=== PATIENT | female | born 1980 | race Caucasian/White ===

== ENCOUNTER 2016-01-12 09:41 | Outpatient (RCR) | payer OTHER ==
--- NOTE | 2016-01-05 14:19 | Diagnostic Imaging Report ---
INDICATION: Chronic hypertension with . COMPARISON: None. DISCUSSION: Transabdominal sonographic evaluation of the gravid uterus was performed. Single live intrauterine at 40 weeks 0 days by today's sonographic measurements. EDC by today's ultrasound is 01/05/2016. Reportedly, expected gestational age is 36 weeks 4 days by an outside ultrasound; however, those images are not available for review. EDC by this reported ultrasound was 01/29/2016. This would account for a 4-week date discrepancy. Recommend clinical correlation. presentation is cephalic. Normal amniotic fluid index. Grade 2 placenta is located within the right aspect of the uterus with no placenta previa. heart rate measures 136 beats per minute. Biparietal diameter measures 10.1 cm. Head circumference measures 37.0 cm. Abdominal circumference measures 35.9 cm. Femur length measures 7.5 cm. No breathing was identified during this exam. Normal movement and posture and tone along with a normal amniotic fluid index of 7.7 cm was present for a biophysical profile score of 6/8. IMPRESSION: 1. Single live intrauterine at 40 weeks 0 days by today's sonographic measurements. The technologist did report that an outside ultrasound report stated the expected gestational age was 36 weeks 4 days. Recommend clinical correlation for this date discrepancy. 2. Abnormal biophysical profile score of 6/8 due to a lack of breathing movement. Dictated by: Dictated on workstation # [id number]
[~2016-01-12 09:41] MED LIST: CLIN150C17; HYDR-3812 PO; PREN-115 PO; TRAM50TA2
--- NOTE | 2016-01-12 14:47 | Diagnostic Imaging Report ---
EXAMINATION: OB ultrasound/biophysical profile. INDICATION: Hypertension. FINDINGS: position is cephalic. The placenta is at the right with no placenta previa. Amniotic fluid index is near the lower limits of normal at 7.6 cm. heart rate is 140 bpm. Biophysical profile parameters meet criteria and is normal at total score of 8 out of 8. The growth parameters are: biparietal diameter measuring 10.3 cm, at 3.9 standard deviations above the mean for the patient's gestational age of 37 weeks and 4 days, head circumference is at 36 cm at 2.2 standard deviations above gestational age. The abdominal circumference is at 40 weeks and femur length is at 41 weeks and 2 days. Estimated weight is 4.2 kg. IMPRESSION: The amniotic fluid index is at the lower limits of normal. The fetus is large for gestational age with estimated current weight around 4.2 kg. The findings on this exam were called by the mechatronics technologist to Dr. Lenz at 11:00 AM on the day of the scan. Dictated by: Dictated on workstation # [id number]
[2016-01-17] MEDS ORDERED: FAMO-119 PO (21:37)
[2016-01-20] MEDS ORDERED: FERR-74 PO (08:13)
[2016-01-20] MEDS ORDERED: HYDR-3812 PO (08:13)
[2016-01-20] MEDS ORDERED: IBUP-1773 PO (08:13)
[2016-01-20] MEDS ORDERED: DOCU100C37 PO (08:13)
[2016-02-13] MEDS ORDERED: HYDR-3812 PO (17:32)
[2016-02-13] MEDS ORDERED: CLIN300C11 PO (17:32)
[2016-02-13] MEDS ORDERED: NITR-65 PO (17:38)
== END 2016-04-04 | disposition home or self-care (01) ==
LOC: RAD 09:41
PROVIDERS: ATTEND Obstetrics & Gynecology
DX: O10.013 Pre-existing essential hypertension complicating pregnancy, third trimester (principal); Z3A.40 40 weeks gestation of pregnancy
CPT/HCPCS: 76805; 76819

== ENCOUNTER 2016-06-01 05:40 | Outpatient (CLI) | payer OTHER ==
[~2016-06-01] VITALS: Ht 167.6 cm; Wt 88.9 kg
[~2016-06-01 05:40] MED LIST changes: +CLIN300C11 PO; +DOCU100C37 PO; +FAMO-119 PO; +FERR-74 PO; +IBUP-1773 PO; +NITR-65 PO
[2016-06-01] MEDS ORDERED: METO-270 PO (13:41)
== END 2016-06-01 13:44 ==
LOC: PREOP 05:40
PROVIDERS: ATTEND Surgery
DX: Z01.818 Encounter for other preprocedural examination (principal); K62.5 Hemorrhage of anus and rectum

== ENCOUNTER → 2016-06-06 | Day surgery (SDC) | payer OTHER ==
[~2016-06-06] VITALS: Ht 167.6 cm; Wt 88.9 kg
[~2016-06-06] MED LIST changes: +METO-270 PO; +MIDAZOLAM 2 MG/2 ML (VERSED) VIAL ONE; +NS IV 1000 ML 1,000 ML IV STA; +PROPOFOL INJECTION 50 ML IV ONE
[2016-06-06 11:50] VITALS: BP 120/81
--- NOTE | 2016-06-06 13:36 | Progress Note-Pre Operative ---
Pre-Operative Progress Note H&P Reviewed The H&P was reviewed, patient examined and no changes noted. Date H&P Reviewed: Jun 06, 2016 Time H&P Reviewed: 13:33 Pre-Operative Diagnosis: rectal bleed TATIANA VELÁSQUEZ DO Jun 06, 2016 13:36
--- NOTE | 2016-06-06 14:06 | Progress Note-Post Operative ---
Post-Operative Progess Note Surgeon (s)/Brass Molder Helper (s) Surgeon TATIANA VELÁSQUEZ DO Brass Molder Helper: none Pre-Operative Diagnosis rectal bleed Post-Operative Diagnosis same + internal hemorrhoids Post-Op Procedure Note Date of Procedure: Jun 06, 2016 Name of Procedure Performed: colonoscopy Description of the Procedure: colonoscopy Findings of the Procedure internal hemorrhoids Anesthesia Type IV by LOCK FITTER Estimated blood loss (mL): none Specimen(s) collected/removed none TATIANA VELÁSQUEZ DO Jun 06, 2016 14:06
--- NOTE | 2016-06-06 14:09 | Endoscopy Discharge Instruct ---
Endo Procedure/Findings Findings 1.: Internal Hemorrhoids Discharge Instructions - Activity: You might feel a little sleepy until tomorrow. This is due to the medicine you received to relax you. Make appointment for one week. Until tomorrow, you should: NOT drive a car, operate machinery or power tools. NOT drink any alcoholic beverages. NOT make any important decisions or sign importortant papers. Do not return to work until tomorrow, unless otherwise instructed. Resume previous activities tomorrow. Diet: Start by taking liquids. If you tolerate liquids, advance to solid food. Instructions: 1.: Colonscopy in 10 years Notify Physician - If you experience excessive bleeding, unusual abdominal pain, fever, or chest pain, contact your doctor immediately. Phone number [phone] Follow-Up: - I have received and understand the above instructions and will call my doctor if I have any further questions. Patient Signature Date Nurse Signature Other (Relationship) TATIANA VELÁSQUEZ DO Jun 06, 2016 14:09
[2016-06-06 14:25] VITALS: BP 111/62
[2016-06-06 14:55] VITALS: BP 95/68
[2016-06-06 15:00] VITALS: BP 95/68
--- NOTE | 2016-06-15 12:11 | OPERATIVE REPORT ---
DATE OF SERVICE: 06/06/2016 PREOPERATIVE DIAGNOSIS: Rectal bleeding, abdominal pain. POSTOPERATIVE DIAGNOSIS: Rectal bleeding, abdominal pain and internal hemorrhoids. PROCEDURE: Colonoscopy. SURGEON: Bryce Krause DO BODY SERVICE TEAM MEMBER: None. ANESTHESIA: IV sedation by TRIMMER OPERATOR. BLOOD LOSS: None. FLUIDS: Per Anesthesia. POSTOPERATIVE CONDITION: Stable. SPECIMENS: None. INDICATION FOR PROCEDURE: The patient is a 35-year-old who has been having some rectal bleeding and some abdominal pain, and she needs a workup. FINDINGS: The patient had some internal hemorrhoids, but otherwise normal colonoscopy. PROCEDURE NOTE: After informed consent was obtained, the patient was brought to the endoscopy suite and placed on the bed in the left lateral decubitus position. She was administered IV sedation. During the case, the TRIMMER OPERATOR monitored her vitals. The scope was inserted and pushed all the way in to about 140 cm; it went all the way to the cecum. I took a picture of the appendiceal orifice, then able to get into the terminal ileum. Took a picture, and then slowly withdrew the scope, insufflating to look circumferentially at the whitlock, looking at the cecum, up the ascending colon to the hepatic flexure, then down the transverse colon to the splenic flexure, then into the descending colon and down into the sigmoid and then rectum. Retroflexed in the rectal vault, saw some internal hemorrhoids, took a picture of this and then removed the scope. The patient tolerated the procedure and transferred to the recovery room in stable condition. Job ID: [id number] DocumentID: [id number] Dictated Date: 06/06/2016 14:10:05 Senior Design Engineer Date: 06/06/2016 15:45:00 Dictated By: BRYCE KRAUSE DO [facility]
== END | disposition home or self-care (01) ==
LOC: ENDO 10:55
PROVIDERS: ATTEND Surgery
DX: K64.8 Other hemorrhoids (principal); K62.5 Hemorrhage of anus and rectum
CPT/HCPCS: 84703

== ENCOUNTER → 2018-07-23 | Outpatient (CLI) | payer BC, OTHER ==
[~2018-07-23] MED LIST changes: +ACHD5005 PO; -FERR-74 PO; +FERR325T18 PO; -HYDR-3812 PO; -METO-270 PO; +METO-387 PO; -MIDAZOLAM 2 MG/2 ML (VERSED) VIAL ONE; -NS IV 1000 ML 1,000 ML IV STA; -PROPOFOL INJECTION 50 ML IV ONE
--- NOTE | 2018-07-23 13:09 | Diagnostic Imaging Report ---
INDICATION: Routine screening. COMPARISON: No prior mammograms are available for comparison. TECHNIQUE: 2D and 3D bilateral screening mammography was performed with CAD. FINDINGS: Scattered fibroglandular densities are identified bilaterally. No mass or malignant appearing microcalcifications are seen. The axillae are unremarkable. IMPRESSION: No mammographic features suspicious for malignancy are identified. ACR BI-RADS Category 1: Negative. Result letter will be mailed to the patient. Note: At least 10% of breast cancer is not imaged by mammography. Dictated by: Dictated on workstation # [id number]
== END ==
LOC: RAD 09:42
PROVIDERS: ATTEND Family Medicine
DX: Z12.31 Encounter for screening mammogram for malignant neoplasm of breast (principal)
CPT/HCPCS: 77067

== ENCOUNTER 2018-11-13 09:23 | Emergency (ER) | payer BC ==
[~2018-11-13] VITALS: Ht 165 cm; Wt 90.0 kg
[2018-11-13] MEDS ORDERED: FAMOTIDINE 20MG/2ML IV (PEPCID) IV STA (09:40)
[2018-11-13] MEDS ORDERED: LIDOCAINE 2% VISCOUS 15 ML UDC PO ONE (09:45)
[2018-11-13] MEDS ORDERED: ANTACID SUSP 30 ML UDC (MYLANTA) PO ONE (09:45)
[2018-11-13 09:54] LABS: BASOPHILS # (AUTO) 0.1 10^3/uL (0.0-0.1); BASOPHILS % (AUTO) 1 % (0-10); EOSINOPHILS # (AUTO) 0.3 10^3/uL (0.0-0.3); EOSINOPHILS % (AUTO) 4 % (0-10); HEMATOCRIT 41 % (35-52); HEMOGLOBIN 13.7 G/DL (11.5-16.0); LYMPHOCYTES % (AUTO) 26 % (12-44); MEAN CORPUSCULAR HEMOGLOBIN 30 PG (25-34); MEAN CORPUSCULAR HGB CONC 33 G/DL (32-36); MEAN CORPUSCULAR VOLUME 89 FL (80-99); MEAN PLATELET VOLUME 9.8 FL (7.4-10.4); MONOCYTES # (AUTO) 0.6 X 10^3 (0.0-1.0); MONOCYTES % (AUTO) 8 % (0-12); NEUTROPHILS # (AUTO) 4.8 X 10^3 (1.8-7.8); NEUTROPHILS % (AUTO) 62 % (42-75); PLATELET COUNT 341 10^3/uL (130-400); RED CELL DISTRIBUTION WIDTH 13.1 % (10.0-14.5); WHITE BLOOD COUNT 7.7 10^3/uL (4.3-11.0)
[2018-11-13 10:05] LABS: INR 0.8 (0.8-1.4); PROTHROMBIN TIME PATIENT 11.8 SEC (12.2-14.7)
[2018-11-13 10:10] LABS: ALANINE AMINOTRANSFERASE 29 U/L (0-55); ALBUMIN 4.3 GM/DL (3.2-4.5); ALKALINE PHOSPHATASE 104 U/L (40-136); BILIRUBIN,TOTAL 0.2 MG/DL (0.1-1.0); BUN/CREATININE RATIO 14; CALCIUM 9.3 MG/DL (8.5-10.1); CARBON DIOXIDE 24 MMOL/L (21-32); CHLORIDE 108 MMOL/L (98-107); CREATININE SERUM 0.76 MG/DL (0.60-1.30); GFR ESTIMATED > 60; GLUCOSE 94 MG/DL (70-105); MAGNESIUM 2.1 MG/DL (1.6-2.4); POTASSIUM 3.7 MMOL/L (3.6-5.0); SODIUM 140 MMOL/L (135-145); TOTAL PROTEIN 7.5 GM/DL (6.4-8.2)
--- NOTE | 2018-11-13 10:18 | Diagnostic Imaging Report ---
INDICATION: Chest discomfort for 2 weeks. Time of exam: 10:11 AM Correlation is made with prior chest from 02/13/2016. The heart size is normal. The pulmonary vascularity is unremarkable. The lungs are clear. No infiltrate, effusion or pneumothorax is detected. Impression: No acute cardiopulmonary process is detected. Dictated by: Dictated on workstation # [id number]
[2018-11-13] MEDS ORDERED: SUCR1TAB36 PO (12:05)
--- NOTE | 2018-11-13 12:05 | ED Chest Pain ---
General Chief Complaint: Chest Pain Stated Complaint: CHEST DISCOMFORT Nursing Triage Note: AMBULATED TO ROOM 05 WITH COMPLAINTS OF CHEST DISCOMFORT ON AND OFF FOR TWO WEEKS. CALLED HER DR'S OFFICE WHO TOLD HER TO COME TO THE ER. Nursing Sepsis Screen: No Definite Risk Source: patient Exam Limitations: no limitations History of Present Illness Date Seen by Provider: Nov 13, 2018 Time Seen by Provider: 09:28 Initial Comments This 38-year-old woman presents to the emergency room with complaints of intermittent chest pain for the past couple of weeks. Pain this morning started at about 07:30. She states pain is now rated as 3/10. She does have a history of epigastric and chest discomfort related to acid reflux. Sometimes this reflux well even cause discomfort in her throat. Protonix usually helps this discomfort but has not in recent days. She denies any changes in her pain with activity, rest, and deep breathing, etc. Pain is sometimes better with activity. She does not smoke tobacco. She does have a family history of heart disease. Dr. Cintron is her primary care provider. Allergies and Home Medications Allergies Coded Allergies: cephalexin (Verified Allergy, Intermediate, RASH/THROAT CLOSED, 06/01/16) Penicillins (Verified Allergy, Unknown, 06/01/16) Sulfa (Sulfonamide Antibiotics) (Verified Allergy, Unknown, 06/01/16) ciprofloxacin (Verified Allergy, Unknown, 06/01/16) Home Medications Metoprolol Succinate 25 Mg Tab.er.24h, 25 MG PO DAILY, (Reported) Sucralfate 1 Gm Tablet, 1 GM PO QID Dissolve in about 10 ML of water to slurry. Take 30 minutes before meals and bedtime. Prescribed by: LANDRY LANZA on 11/13/18 1205 Patient Home Medication List Home Medication List Reviewed: Yes Review of Systems Review of Systems Constitutional: no symptoms reported EENTM: No Symptoms Reported Respiratory: No Symptoms Reported Cardiovascular: See HPI Gastrointestinal: See HPI Genitourinary: No Symptoms Reported Musculoskeletal: no symptoms reported Skin: no symptoms reported Psychiatric/Neurological: No Symptoms Reported Endocrine: No Symptoms Reported Hematologic/Lymphatic: No Symptoms Reported Past [id number]-Alxjli-Vtkbmo Hx Past Med/Social Hx: Reviewed and Corrections made Patient Social History Alcohol Use: Occasionally Uses Recreational Drug Use: No Smoking Status: Never a Smoker Recent Foreign Travel: No Contact w/Someone Who Travel: No Recent Infectious Disease Expo: No Recent Hopitalizations: No Immunizations Up To Date Tetanus Booster (TDap): Less than 5yrs Date of Influenza Vaccine: Dec 22, 2015 Seasonal Allergies Seasonal Allergies: Yes Past Medical History Surgeries: Yes ([place]eth, BIOPSY OF BREAST) Abdominal (colonoscopy), Breast (lumpectomy) Respiratory: No Cardiac: Yes High Cholesterol, Hypertension Neurological: No Reproductive Disorders: No Female Reproductive Disorders: Denies Sexually Transmitted Disease: No HIV/AIDS: No Gastrointestinal: Yes (RECTAL BLEEDING/ABDOMINAL PAIN) Chronic Constipation, Chronic Diarrhea Musculoskeletal: No Endocrine: No Loss of Vision: Denies Hearing Impairment: Denies Cancer: No Psychosocial: Yes Anxiety Integumentary: No Blood Disorders: No Adverse Reaction/Blood Tranf: No (N/A) Family Medical History Reviewed and Corrections made Abdominal aortic aneurysm Grandparents (Maternal Grandmother ?) Alzheimer's disease Grandparents (Paternal Grandmother) Arthritis Grandparents (Paternal Grandmother Maternal Grandfather) Asthma 19 MOTHER Cardiovascular disease Grandparents (Paternal Grandfather-Heart Cancer) Completed stroke Grandparents (Paternal Grandfather) Coronary thrombosis Grandparents (Paternal Grandfather) Deafness or hearing loss Grandparents (Paternal Grandmother) Diabetes mellitus 19 FATHER FH: asthma Headache disorder 19 MOTHER (Migraines) Hypercholesterolemia 19 FATHER 19 MOTHER Grandparents (Paternal Grandparents Maternal Grandparents) Hypertension 19 FATHER Grandparents (Paternal Grandfather Maternal Grandparents) Myocardial infarction Grandparents (Paternal Grandfather Maternal Grandmother) Neoplasm Grandparents (Paternal Grandfather) Heart Disease, CAD Under 55 Years Old (mother), Hypertension Physical Exam Vital Signs Vital Signs - First Documented 11/13/18 09:30 Temp 37.1 Pulse 103 Resp 16 B/P (MAP) 144/102 (116) Pulse Ox 100 O2 Delivery Room Air Capillary Refill : Less Than 3 Seconds Height, Weight, BMI Height: 5'6.00" Weight: 196lbs. 0.0oz. 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, 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 Norm as Tested Skin: Normal Color, Warm/Dry Progress/Results/Core Measures Results/Orders Lab Results Laboratory Tests Test 11/13/18 09:43 11/13/18 11:55 Range/Units White Blood Count 7.7 4.3-11.0 10^3/uL Red Blood Count 4.62 4.35-5.85 10^6/uL Hemoglobin 13.7 11.5-16.0 G/DL Hematocrit 41 35-52 % Mean Corpuscular Volume 89 80-99 FL Mean Corpuscular Hemoglobin 30 25-34 PG Mean Corpuscular Hemoglobin Concent 33 32-36 G/DL Red Cell Distribution Width 13.1 10.0-14.5 % Platelet Count 341 130-400 10^3/uL Mean Platelet Volume 9.8 7.4-10.4 FL Neutrophils (%) (Auto) 62 42-75 % Lymphocytes (%) (Auto) 26 12-44 % Monocytes (%) (Auto) 8 0-12 % Eosinophils (%) (Auto) 4 0-10 % Basophils (%) (Auto) 1 0-10 % Neutrophils # (Auto) 4.8 1.8-7.8 X 10^3 Lymphocytes # (Auto) 2.0 1.0-4.0 X 10^3 Monocytes # (Auto) 0.6 0.0-1.0 X 10^3 Eosinophils # (Auto) 0.3 0.0-0.3 10^3/uL Basophils # (Auto) 0.1 0.0-0.1 10^3/uL Prothrombin Time 11.8 L 12.2-14.7 SEC INR Comment 0.8 0.8-1.4 Activated Partial Thromboplast Time 32 24-35 SEC Sodium Level 140 135-145 MMOL/L Potassium Level 3.7 3.6-5.0 MMOL/L Chloride Level 108 H 98-107 MMOL/L Carbon Dioxide Level 24 21-32 MMOL/L Anion Gap 8 5-14 MMOL/L Blood Urea Nitrogen 11 7-18 MG/DL Creatinine 0.76 0.60-1.30 MG/DL Estimat Glomerular Filtration Rate > 60 BUN/Creatinine Ratio 14 Glucose Level 94 70-105 MG/DL Calcium Level 9.3 8.5-10.1 MG/DL Corrected Calcium 9.1 8.5-10.1 MG/DL Magnesium Level 2.1 1.6-2.4 MG/DL Total Bilirubin 0.2 0.1-1.0 MG/DL Aspartate Amino Transf (AST/SGOT) 40 H 5-34 U/L Alanine Aminotransferase (ALT/SGPT) 29 0-55 U/L Alkaline Phosphatase 104 40-136 U/L Myoglobin 24.5 10.0-92.0 NG/ML Troponin I < 0.028 < 0.028 <0.028 NG/ML Total Protein 7.5 6.4-8.2 GM/DL Albumin 4.3 3.2-4.5 GM/DL My Orders Orders - LANDRY ROMERO MD Ekg Tracing (11/13/18 09:27) Cbc With Automated Diff (11/13/18 09:40) Magnesium (11/13/18 09:40) Chest 1 View, Ap/Pa Only (11/13/18 09:40) Cardiac Profile 1 (11/13/18 09:40) Comprehensive Metabolic Panel (11/13/18 09:40) Myoglobin Serum (11/13/18 09:40) Protime With Inr (11/13/18 09:40) Partial Thromboplastin Time (11/13/18 09:40) O2 (11/13/18 09:40) Monitor-Rhythm Ecg Trace Only (11/13/18 09:40) Ed Iv/Invasive Line Start (11/13/18 09:40) Lidocaine 2% Viscous 15 Ml (Xylocaine Vi (11/13/18 09:45) Antacid Suspension (Mylanta Suspension (11/13/18 09:45) Famotidine Injection (Pepcid Injection) (11/13/18 09:40) Troponin I (11/13/18 11:45) Iv Push Escalator Service Mechanic Ed (11/13/18 ) Medications Given in ED Vital Signs/I&O 11/13/18 11/13/18 09:30 12:49 Temp 37.1 Pulse 103 89 Resp 16 16 B/P (MAP) 144/102 (116) 147/107 Pulse Ox 100 98 O2 Delivery Room Air Room Air Blood Pressure Mean: 116 Progress Progress Note #1: Time: 12:00 Progress Note Patient does state a significant improvement in her chest discomfort after taking the GI cocktail and Pepcid. Initial workup was unremarkable. A 2 hour troponin is now pending. Progress Note #2: Progress Note 2 hour troponin was negative. Patient was feeling improved. Pain from a life- threatening etiology is unlikely. Patient was discharged home with return and follow-up instructions. Initial ECG Impression Date: Nov 13, 2018 Initial ECG Impression Time: 09:30 Initial ECG Rate: 101 Initial ECG Rhythm: S.Tach Initial ECG Intervals: Normal Comment Mild sinus tachycardia. No ST elevation or depression. No abnormal intervals or axis deviation. Diagnostic Imaging Diagonstic Imaging: Xray Plain Films/CT/US/NM/MRI: chest Comments Chest x-ray viewed by me and report reviewed. See report below: NAME: [facility] REC#: [id number] PT STATUS: REG ER : 1980 PHYSICIAN: LANDRY ROMERO MD ADMIT DATE: 11/13/18/ER Draft Date of Exam:11/13/18 CHEST 1 VIEW, AP/PA ONLY INDICATION: Chest discomfort for 2 weeks. Time of exam: 10:11 AM Correlation is made with prior chest from 02/13/2016. The heart size is normal. The pulmonary vascularity is unremarkable. The lungs are clear. No infiltrate, effusion or pneumothorax is detected. Impression: No acute cardiopulmonary process is detected. Dictated on workstation # [id number] Dict: 11/13/18 1016 Trans: 11/13/18 1017 ALIS [id number] Interpreted by: JAMAAL HESTER MD Departure Impression Primary Impression: Atypical chest pain Disposition: 01 HOME, SELF-CARE Condition: Improved Departure-Patient Inst. Referrals: ANTHONY CINTRON DO (PCP/Family) Primary Care Physician Patient Instructions: Chest Pain (DC) Add. Discharge Instructions: Continue taking your pantoprazole daily. Add Carafate as prescribed. Follow-up with your primary care provider as soon as possible. If you have p ersistent pain related to acid reflux, consider seeking referral to a surgeon or package crimper for endoscopy. Avoid the following: Eating large meals, eating close to bedtime, caffeine, carbonation, chocolate, alcohol, citrus fruits or juices, mints, tomato products, tobacco, spicy foods, fatty or greasy foods, NSAID medications such as ibuprofen or naproxen, or anything else you know irritate your stomach. Elevating your head when you sleep sometimes helps as well as this enables gravity to work against acid reflux. Weight loss to reduce pressure on your stomach can also be helpful. Return to care if you have worsening symptoms despite these measures. All discharge instructions reviewed with patient and/or family. Voiced understanding. Scripts Sucralfate (Carafate) 1 Gm Tablet 1 GM PO QID, #120 TAB Dissolve in about 10 ML of water to slurry. Take 30 minutes before meals and bedtime. Prov: LANDRY ROMERO MD 11/13/18 Copy Copies To 1: ANTHONY CINTRON JOSHUA T MD Nov 13, 2018 12:05
[2018-11-13 12:49] VITALS: BP 147/107
== END 2018-11-13 12:49 | disposition home or self-care (01) ==
LOC: EDUNIT# 09:23 → ER 09:23
DX: R07.89 Other chest pain (principal); Z88.0 Allergy status to penicillin; Z88.1 Allergy status to other antibiotic agents; Z88.2 Allergy status to sulfonamides; Z82.49 Family history of ischemic heart disease and other diseases of the circulatory system
CPT/HCPCS: 36415; 71045; 80053; 83735; 83874; 84484; 85025; 85610; 85730; 93005; 93041; 96374

== ENCOUNTER → 2018-12-10 | Outpatient (CLI) | payer BC ==
[~2018-12-10] MED LIST changes: -METO-387 PO; +MTP25TSR PO; +SUCR1TAB36 PO; -TRAM50TA2; +TRM50T
== END | disposition home or self-care (01) ==
LOC: PREOP 06:31
PROVIDERS: ATTEND Surgery
DX: Z01.818 Encounter for other preprocedural examination (principal)

== ENCOUNTER 2019-10-02 17:06 | Emergency (ER) | payer BC ==
[~2019-10-02] VITALS: Ht 167 cm; Wt 93.0 kg
--- OUTSIDE RECORDS SUMMARY | 2019-10-02 17:20 | XMS REPORT | CCD ---
Author Author Catherine Cintron D.O. Organization [facility] Address [address] [place] [address] Phone Care Team Providers Care Undercoat Sprayer Name Role Phone Ritika Cintron D.O., PP Unavailable CCM Unavailable Summary Purpose Interface Exchange Insurance Providers Payer name Policy type / Coverage type Covered democrat ID Effective Begin Date Effective End Date Blue Cross Blue Shield Blue Cross/Blue Shield [id number] Unknown Family history Mother Diagnosis Age At Onset No Family Disease Entered N/A Father Diagnosis Age At Onset Diabetes mellitus Type 1 Unknown Social History Social History Element Codes Description Effective Dates Tobacco history SNOMED CT: 485469521 Has never smoked or chewed tobacco 09/01/2010 Marital status Unknown 08/18/2010 Number of children Unknown 1 08/18/2010 Employment Unknown Currently employed Names and Numbers 08/18/2010 Allergies, Adverse Reactions, Alerts Substance Reaction Codes Entered Date Inactivated Date Status * NO KNOWN FOOD ALLERGIES Unknown 08/18/2010 No Inactiv e Date Active CIPRO Unknown 08/18/2010 No Inactive Date Active PENICILLINS Unknown 08/18/2010 No Inactive Date Active SULFA (SULFONAMIDES) Unknown 08/18/2010 No Inactive Shamar e Active * NO KNOWN ENVIRONMENTAL ALLERGIES Unknown 08/18/2010 N o Inactive Date Active CEPHALOSPORINS Unknown 08/18/2010 No Inactive Date Acti ve Problems Condition Codes Effective Dates Condition Status Encounter for general adult medical examination withou t abnormal findings ICD-9: V70.9 ICD-10: Z00.00 09/06/2016 Active Essential (primary) hypertension ICD-9: 401.9 ICD-10: I10 04/28/2016 Active Major depressive disorder, single episode, unspecified ICD-9: 311 ICD-10: F32.9 04/28/2016 Active Gastro-esophageal reflux disease without esophagitis I CD-9: 530.81 ICD-10: K21.9 01/03/2017 Active Generalized anxiety disorder ICD-9: 300.00 ICD-10: F41.1 02/08/2018 Active FLU VACCINE ICD-9: V04.81 ICD-10: Z23 01/02/2018 Active Epigastric pain ICD-9: 789.06 ICD-10: R10.13 01/03/2017 Active Elevated blood-pressure reading, without diagnosis of hypertension ICD-9: 796.2 ICD-10: R03.0 07/21/2014 Active Localized edema ICD-9: 782.3 ICD-10: R60.0 05/24/2018 Active Acute gastritis with bleeding ICD-9: 535.01 ICD-10: K29.01 08/13/2018 Active Generalized abdominal pain ICD-9: 789.07 ICD-10: R10.84 08/13/2018 Active Encounter for screening mammogram for malignant neopla sm of breast ICD-9: V76.10 ICD-10: Z12.31 07/17/2018 Active Allergic rhinitis, unspecified ICD-9: 477.9 ICD-10: J30.9 06/11/2015 Active Other allergic rhinitis ICD-9: 477.8 ICD-10: J30.89 04/27/2017 Active Encounter for gynecological examination (general) (routine) without abnormal findings ICD-9: V72.31 ICD-10: Z01.419 02/08/2018 Active Excessive and frequent menstruation with regular cycle ICD-9: 626.2 ICD-10: N92.0 10/31/2016 Active Acute sinusitis, unspecified ICD-9: 461.9 ICD-10: J01.90 12/11/2017 Active Acute pharyngitis, unspecified ICD-9: 462 ICD-10: J02.9 11/30/2017 Active Low back pain ICD-9: 724.2 ICD-10: M54.5 01/03/2017 Active Pelvic and perineal pain ICD-9: 625.9 ICD-10: R10.2 10/13/2017 Active Endocrine disorder, unspecified ICD-9: 259.9 ICD-10: E34.9 09/05/2017 Active Vitamin D deficiency, unspecified ICD-9: 268.9 ICD-10: E55.9 09/05/2017 Active Encounter for other contraceptive management ICD-9: V2 5.8 ICD-10: Z30.8 04/27/2017 Active Pain in thoracic spine ICD-9: 724.1 ICD-10: M54.6 01/03/2017 Active Anemia Unknown 09/06/2016 Active Encounter for general adult medical examination with a bnormal findings ICD-9: V70.0 ICD-10: Z00.01 09/06/2016 Active Generalized hyperhidrosis ICD-9: 780.8 ICD-10: R61 09/06/2016 Active Iron deficiency anemia, unspecified ICD-9: 280.9 ICD-10: D50.9 09/06/2016 Active Other fatigue ICD-9: 780.79 ICD-10: R53.83 09/06/2016 Active Hypertension Unknown 05/18/2016 Active Acute vaginitis ICD-9: 616.10 ICD-10: N76.0 04/28/2016 Active Nonscarring hair loss, unspecified ICD-9: 704.00 ICD-10: L65.9 04/28/2016 Active Urinary tract infection, site not specified ICD-9: 599 .0 ICD-10: N39.0 04/28/2016 Active Atypical facial pain ICD-9: 350.2 ICD-10: G50.1 09/09/2015 Active Other specified disorders of teeth and supporting stru ctures ICD-9: 525.9 ICD-10: K08.8 09/09/2015 Active CHEST PAIN NOS ICD-9: 786.50 11/03/2014 Active GERD ICD-9: 530.81 11/03/2014 Active EDEMA ICD-9: 782.3 07/21/2014 Active Elevated blood pressure ICD-9: 796.2 07/21/2014 Active PALPITATIONS ICD-9: 785.1 07/21/2014 Active COUGH ICD-9: 786.2 04/02/2014 Active SINUSITIS, ACUTE ICD-9: 461.9 04/02/2014 Active Cervicalgia ICD-9: 723.1 03/20/2014 Active Thoracic back pain ICD-9: 724.1 03/20/2014 Active EXCESSIVE MENSTRUATION ICD-9: 626.2 02/18/2014 Active IBS ICD-9: 564.1 02/18/2014 Active HYPERLIPIDEMIA NEC/NOS ICD-9: 272.4 10/01/2013 Active URINARY TRACT INFECTION ICD-9: 599.0 10/01/2013 Active ABNORMAL WEIGHT GAIN ICD-9: 783.1 09/12/2013 Active ARTHRALGIA-MULTIPLE SITES ICD-9: 719.49 09/12/2013 Active MALAISE AND FATIGUE ICD-9: 780.79 09/12/2013 Active FLU VACCINE ICD-9: V04.81 01/08/2013 Active CELLULITIS ICD-9: 682.9 12/03/2012 Active MRSA (methicillin resistant Staphylococcus aureus) ICD-9: 041.12 12/03/2012 Active Skin lesion, infected ICD-9: 686.9 12/03/2012 Active FEBRILE ILLNESS ICD-9: 780.60 04/03/2012 Active CONJUNCTIVITIS NOS ICD-9: 372.30 07/29/2011 Active URI, ACUTE ICD-9: 465.9 07/29/2011 Active CELLULITIS OF HAND ICD-9: 682.4 04/28/2011 Active Vaginal itching ICD-9: 698.1 03/07/2011 Active Scratched by cat ICD-9: 919.8 11/10/2010 Active Skin lesion of face ICD-9: 709.9 11/10/2010 Active ROUTINE GYNE EXAM ICD-9: V72.31 08/18/2010 Active ROUTINE MEDICAL EXAM ICD-9: V70.0 08/18/2010 Active Weight loss, abnormal ICD-9: 783.21 08/18/2010 Active Medications Medication Codes Instructions Start Date Stop Date Status Fill Instructions spironolactone 50 mg tablet RxNorm: 379621 Tablet(s) 1 TABLET(S ) PO QAM 07/25/2019 01/21/2020 Active sertraline 50 mg tablet RxNorm: 135770 1 Tablet(s) Oral QD 1 TA BLET(S) PO QD 07/25/2019 01/20/2020 Active Tri-Sprintec (28) 0.18 mg(7)/0.215 mg(7)/0.25 mg(7)-35 mcg tablet RxNorm: 645995 TAKE 1 TABLET BY MOUTH EVERY DAY 07/25/2019 01/21/2020 Active Tri-Sprintec (28) 0.18 mg(7)/0.215 mg(7)/0.25 mg(7)-35 mcg tablet RxNorm: 033414 TAKE 1 TABLET BY MOUTH EVERY DAY 07/08/2019 07/24/2019 Inactive Tri-Sprintec (28) 0.18 mg(7)/0.215 mg(7)/0.25 mg(7)-35 mcg tablet RxNorm: 982197 1 Tablet(s) Oral QD Due for annual appt 06/12/2019 07/07/2019 I nactive Due for annual appointment Tri-Sprintec (28) 0.18 mg(7)/0.215 mg(7)/0.25 mg(7)-35 mcg tablet RxNorm: 489730 TAKE 1 TABLET BY MOUTH EVERY DAY 04/15/2019 06/11/2019 Inactive Zetia 10 mg tablet RxNorm: 125926 1 Tablet(s) Oral QD 01/08/201904/2019 Inactive Tri-Sprintec (28) 0.18 mg(7)/0.215 mg(7)/0.25 mg(7)-35 mcg tablet RxNorm: 280669 TABLET(S) 1 TABLET(S) PO QD 01/07/2019 04/14/2019 Inactive Nexium 40 mg capsule,delayed release RxNorm: 037104 1 Capsule(s ) Oral QD 11/14/2018 01/07/2019 Inactive metronidazole 500 mg tablet RxNorm: 851809 1 Tablet(s) Oral thr ee times a day 11/14/2018 11/14/2018 Inactive Bactrim DS 800 mg-160 mg tablet RxNorm: 541465 1 Tablet(s) Oral two times a day 11/14/2018 11/14/2018 Inactive sertraline 50 mg tablet RxNorm: 696969 1 Tablet(s) PO QD 1 TABL ET(S) PO QD 09/17/2018 03/15/2019 Inactive spironolactone 50 mg tablet RxNorm: 962223 Tablet(s) 1 TABLET(S ) PO QAM 09/17/2018 03/15/2019 Inactive sertraline 50 mg tablet RxNorm: 882162 1 TABLET(S) PO QD 09/10/2018 0 09/16/2018 Inactive Tri-Sprintec (28) 0.18 mg(7)/0.215 mg(7)/0.25 mg(7)-35 mcg tablet RxNorm: 153526 Tablet(s) 1 TABLET(S) PO QD 08/20/2018 01/06/2019 Inactive Protonix 40 mg tablet,delayed release RxNorm: 755273 1 Tablet(s ) PO BID 08/13/2018 11/13/2018 Inactive Flagyl 500 mg tablet RxNorm: 312629 1 Tablet(s) PO BID 08/13/2018 Inactive spironolactone 50 mg tablet RxNorm: 037219 1 TABLET(S) PO QAM 08/1309/16/2018 Inactive Tri-Sprintec (28) 0.18 mg(7)/0.215 mg(7)/0.25 mg(7)-35 mcg tablet RxNorm: 082430 1 TABLET(S) PO QD 06/18/2018 07/15/2018 Inactive sertraline 50 mg tablet RxNorm: 950180 1 Tablet(s) PO QD 06/07/2018 0 09/04/2018 Inactive prednisone 10 mg tablet RxNorm: 189886 1 Tablet(s) PO BID 05/30/2018 06/03/2018 Inactive Tri-Sprintec (28) 0.18 mg(7)/0.215 mg(7)/0.25 mg(7)-35 mcg tablet RxNorm: 584600 1 Tablet(s) PO QD 05/17/2018 06/13/2018 Inactive sertraline 50 mg tablet RxNorm: 705839 1 TABLET(S) PO QD 05/07/2018 0 06/05/2018 Inactive Tri-Sprintec (28) 0.18 mg(7)/0.215 mg(7)/0.25 mg(7)-35 mcg tablet RxNorm: 365605 1 Tablet(s) PO QD 02/08/2018 05/02/2018 Inactive sertraline 50 mg tablet RxNorm: 475230 1 Tablet(s) PO QD 02/08/2018 0 04/08/2018 Inactive omeprazole 40 mg capsule,delayed release RxNorm: 376855 1 Capsule(s) PO QD for acid reflux 02/08/2018 08/12/2018 Inactive montelukast 10 mg tablet RxNorm: 800425 1 Tablet(s) PO QHS 12/15/19 18 12/13/2017 Inactive montelukast 10 mg tablet RxNorm: 530246 1 Tablet(s) PO QHS 12/15/19 18 08/12/2018 Inactive spironolactone 50 mg tablet RxNorm: 132382 1 Tablet(s) PO QAM 12/0612/05/2017 Inactive spironolactone 50 mg tablet RxNorm: 983599 1 Tablet(s) PO QAM 12/0603/05/2018 Inactive spironolactone 25 mg tablet RxNorm: 183414 1 TABLET(S) PO QAM BLOOD PRESSURE CHECK IN 1 MONTH 12/04/2017 12/10/2017 Inactive clindamycin HCl 300 mg capsule RxNorm: 830005 1 Capsule(s) PO TID 1 12/09/2017 Inactive spironolactone 25 mg tablet RxNorm: 689336 1 Tablet(s) PO QAM Blood pressure check in 1 month 11/06/2017 12/03/2017 Inactive spironolactone 25 mg tablet RxNorm: 143944 1 Tablet(s) PO QAM Blood pressure check in 1 month 11/06/2017 11/05/2017 Inactive cyclobenzaprine 5 mg tablet RxNorm: 332098 1/2-1 Tablet(s) PO Q HS for spasm 10/13/2017 11/11/2017 Inactive Macrobid 100 mg capsule RxNorm: 590602 1 Capsule(s) PO BID 10/14/19 18 10/19/2017 Inactive Mobic 15 mg tablet RxNorm: 368429 1 Tablet(s) PO QAM for pain 10/1311/11/2017 Inactive Depo-Provera 150 mg/mL intramuscular syringe RxNorm: 1252453 Milliliter(s) IM Bring to office for administration 07/18/2017 02/07/2018 Inactive Singulair 10 mg tablet RxNorm: 211630 1 Tablet(s) PO QD 04/12/2017 Inactive Singulair 10 mg tablet RxNorm: 413451 1 Tablet(s) PO QD 03/20/2017 Inactive metoprolol tartrate 50 mg tablet RxNorm: 399191 1 Tablet(s) PO QD 0 02/21/2017 09/04/2017 Inactive Mobic 15 mg tablet RxNorm: 466721 1 Tablet(s) PO QD 01/30/20172017 Inactive Mobic 15 mg tablet RxNorm: 144965 1 Tablet(s) PO QD 01/03/20172016 Inactive Protonix 40 mg tablet,delayed release RxNorm: 003995 1 Tablet(s ) PO BID 01/03/2017 11/29/2017 Inactive metoprolol tartrate 50 mg tablet RxNorm: 703211 1 Tablet(s) PO QD 1 02/21/2017 Inactive Depo-Provera 150 mg/mL intramuscular syringe RxNorm: 2748056 Milliliter(s) IM Bring to office for administration 10/28/2016 07/17/2017 Inactive Depo-Provera 150 mg/mL intramuscular syringe RxNorm: 1758839 Milliliter(s) IM Bring to office for administration 10/10/2016 10/27/2016 Inactive Macrobid 100 mg capsule RxNorm: 904133 1 Capsule(s) PO BID 04/29/19 17 05/04/2016 Inactive metoprolol succinate ER 50 mg tablet,extended release 24 hr RxNorm: 274908 1 Tablet(s) PO QD 04/28/2016 07/26/2016 Inactive Diflucan 150 mg tablet RxNorm: 297376 1 Tablet(s) PO QD x 1 dose 09/05/2016 Inactive sertraline 25 mg tablet RxNorm: 924595 1/2 Tablet(s) PO QD for 1 week and then increase to 1 tablet PO QD 04/28/2016 09/05/2016 Inactive Toprol XL 50 mg tablet,extended release RxNorm: 189711 1 Tablet (s) PO QD 01/26/2016 04/27/2016 Inactive clindamycin 300 mg capsule RxNorm: 630046 1 Capsule(s) PO TID 09/0909/19/2015 Inactive omeprazole 20 mg capsule,delayed release RxNorm: 810365 1 Capsu le(s) PO QD 11/04/2014 04/27/2016 Inactive hydrochlorothiazide 12.5 mg tablet RxNorm: 832432 1 Tablet(s) PO QD 09/10/2014 04/27/2016 Inactive Aviane 0.1 mg-20 mcg tablet RxNorm: 326303 1 Tablet(s) PO QD 201404/27/2016 Inactive hydrochlorothiazide 12.5 mg tablet RxNorm: 865805 1 Tablet(s) PO QD 07/21/2014 09/09/2014 Inactive Zithromax Z-Kyle 250 mg tablet RxNorm: 070296 Tablet(s) PO As Di rected 07/21/2014 11/03/2014 Inactive tobramycin 0.3 % eye drops RxNorm: 473774 2 Drop(s) OPH Q4H 015 04/02/2014 Inactive tobramycin 0.3 % eye drops RxNorm: 840129 2 Drop(s) OPH Q4H 015 04/09/2014 Inactive azithromycin 250 mg tablet RxNorm: 191833 2 Tablet(s) P O on day one then one tablet on days 2 - 5 04/02/2014 11/03/2014 Inactive hyoscyamine ER 0.375 mg tablet,extended release,12 hr RxNorm : 2793572 1 Tablet(s) PO QHS 03/20/2014 11/03/2014 Inactive Levbid 0.375 mg tablet,extended release RxNorm: 4191002 1 Tablet (s) PO QHS 02/18/2014 03/19/2014 Inactive Aviane 0.1 mg-20 mcg tablet RxNorm: 683106 1 Tablet(s) PO QD 201308/27/2014 Inactive Diflucan 150 mg tablet RxNorm: 120574 1 Tablet(s) PO QOD 10/01/2013 1 Inactive Macrobid 100 mg capsule RxNorm: 957976 1 Capsule(s) PO BID 10/02/19 14 10/07/2013 Inactive clindamycin 300 mg capsule RxNorm: 742019 1 Capsule(s) PO TID 12/0312/12/2012 Inactive azithromycin 250 mg tablet RxNorm: 675066 2 Tablet(s) PO QD 013 04/08/2012 Inactive Zithromax Z-Kyle 250 mg tablet RxNorm: 296647 1 Tablet(s ) PO QD Take 2 today and 1 a day on days 2-5 03/30/2012 04/03/2012 Inactive Tobrex 0.3 % Eye Drops RxNorm: 355417 2 Drop(s) OPH Q4H 07/29/2011 Inactive doxycycline hyclate 100 mg Tab RxNorm: 7710408 1 Tablet(s) PO BID 0 04/28/2011 05/07/2011 Inactive Pyridium 200 mg Tab RxNorm: 7360535 1 Tablet(s) PO TID 03/07/2011 Inactive Macrobid 100 mg Cap RxNorm: 849908 1 Capsule(s) PO BID 03/07/2011 Inactive Diflucan 100 mg Tab RxNorm: 152974 1 Tablet(s) PO QD 03/07/201103/16 Inactive Benadryl 25 mg capsule RxNorm: 6584053 Capsule(s) PO as needed No Sta rt Date Active Vitamin B12 1000mcg Tablet RxNorm: 1/2 Tablet(s) PO QD No Star t Date 11/29/2017 Inactive Depo-Provera 150 mg/mL intramuscular syringe RxNorm: 3389710 Milliliter(s) IM Bring to office for administration No Start Date 10/09/2016 Inactive metoprolol tartrate 50 mg tablet RxNorm: 596328 1 Tablet(s) PO QD N o Start Date 11/22/2016 Inactive Zyrtec 10 mg tablet RxNorm: 3574710 1 Tablet(s) PO QD No Start Date 1 Inactive Sudafed PE 10 mg tablet RxNorm: 0476402 Tablet(s) PO as needed No S tart Date 09/04/2017 Inactive Toprol XL 50 mg tablet,extended release RxNorm: 982884 1 Tablet (s) PO QD No Start Date 01/25/2016 Inactive Depo-Provera 150 mg/mL intramuscular suspension RxNorm: 1000 128 1 Milliliter(s) IM every 3mos No Start Date 02/17/2014 Inactive Flonase Allergy Relief 50 mcg/actuation nasal spray,suspensi on RxNorm: [place] NASAL as needed No Start Date 11/29/2017 Inactive Zyrtec 10 mg tablet RxNorm: 9751671 1 Tablet(s) PO QD as needed No Start Date 05/23/2018 Inactive Medication Administered No Medication Administered data Immunizations Vaccine Codes Date Status Influenza CVX: 141 11/22/2018 Complete Influenza CVX: 141 11/22/2018 Complete Influenza CVX: 141 01/02/2018 Complete Influenza CVX: 141 01/08/2013 Pediatric Influenza CVX: 141 01/08/2013 Results Observation Observation Code Item Item Code Result Date S ervice Location COMPLETE BLOOD COUNT [id number] WBC 15.9 10e9/L 019 Unknown COMPLETE BLOOD COUNT [id number] RBC 5.10 10e12/L 2018 Unknown COMPLETE BLOOD COUNT [id number] HEMOGLOBIN 15.2 g/dL 08/14/19 19 Unknown COMPLETE BLOOD COUNT [id number] HEMATOCRIT 46.2 % 08/14/19 19 Unknown COMPLETE BLOOD COUNT [id number] MCV 90.6 fL 9 Unknown COMPLETE BLOOD COUNT [id number] MCH 29.8 pg 9 Unknown COMPLETE BLOOD COUNT [id number] MCHC 32.9 g/dL 9 Unknown COMPLETE BLOOD COUNT [id number] PLATELET COUNT 433 10e9/L Unknown COMPLETE BLOOD COUNT [id number] Mean Plt Volume 9.9 fL Unknown COMPLETE BLOOD COUNT [id number] Neut Auto 74.7 % 9 Unknown COMPLETE BLOOD COUNT [id number] Lymph Auto 18.6 % 08/14/19 19 Unknown COMPLETE BLOOD COUNT [id number] [place] Auto 5.8 % 9 Unknown COMPLETE BLOOD COUNT [id number] RDW 14.1 % 9 Unknown COMPLETE BLOOD COUNT [id number] Eos Auto 0.6 % 9 Unknown COMPLETE BLOOD COUNT [id number] Baso Auto 0.3 % 9 Unknown COMPLETE BLOOD COUNT [id number] Neutrophil Abs 11.88 10e9/L 0 08/13/2018 Unknown COMPLETE BLOOD COUNT [id number] Lymphocyte Abs 2.96 10e9/L Unknown COMPLETE BLOOD COUNT [id number] Monocyte Abs 0.92 10e9/L 07/22 Unknown COMPLETE BLOOD COUNT [id number] Eosinophil Abs 0.10 10e9/L Unknown COMPLETE BLOOD COUNT [id number] RDW-SD 45.7 fL 9 Unknown COMPLETE BLOOD COUNT [id number] Basophil Abs 0.05 10e9/L 07/22 Unknown A FOOD C P [id number] Cod[place] Cl Class 0 03/21/2017 Unknown A FOOD C P [id number] [place] Ct <0.35 kU/L 03/21/2017 Unknow n A FOOD C P [id number] [place] Cl Class 0 03/21/2017 Unkn own A FOOD C P [id number] [place] Ct <0.35 kU/L 03/21/2017 Unk nown A FOOD C P [id number] Egg White Cl Class 3 03/21/2017 Unkno wn A FOOD C P [id number] Egg White Ct 4.68 kU/L 03/21/2017 Unkno wn A FOOD C P [id number] Egg Yolk Cl Class 1 03/21/2017 Unknow n A FOOD C P [id number] Egg Yolk Ct 0.49 kU/L 03/21/2017 Unknow n A FOOD C P [id number] Cow Milk Cl Class 3 03/21/2017 Unknow n A FOOD C P [id number] Cow Milk Ct 3.77 kU/L 03/21/2017 Unknow n A FOOD C P [id number] Peanut Cl Class 0 03/21/2017 Unknown A FOOD C P [id number] Peanut Ct <0.35 kU/L 03/21/2017 Unknown A FOOD C P [id number] Shrimp Cl Class 2 03/21/2017 Unknown A FOOD C P [id number] Shrimp Ct 0.78 kU/L 03/21/2017 Unknown A FOOD C P [id number] Soybean Cl Class 0 03/21/2017 Unknown A FOOD C P [id number] Soybean Ct <0.35 kU/L 03/21/2017 Unknow n A FOOD C P [id number] Wheat Cl Class 1 03/21/2017 Unknown A FOOD C P [id number] Wheat Ct 0.58 kU/L 03/21/2017 Unknown A FOOD C P [id number] Potato Cl Class 0 03/21/2017 Unknown A FOOD C P [id number] Potato Ct <0.35 kU/L 03/21/2017 Unknown A FOOD C P [id number] Beef Cl Class 0 03/21/2017 Unknown A FOOD C P [id number] Beef Ct <0.35 kU/L 03/21/2017 Unknown A FOOD C P [id number] [place] Cl Class 0 03/21/2017 Unknown A FOOD C P [id number] [place] Ct <0.35 kU/L 03/21/2017 Unknown A FOOD C P [id number] Pork Cl Class 0 03/21/2017 Unknown A FOOD C P [id number] Pork Ct <0.35 kU/L 03/21/2017 Unknown A FOOD C P [id number] [place] Cl Class 0 03/21/2017 Unknown A FOOD C P [id number] [place] Ct <0.35 kU/L 03/21/2017 Unknown A FOOD C P [id number] [place] Cl Class 0 03/21/2017 Unkn own A FOOD C P [id number] [place] Ct <0.35 kU/L 03/21/2017 Unk nown A FOOD C P [id number] Tomato Cl Class 0 03/21/2017 Unknown A FOOD C P [id number] Tomato Ct <0.35 kU/L 03/21/2017 Unknown A FOOD C P [id number] Tuna Cl Class 0 03/21/2017 Unknown A FOOD C P [id number] Tuna Ct <0.35 kU/L 03/21/2017 Unknown A FOOD C P [id number] [place] CL Class 0 03/21/2017 Unknown A FOOD C P [id number] [place] CT <0.35 kU/L 03/21/2017 Unknown A FOOD C P [id number] Casein Cl Class 1 03/21/2017 Unknown A FOOD C P [id number] Casein Ct 0.64 kU/L 03/21/2017 Unknown A FOOD C P [id number] Oat Cl Class 0 03/21/2017 Unknown A FOOD C P [id number] Oat Ct <0.35 kU/L 03/21/2017 Unknown A FOOD C P [id number] [place] Cl Class 2 03/21/2017 Unknown A FOOD C P [id number] [place] Ct 0.75 kU/L 03/21/2017 Unknown A FOOD C P [id number] Chicken Meat CL Class 0 03/21/2017 Un known A FOOD C P [id number] Chicken Meat Ct <0.35 kU/L 03/21/2017 U nknown A FOOD C P [id number] [place] Cl Class 0 03/21/2017 Unknown A FOOD C P [id number] [place] Ct <0.35 kU/L 03/21/2017 Unknown A FOOD C P [id number] Pecan Meat Cl Class 0 03/21/2017 Unkn own A FOOD C P [id number] Pecan Meat Ct <0.35 kU/L 03/21/2017 Unk nown A NUTS PNL [id number] Peanut Cl Class 0 03/21/2017 Unknown A NUTS PNL [id number] Peanut Ct <0.35 kU/L 03/21/2017 Unknown A NUTS PNL [id number] [place] Meat Cl Class 0 03/21/2017 Unk nown A NUTS PNL [id number] [place] Meat Ct <0.35 kU/L 03/21/2017 Un known A NUTS PNL [id number] Pec[place] Meat Cl Class 0 03/21/2017 Unkn own A NUTS PNL [id number] Pecan Meat Ct <0.35 kU/L 03/21/2017 Unk nown A NUTS PNL [id number] [place] Cl Class 0 03/21/2017 Unknown A NUTS PNL [id number] [place] Ct <0.35 kU/L 03/21/2017 Unknown A NUTS PNL [id number] [place] Cl Class 0 03/21/2017 Unknow n A NUTS PNL [id number] [place] Ct <0.35 kU/L 03/21/2017 Unkno wn A NUTS PNL [id number] [place] Cl Class 0 03/21/2017 Unkno wn A NUTS PNL [id number] [place] Ct <0.35 kU/L 03/21/2017 Unkn own A NUTS PNL [id number] [place] Cl Class 0 03/21/2017 Unknown A NUTS PNL [id number] [place] Ct <0.35 kU/L 03/21/2017 Unknown A NUTS PNL [id number] [place] Cl Class 0 03/21/2017 Unkno wn A NUTS PNL [id number] [place]ist[place] Ct <0.35 kU/L 03/21/2017 Unkn own A NUTS PNL [id number] Allergen Interp See Note 03/21/2017 Un known A FRT/VG P [id number] [place] Cl Class 0 03/21/2017 Unkn own A FRT/VG P [id number] [place] Ct <0.35 kU/L 03/21/2017 Unk nown A FRT/VG P [id number] Potato Cl Class 0 03/21/2017 Unknown A FRT/VG P [id number] Potato Ct <0.35 kU/L 03/21/2017 Unknown A FRT/VG P [id number] [place] Cl Class 0 03/21/2017 Unkn own A FRT/VG P [id number] [place] Ct <0.35 kU/L 03/21/2017 Unk nown A FRT/VG P [id number] Tom[place] Cl Class 0 03/21/2017 Unknown A FRT/VG P [id number] Tomato Ct <0.35 kU/L 03/21/2017 Unknown A FRT/VG P [id number] [place] Cl Class 2 03/21/2017 Unknown A FRT/VG P [id number] [place] Ct 0.75 kU/L 03/21/2017 Unknown A FRT/VG P [id number] Ban[place] Cl Class 2 03/21/2017 Unknown A FRT/VG P [id number] Banana Ct 2.58 kU/L 03/21/2017 Unknown A FRT/VG P [id number] [place] Fruit Cl Class 0 03/21/2017 Unk nown A FRT/VG P [id number] [place] Ct <0.35 kU/L 03/21/2017 Un known A FRT/VG P [id number] [place] Fruit Cl Class 0 03/21/2017 Unk nown A FRT/VG P [id number] Apple Fruit Ct <0.35 kU/L 03/21/2017 Un known A FRT/VG P [id number] Car[place] Cl Class 0 03/21/2017 Unknown A FRT/VG P [id number] Carrot Ct <0.35 kU/L 03/21/2017 Unknown A FRT/VG P [id number] Pea Cl Class 0 03/21/2017 Unknown A FRT/VG P [id number] Pea Ct <0.35 kU/L 03/21/2017 Unknown A FRT/VG P [id number] Pear Fruit Cl Class 0 03/21/2017 Unkn own A FRT/VG P [id number] Pear Fruit Ct <0.35 kU/L 03/21/2017 Unk nown A FRT/VG P [id number] Swt Potato Cl Class 0 03/21/2017 Unkn own A FRT/VG P [id number] Swt Potato Ct <0.35 kU/L 03/21/2017 Unk nown A OK/KS/PN [id number] [place] Cl Class 0 03/21/2017 Unknown A [place]/KS/PN [id number] [place] Ct <0.35 kU/L 03/21/2017 Unknow n A OK/KS/PN 1504831 [place] Cl Class 0 03/21/2017 Unknown A OK/KS/PN [id number] Alt Ten Ct <0.35 kU/L 03/21/2017 Unknow n A OK/KS/PN [id number] [place] Cl Class 0 03/21/2017 Un known A [place]/PN [id number] [place] Ct <0.35 kU/L 03/21/2017 U nknown A OK/KS/PN [id number] [place] Cl Class 0 03/21/2017 Unknow n A OK/KS/PN [id number] [place] Ct <0.35 kU/L 03/21/2017 Unkno wn A OK/KS/PN [id number] Gadiel Gr Cl Class 0 03/21/2017 Unkn own A OK/KS/PN [id number] Gadiel Gr Ct <0.35 kU/L 03/21/2017 Unk nown A OK/KS/PN [id number] Yasir Blue Cl Class 1 03/21/2017 Unkno wn A OK/KS/PN [id number] Yasir Blue Ct 0.59 kU/L 03/21/2017 Unkno wn A OK/KS/PN 3895719 Rough Maciel Cl Class 0 03/21/2017 Unk nown A OK/KS/PN [id number] Rough Maciel Ct <0.35 kU/L 03/21/2017 Un known A OK/KS/PN 3187918 [place] Cl Class 2 03/21/2017 Unknow n A OK/KS/PN 9357448 [place] Ct 0.72 kU/L 03/21/2017 Unknow n A OK/KS/PN 4350033 Ragweed Cl Class 2 03/21/2017 Unknown A OK/KS/PN 2053486 Ragweed Ct 1.46 kU/L 03/21/2017 Unknown A OK/KS/PN [id number] Cat Dander Cl Class 0 03/21/2017 Unkn own A OK/KS/PN [id number] Cat Dander Ct <0.35 kU/L 03/21/2017 Unk nown A OK/KS/PN 1852656 Dog Dander Cl Class 0 03/21/2017 Unkn own A OK/KS/PN [id number] Dog Dander Ct <0.35 kU/L 03/21/2017 Unk nown A OK/KS/PN [id number] Pecan Tr Cl Class 0 03/21/2017 Unknow n A OK/KS/PN [id number] Pecan Tr Ct <0.35 kU/L 03/21/2017 Unkno wn A OK/KS/PN 9027567 Dust Mite Cl Class 0 03/21/2017 Unkno wn A OK/KS/PN 8549781 Dust Mite Ct <0.35 kU/L 03/21/2017 Unkn own A OK/KS/PN 1228885 Allergen Interp See Note 03/21/2017 Un known FREE T4 16098 T4 Free 0.97 ng/dL 09/06/2016 Unknown THYROID STIMULATING HORMONE 00671 TSH 1.665 uIU/mL 09/06/2016 Unknown COMPLETE BLOOD COUNT [id number] WBC 11.9 10e9/L 017 Unknown COMPLETE BLOOD COUNT [id number] RBC 4.70 10e12/L 2016 Unknown COMPLETE BLOOD COUNT [id number] HEMOGLOBIN 13.9 g/dL 09/07/19 17 Unknown COMPLETE BLOOD COUNT [id number] HEMATOCRIT 41.0 % 09/07/19 17 Unknown COMPLETE BLOOD COUNT [id number] MCV 87.2 fL 7 Unknown COMPLETE BLOOD COUNT [id number] MCH 29.6 pg 7 Unknown COMPLETE BLOOD COUNT 9239005 MCHC 33.9 g/dL 7 Unknown COMPLETE BLOOD COUNT [id number] PLATELET COUNT 395 10e9/L Unknown COMPLETE BLOOD COUNT [id number] Mean Plt Volume 9.1 fL Unknown COMPLETE BLOOD COUNT 8850514 Neut Auto 62.9 % 7 Unknown COMPLETE BLOOD COUNT [id number] Lymph Auto 24.4 % 09/07/19 17 Unknown COMPLETE BLOOD COUNT [id number] [place] Auto 7.6 % 7 Unknown COMPLETE BLOOD COUNT 8331763 RDW 13.5 % 7 Unknown COMPLETE BLOOD COUNT [id number] Eos Auto 4.6 % 7 Unknown COMPLETE BLOOD COUNT 8471246 Baso Auto 0.5 % 7 Unknown COMPLETE BLOOD COUNT [id number] Neutrophil Abs 7.49 10e9/L Unknown COMPLETE BLOOD COUNT [id number] Lymphocyte Abs 2.90 10e9/L Unknown COMPLETE BLOOD COUNT [id number] Monocyte Abs 0.90 10e9/L 08/20 Unknown COMPLETE BLOOD COUNT [id number] Eosinophil Abs 0.55 10e9/L Unknown COMPLETE BLOOD COUNT [id number] RDW-SD 41.9 fL 7 Unknown COMPLETE BLOOD COUNT [id number] Basophil Abs 0.06 10e9/L 08/20 Unknown GFR CALC 1826306 GFR Non Afr Amr >60 mL/min 09/06/2016 Un known GFR CALC 6755678 GFR Afr Amr >60 mL/min 09/06/2016 Unknow n COMPREHENSIVE METABOLIC 41717 AST 22 U/L 2016 Unknown COMPREHENSIVE METABOLIC 56422 ALT 30 U/L 2016 Unknown COMPREHENSIVE METABOLIC 43268 BUN 26 mg/dL 2016 Unknown COMPREHENSIVE METABOLIC 00096 ALBUMIN 4.8 g/dL 2016 Unknown COMPREHENSIVE METABOLIC 76203 CHLORIDE 107 mmol/L 09/06 Unknown COMPREHENSIVE METABOLIC 05536 Bili Total 0.2 mg/dL 09/06 Unknown COMPREHENSIVE METABOLIC 38520 ALK PHOS 118 U/L 2016 Unknown COMPREHENSIVE METABOLIC 09223 SODIUM 139 mmol/L 09/06 Unknown COMPREHENSIVE METABOLIC 69273 CREATININE 0.67 mg/dL 08/20 Unknown COMPREHENSIVE METABOLIC 19852 CALCIUM 9.8 mg/dL 2016 Unknown COMPREHENSIVE METABOLIC 16950 POTASSIUM 4.3 mmol/L 09/06 Unknown COMPREHENSIVE METABOLIC 01793 Total Protein 7.8 g/dL Unknown COMPREHENSIVE METABOLIC 41608 Glucose 96 mg/dL 2016 Unknown COMPREHENSIVE METABOLIC 77221 Bicarbonate 22 mmol/L 08/20 Unknown COMPREHENSIVE METABOLIC 91215 AGAP 10 mmol/L 2016 Unknown IRON 23201 Iron 58 ug/dL 09/06/2016 Unknown COMPLETE BLOOD COUNT 8529857 WBC 12.2 10e9/L 015 Unknown COMPLETE BLOOD COUNT 6193501 RBC 4.52 10e12/L 2014 Unknown COMPLETE BLOOD COUNT 6912497 HGB 13.3 g/dL 5 Unknown COMPLETE BLOOD COUNT 1495722 HCT DET 40.3 % 5 Unknown COMPLETE BLOOD COUNT 5941725 MCV 89.2 fL 5 Unknown COMPLETE BLOOD COUNT 7550411 MCH 29.4 pg 5 Unknown COMPLETE BLOOD COUNT 2329210 MCHC 33.0 g/dL 5 Unknown COMPLETE BLOOD COUNT 9102597 PLT 402 10e9/L 07/22/19 15 Unknown COMPLETE BLOOD COUNT 2133962 MPV 9.6 fL 5 Unknown COMPLETE BLOOD COUNT 9527574 ERIN % 64.8 % 5 Unknown COMPLETE BLOOD COUNT 3207297 LY % 24.6 % 5 Unknown COMPLETE BLOOD COUNT 5593322 MON % 7.0 % 5 Unknown COMPLETE BLOOD COUNT 9991387 EOS % 3.3 % 5 Unknown COMPLETE BLOOD COUNT 4780337 BASO % 0.3 % 5 Unknown COMPLETE BLOOD COUNT 0204319 RDW 13.2 % 5 Unknown COMPLETE BLOOD COUNT 8690063 ABS ERIN 7.91 10e9/L 015 Unknown COMPLETE BLOOD COUNT 9080481 ABS LYMPH 3.00 10e9/L 015 Unknown COMPLETE BLOOD COUNT 8643077 ABS MONO 0.85 10e9/L 015 Unknown COMPLETE BLOOD COUNT 0094707 ABS EOS 0.40 10e9/L 015 Unknown COMPLETE BLOOD COUNT 2573468 ABS BASO 0.04 10e9/L 015 Unknown COMPLETE BLOOD COUNT 9172897 RDW-SD 42.3 fL 5 Unknown COMPREHENSIVE METABOLIC 05731 AST 21 U/L 2014 Unknown COMPREHENSIVE METABOLIC 76843 ALT 27 IU/L 2014 Unknown COMPREHENSIVE METABOLIC 42853 BUN 12 MG/DL 2014 Unknown COMPREHENSIVE METABOLIC 97198 ALBUMIN 4.1 GM/DL 2014 Unknown COMPREHENSIVE METABOLIC 99090 CHLORIDE 102 MMOL/L 07/21 Unknown COMPREHENSIVE METABOLIC 94857 BILI TOT 0.3 MG/DL 2014 Unknown COMPREHENSIVE METABOLIC 35582 ALK PHOS 94 U/L 2014 Unknown COMPREHENSIVE METABOLIC 55406 SODIUM 138 MMOL/L 07/21 Unknown COMPREHENSIVE METABOLIC 07430 CREATININE 0.71 MG/DL 02/2014 Unknown COMPREHENSIVE METABOLIC 59775 CALCIUM 9.4 MG/DL 2014 Unknown COMPREHENSIVE METABOLIC 53563 POTASSIUM 3.7 MMOL/L 07/21 Unknown COMPREHENSIVE METABOLIC 34511 PROT TOT 7.0 GM/DL 2014 Unknown COMPREHENSIVE METABOLIC 06779 Glucose 84 MG/DL 2014 Unknown COMPREHENSIVE METABOLIC 03142 BICARB 27 MMOL/L 2014 Unknown COMPREHENSIVE METABOLIC 98991 ANION GAP 9 MEQ/L 2014 Unknown GFR CALC 7618715 GFR AA >60 ML/MIN 07/21/2014 Unknown GFR CALC 3797048 GFR NON-AA >60 ML/MIN 07/21/2014 Unknown FREE T4 99193 FREE T4 0.90 NG/DL 07/21/2014 Unknown THYROID STIMULATING HORMONE 57100 TSH 1.838 uIU/ML 07/21/2014 Unknown LIPID GROUP 01735 HDL TEST 33 MG/DL 07/21/2014 Unknown LIPID GROUP 83914 TRIG 320 MG/DL 07/21/2014 Unknown LIPID GROUP 33325 TEST LDL 122 MG/DL 07/21/2014 Unknown LIPID GROUP 90928 CHOL 219 MG/DL 07/21/2014 Unknown LIPID GROUP 94799 RCHOL/HDL 6.64 RATIO 07/21/2014 Unknow n LIPID GROUP 50509 NON-HDL CH 186 MG/DL 07/21/2014 Unknow n IRON 46520 IRON TEST 99 UG/DL 09/12/2013 Unknown C-REACTIVE PROTEIN (CRP) QUANT 90949 CRP 0.2 MG/DL 09/12/2013 Unknown GFR CALC 7418048 GFR AA >60 ML/MIN 09/12/2013 Unknown GFR CALC 9609025 GFR NON-AA >60 ML/MIN 09/12/2013 Unknown THYROID STIMULATING HORMONE 58212 TSH 1.882 uIU/ML 09/12/2013 Unknown COMPLETE BLOOD COUNT 3116501 WBC 7.9 10e9/L 09/13/19 14 Unknown COMPLETE BLOOD COUNT 6128077 RBC 4.83 10e12/L 2013 Unknown COMPLETE BLOOD COUNT 5296246 HGB 14.2 g/dL 4 Unknown COMPLETE BLOOD COUNT 7890347 HCT DET 42.5 % 4 Unknown COMPLETE BLOOD COUNT 6891029 MCV 88.0 fL 4 Unknown COMPLETE BLOOD COUNT 7275186 MCH 29.4 pg 4 Unknown COMPLETE BLOOD COUNT 0539174 MCHC 33.4 g/dL 4 Unknown COMPLETE BLOOD COUNT 4056660 PLT 359 10e9/L 09/13/19 14 Unknown COMPLETE BLOOD COUNT 5888595 MPV 10.1 fL 4 Unknown COMPLETE BLOOD COUNT 0215770 ERIN % 55.7 % 4 Unknown COMPLETE BLOOD COUNT 8593057 LY % 32.7 % 4 Unknown COMPLETE BLOOD COUNT 4850713 MON % 6.6 % 4 Unknown COMPLETE BLOOD COUNT 5478865 EOS % 4.5 % 4 Unknown COMPLETE BLOOD COUNT 0203975 BASO % 0.5 % 4 Unknown COMPLETE BLOOD COUNT 3128089 RDW 13.8 % 4 Unknown COMPLETE BLOOD COUNT 1641825 ABS ERIN 4.40 10e9/L 014 Unknown COMPLETE BLOOD COUNT 6601366 ABS LYMPH 2.58 10e9/L 014 Unknown COMPLETE BLOOD COUNT 4201365 ABS MONO 0.52 10e9/L 014 Unknown COMPLETE BLOOD COUNT 5061881 ABS EOS 0.36 10e9/L 014 Unknown COMPLETE BLOOD COUNT 4205670 ABS BASO 0.04 10e9/L 014 Unknown COMPLETE BLOOD COUNT 0942473 RDW-SD 44.0 fL 4 Unknown FREE T4 24410 FREE T4 0.95 NG/DL 09/12/2013 Unknown COMPREHENSIVE METABOLIC 11121 AST 19 U/L 2013 Unknown COMPREHENSIVE METABOLIC 57244 ALT 18 IU/L 2013 Unknown COMPREHENSIVE METABOLIC 03104 BUN 11 MG/DL 2013 Unknown COMPREHENSIVE METABOLIC 58521 ALBUMIN 4.8 GM/DL 2013 Unknown COMPREHENSIVE METABOLIC 29761 CHLORIDE 107 MMOL/L 09/12 Unknown COMPREHENSIVE METABOLIC 20160 BILI TOT 0.4 MG/DL 2013 Unknown COMPREHENSIVE METABOLIC 70787 ALK PHOS 86 U/L 2013 Unknown COMPREHENSIVE METABOLIC 55570 SODIUM 138 MMOL/L 09/12 Unknown COMPREHENSIVE METABOLIC 33498 CREATININE 0.79 MG/DL 08/21 Unknown COMPREHENSIVE METABOLIC 92989 CALCIUM 10.0 MG/DL 09/12 Unknown COMPREHENSIVE METABOLIC 03422 POTASSIUM 4.1 MMOL/L 09/12 Unknown COMPREHENSIVE METABOLIC 17078 PROT TOT 7.6 GM/DL 2013 Unknown COMPREHENSIVE METABOLIC 85510 Glucose 96 MG/DL 2013 Unknown COMPREHENSIVE METABOLIC 99580 BICARB 23 MMOL/L 2013 Unknown COMPREHENSIVE METABOLIC 94804 ANION GAP 8 MEQ/L 2013 Unknown LIPID GROUP 70703 HDL TEST 38 MG/DL 05/07/2013 Unknown LIPID GROUP 29468 TRIG 176 MG/DL 05/07/2013 Unknown LIPID GROUP 51443 TEST LDL 163 MG/DL 05/07/2013 Unknown LIPID GROUP 77429 CHOL 236 MG/DL 05/07/2013 Unknown LIPID GROUP 63978 RCHOL/HDL 6.21 RATIO 05/07/2013 Unknow n GFR CALC 4242982 GFR AA >60 ML/MIN 05/07/2013 Unknown GFR CALC 2654467 GFR NON-AA >60 ML/MIN 05/07/2013 Unknown COMPREHENSIVE METABOLIC 27265 AST 34 U/L 2013 Unknown COMPREHENSIVE METABOLIC 74206 ALT 37 IU/L 2013 Unknown COMPREHENSIVE METABOLIC 64065 BUN 15 MG/DL 2013 Unknown COMPREHENSIVE METABOLIC 25163 ALBUMIN 4.4 GM/DL 2013 Unknown COMPREHENSIVE METABOLIC 02486 CHLORIDE 106 MMOL/L 05/07 Unknown COMPREHENSIVE METABOLIC 42597 BILI TOT 0.3 MG/DL 2013 Unknown COMPREHENSIVE METABOLIC 38528 ALK PHOS 106 U/L 2013 Unknown COMPREHENSIVE METABOLIC 72402 SODIUM 139 MMOL/L 05/07 Unknown COMPREHENSIVE METABOLIC 23531 CREATININE 0.67 MG/DL 04/20 Unknown COMPREHENSIVE METABOLIC 23274 CALCIUM 9.4 MG/DL 2013 Unknown COMPREHENSIVE METABOLIC 49109 POTASSIUM 4.2 MMOL/L 05/07 Unknown COMPREHENSIVE METABOLIC 14883 PROT TOT 7.1 GM/DL 2013 Unknown COMPREHENSIVE METABOLIC 43131 Glucose 93 MG/DL 2013 Unknown COMPREHENSIVE METABOLIC 56704 BICARB 25 MMOL/L 2013 Unknown COMPREHENSIVE METABOLIC 73012 ANION GAP 8 MEQ/L 2013 Unknown COMPLETE BLOOD COUNT 9007170 WBC 6.7 10e9/L 05/08/19 14 Unknown COMPLETE BLOOD COUNT 8108709 RBC 4.68 10e12/L 2013 Unknown COMPLETE BLOOD COUNT 9539777 HGB 13.6 g/dL 4 Unknown COMPLETE BLOOD COUNT 7773532 HCT DET 41.1 % 4 Unknown COMPLETE BLOOD COUNT 9456613 MCV 87.8 fL 4 Unknown COMPLETE BLOOD COUNT 7556220 MCH 29.1 pg 4 Unknown COMPLETE BLOOD COUNT 7096687 MCHC 33.1 g/dL 4 Unknown COMPLETE BLOOD COUNT 1506995 PLT 326 10e9/L 05/08/19 14 Unknown COMPLETE BLOOD COUNT 1161386 MPV 10.1 fL 4 Unknown COMPLETE BLOOD COUNT 1147245 ERIN % 57.3 % 4 Unknown COMPLETE BLOOD COUNT 7938588 LY % 30.3 % 4 Unknown COMPLETE BLOOD COUNT 1715425 MON % 6.9 % 4 Unknown COMPLETE BLOOD COUNT 7936020 EOS % 5.2 % 4 Unknown COMPLETE BLOOD COUNT 5208169 BASO % 0.3 % 4 Unknown COMPLETE BLOOD COUNT 5508904 RDW 13.9 % 4 Unknown COMPLETE BLOOD COUNT 3842775 ABS ERIN 3.84 10e9/L 014 Unknown COMPLETE BLOOD COUNT 9349627 ABS LYMPH 2.03 10e9/L 014 Unknown COMPLETE BLOOD COUNT 8369599 ABS MONO 0.46 10e9/L 014 Unknown COMPLETE BLOOD COUNT 6018378 ABS EOS 0.35 10e9/L 014 Unknown COMPLETE BLOOD COUNT 2031720 ABS BASO 0.02 10e9/L 014 Unknown COMPLETE BLOOD COUNT 0139613 RDW-SD 43.5 fL 4 Unknown THYROID STIMULATING HORMONE 17507 TSH 1.476 uIU/ML 05/07/2013 Unknown FREE T4 41977 FREE T4 0.83 NG/DL 05/07/2013 Unknown FREE T4 86173 FREE T4 1.28 NG/DL 08/18/2010 Unknown COMPLETE BLOOD COUNT 54660 WBC 7.3 10e9/L 08/19/19 11 Unknown COMPLETE BLOOD COUNT 76021 RBC 5.15 10e12/L 2010 Unknown COMPLETE BLOOD COUNT 08042 HGB 14.4 g/dL 1 Unknown COMPLETE BLOOD COUNT 36463 HCT DET 43.2 % 1 Unknown COMPLETE BLOOD COUNT 91651 MCV 83.9 fL 1 Unknown COMPLETE BLOOD COUNT 01312 MCH 28.0 pg 1 Unknown COMPLETE BLOOD COUNT 41418 MCHC 33.3 g/dL 1 Unknown COMPLETE BLOOD COUNT 20341 PLT 341 10e9/L 08/19/19 11 Unknown COMPLETE BLOOD COUNT 58961 MPV 10.2 fL 1 Unknown COMPLETE BLOOD COUNT 65464 ERIN % 42.6 % 1 Unknown COMPLETE BLOOD COUNT 14090 LY % 45.2 % 1 Unknown COMPLETE BLOOD COUNT 32268 MON % 7.4 % 1 Unknown COMPLETE BLOOD COUNT 14910 EOS % 4.1 % 1 Unknown COMPLETE BLOOD COUNT 43102 BASO % 0.7 % 1 Unknown COMPLETE BLOOD COUNT 86618 RDW 14.4 % 1 Unknown COMPLETE BLOOD COUNT 51001 ABS ERIN 3.11 10e9/L 011 Unknown COMPLETE BLOOD COUNT 20100 ABS LYMPH 3.30 10e9/L 011 Unknown COMPLETE BLOOD COUNT 66006 ABS MONO 0.54 10e9/L 011 Unknown COMPLETE BLOOD COUNT 67114 ABS EOS 0.30 10e9/L 011 Unknown COMPLETE BLOOD COUNT 82426 ABS BASO 0.05 10e9/L 011 Unknown COMPLETE BLOOD COUNT 17450 RDW-SD 43.1 fL 1 Unknown THYROID STIMULATING HORMONE 52023 TSH 1.931 uIU/ML 08/18/2010 Unknown GFR CALC 4267732 GFR AA >60 ML/MIN 08/18/2010 Unknown GFR CALC 0690955 GFR NON-AA >60 ML/MIN 08/18/2010 Unknown COMPREHENSIVE METABOLIC 02420 AST 17 U/L 2010 Unknown COMPREHENSIVE METABOLIC 83993 ALT 11 IU/L 2010 Unknown COMPREHENSIVE METABOLIC 65652 BUN 12 MG/DL 2010 Unknown COMPREHENSIVE METABOLIC 50765 ALBUMIN 4.9 GM/DL 2010 Unknown COMPREHENSIVE METABOLIC 24041 CHLORIDE 104 MMOL/L 08/18 Unknown COMPREHENSIVE METABOLIC 23843 BILI TOT 0.5 MG/DL 2010 Unknown COMPREHENSIVE METABOLIC 85559 ALK PHOS 80 U/L 2010 Unknown COMPREHENSIVE METABOLIC 05557 SODIUM 137 MMOL/L 08/18 Unknown COMPREHENSIVE METABOLIC 46105 CREATININE 0.79 MG/DL 07/22 Unknown COMPREHENSIVE METABOLIC 32176 CALCIUM 9.6 MG/DL 2010 Unknown COMPREHENSIVE METABOLIC 77701 POTASSIUM 3.7 MMOL/L 08/18 Unknown COMPREHENSIVE METABOLIC 05274 PROT TOT 7.5 GM/DL 2010 Unknown COMPREHENSIVE METABOLIC 89155 Glucose 72 MG/DL 2010 Unknown COMPREHENSIVE METABOLIC 39517 BICARB 22 MMOL/L 2010 Unknown COMPREHENSIVE METABOLIC 87876 ANION GAP 11 MEQ/L 2010 Unknown Procedures Procedure Codes Date IIV4 VACC NO PRSV 6 MTHS TO 64 YRS+ IM CPT-4: 29759 11/22/2018 IIV4 VACC NO PRSV 6 MTHS TO 64 YRS+ IM CPT-4: 80041 11/22/2018 IMMUNIZATION ADMIN CPT-4: 12505 11/22/2018 THER/PROPH/DIAG INJ SC/IM CPT-4: 82828 05/29/2018 TRIAMCINOLONE ACET INJ NOS CPT-4: J3301 05/29/2018 DEXAMETHASONE SODIUM PHOS CPT-4: J1100 05/29/2018 SPECIMEN HANDLING OFFICE-LAB CPT-4: 90338 02/08/2018 THER/PROPH/DIAG INJ SC/IM CPT-4: 94336 01/09/2018 IIV4 VACCINE 3 YRS+ IM AND UP CPT-4: 70451 01/02/2018 IMMUNIZATION ADMIN CPT-4: 21941 01/02/2018 THER/PROPH/DIAG INJ SC/IM CPT-4: 97303 12/11/2017 TRIAMCINOLONE ACET INJ NOS CPT-4: J3301 12/11/2017 DEXAMETHASONE SODIUM PHOS CPT-4: J1100 12/11/2017 STREP A ASSAY W/OPTIC CPT-4: 14576 11/30/2017 THER/PROPH/DIAG INJ SC/IM CPT-4: 32420 10/13/2017 THER/PROPH/DIAG INJ SC/IM CPT-4: 34808 07/21/2017 THER/PROPH/DIAG INJ SC/IM CPT-4: 72318 04/27/2017 METHYLPREDNISOLONE INJECTION CPT-4: J2930 04/27/2017 THER/PROPH/DIAG INJ SC/IM CPT-4: 43394 04/27/2017 THER/PROPH/DIAG INJ SC/IM CPT-4: 90465 03/20/2017 METHYLPREDNISOLONE INJECTION CPT-4: J2930 03/20/2017 ROUTINE VENIPUNCTURE CPT-4: 04961 03/20/2017 A FRT/VG P CPT-4: 7542268 03/20/2017 A FOOD C P CPT-4: 8466422 03/20/2017 A NUTS PNL CPT-4: 8175404 03/20/2017 THER/PROPH/DIAG INJ SC/IM CPT-4: 99950 01/31/2017 URINE TEST CPT-4: 29457 01/31/2017 THER/PROPH/DIAG INJ SC/IM CPT-4: 54224 10/31/2016 URINE TEST CPT-4: 98513 10/31/2016 SPECIMEN HANDLING OFFICE-LAB CPT-4: 40114 09/06/2016 URINALYSIS NONAUTO W/O SCOPE CPT-4: 35476 04/28/2016 URINE CULTURE/ COLONY COUNT CPT-4: 53784 04/28/2016 THER/PROPH/DIAG INJ SC/IM CPT-4: 39043 06/12/2015 TRIAMCINOLONE ACET INJ NOS CPT-4: J3301 06/12/2015 DEXAMETHASONE SODIUM PHOS CPT-4: J1100 06/12/2015 ROUTINE VENIPUNCTURE CPT-4: 87664 07/21/2014 ASSAY OF FREE THYROXINE CPT-4: 55422 07/21/2014 ASSAY THYROID STIM HORMONE CPT-4: 20994 07/21/2014 COMPREHEN METABOLIC PANEL CPT-4: 37871 07/21/2014 COMPLETE CBC W/AUTO DIFF WBC CPT-4: 75173 07/21/2014 LIPID PANEL CPT-4: 18315 07/21/2014 THER/PROPH/DIAG INJ SC/IM CPT-4: 72210 04/02/2014 METHYLPREDNISOLONE 40 MG INJ CPT-4: J1030 04/02/2014 TRIAMCINOLONE ACET INJ NOS CPT-4: J3301 04/02/2014 URINALYSIS NONAUTO W/O SCOPE CPT-4: 45600 10/01/2013 URINE CULTURE/ COLONY COUNT CPT-4: 92463 10/01/2013 ROUTINE VENIPUNCTURE CPT-4: 39955 09/12/2013 COMPLETE CBC W/AUTO DIFF WBC CPT-4: 47616 09/12/2013 COMPREHEN METABOLIC PANEL CPT-4: 72832 09/12/2013 ASSAY OF IRON CPT-4: 24706 09/12/2013 ASSAY THYROID STIM HORMONE CPT-4: 23780 09/12/2013 ASSAY OF FREE THYROXINE CPT-4: 24437 09/12/2013 C-REACTIVE PROTEIN CPT-4: 87730 09/12/2013 THER/PROPH/DIAG INJ SC/IM CPT-4: 62671 05/17/2013 SPECIMEN HANDLING OFFICE-LAB CPT-4: 98234 05/16/2013 ROUTINE VENIPUNCTURE CPT-4: 74176 05/07/2013 ASSAY OF FREE THYROXINE CPT-4: 73567 05/07/2013 ASSAY THYROID STIM HORMONE CPT-4: 75523 05/07/2013 COMPREHEN METABOLIC PANEL CPT-4: 65009 05/07/2013 COMPLETE CBC W/AUTO DIFF WBC CPT-4: 45913 05/07/2013 LIPID PANEL CPT-4: 96410 05/07/2013 FLU VACCINE 3 YRS & > IM UP 64 CPT-4: 13285 3 IMMUNIZATION ADMIN CPT-4: 13827 01/08/2013 AEROBIC WOUND CULTURE & STN CPT-4: 23311 04/29/2011 DRAINAGE OF SKIN ABSCESS CPT-4: 29114 04/29/2011 URINALYSIS NONAUTO W/O SCOPE CPT-4: 78389 03/07/2011 URINE CULTURE/ COLONY COUNT CPT-4: 61955 03/07/2011 SPECIMEN HANDLING OFFICE-LAB CPT-4: 72402 08/18/2010 COMPLETE CBC W/AUTO DIFF WBC CPT-4: 69940 08/18/2010 COMPREHEN METABOLIC PANEL CPT-4: 12731 08/18/2010 ASSAY THYROID STIM HORMONE CPT-4: 70445 08/18/2010 ASSAY OF FREE THYROXINE CPT-4: 34966 08/18/2010 Vital Signs Date Vital 07/25/2019 Blood Pressure 1: 114/82 Code: 8480-6 BMI: 32.9 Code: 42199-4 Heart Rate 1: 76 bpm Height: 5'6" Respiratory Rate: 18 bpm SpO2: 98% Tempera ture: 36.5 (C) / 97.7 (F) Weight: 204 lbs 01/08/2019 Blood Pressure 1: 128/86 Code: 8480-6 Heart Rate 1: 72 bpm Respiratory Rate: 20 bpm SpO2: 97% Temperature: 36.7 (C) / 98.0 (F) We ight: 207 lbs 11/14/2018 Heart Rate 1: 92 bpm Respiratory Rate: 20 bpm SpO2: 97 % Temperature: 36.7 (C) / 98.0 (F) Weight: 203 lbs 09/17/2018 Blood Pressure 1: 124/86 Code: 8480-6 Heart Rate 1: 64 bpm Respiratory Rate: 18 bpm SpO2: 98% Temperature: 37.0 (C) / 98.6 (F) We ight: 197 lbs 08/13/2018 Blood Pressure 1: 130/90 Code: 8480-6 Heart Rate 1: 97 bpm Respiratory Rate: 16 bpm SpO2: 97% Temperature: 36.2 (C) / 97.1 (F) We ight: 196 lbs 05/29/2018 Blood Pressure 1: 140/80 Code: 8480-6 Heart Rate 1: 88 bpm Respiratory Rate: 18 bpm SpO2: 97% Temperature: 36.2 (C) / 97.2 (F) We ight: 198 lbs 05/24/2018 Blood Pressure 1: 120/90 Code: 8480-6 Heart Rate 1: 81 bpm Respiratory Rate: 18 bpm SpO2: 97% Temperature: 36.3 (C) / 97.3 (F) We ight: 198 lbs 02/08/2018 Blood Pressure 1: 126/90 Code: 8480-6 BMI: 33.4 Code: 65085-7 Heart Rate 1: 100 bpm Height: 5'6" Respiratory Rate: 20 bpm Temperature: 36 .8 (C) / 98.2 (F) Weight: 207 lbs 12/11/2017 Blood Pressure 1: 120/80 Code: 8480-6 Heart Rate 1: 75 bpm Respiratory Rate: 20 bpm SpO2: 97% Temperature: 36.4 (C) / 97.5 (F) We ight: 206 lbs 12/11/2017 Blood Pressure 1: 120/80 Code: 8480-6 Heart Rate 1: 75 bpm Respiratory Rate: 20 bpm SpO2: 97% Temperature: 36.4 (C) / 97.5 (F) We ight: 206 lbs 11/30/2017 Blood Pressure 1: 128/88 Code: 8480-6 Heart Rate 1: 108 bpm Respiratory Rate: 18 bpm SpO2: 97% Temperature: 36.4 (C) / 97.6 (F) We ight: 208 lbs 10/13/2017 Blood Pressure 1: 136/88 Code: 8480-6 Heart Rate 1: 92 bpm SpO2: 96% Temperature: 36.9 (C) / 98.4 (F) Weight: 208 lbs 09/05/2017 Blood Pressure 1: 126/82 Code: 8480-6 BMI: 33.7 Code: 43869-5 Heart Rate 1: 76 bpm Height: 5'6" Respiratory Rate: 20 bpm Temperature: 37 .0 (C) / 98.6 (F) Weight: 209 lbs 04/27/2017 Heart Rate 1: 71 bpm SpO2: 97% Weight: 206 lbs 03/20/2017 Blood Pressure 1: 132/84 Code: 8480-6 BMI: 33.1 Code: 98831-1 Heart Rate 1: 96 bpm Height: 5'6" Respiratory Rate: 22 bpm SpO2: 97% Tempera ture: 36.2 (C) / 97.2 (F) Weight: 205 lbs 01/03/2017 Blood Pressure 1: 126/82 Code: 8480-6 BMI: 32.6 Code: 81455-0 Heart Rate 1: 80 bpm Height: 5'6" Respiratory Rate: 20 bpm SpO2: 97% Tempera ture: 36.6 (C) / 97.8 (F) Weight: 202 lbs 09/06/2016 Blood Pressure 1: 110/74 Code: 8480-6 BMI: 32.4 Code: 77386-1 Heart Rate 1: 86 bpm Height: 5'6" Respiratory Rate: 24 bpm SpO2: 97% Tempera ture: 36.6 (C) / 97.8 (F) Weight: 201 lbs 05/18/2016 Blood Pressure 1: 112/64 Code: 8480-6 He art Rate 1: 82 bpm 04/28/2016 Blood Pressure 1: 168/98 Code: 8480-6 BMI: 32.0 Code: 93356-3 Heart Rate 1: 102 bpm Height: 5'6" Respiratory Rate: 24 bpm SpO2: 97% Tempera ture: 36.4 (C) / 97.6 (F) Weight: 198 lbs 02/01/2016 Blood Pressure 1: 142/90 Code: 8480-6 He art Rate 1: 116 bpm 01/26/2016 Blood Pressure 1: 184/100 Code: 8480-6 H eart Rate 1: 114 bpm 09/10/2015 Blood Pressure 1: 126/64 Code: 8480-6 BMI: 32.0 Code: 86764-3 Heart Rate 1: 96 bpm Height: 5'5" Respiratory Rate: 24 bpm SpO2: 97% Tempera ture: 36.6 (C) / 97.8 (F) Weight: 192 lbs 06/12/2015 Blood Pressure 1: 106/80 Code: 8480-6 BMI: 33.4 Code: 07017-1 Heart Rate 1: 108 bpm Height: 5'5" Respiratory Rate: 20 bpm SpO2: 96% Tempera ture: 36.8 (C) / 98.3 (F) Weight: 201 lbs 11/04/2014 Blood Pressure 1: 134/86 Code: 8480-6 BMI: 32.9 Code: 16454-6 Heart Rate 1: 76 bpm Height: 5'5" Respiratory Rate: 20 bpm Temperature: 36 .6 (C) / 97.8 (F) Weight: 198 lbs 08/04/2014 Blood Pressure 1: 128/88 Code: 8480-6 BMI: 34.4 Code: 24597-5 Heart Rate 1: 90 bpm Height: 5'5" Respiratory Rate: 20 bpm Temperature: 37 .0 (C) / 98.6 (F) Weight: 207 lbs 07/21/2014 Blood Pressure 1: 146/94 Code: 8480-6 BMI: 34.4 Code: 27656-7 Heart Rate 1: 88 bpm Height: 5'5" Respiratory Rate: 20 bpm Temperature: 36 .7 (C) / 98.1 (F) Weight: 207 lbs 04/02/2014 Blood Pressure 1: 128/76 Code: 8480-6 BMI: 34.1 Code: 92744-6 Heart Rate 1: 84 bpm Height: 5'5" Respiratory Rate: 22 bpm Temperature: 36 .6 (C) / 97.8 (F) Weight: 205 lbs 03/20/2014 Blood Pressure 1: 126/82 Code: 8480-6 BMI: 33.9 Code: 44472-1 Heart Rate 1: 88 bpm Height: 5'5" Respiratory Rate: 20 bpm Temperature: 36 .7 (C) / 98.1 (F) Weight: 204 lbs 02/18/2014 Blood Pressure 1: 120/78 Code: 8480-6 BMI: 33.9 Code: 05045-1 Heart Rate 1: 72 bpm Height: 5'5" Respiratory Rate: 20 bpm Temperature: 36 .6 (C) / 97.9 (F) Weight: 204 lbs 10/01/2013 Blood Pressure 1: 124/78 Code: 8480-6 BMI: 32.9 Code: 17434-7 Heart Rate 1: 84 bpm Height: 5'5" Respiratory Rate: 20 bpm Temperature: 36 .4 (C) / 97.6 (F) Weight: 198 lbs 09/12/2013 Blood Pressure 1: 126/84 Code: 8480-6 BMI: 32.8 Code: 76378-1 Heart Rate 1: 76 bpm Height: 5'5" Respiratory Rate: 18 bpm Temperature: 36 .4 (C) / 97.6 (F) Weight: 197 lbs 05/16/2013 Blood Pressure 1: 124/68 Code: 8480-6 BMI: 33.3 Code: 75393-2 Heart Rate 1: 70 bpm Height: 5'5" Respiratory Rate: 20 bpm Temperature: 36 .3 (C) / 97.4 (F) Weight: 200 lbs 12/07/2012 Blood Pressure 1: 112/88 Code: 8480-6 BMI: 30.5 Code: 15213-9 Heart Rate 1: 92 bpm Height: 5'5" Respiratory Rate: 20 bpm Temperature: 37 .4 (C) / 99.3 (F) Weight: 183 lbs 12/03/2012 Blood Pressure 1: 124/88 Code: 8480-6 BMI: 30.5 Code: 53152-7 Heart Rate 1: 86 bpm Height: 5'5" Respiratory Rate: 20 bpm Temperature: 36 .6 (C) / 97.8 (F) Weight: 183 lbs 04/03/2012 Blood Pressure 1: 114/76 Code: 8480-6 BMI: 27.5 Code: 18524-0 Heart Rate 1: 64 bpm Height: 5'6" Temperature: 37.4 (C) / 99.4 (F) Weight: 168 lbs 03/30/2012 Blood Pressure 1: 122/80 Code: 8480-6 BMI: 27.5 Code: 15258-5 Heart Rate 1: 72 bpm Height: 5'6" Respiratory Rate: 20 bpm Temperature: 36 .8 (C) / 98.3 (F) Weight: 168 lbs 07/29/2011 Blood Pressure 1: 120/64 Code: 8480-6 BMI: 24.7 Code: 19456-4 Heart Rate 1: 84 bpm Height: 5'6" Temperature: 36.9 (C) / 98.4 (F) Weight: 151 lbs 04/29/2011 Blood Pressure 1: 102/70 Code: 8480-6 BMI: 24.4 Code: 15425-5 Heart Rate 1: 60 bpm Height: 5'6" Temperature: 36.8 (C) / 98.2 (F) Weight: 149 lbs 04/28/2011 Blood Pressure 1: 110/72 Code: 8480-6 BMI: 24.4 Code: 08101-6 Heart Rate 1: 74 bpm Height: 5'6" Temperature: 37.2 (C) / 99.0 (F) Weight: 149 lbs 03/07/2011 Blood Pressure 1: 102/72 Code: 8480-6 BMI: 23.5 Code: 20934-3 Heart Rate 1: 68 bpm Height: 5'6" Temperature: 37.1 (C) / 98.7 (F) Weight: 143 lbs 6 oz 11/10/2010 Blood Pressure 1: 121/80 Code: 8480-6 Heart Rate 1: 72 bpm Temperature: 36.7 (C) / 98.0 (F) Weight: 142 lbs 08/18/2010 Blood Pressure 1: 122/72 Code: 8480-6 BMI: 24.3 Code: 91374-3 Heart Rate 1: 88 bpm Height: 5'6" Temperature: 36.8 (C) / 98.2 (F) Weight: 148 lbs Functional Status No Functional Status data Reason For Visit Reason For Visit Effective Dates Notes well woman exam (40-65 years) 07/25/2019 Annual Wel lness---last mammogram 07-23-2018 follow up 01/08/2019 injection(s) 11/22/2018 flu shot follow up 11/14/[address] stewart is GI related follow up 09/17/2018 3mo fwup diarrhea 08/13/2018 has slowly gotten so mewhat better nasal allergies 05/29/2018 follow up 05/24/2018 on her medications well woman exam (18-39 years) 02/08/2018 Patient mckeon s aunt with ovarian cancer injection(s) 01/09/2018 Depo Provera injection(s) 01/02/2018 flu shot fever 12/11/2017 cough 12/11/2017 sore throat 11/30/2017 back pain 10/13/2017 fatigue 09/05/2017 injection(s) 07/21/2017 Depo Provera nasal allergies 04/27/2017 pruritus 03/20/2017 Patient currently on Zyrtec and Bendryl PRN injection(s) 01/31/2017 Depo-Provera- Repeat urine was performed due to last injection 10/31/16 back pain 01/03/2017 well woman exam (18-39 years) 09/06/2016 Wellness- Patient performs Self Breast Exams blood pressure check 05/18/2016 follow up 04/28/2016 Patient was started on Toprol approx 2 weeks after baby was born. Patient stopped after one month due to blood pressure stable. Patient was post- pree blood pressure check 02/01/2016 headache 01/26/2016 oral pain 09/10/2015 Patient stated havin g severe oral pain in the right side of mouth around 0330 yesterday morning. Patient seen Dr Jose and was given Clindamycin 150mg TID and Tramadol 50mg. The pain was untolerable and went to ER for pain. Patient was given hydrocodone 5-325mg [id number] pain nasal allergies 06/12/2015 palpitations 11/04/2014 follow up 08/04/2014 2 week follow up 07/21/2014 Urgent Care fwup cough 04/02/2014 back pain 03/20/2014 menstrual irregularity 02/18/2014 Discuss restartin g control urinary urgency 10/01/2013 Vaginal itching pain, generalized 09/12/2013 injection(s) 05/17/2013 Depo-Provera well woman exam (18-39 years) 05/16/2013 self- pro st exams every other month- DC labs lab draw 05/07/2013 injection(s) 01/08/2013 flu shot follow up 12/07/2012 arthropod bite 12/03/2012 Left elbow fever 04/03/2012 cough 03/30/2012 Been using sudafed-- sore throat 07/29/2011 follow up 04/29/2011 cellulitis 04/28/2011 painful urination 03/07/2011 new lesion 11/10/2010 under left eye from cat scratch ~generic 08/18/2010 Establishing Visit Encounters Encounter Performer Location Codes Date ([id number]) PREV VISIT EST AGE 40-64 Diagnosis: Encounter for general adult medical examination without abnormal findings[ICD10: Z00.00] Diagnosis: Essential (primary) hypertension[ICD10: I10] Diagnosis: Major depressive disorder, single episode, unspecified[ICD10: F32.9] Ritika CINTRON [facility] CPT-4: 14673 07/25/2019 ([id number]) OFFICE/OUTPATIENT VISIT EST Diagnosis: Essential (primary) hypertension[ICD10: I10] Diagnosis: Gastro-esophageal reflux disease without esophagitis[ICD10: K21.9] Diagnosis: Generalized anxiety disorder[ICD10: F41.1] Ritika CINTRON [facility] CPT-4: 42565 01/08/2019 ([id number]) NURSE/OUTPATIENT VISIT EST Diagnosis: FLU VACCINE[ICD10: Z23] Ritika POP [facility] CPT-4: 75573 11/22/2018 ([id number]) OFFICE/OUTPATIENT VISIT EST Diagnosis: Esophageal reflux[ICD10: K21.9] Diagnosis: Epigastric pain[ICD10: R10.13] Ritika CINTRON [facility] CPT-4: 70976 11/14/2018 ([id number]) OFFICE/OUTPATIENT VISIT EST Diagnosis: Elevated blood-pressure reading, without diagnosis of hypertension[ICD10: R03.0] Diagnosis: Localized edema[ICD10: R60.0] Diagnosis: Major depressive disorder, single episode, unspecified[ICD10: F32.9] Diagnosis: Gastro-esophageal reflux disease without esophagitis[ICD10: K21.9] Ritika CINTRON [facility] CPT-4: 82612 09/17/2018 ([id number]) OFFICE/OUTPATIENT VISIT EST Diagnosis: Generalized abdominal pain[ICD10: R10.84] Diagnosis: Acute gastritis with bleeding[ICD10: K29.01] Quita CINTRON [facility] CPT-4: 49516 08/13/2018 ([id number]) OFFICE/OUTPATIENT VISIT EST Diagnosis: Other allergic rhinitis[ICD10: J30.89] Anaya Marte [facility] 93439 05/29/2018 ([id number]) OFFICE/OUTPATIENT VISIT EST Diagnosis: Essential (primary) hypertension[ICD10: I10] Diagnosis: Localized edema[ICD10: R60.0] Diagnosis: Major depressive disorder, single episode, unspecified[ICD10: F32.9] Ritika CINTRON DO [facility] CPT-4: 20494 05/24/2018 ([id number]) PREV VISIT EST AGE 18-39 Diagnosis: Encounter for general adult medical examination without abnormal findings[ICD10: Z00.00] Diagnosis: Encounter for gynecological examination (general) (routine) without abnormal findings[ICD10: Z01.419] Diagnosis: Gastro-esophageal reflux disease without esophagitis[ICD10: K21.9] Diagnosis: Generalized anxiety disorder[ICD10: F41.1] Ritika CINTRON DO [facility] CPT-4: 57101 02/08/2018 ([id number]) NURSE/OUTPATIENT VISIT EST Diagnosis: Excessive and frequent menstruation with regular cycle[ICD10: N92.0] Ritika CINTRON DO [employer] CPT-4: 61294 01/09/2018 ([id number]) NURSE/OUTPATIENT VISIT EST Diagnosis: FLU VACCINE[ICD10: Z23] Ritika POP [employer] CPT-4: 69877 01/02/2018 ([id number]) OFFICE/OUTPATIENT VISIT EST Diagnosis: Acute sinusitis, unspecified[ICD10: J01.90] Quita CINTRON DO [facility] CPT-4: 15172 12/11/2017 ([id number]) OFFICE/OUTPATIENT VISIT EST Diagnosis: Acute pharyngitis, unspecified[ICD10: J02.9] Quita CINTRON DO [facility] CPT-4: 27305 11/30/2017 ([id number]) OFFICE/OUTPATIENT VISIT EST Diagnosis: Low back pain[ICD10: M54.5] Diagnosis: Pelvic and perineal pain[ICD10: R10.2] Diagnosis: Excessive and frequent menstruation with regular cycle[ICD10: N92.0] Ritika CINTRON DO [employer] CPT-4: 30543 10/13/2017 ([id number]) OFFICE/OUTPATIENT VISIT EST Diagnosis: Vitamin D deficiency, unspecified[ICD10: E55.9] Diagnosis: Endocrine disorder, unspecified[ICD10: E34.9] Ritika CINTRON [employer] [facility] CPT-4: 83633 09/05/2017 ([id number]) NURSE/OUTPATIENT VISIT EST Diagnosis: Excessive and frequent menstruation with regular cycle[ICD10: N92.0] Ritika CINTRON DO [facility] CPT-4: 24161 07/21/2017 OFFICE/OUTPATIENT VISIT EST Diagnosis: Other allergic rhinitis[ICD10: J30.89] Diagnosis: Encounter for other contraceptive management[ICD10: Z30.8] Quita CINTRON DO [facility] CPT-4: 87856 04/27/2017 OFFICE/OUTPATIENT VISIT EST Diagnosis: Allergic rhinitis, unspecified[ICD10: J30.9] Quita CINTRON DO [facility] CPT-4: 51240 03/20/2017 ([id number]) OFFICE/OUTPATIENT VISIT EST Diagnosis: Excessive and frequent menstruation with regular cycle[ICD10: N92.0] Ritika CINTRON [employer] [facility] CPT-4: 81040 01/31/2017 ([id number]) OFFICE/OUTPATIENT VISIT EST Diagnosis: Epigastric pain[ICD10: R10.13] Diagnosis: Gastro-esophageal reflux disease without esophagitis[ICD10: K21.9] Diagnosis: Pain in thoracic spine[ICD10: M54.6] Diagnosis: Low back pain[ICD10: M54.5] Ritika CURRY [employer] [facility] CPT-4: 92711 01/03/2017 ([id number]) OFFICE/OUTPATIENT VISIT EST Diagnosis: Excessive and frequent menstruation with regular cycle[ICD10: N92.0] Ritika CINTRON [employer] [facility] CPT-4: 50047 10/31/2016 ([id number]) PREV VISIT EST AGE 18-39 Diagnosis: Encounter for general adult medical examination without abnormal findings[ICD10: Z00.00] Diagnosis: Encounter for general adult medical examination with abnormal findings[ICD10: Z00.01] Diagnosis: Other fatigue[ICD10: R53.83] Diagnosis: Generalized hyperhidrosis[ICD10: R61] Diagnosis: Iron deficiency anemia, unspecified[ICD10: D50.9] Ritika Abdulaziz HOLLINSLINE Aura [facility] CPT-[facility]: 42178 09/06/2016 ([id number]) OFFICE/OUTPATIENT VISIT EST Diagnosis: Essential (primary) hypertension[ICD10: I10] Diagnosis: Major depressive disorder, single episode, unspecified[ICD10: F32.9] Diagnosis: Urinary tract infection, site not specified[ICD10: N39.0] Diagnosis: Acute vaginitis[ICD10: N76.0] Diagnosis: Nonscarring hair loss, unspecified[ICD10: L65.9] Mary House RITIKA BrittanyKatelyn [facility] CPT-[facility]: 80883 04/28/2016 ([id number]) OFFICE/OUTPATIENT VISIT EST Diagnosis: Atypical facial pain[ICD10: G50.1] Mary TEMPLE BrittanyKatelyn [facility]: 93168 09/10/2015 OFFICE/OUTPATIENT VISIT EST Diagnosis: Allergic rhinitis, unspecified[ICD10: J30.9] Sarah LOWERYQUELINE BrittanyKatelyn [facility] CPT-4: 01561 06/12/2015 ([id number]) OFFICE/OUTPATIENT VISIT EST Diagnosis: PALPITATIONS[ICD9: 785.1] Diagnosis: CHEST PAIN NOS[ICD9: 786.50] Diagnosis: GERD[ICD9: 530.81] Ritika Carrollesequiel LOWERYRITIKA BrittanyKatelyn [facility]: 84188 11/04/2014 ([id number]) OFFICE/OUTPATIENT VISIT EST Diagnosis: EDEMA[ICD9: 782.3] Diagnosis: PALPITATIONS[ICD9: 785.1] Diamante LOWERYQUELINE Aura [facility]: 75343 08/04/2014 ([id number]) OFFICE/OUTPATIENT VISIT EST Diagnosis: SINUSITIS, ACUTE[ICD9: 461.9] Diagnosis: PALPITATIONS[ICD9: 785.1] Diagnosis: Elevated blood pressure[ICD9: 796.2] Diagnosis: EDEMA[ICD9: 782.3] Ritika CRUZ BrittanyKatelyn [facility]: 27295 07/21/2014 ([id number]) OFFICE/OUTPATIENT VISIT EST Diagnosis: SINUSITIS, ACUTE[ICD9: 461.9] Diagnosis: COUGH[ICD9: 786.2] Diamante CINTRON DO [employer] CPT-4: 25350 04/02/2014 ([id number]) OFFICE/OUTPATIENT VISIT EST Diagnosis: Cervicalgia[ICD9: 723.1] Diagnosis: Thoracic back pain[ICD9: 724.1] Ritika CINTRON DO [employer] CPT-4: 90443 03/20/2014 ([id number]) OFFICE/OUTPATIENT VISIT EST Diagnosis: EXCESSIVE MENSTRUATION[ICD9: 626.2] Diagnosis: MALAISE AND FATIGUE[ICD9: 780.79] Diagnosis: ABNORMAL WEIGHT GAIN[ICD9: 783.1] Diagnosis: IBS[ICD9: 564.1] Ritika HOLLINSLINE BrittanyKatelyn ABDULAZIZ [employer] CPT - 4: 86541 02/18/2014 OFFICE/OUTPATIENT VISIT EST Diagnosis: URINARY TRACT INFECTION[ICD9: 599.0] Diagnosis: HYPERLIPIDEMIA NEC/NOS[ICD9: 272.4] Diamante CINTRON [employer] CPT-4: 17263 10/01/2013 OFFICE/OUTPATIENT VISIT EST Diagnosis: ARTHRALGIA-MULTIPLE SITES[ICD9: 719.49] Diagnosis: MALAISE AND FATIGUE[ICD9: 780.79] Diagnosis: ABNORMAL WEIGHT GAIN[ICD9: 783.1] Diamante ChapmanBirgitjanis HOLLINSKOBI Upton Aura CINTRON [employer] CPT-4: 02835 09/12/2013 ([id number]) OFFICE/OUTPATIENT VISIT EST Diagnosis: EXCESSIVE MENSTRUATION[ICD9: 626.2] Ritika CINTRON [employer] CPT-4: 71803 05/17/2013 ([id number]) PREV VISIT EST AGE 18-39 Diagnosis: ROUTINE GYNE EXAM[ICD9: V72.31] Diagnosis: ROUTINE MEDICAL EXAM[ICD9: V70.0] Diagnosis: Menorrhagia[ICD9: 626.2] Diagnosis: HYPERLIPIDEMIA NEC/NOS[ICD9: 272.4] Ritika Carrollcaer JACLASHAWN CINTRON [facility] CPT-4: 78773 05/16/2013 ([id number]) OFFICE/OUTPATIENT VISIT EST Diagnosis: ROUTINE MEDICAL EXAM[ICD9: V70.0] Ritika CINTRON [facility] CPT-4: 08217 05/07/2013 ([id number]) OFFICE/OUTPATIENT VISIT EST Diagnosis: FLU VACCINE[ICD9: V04.81] Ritika LOCK [facility] CPT-4: 84758 01/08/2013 OFFICE/OUTPATIENT VISIT EST Diagnosis: Skin infection[ICD9: 686.9] Diamante CINTRON [facility] CPT-4: 92465 12/07/2012 OFFICE/OUTPATIENT VISIT EST Diagnosis: Skin lesion, infected[ICD9: 686.9] Diagnosis: MRSA (methicillin resistant Staphylococcus aureus)[ICD9: 041.12] Diagnosis: CELLULITIS[ICD9: 682.9] Diamante POP [facility] CPT-4: 79930 12/03/2012 OFFICE/OUTPATIENT VISIT EST Diagnosis: FEBRILE ILLNESS[ICD9: 780.60] Diagnosis: SINUSITIS, ACUTE[ICD9: 461.9] Diagnosis: COUGH[ICD9: 786.2] Ritika CINTRON [facility] CPT-4: 91976 04/03/2012 OFFICE/OUTPATIENT VISIT EST Diagnosis: SINUSITIS, ACUTE[ICD9: 461.9] Ritika CINTRON [facility] CPT-4: 42101 03/30/2012 OFFICE/OUTPATIENT VISIT EST Diagnosis: CONJUNCTIVITIS NOS[ICD9: 372.30] Diagnosis: URI, ACUTE[ICD9: 465.9] Ritika POP [facility] CPT-4: 99792 07/29/2011 OFFICE/OUTPATIENT VISIT EST Diagnosis: CELLULITIS OF HAND[ICD9: 682.4] Ritika CINTRON [facility] CPT-4: 30552 04/28/2011 OFFICE/OUTPATIENT VISIT EST Diagnosis: URINARY TRACT INFECTION[ICD9: 599.0] Diagnosis: Vaginal itching[ICD9: 698.1] Ritika CINTRON [employer] CPT-4: 78891 03/07/2011 OFFICE/OUTPATIENT VISIT EST Diagnosis: Skin lesion of face[ICD9: 709.9] Diagnosis: Scratched by cat[ICD9: 919.8] Ritika CINTRON DO [employer] CPT-4: 36911 11/10/2010 PREV VISIT NEW AGE 18-39 Ritika Tamayo [employer] CPT-4: 56481 08/18/2010 Plan of Care Planned Activity Notes Codes Status Date Visit Diagnosis Plan: Essential (primary) hypertension Discussion: Stable ICD-9 : 401.9 ICD-10 : I10 07/25/2019 Visit Diagnosis Plan: Major depressive disorder, singl e episode, unspecified Discussion: Stable Follow Up: 6 months ICD-9 : 311 ICD-10 : F32.9 07/25/2019 Visit Diagnosis Plan: Encounter for [facility] adult medical examination without abnormal findings Discussion: Mediterranean diet Combinati on of cardio and weight bearing exercise Update fasting lab ICD-9 : V70.9 ICD-10 : Z00.00 07/25/2019 Patient Education: sertraline- [employer] Coupon [id number] [email or web address]/[email or web address]/resources/[email or web address] Completed 07/25/2019 Visit Diagnosis Plan: Generalized anxiety disorder Dis cussion: Stable on sertraline ICD-9 : 300.00 ICD-10 : F41.1 01/08/2019 Visit Diagnosis Plan: Essential (primary) hypertension Discussion: Continue spironolactone Patient would like to focus on lifestyle change rather than increase or add more medicines so will do that and do a BP check in 6 weeks ICD-9 : 401.9 ICD-10 : I10 01/08/2019 Visit Diagnosis Plan: Gastro-esophageal reflux disease without esophagitis Discussion: Lifestyle change and using pantoprazole prn ICD-9 : 530.81 ICD-10 : K21.9 01/08/2019 Appointment: [facility]it[facility] [phone] [facility] [facility] 01/08/2019 Appointment: Ritika Cintron WPtel: [address] [place], [place] [phone] [place] INJECTION 11/22/2018 Patient Education: INFLUENZA VACCINE [facility] Completed 11/22/2018 Visit Diagnosis Plan: Esophageal reflux Discussion: Ch nayan protonix to nexium Referral for EGD May need GB workup pending EGD results ICD-9 : 530.81 ICD-10 : K21.9 11/14/2018 Appointment: Ritika Cintron WPtel: [facility] FOLLOW UP 11/14/2018 Patient Education: Nexium- [employer] Coupon [id number] [email or web address]/sampleEnvoy/resources/getResource/61/[email or web address].pdf Completed 11/14/2018 Visit Diagnosis Plan: Gastro-esophageal reflux disease without esophagitis Discussion: Continue protonix at current dose Recheck 3mos ICD-9 : 530.81 ICD-10 : K21.9 09/17/2018 Visit Diagnosis Plan: Elevated blood-pre ssure reading, without diagnosis of hypertension Discussion: Continue spironolactone Low Na diet ICD-9 : 796.2 ICD-10 : R03.0 09/17/2018 Appointment: Ritika Cintron WPtel: [address] [place], [place] [phone] FOLLOW UP 09/17/2018 Patient Education: spironolactone- [employer] Coupon [id number] Completed 09/17/2018 Patient Education: sertraline- [employer] Coupon [id number] Completed 09/17/2018 Visit Diagnosis Plan: Acute gastritis with bleeding Di scussion: educated patient that coffee ground appearance of stools is a sign of an old bleed. protonix bid started on patient as well as flagyl to cover for infective etiology. referral made for dr. bassett who scheduled her tomorrow for consultation. educated patient to dc nsaids due to risk of gi bleeds. cbc ordered to evaluate wbc and hgb levels. ICD-9 : 535.01 ICD-10 : K29.01 08/13/2018 Visit Diagnosis Plan: Generalized abdominal pain Discu ssion: see other plan for details. bland diet and increase fluid intake. ICD-9 : 789.07 ICD-10 : R10.84 08/13/2018 Appointment: [facility]uita [facility] [address] [facility] [facility] 08/13/2018 Patient Education: Protonix- [employer] Coupon [id number] https://www.iPipeline/AesRx/resources/getResource/61/[email or web address] Completed 08/13/2018 Visit Diagnosis Plan: Other allergic rhinitis Discussi on: Steroid injection administered in the clinic- patient tolerated well. Start oral prednisone tomorrow. Ok to continue daily allergy medications. She has established with Dr. Zuleta and will be starting allergy injections with him this summer. No further questions at this time. ICD-9 : 477.8 ICD-10 : J30.89 05/29/2018 Appointment: Anaya Marte [address] [facility] ACUTE ILLNESS 05/29/2018 Visit Diagnosis Plan: Essential (primary) hypertension Discussion: Stable on spironolactone ICD-9 : 401.9 ICD-10 : I10 05/24/2018 Visit Diagnosis Plan: Localized edema Discussion: Ongo ing but improved ICD-9 : 782.3 ICD-10 : R60.0 05/24/2018 Visit Diagnosis Plan: Major depressive disorder, singl e episode, unspecified Discussion: Stable on current sertraline dose Follow Up: 3 months ICD-9 : 311 ICD-10 : F32.9 05/24/2018 Appointment: Ritika Cintron WPtel: [phone] [facility] [place] FOLLOW UP 05/24/2018 Visit Diagnosis Plan: Encounter for gyne cological examination (general) (routine) without abnormal findings Discussion: Pap done Change depoprovera to Tri-sprintec ICD-9 : V72.31 ICD-10 : Z01.419 02/08/2018 Visit Diagnosis Plan: Generalized anxiety disorder Dis cussion: Zoloft 50gmg daily Stress Reducers Follow Up: 1 months ICD-9 : 300.00 ICD-10 : F41.1 02/08/2018 Visit Diagnosis Plan: Gastro-esophageal reflux disease without esophagitis Discussion: Omeprazole 40mg daily ICD-9 : 530.81 ICD-10 : K21.9 02/08/2018 Appointment: Ritika Cintron WPtel: [address] [place] [address] Annual Well Visit 02/08/2018 Appointment: Ritika Cintron WPtel: [address] [place], [place] [phone] [place] INJECTION 01/09/2018 Appointment: Ritika Cintron WPtel: [address] [place] [address] [place] INJECTION 01/02/2018 Patient Education: INFLUENZA VACCINE CDC Completed 01/02/2018 Visit Diagnosis Plan: Acute sinusitis, unspecified Dis cussion: due to clindamycin not relieving symptoms, most likely cause is viral vs allergy. kenalog 40 and dexa 4 given in office for symptom relief. instructed to call later this week if no improvement from injection and patient may need to start singulair daily along with zyrtec. ICD-9 : 461.9 ICD-10 : J01.90 12/11/2017 Appointment: Quita Jerry [address] ACUTE ILLNESS 12/11/2017 Patient Education: Patient Medication Summary Completed 12/11/2017 Patient Education: Patient Medication Summary Completed 12/11/2017 Visit Diagnosis Plan: Acute pharyngitis, unspecified D iscussion: rapid strep negative. due to clinical s/s and worsening, clindamycin sent out for patient. change toothbrush in 48 hours, no sharing food or drinks with others. 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 tylenol/ibuprofen prn pain or fever. call office with new or worsening symptoms. ICD-9 : 462 ICD-10 : J02.9 11/30/2017 Appointment: Quita Jerry [address] ACUTE ILLNESS 11/30/2017 Patient Education: Patient Medication Summary Completed 11/30/2017 Visit Diagnosis Plan: Pelvic and perineal pain Discuss ion: Unable to give urine so will cover with macrobid since weekend and is having suprapubic pain with urinary hesitancy along with worsening low back pain To UC or ER over weekend if worsens ICD-9 : 625.9 ICD-10 : R10.2 10/13/2017 Visit Diagnosis Plan: Low back pain Discussion: Mobic, flexeril with tylenol in between prn Topical tiger balm Stretches Notify if persist or worsens ICD-9 : 724.2 ICD-10 : M54.5 10/13/2017 Appointment: Ritika Cintron WPtel: [address] [place], [place] [phone] ACUTE ILLNESS 10/13/2017 Patient Education: Patient Medication Summary Completed 10/13/2017 Visit Diagnosis Plan: Endocrine disorder, unspecified Discussion: Will start spironolactone 25mg po daily once weans son from nursing and then will plan on repeat hormone levels in 3mos as well ICD-9 : 259.9 ICD-10 : E34.9 09/05/2017 Visit Diagnosis Plan: Vitamin D deficiency, unspecifie d Discussion: Was started on 50,000u weekly Will also add Vitamin D3 1000u daily Recheck Vit D3 in 3mmos ICD-9 : 268.9 ICD-10 : E55.9 09/05/2017 Appointment: Ritika Cintron WPtel: [address] [place], [place] [phone] FOLLOW UP 09/05/2017 Patient Education: Patient Medication Summary Completed 09/05/2017 Appointment: Ritika Cintron WPtel: [address] [place], [place] [phone] [place] INJECTION 07/21/2017 Patient Education: Patient Medication Summary Completed 07/21/2017 Visit Diagnosis Plan: Other allergic rhinitis Discussi on: solumedrol 125 mg im given at today's visit due to patient still breast feeding. referral sent for dr. zuleta to assess for possible allergy injections for recurrent allergies. ICD-9 : 477.8 ICD-10 : J30.89 04/27/2017 Visit Diagnosis Plan: Encounter for other contraceptiv e management Discussion: depo shot given at today's visit. rtc in 3 months for next injection. ICD-9 : V25.8 ICD-10 : Z30.8 04/27/2017 Appointment: Quita Jerry [address] [place], [place] [phone] ACUTE ILLNESS 04/27/2017 Patient Education: Patient Medication Summary Completed 04/27/2017 Appointment: Quita Jerry [address] [place], [place] [phone] ACUTE ILLNESS 03/31/2017 Visit Diagnosis Plan: Allergic rhinitis, unspecified D iscussion: solumedrol injection given to patient to help relieve symptoms since she is still and solumedrol is safe. singulair also prescribed for patient to take daily as this is safe as well. allergy labs ordered to help evaluate why this continues to occur and continues to worsen. instructed patient that she can still take zyrtec or claritin opposite of singulair. instructed to call clinic later this week if symptoms worsen and start to develop into sinus infection. ICD-9 : 477.9 ICD-10 : J30.9 03/20/2017 Appointment: [facility] [facility] 03/20/2017 Patient Education: Patient Medication Summary Completed 03/20/2017 Appointment: Ritika Cintron WPtel: [address] [place], [place] [phone] [place] INJECTION 01/31/2017 Patient Education: Patient Medication Summary Completed 01/31/2017 Visit Diagnosis Plan: Epigastric pain Discussion: Tria l of protonix BID ICD-9 : 789.06 ICD-10 : R10.13 01/03/2017 Visit Diagnosis Plan: Gastro-esophageal reflux disease without esophagitis Diet: GERD diet ICD-9 : 530.81 ICD-10 : K21.9 01/03/2017 Visit Diagnosis Plan: Pain in thoracic spine Discussio n: Daily stretches Change ibuprofen to meloxicam once daily in AM with protonix and food Follow Up: 2 months ICD-9 : 724.1 ICD-10 : M54.6 01/03/2017 Appointment: Ritika Cintron WPtel: [facility]66[facility] Annual Well Visit 01/03/2017 Patient Education: Patient Medication Summary Completed 01/03/2017 Appointment: Ritika Cintron WPtel: [address] [place], [place] [phone] PAP 11/22/2016 Appointment: Ritika Cintron WPtel: [address] [place], [place] [phone] [place] INJECTION 10/31/2016 Patient Education: Patient Medication Summary Completed 10/31/2016 Visit Diagnosis Plan: Other fatigue Discussion: Check TSH, Free T4, CBC, CMP ICD-9 : 780.79 ICD-10 : R53.83 09/06/2016 Visit Diagnosis Plan: Iron deficiency anemia, unspecif ied Discussion: Check CBC, iron ICD-9 : 280.9 ICD-10 : D50.9 09/06/2016 Visit Diagnosis Plan: Encounter for [facility] adult medical examination with abnormal findings Discussion: Pap done May need pelvic US due to pain with intercourse ICD-9 : V70.0 ICD-10 : Z00.01 09/06/2016 Appointment: Ritika Cintron WPtel: [address] [place] [address] 09/05 confirmed~sl PAP 09/06/2016 Patient Education: Patient Medication Summary Completed 09/06/2016 Appointment: Ritika Cintron WPtel: [address] [place], [place] [address] BP CHECK 05/18/2016 Patient Education: Patient Medication Summary Completed 05/18/2016 Visit Diagnosis Plan: Urinary tract infection, site no t specified Discussion: Office dip abnormal Culture pending Unfortunately is allergic to several antibiotics Macrobid as above Pump and dump breast milk to be safe Push fluids ICD-9 : 599.0 ICD-10 : N39.0 04/28/2016 Visit Diagnosis Plan: Major depressive disorder, singl e episode, unspecified Discussion: Start zoloft as above Strongly encouraged counseling She denies SI/HI Reviewed SI/HI precautions Encouraged exercise and outdoor activities, healthy eating and proper sleep habits Will recheck in 1 month with me or Dr Joseph montenegro if worsening Advised to update OBGYN as well ICD-9 : 311 ICD-10 : F32.9 04/28/2016 Visit Diagnosis Plan: Nonscarring hair loss, unspecifi ed Discussion: Discussed hair loss is fairly normal Continue Can add hair growth stimulating shampoo and conditioner If worsening, can update labs Encouraged her to discuss with her OBGYN as well ICD-9 : 704.00 ICD-10 : L65.9 04/28/2016 Visit Diagnosis Plan: Acute vaginitis Discussion: Foll ow macrobid with diflucan Supportive care in the meantime Yogurt/probiotic Topical OTC vaginal cream for relief in the meantime ICD-9 : 616.10 ICD-10 : N76.0 04/28/2016 Visit Diagnosis Plan: Essential (primary) hypertension Discussion: Restart metoprolol at previous dosing Daily BP readings x 2 weeks at home Recheck in 2 weeks with nurse and turn in BP log ICD-9 : 401.9 ICD-10 : I10 04/28/2016 Appointment: [facility] [address] [place] [address] ACUTE ILLNESS 04/28/2016 Patient Education: Patient Medication Summary Completed 04/28/2016 Appointment: Ritika Cintron WPtel: [address] [place] [address] BP CHECK 02/01/2016 Patient Education: Patient Medication Summary Completed 02/01/2016 Appointment: Ritika Cintron WPtel: [address] [place] [address] BP CHECK 01/26/2016 Patient Education: Patient Medication Summary Completed 01/26/2016 Visit Plan: Discussed POC with Dr Leticia tamayo Increase dose to 300mg TID for a full 10 days Follow up with us, dentist and OB as needed Cautioned to monitor BP and follow up if not at goal 09/10/2015 Appointment: [facility] [address] [place] [address] ACUTE ILLNESS 09/10/2015 Patient Education: Patient Medication Summary Completed 09/10/2015 Visit Plan: Dexamethesone 4mg with Kenal og 40 IM now Continue antihistamines Use nasal saline multiple times a day Humidified air Rest/fluids Reviewed s/s of worsening, go to over weekend if needed. 06/12/2015 Appointment: Sarah Campbell WPtel: [address] [place] [address] ACUTE ILLNESS 06/12/2015 Patient Education: Patient Medication Summary Completed 06/12/2015 Visit Plan: Proceed with Stress ECHO Add omeprazole Fwup after stress ECHO 11/04/2014 Appointment: Ritika Cintron WPtel: [address] [place], [place] [phone] 11/03/14 confirm FOLLOW UP 11/04/2014 Patient Education: Patient Medication Summary Completed 11/04/2014 Visit Plan: Continue HCTZ 12.5 mg for 2 more weeks. Discussed decreasing dietary sodium intake Advised against future use of pseudoephedrine 08/04/2014 Appointment: Diamante Santana WPtel: [address] [place] [address] FOLLOW UP 08/04/2014 Patient Education: Patient Medication Summary Completed 08/04/2014 Appointment: Ritika Cintron WPtel: [address] [place], [place] [phone] Urgent/Quick Care Follow Up 02/2014 Patient Education: Patient Medication Summary Completed 07/21/2014 Appointment: Diamante Santana WPtel: [address] [place], [place] [phone] ACUTE ILLNESS 04/02/2014 Patient Education: Patient Medication Summary Completed 04/02/2014 Patient Education: [employer] - Antibi otics, Analgesics 18+, Oral Contraceptives F 18+ Completed 04/02/2014 Visit Plan: Check cervical and thoracic spine x-rays Daily Neck and Back stretches Duexis TID 03/20/2014 Appointment: Ritika Cintron WPtel: [address] [place], [place] [phone] ACUTE ILLNESS 03/20/2014 Patient Education: Patient Medication Summary Completed 03/20/2014 Visit Plan: Trial of Aviane Discussed di et and exercise at length--1400--1500cal ADA diet with exercise Trial of levbid 0.375mg q HS Discussed trial of Phenteramine Call in 1mo on Levbid 02/18/2014 Appointment: Ritika Cintron WPtel: [address] [place] [address] ACUTE ILLNESS 02/18/2014 Patient Education: Patient Medication Summary Completed 02/18/2014 Patient Education: [employer] - Antibi otics, Analgesics 18+, Oral Contraceptives F 18+ Completed 02/18/2014 Appointment: Diamante Santana WPtel: [address] [place] [address] ACUTE ILLNESS 10/01/2013 Patient Education: Patient Medication Summary Completed 10/01/2013 Appointment: Diamante Santana WPtel: [address] [place] [address] ACUTE ILLNESS 09/12/2013 Patient Education: Patient Medication Summary Completed 09/12/2013 Referral: Ritika Cintron WPtel: [address] [place] [address] Dr Rodriguez Initiated 06/18/2013 Appointment: Ritika Cintron WPtel: [address] [place] [address] INJECTION 05/17/2013 Patient Education: Patient Medication Summary Completed 05/17/2013 Visit Plan: [facility] Lab discussed--fish oil 3grams daily and lifestyle change with exercise and recheck lipids 6mos 05/16/2013 Appointment: Ritika Cintron WPtel: [address] [place] [address] 05/14 pt came in and verified appt is 27 PAP 05/16/2013 Patient Education: Patient Medication Summary Completed 05/16/2013 Appointment: Ritika Cintron WPtel: [address] [place] [address] LAB 05/07/2013 Patient Education: Patient Medication Summary Completed 05/07/2013 App[facility]ment[facility] [phone] [id number] [place] [facility] 01/08/2013 Patient Education: Patient Medication Summary Completed 01/08/2013 Appointment: Diamante Santana WPtel: [phone] [facility] [place] ACUTE ILLNESS 12/07/2012 Patient Education: Patient Medication Summary Completed 12/07/2012 Appointment: Diamante Santana WPtel: [phone] [facility] [place] ACUTE ILLNESS 12/03/2012 Patient Education: Patient Medication Summary Completed 12/03/2012 Visit Plan: 2 months old at home. (saida adams) Azithromycin increased dose. Pt. reports Clindamycin is possible allergy but not sure-states "makes my throat close....I think" Discussed that will notify if symptoms worsen or fever continues. Strongly encouraged her to stay home until fever resolves. 04/03/2012 Appointment: Venecia Smith WPtel: [phone] [id number] ACUTE ILLNESS 04/03/2012 Patient Education: Patient Medication Summary Completed 04/03/2012 Visit Plan: ERx for ZPack (due to multip le med allergies and ) OTC multiple symptom cold formula (Like Robitussing PE) as directed OTC nasal saline, Tylenol, Ibuprofen prn RTC for no improvement, UC for worsening. 03/30/2012 Appointment: Sarah Campbell WPtel: [address] [place], [place] [id number] [place] ACUTE ILLNESS 03/30/2012 Patient Education: Patient Medication Summary Completed 03/30/2012 Visit Plan: Patient is 13-14 weeks pregn ant. Discussed URI is probably viral, use nasal saline, humidified air, Tylenol as allowed by OB. Tobrex Opth Drops 2 drops OD (or OU for bilat symptoms) q 4 hours x 7 days Go to UC for worsening on weekend, Call office if no improvement by Monday. (Patient states she has no problem with erythromycin or azithromycin, only possibly clindamycin caused a rash or rash was secondary to viral illness she had at the time) 07/29/2011 Appointment: Sarah Campbell WPtel: [address] [place] [address] ACUTE ILLNESS 07/29/2011 Patient Education: Patient Medication Summary Completed 07/29/2011 Appointment: Venecia Smith WPtel: [address] [place] [address] FOLLOW UP 04/29/2011 Patient Education: Patient Medication Summary Completed 04/29/2011 Visit Plan: due to multiple allergies wi ll try Doxycycline and mupirocin topical.(has some topical left over from past topical infection) Will ice/cool pack finger and use Ibuprofen in addition to antibiotic. Discussed that pt. will notify if redness is worse tomorrow. 04/28/2011 Appointment: Venecia Smith WPtel: [address] [place] [address] ACUTE ILLNESS 04/28/2011 Patient Education: Patient Medication Summary Completed 04/28/2011 Visit Plan: Macrobid and Pyridium. Diflu can for possible yeast. Discussed increased fluids. Pt. will notify if symptoms worsen or fever occurs. Urine for culture. 03/07/2011 Appointment: Venecia Smith WPtel: [address] [place] [address] ACUTE ILLNESS 03/07/2011 Patient Education: Patient Medication Summary Completed 03/07/2011 Visit Plan: Pt will apply mild heat devante ral times daily to aid in healing process. Pt. has past RX for mupirocin topical. Will apply to area being careful to not get any in the eye. Will follow up if no resolution in the next 5 days. 11/10/2010 Appointment: Venecia Smith WPtel: [address] [place] [address] ACUTE ILLNESS 11/10/2010 Patient Education: Patient Medication Summary Completed 11/10/2010 Visit Plan: Pap done Check CBC, CMP, TSH , Free T4 08/18/2010 Appointment: Ritika Cintron WPtel: [address] [place] [address] NEW PATIENT 08/18/2010 Patient Education: Patient Medication Summary Completed 08/18/2010 Instructions Comment . Discussed POC with Dr Cintron Increase dose to 300mg TID for a full 10 days Follow up with us, dentist and OB as needed Cautioned to monitor BP and follow up if not at goal . Dexamethesone 4mg with Kenalog 40 IM n ow Continue antihistamines Use nasal saline multiple times a day Humidified air Rest/fluids Reviewed s/s of worsening, go to UC over weekend if needed. . Proceed with Stress ECHO Add omeprazole Fwup after stress ECHO . Continue HCTZ 12.5 mg for 2 more weeks . Discussed decreasing dietary sodium intake Advised against future use of pseudoephedrine . Check cervical and thoracic spine x-ra ys Daily Neck and Back stretches Duexis TID . Trial of Aviane Discussed diet and exercise at length--1400--1500cal ADA diet with exercise Trial of levbid 0.375mg q HS Discussed trial of Phenteramine Call in 1mo on Levbid . Pap smear with HPV done Resume depoprovera Lab discussed--fish oil 3grams daily and lifestyle change with exercise and recheck lipids 6mos . 2 months old at home. (nursing) Azithromycin increased dose. Pt. reports Clindamycin is possible allergy but not sure-states "makes my throat close....I think" Discussed that will notify if symptoms worsen or fever continues. Strongly encouraged her to stay home until fever resolves. . ERx for ZPack (due to multiple med all ergies and ) OTC multiple symptom cold formula (Like Robitussing PE) as directed OTC nasal saline, Tylenol, Ibuprofen prn RTC for no improvement, UC for worsening. . Patient is 13-14 weeks . Discussed URI is probably viral, use nasal saline, humidified air, Tylenol as allowed by OB. Tobrex Opth Drops 2 drops OD (or OU for bilat symptoms) q 4 hours x 7 days Go to UC for worsening on weekend, Call office if no improvement by Monday. (Patient states she has no problem with erythromycin or azithromycin, only possibly clindamycin caused a rash or rash was secondary to viral illness she had at the time) . due to multiple allergies will try Dox ycycline and mupirocin topical.(has some topical left over from past topical infection) Will ice/cool pack finger and use Ibuprofen in addition to antibiotic. Discussed that pt. will notify if redness is worse tomorrow. . Macrobid and Pyridium. Diflucan for p ossible yeast. Discussed increased fluids. Pt. will notify if symptoms worsen or fever occurs. Urine for culture. . Pt will apply mild heat several times daily to aid in healing process. Pt. has past RX for mupirocin topical. Will apply to area being careful to not get any in the eye. Will follow up if no resolution in the next 5 days. . Pap done Check CBC, CMP, TSH, Free T4 Medical Equipment No Medical Equipment data Health Concerns Section Health Concerns data not found Goals Section Goals data not found Interventions Section Interventions data not found Health Status Evaluations/Outcomes Section Health Status Evaluations/Outcomes data not found Advance Directives No Advance Directive data
--- OUTSIDE RECORDS SUMMARY | 2019-10-02 17:21 | XMS REPORT | CCD ---
Author Author Catherine Cintron D.O. Organization [facility] Address [address] [place] [address] Phone Care Team Providers Care Pilot Supervisor Name Role Phone Ritika Cintron D.O., PP Unavailable CCM Unavailable Summary Purpose Interface Exchange Insurance Providers Payer name Policy type / Coverage type Covered republican ID Effective Begin Date Effective End Date Blue Cross Blue Shield Blue Cross/Blue Shield [id number] Unknown Family history Mother Diagnosis Age At Onset No Family Disease Entered N/A Father Diagnosis Age At Onset Diabetes mellitus Type 1 Unknown Social History Social History Element Codes Description Effective Dates Tobacco history SNOMED CT: 361674377 Has never smoked or chewed tobacco 09/01/2010 [...] Fill Instructions spironolactone 50 mg tablet RxNorm: 550668 Tablet(s) 1 TABLET(S ) PO QAM 07/25/2019 01/21/2020 Active sertraline 50 mg tablet RxNorm: 325774 1 Tablet(s) Oral QD 1 TA BLET(S) PO QD 07/25/2019 01/20/2020 Active Tri-Sprintec (28) 0.18 mg(7)/0.215 mg(7)/0.25 mg(7)-35 mcg tablet RxNorm: 625246 TAKE 1 TABLET BY MOUTH EVERY DAY 07/25/2019 01/21/2020 Active Tri-Sprintec (28) 0.18 mg(7)/0.215 mg(7)/0.25 mg(7)-35 mcg tablet RxNorm: 678635 TAKE 1 TABLET BY MOUTH EVERY DAY 07/08/2019 07/24/2019 Inactive Tri-Sprintec (28) 0.18 mg(7)/0.215 mg(7)/0.25 mg(7)-35 mcg tablet RxNorm: 301381 1 Tablet(s) Oral QD Due for annual appt 06/12/2019 07/07/2019 I nactive Due for annual appointment Tri-Sprintec (28) 0.18 mg(7)/0.215 mg(7)/0.25 mg(7)-35 mcg tablet RxNorm: 314056 TAKE 1 TABLET BY MOUTH EVERY DAY 04/15/2019 06/11/2019 Inactive Zetia 10 mg tablet RxNorm: 533947 1 Tablet(s) Oral QD 01/08/201904/2019 Inactive Tri-Sprintec (28) 0.18 mg(7)/0.215 mg(7)/0.25 mg(7)-35 mcg tablet RxNorm: 083362 TABLET(S) 1 TABLET(S) PO QD 01/07/2019 04/14/2019 Inactive Nexium 40 mg capsule,delayed release RxNorm: 579921 1 Capsule(s ) Oral QD 11/14/2018 01/07/2019 Inactive metronidazole 500 mg tablet RxNorm: 542041 1 Tablet(s) Oral thr ee times a day 11/14/2018 11/14/2018 Inactive Bactrim DS 800 mg-160 mg tablet RxNorm: 417143 1 Tablet(s) Oral two times a day 11/14/2018 11/14/2018 Inactive sertraline 50 mg tablet RxNorm: 523614 1 Tablet(s) PO QD 1 TABL ET(S) PO QD 09/17/2018 03/15/2019 Inactive spironolactone 50 mg tablet RxNorm: 964324 Tablet(s) 1 TABLET(S ) PO QAM 09/17/2018 03/15/2019 Inactive sertraline 50 mg tablet RxNorm: 400742 1 TABLET(S) PO QD 09/10/2018 0 09/16/2018 Inactive Tri-Sprintec (28) 0.18 mg(7)/0.215 mg(7)/0.25 mg(7)-35 mcg tablet RxNorm: 373818 Tablet(s) 1 TABLET(S) PO QD 08/20/2018 01/06/2019 Inactive Protonix 40 mg tablet,delayed release RxNorm: 865691 1 Tablet(s ) PO BID 08/13/2018 11/13/2018 Inactive Flagyl 500 mg tablet RxNorm: 268763 1 Tablet(s) PO BID 08/13/2018 Inactive spironolactone 50 mg tablet RxNorm: 682132 1 TABLET(S) PO QAM 08/1309/16/2018 Inactive Tri-Sprintec (28) 0.18 mg(7)/0.215 mg(7)/0.25 mg(7)-35 mcg tablet RxNorm: 185230 1 TABLET(S) PO QD 06/18/2018 07/15/2018 Inactive sertraline 50 mg tablet RxNorm: 822669 1 Tablet(s) PO QD 06/07/2018 0 09/04/2018 Inactive prednisone 10 mg tablet RxNorm: 292317 1 Tablet(s) PO BID 05/30/2018 06/03/2018 Inactive Tri-Sprintec (28) 0.18 mg(7)/0.215 mg(7)/0.25 mg(7)-35 mcg tablet RxNorm: 676849 1 Tablet(s) PO QD 05/17/2018 06/13/2018 Inactive sertraline 50 mg tablet RxNorm: 545822 1 TABLET(S) PO QD 05/07/2018 0 06/05/2018 Inactive Tri-Sprintec (28) 0.18 mg(7)/0.215 mg(7)/0.25 mg(7)-35 mcg tablet RxNorm: 998930 1 Tablet(s) PO QD 02/08/2018 05/02/2018 Inactive sertraline 50 mg tablet RxNorm: 289689 1 Tablet(s) PO QD 02/08/2018 0 04/08/2018 Inactive omeprazole 40 mg capsule,delayed release RxNorm: 664304 1 Capsule(s) PO QD for acid reflux 02/08/2018 08/12/2018 Inactive montelukast 10 mg tablet RxNorm: 534852 1 Tablet(s) PO QHS 12/15/19 18 12/13/2017 Inactive montelukast 10 mg tablet RxNorm: 644740 1 Tablet(s) PO QHS 12/15/19 18 08/12/2018 Inactive spironolactone 50 mg tablet RxNorm: 958758 1 Tablet(s) PO QAM 12/0612/05/2017 Inactive spironolactone 50 mg tablet RxNorm: 885706 1 Tablet(s) PO QAM 12/0603/05/2018 Inactive spironolactone 25 mg tablet RxNorm: 510688 1 TABLET(S) PO QAM BLOOD PRESSURE CHECK IN 1 MONTH 12/04/2017 12/10/2017 Inactive clindamycin HCl 300 mg capsule RxNorm: 645925 1 Capsule(s) PO TID 1 12/09/2017 Inactive spironolactone 25 mg tablet RxNorm: 014658 1 Tablet(s) PO QAM Blood pressure check in 1 month 11/06/2017 12/03/2017 Inactive spironolactone 25 mg tablet RxNorm: 052636 1 Tablet(s) PO QAM Blood pressure check in 1 month 11/06/2017 11/05/2017 Inactive cyclobenzaprine 5 mg tablet RxNorm: 273490 1/2-1 Tablet(s) PO Q HS for spasm 10/13/2017 11/11/2017 Inactive Macrobid 100 mg capsule RxNorm: 694880 1 Capsule(s) PO BID 10/14/19 18 10/19/2017 Inactive Mobic 15 mg tablet RxNorm: 112581 1 Tablet(s) PO QAM for pain 10/1311/11/2017 Inactive Depo-Provera 150 mg/mL intramuscular syringe RxNorm: 8424284 Milliliter(s) IM Bring to office for administration 07/18/2017 02/07/2018 Inactive Singulair 10 mg tablet RxNorm: 428082 1 Tablet(s) PO QD 04/12/2017 Inactive Singulair 10 mg tablet RxNorm: 717356 1 Tablet(s) PO QD 03/20/2017 Inactive metoprolol tartrate 50 mg tablet RxNorm: 915565 1 Tablet(s) PO QD 0 02/21/2017 09/04/2017 Inactive Mobic 15 mg tablet RxNorm: 221207 1 Tablet(s) PO QD 01/30/20172017 Inactive Mobic 15 mg tablet RxNorm: 121503 1 Tablet(s) PO QD 01/03/20172016 Inactive Protonix 40 mg tablet,delayed release RxNorm: 699014 1 Tablet(s ) PO BID 01/03/2017 11/29/2017 Inactive metoprolol tartrate 50 mg tablet RxNorm: 354620 1 Tablet(s) PO QD 1 02/21/2017 Inactive Depo-Provera 150 mg/mL intramuscular syringe RxNorm: 2991696 Milliliter(s) IM Bring to office for administration 10/28/2016 07/17/2017 Inactive Depo-Provera 150 mg/mL intramuscular syringe RxNorm: 2353292 Milliliter(s) IM Bring to office for administration 10/10/2016 10/27/2016 Inactive Macrobid 100 mg capsule RxNorm: 800053 1 Capsule(s) PO BID 04/29/19 17 05/04/2016 Inactive metoprolol succinate ER 50 mg tablet,extended release 24 hr RxNorm: 864710 1 Tablet(s) PO QD 04/28/2016 07/26/2016 Inactive Diflucan 150 mg tablet RxNorm: 597686 1 Tablet(s) PO QD x 1 dose 09/05/2016 Inactive sertraline 25 mg tablet RxNorm: 674195 1/2 Tablet(s) PO QD for 1 week and then increase to 1 tablet PO QD 04/28/2016 09/05/2016 Inactive Toprol XL 50 mg tablet,extended release RxNorm: 726050 1 Tablet (s) PO QD 01/26/2016 04/27/2016 Inactive clindamycin 300 mg capsule RxNorm: 616198 1 Capsule(s) PO TID 09/0909/19/2015 Inactive omeprazole 20 mg capsule,delayed release RxNorm: 022515 1 Capsu le(s) PO QD 11/04/2014 04/27/2016 Inactive hydrochlorothiazide 12.5 mg tablet RxNorm: 973280 1 Tablet(s) PO QD 09/10/2014 04/27/2016 Inactive Aviane 0.1 mg-20 mcg tablet RxNorm: 599384 1 Tablet(s) PO QD 201404/27/2016 Inactive hydrochlorothiazide 12.5 mg tablet RxNorm: 609755 1 Tablet(s) PO QD 07/21/2014 09/09/2014 Inactive Zithromax Z-Kyle 250 mg tablet RxNorm: 025631 Tablet(s) PO As Di rected 07/21/2014 11/03/2014 Inactive tobramycin 0.3 % eye drops RxNorm: 117558 2 Drop(s) OPH Q4H 015 04/02/2014 Inactive tobramycin 0.3 % eye drops RxNorm: 641922 2 Drop(s) OPH Q4H 015 04/09/2014 Inactive azithromycin 250 mg tablet RxNorm: 028040 2 Tablet(s) P O on day one then one tablet on days 2 - 5 04/02/2014 11/03/2014 Inactive hyoscyamine ER 0.375 mg tablet,extended release,12 hr RxNorm : 0694058 1 Tablet(s) PO QHS 03/20/2014 11/03/2014 Inactive Levbid 0.375 mg tablet,extended release RxNorm: 3226270 1 Tablet (s) PO QHS 02/18/2014 03/19/2014 Inactive Aviane 0.1 mg-20 mcg tablet RxNorm: 807319 1 Tablet(s) PO QD 201308/27/2014 Inactive Diflucan 150 mg tablet RxNorm: 753623 1 Tablet(s) PO QOD 10/01/2013 1 Inactive Macrobid 100 mg capsule RxNorm: 377558 1 Capsule(s) PO BID 10/02/19 14 10/07/2013 Inactive clindamycin 300 mg capsule RxNorm: 442027 1 Capsule(s) PO TID 12/0312/12/2012 Inactive azithromycin 250 mg tablet RxNorm: 008005 2 Tablet(s) PO QD 013 04/08/2012 Inactive Zithromax Z-Kyle 250 mg tablet RxNorm: 700897 1 Tablet(s ) PO QD Take 2 today and 1 a day on days 2-5 03/30/2012 04/03/2012 Inactive Tobrex 0.3 % Eye Drops RxNorm: 314130 2 Drop(s) OPH Q4H 07/29/2011 Inactive doxycycline hyclate 100 mg Tab RxNorm: 6283514 1 Tablet(s) PO BID 0 04/28/2011 05/07/2011 Inactive Pyridium 200 mg Tab RxNorm: 6431087 1 Tablet(s) PO TID 03/07/2011 Inactive Macrobid 100 mg Cap RxNorm: 394882 1 Capsule(s) PO BID 03/07/2011 Inactive Diflucan 100 mg Tab RxNorm: 379490 1 Tablet(s) PO QD 03/07/201103/16 Inactive Benadryl 25 mg capsule RxNorm: 8922346 Capsule(s) PO as needed No Sta rt Date Active Vitamin B12 1000mcg Tablet RxNorm: 1/2 Tablet(s) PO QD No Star t Date 11/29/2017 Inactive Depo-Provera 150 mg/mL intramuscular syringe RxNorm: 6149049 Milliliter(s) IM Bring to office for administration No Start Date 10/09/2016 Inactive metoprolol tartrate 50 mg tablet RxNorm: 858295 1 Tablet(s) PO QD N o Start Date 11/22/2016 Inactive Zyrtec 10 mg tablet RxNorm: 2090495 1 Tablet(s) PO QD No Start Date 1 Inactive Sudafed PE 10 mg tablet RxNorm: 2056438 Tablet(s) PO as needed No S tart Date 09/04/2017 Inactive Toprol XL 50 mg tablet,extended release RxNorm: 466142 1 Tablet (s) PO QD No Start Date 01/25/2016 Inactive Depo-Provera 150 mg/mL intramuscular suspension RxNorm: 1000 128 1 Milliliter(s) IM every 3mos No Start Date 02/17/2014 Inactive Flonase Allergy Relief 50 mcg/actuation nasal spray,suspensi on RxNorm: [place] NASAL as needed No Start Date 11/29/2017 Inactive Zyrtec 10 mg tablet RxNorm: 6620877 1 Tablet(s) PO QD as needed No Start Date 05/23/2018 Inactive Medication Administered No Medication Administered data Immunizations Vaccine Codes Date Status Influenza CVX: 141 11/22/2018 Complete Influenza CVX: 141 11/22/2018 Complete Influenza CVX: 141 01/02/2018 Complete Influenza CVX: 141 01/08/2013 Pediatric Influenza CVX: 141 01/08/2013 Results Observation Observation Code Item Item Code Result Date S ervice Location COMPLETE BLOOD COUNT [id number] WBC 15.9 10e9/L 019 Unknown COMPLETE BLOOD COUNT [id number] RBC 5.10 10e12/L 2018 Unknown COMPLETE BLOOD COUNT [id number] HEMOGLOBIN 15.2 g/dL 08/14/19 19 Unknown COMPLETE BLOOD COUNT [id number] HEMATOCRIT 46.2 % 08/14/19 19 Unknown COMPLETE BLOOD COUNT [id number] MCV 90.6 fL 9 Unknown COMPLETE BLOOD COUNT [id number] MCH 29.8 pg 9 Unknown COMPLETE BLOOD COUNT [id number] MCHC 32.9 g/dL 9 Unknown COMPLETE BLOOD COUNT [id number] PLATELET COUNT 433 10e9/L Unknown COMPLETE BLOOD COUNT [id number] Mean Plt Volume 9.9 fL Unknown COMPLETE BLOOD COUNT [id number] Neut Auto 74.7 % 9 Unknown COMPLETE BLOOD COUNT [id number] Lymph Auto 18.6 % 08/14/19 19 Unknown COMPLETE BLOOD COUNT [id number] [place] Auto 5.8 % 9 Unknown COMPLETE BLOOD COUNT [id number] RDW 14.1 % 9 Unknown COMPLETE BLOOD COUNT [id number] Eos Auto 0.6 % 9 Unknown COMPLETE BLOOD COUNT [id number] Baso Auto 0.3 % 9 Unknown COMPLETE BLOOD COUNT [id number] Neutrophil Abs 11.88 10e9/L 0 08/13/2018 Unknown COMPLETE BLOOD COUNT [id number] Lymphocyte Abs 2.96 10e9/L Unknown COMPLETE BLOOD COUNT [id number] Monocyte Abs 0.92 10e9/L 07/22 Unknown COMPLETE BLOOD COUNT [id number] Eosinophil Abs 0.10 10e9/L Unknown COMPLETE BLOOD COUNT [id number] RDW-SD 45.7 fL 9 Unknown COMPLETE BLOOD COUNT [id number] Basophil Abs 0.05 10e9/L 07/22 Unknown A FOOD C P [id number] [place] Cl Class 0 03/21/2017 Unknown A FOOD C P [id number] Codfish Ct <0.35 kU/L 03/21/2017 Unknow n A FOOD C P [id number] [place] Cl Class 0 03/21/2017 Unkn own A FOOD C P [id number] [place] Ct <0.35 kU/L 03/21/2017 Unk nown A FOOD C P [id number] Egg White Cl Class 3 03/21/2017 Unkno wn A FOOD C P [id number] Egg White Ct 4.68 kU/L 03/21/2017 Unkno wn A FOOD C P [id number] Egg Yolk Cl Class 1 03/21/2017 Unknow n A FOOD C P 3590814 Egg Yolk Ct 0.49 kU/L 03/21/2017 Unknow n A FOOD C P 0741146 Cow Milk Cl Class 3 03/21/2017 Unknow n A FOOD C P 1893526 Cow Milk Ct 3.77 kU/L 03/21/2017 Unknow n A FOOD C P 0465042 Peanut Cl Class 0 03/21/2017 Unknown A FOOD C P [id number] Peanut Ct <0.35 kU/L 03/21/2017 Unknown A FOOD C P 1877322 Shrimp Cl Class 2 03/21/2017 Unknown A FOOD C P 3071972 Shrimp Ct 0.78 kU/L 03/21/2017 Unknown A FOOD C P [id number] Soybean Cl Class 0 03/21/2017 Unknown A FOOD C P [id number] Soybean Ct <0.35 kU/L 03/21/2017 Unknow n A FOOD C P [id number] Wheat Cl Class 1 03/21/2017 Unknown A FOOD C P 0404428 Wheat Ct 0.58 kU/L 03/21/2017 Unknown A FOOD C P 3005378 Potato Cl Class 0 03/21/2017 Unknown A FOOD C P 0660936 Potato Ct <0.35 kU/L 03/21/2017 Unknown A FOOD C P 7507324 Beef Cl Class 0 03/21/2017 Unknown A FOOD C P [id number] Beef Ct <0.35 kU/L 03/21/2017 Unknown A FOOD C P [id number] Orange Cl Class 0 03/21/2017 Unknown A FOOD C P [id number] Orange Ct <0.35 kU/L 03/21/2017 Unknown A FOOD C P [id number] Pork Cl Class 0 03/21/2017 Unknown A FOOD C P [id number] Pork Ct <0.35 kU/L 03/21/2017 Unknown A FOOD C P 7891000 [place] Cl Class 0 03/21/2017 Unknown A FOOD C P [id number] Rice Ct <0.35 kU/L 03/21/2017 Unknown A FOOD C P 4050637 [place] Cl Class 0 03/21/2017 Unkn own A FOOD C P [id number] [place] Ct <0.35 kU/L 03/21/2017 Unk nown A FOOD C P [id number] Tomato Cl Class 0 03/21/2017 Unknown A FOOD C P [id number] Tomato Ct <0.35 kU/L 03/21/2017 Unknown A FOOD C P [id number] Tuna Cl Class 0 03/21/2017 Unknown A FOOD C P [id number] Tuna Ct <0.35 kU/L 03/21/2017 Unknown A FOOD C P [id number] Bath CL Class 0 03/21/2017 Unknown A FOOD C P [id number] [place] CT <0.35 kU/L 03/21/2017 Unknown A FOOD C P [id number] Casein Cl Class 1 03/21/2017 Unknown A FOOD C P [id number] Casein Ct 0.64 kU/L 03/21/2017 Unknown A FOOD C P [id number] Oat Cl Class 0 03/21/2017 Unknown A FOOD C P [id number] Oat Ct <0.35 kU/L 03/21/2017 Unknown A FOOD C P 7451104 [place] Cl Class 2 03/21/2017 Unknown A FOOD C P 7740030 [place] Ct 0.75 kU/L 03/21/2017 Unknown A FOOD C P [id number] Chicken Meat CL Class 0 03/21/2017 Un known A FOOD C P [id number] Chicken Meat Ct <0.35 kU/L 03/21/2017 U nknown A FOOD C P 6279326 [place] Cl Class 0 03/21/2017 Unknown A FOOD C P [id number] [place] Ct <0.35 kU/L 03/21/2017 Unknown A FOOD C P 8499049 Pecan Meat Cl Class 0 03/21/2017 Unkn own A FOOD C P [id number] Pecan Meat Ct <0.35 kU/L 03/21/2017 Unk nown A NUTS PNL 9510090 Peanut Cl Class 0 03/21/2017 Unknown A NUTS PNL [id number] Peanut Ct <0.35 kU/L 03/21/2017 Unknown A NUTS PNL 1370897 [place] Meat Cl Class 0 03/21/2017 Unk nown A NUTS PNL [id number] [place] Meat Ct <0.35 kU/L 03/21/2017 Un known A NUTS PNL 5934021 [place] Meat Cl Class 0 03/21/2017 Unkn own A NUTS PNL 4440288 Pecan Meat Ct <0.35 kU/L 03/21/2017 Unk nown A NUTS PNL [id number] Brut[place] Cl Class 0 03/21/2017 Unknown A NUTS PNL 3605462 Brutus Ct <0.35 kU/L 03/21/2017 Unknown A NUTS PNL 7613728 [place] Cl Class 0 03/21/2017 Unknow n A NUTS PNL 5845538 [place] Ct <0.35 kU/L 03/21/2017 Unkno wn A NUTS PNL 9006330 [place] Cl Class 0 03/21/2017 Unkno wn A NUTS PNL 4410892 [place] Ct <0.35 kU/L 03/21/2017 Unkn own A NUTS PNL 7723521 [place] Cl Class 0 03/21/2017 Unknown A NUTS PNL 2561136 [place] Ct <0.35 kU/L 03/21/2017 Unknown A NUTS PNL [id number] Pistachio Cl Class 0 03/21/2017 Unkno wn A NUTS PNL 1980113 Pistachio Ct <0.35 kU/L 03/21/2017 Unkn own A NUTS PNL 1744110 Allergen Interp See Note 03/21/2017 Un known A FRT/VG P 4676043 [place] Cl Class 0 03/21/2017 Unkn own A FRT/VG P 0046063 [place] Ct <0.35 kU/L 03/21/2017 Unk nown A FRT/VG P 0300881 Potato Cl Class 0 03/21/2017 Unknown A FRT/VG P 1841540 Potato Ct <0.35 kU/L 03/21/2017 Unknown A FRT/VG P 8843190 [place] Cl Class 0 03/21/2017 Unkn own A FRT/VG P 5388808 [place] Ct <0.35 kU/L 03/21/2017 Unk nown A FRT/VG P [id number] Tomato Cl Class 0 03/21/2017 Unknown A FRT/VG P [id number] Tomato Ct <0.35 kU/L 03/21/2017 Unknown A FRT/VG P 4648624 [place] Cl Class 2 03/21/2017 Unknown A FRT/VG P 2885527 [place] Ct 0.75 kU/L 03/21/2017 Unknown A FRT/VG P 1147020 Banana Cl Class 2 03/21/2017 Unknown A FRT/VG P [id number] Banana Ct 2.58 kU/L 03/21/2017 Unknown A FRT/VG P 7255133 [place] Fruit Cl Class 0 03/21/2017 Unk nown A FRT/VG P 1679877 [place] Fruit Ct <0.35 kU/L 03/21/2017 Un known A FRT/VG P [id number] Apple Fruit Cl Class 0 03/21/2017 Unk nown A FRT/VG P 4560399 Apple Fruit Ct <0.35 kU/L 03/21/2017 Un known A FRT/VG P 3157438 Carrot Cl Class 0 03/21/2017 Unknown A FRT/VG P 4005081 Carrot Ct <0.35 kU/L 03/21/2017 Unknown A FRT/VG P 9661009 Pea Cl Class 0 03/21/2017 Unknown A FRT/VG P 7295038 Pea Ct <0.35 kU/L 03/21/2017 Unknown A FRT/VG P 5293173 Pear Fruit Cl Class 0 03/21/2017 Unkn own A FRT/VG P 0291978 Pear Fruit Ct <0.35 kU/L 03/21/2017 Unk nown A FRT/VG P 6481372 Swt Potato Cl Class 0 03/21/2017 Unkn own A FRT/VG P [id number] Swt Potato Ct <0.35 kU/L 03/21/2017 Unk nown A OK/KS/PN 1336837 [place] Cl Class 0 03/21/2017 Unknown A OK/KS/PN 7026816 [place] Ct <0.35 kU/L 03/21/2017 Unknow n A OK/KS/PN 4439674 Alt Ten Cl Class 0 03/21/2017 Unknown A OK/KS/PN 1317981 Alt Ten Ct <0.35 kU/L 03/21/2017 Unknow n A OK/KS/PN 6509488 [place] Cl Class 0 03/21/2017 Un known A OK/KS/PN 0952870 [place] Ct <0.35 kU/L 03/21/2017 U nknown A OK/KS/PN 4396954 [place] Cl Class 0 03/21/2017 Unknow n A OK/KS/PN 0690171 [place] Ct <0.35 kU/L 03/21/2017 Unkno wn A OK/KS/PN 5378280 [place] Gr Cl Class 0 03/21/2017 Unkn own A OK/KS/PN 9370111 Gadiel Gr Ct <0.35 kU/L 03/21/2017 Unk nown A OK/KS/PN 5429726 [place] Blue Cl Class 1 03/21/2017 Unkno wn A OK/KS/PN 7029450 Yas[place] Blue Ct 0.59 kU/L 03/21/2017 Unkno wn A OK/KS/PN 9322906 [place] Cl Class 0 03/21/2017 Unk nown A OK/KS/PN 8997169 Rough [place] Ct <0.35 kU/L 03/21/2017 Un known A OK/KS/PN 3699675 [place] Cl Class 2 03/21/2017 Unknow n A OK/KS/PN 2434059 [place] Ct 0.72 kU/L 03/21/2017 Unknow n A OK/KS/PN 6179143 [place] Cl Class 2 03/21/2017 Unknown A OK/KS/PN 4850684 Rag[place] Ct 1.46 kU/L 03/21/2017 Unknown A OK/KS/PN 3074841 Cat [place] Cl Class 0 03/21/2017 Unkn own A OK/KS/PN 5459342 Cat [place] Ct <0.35 kU/L 03/21/2017 Unk nown A OK/KS/PN 9863330 Dog [place] Cl Class 0 03/21/2017 Unkn own A OK/KS/PN 7308976 Dog [place] Ct <0.35 kU/L 03/21/2017 Unk nown A OK/KS/PN 7155823 Pecan Tr Cl Class 0 03/21/2017 Unknow n A OK/KS/PN 7841173 Pecan Tr Ct <0.35 kU/L 03/21/2017 Unkno wn A OK/KS/PN 8740062 Dust Mite Cl Class 0 03/21/2017 Unkno wn A OK/KS/PN 0649751 Dust Mite Ct <0.35 kU/L 03/21/2017 Unkn own A OK/KS/PN 8878194 Allergen Interp See Note 03/21/2017 Un known FREE T4 57966 T4 Free 0.97 ng/dL 09/06/2016 Unknown THYROID STIMULATING HORMONE 69089 TSH 1.665 uIU/mL 09/06/2016 Unknown COMPLETE BLOOD COUNT 4657928 WBC 11.9 10e9/L 017 Unknown COMPLETE BLOOD COUNT 0240309 RBC 4.70 10e12/L 2016 Unknown COMPLETE BLOOD COUNT [id number] HEMOGLOBIN 13.9 g/dL 09/07/19 17 Unknown COMPLETE BLOOD COUNT 6276413 HEMATOCRIT 41.0 % 09/07/19 17 Unknown COMPLETE BLOOD COUNT 3904188 MCV 87.2 fL 7 Unknown COMPLETE BLOOD COUNT 3356871 MCH 29.6 pg 7 Unknown COMPLETE BLOOD COUNT 6190730 MCHC 33.9 g/dL 7 Unknown COMPLETE BLOOD COUNT 6770454 PLATELET COUNT 395 10e9/L Unknown COMPLETE BLOOD COUNT 9258986 Mean Plt Volume 9.1 fL Unknown COMPLETE BLOOD COUNT 3666946 Neut Auto 62.9 % 7 Unknown COMPLETE BLOOD COUNT 8058181 Lymph Auto 24.4 % 09/07/19 17 Unknown COMPLETE BLOOD COUNT 7692543 [place] Auto 7.6 % 7 Unknown COMPLETE BLOOD COUNT 0901326 RDW 13.5 % 7 Unknown COMPLETE BLOOD COUNT 5350663 Eos Auto 4.6 % 7 Unknown COMPLETE BLOOD COUNT 1652041 Baso Auto 0.5 % 7 Unknown COMPLETE BLOOD COUNT [id number] Neutrophil Abs 7.49 10e9/L Unknown COMPLETE BLOOD COUNT 6558941 Lymphocyte Abs 2.90 10e9/L Unknown COMPLETE BLOOD COUNT 5406711 Monocyte Abs 0.90 10e9/L 08/20 Unknown COMPLETE BLOOD COUNT 2515657 Eosinophil Abs 0.55 10e9/L Unknown COMPLETE BLOOD COUNT 9542487 RDW-SD 41.9 fL 7 Unknown COMPLETE BLOOD COUNT [id number] Basophil Abs 0.06 10e9/L 08/20 Unknown GFR CALC 3575100 GFR Non Afr Amr >60 mL/min 09/06/2016 Un known GFR CALC 8240978 GFR Afr Amr >60 mL/min 09/06/2016 Unknow n COMPREHENSIVE METABOLIC 67208 AST 22 U/L 2016 Unknown COMPREHENSIVE METABOLIC 75189 ALT 30 U/L 2016 Unknown COMPREHENSIVE METABOLIC 78095 BUN 26 mg/dL 2016 Unknown COMPREHENSIVE METABOLIC 64737 ALBUMIN 4.8 g/dL 2016 Unknown COMPREHENSIVE METABOLIC 63529 CHLORIDE 107 mmol/L 09/06 Unknown COMPREHENSIVE METABOLIC 40466 Bili Total 0.2 mg/dL 09/06 Unknown COMPREHENSIVE METABOLIC 53077 ALK PHOS 118 U/L 2016 Unknown COMPREHENSIVE METABOLIC 14871 SODIUM 139 mmol/L 09/06 Unknown COMPREHENSIVE METABOLIC 56612 CREATININE 0.67 mg/dL 08/20 Unknown COMPREHENSIVE METABOLIC 22595 CALCIUM 9.8 mg/dL 2016 Unknown COMPREHENSIVE METABOLIC 62791 POTASSIUM 4.3 mmol/L 09/06 Unknown COMPREHENSIVE METABOLIC 83916 Total Protein 7.8 g/dL Unknown COMPREHENSIVE METABOLIC 50157 Glucose 96 mg/dL 2016 Unknown COMPREHENSIVE METABOLIC 58453 Bicarbonate 22 mmol/L 08/20 Unknown COMPREHENSIVE METABOLIC 32728 AGAP 10 mmol/L 2016 Unknown IRON 01045 Iron 58 ug/dL 09/06/2016 Unknown COMPLETE BLOOD COUNT 9250673 WBC 12.2 10e9/L 015 Unknown COMPLETE BLOOD COUNT 5109223 RBC 4.52 10e12/L 2014 Unknown COMPLETE BLOOD COUNT 9779155 HGB 13.3 g/dL 5 Unknown COMPLETE BLOOD COUNT 9127018 HCT DET 40.3 % 5 Unknown COMPLETE BLOOD COUNT 8039226 MCV 89.2 fL 5 Unknown COMPLETE BLOOD COUNT 9995679 MCH 29.4 pg 5 Unknown COMPLETE BLOOD COUNT 0034113 MCHC 33.0 g/dL 5 Unknown COMPLETE BLOOD COUNT 6828170 PLT 402 10e9/L 07/22/19 15 Unknown COMPLETE BLOOD COUNT 9962349 MPV 9.6 fL 5 Unknown COMPLETE BLOOD COUNT 1437396 ERIN % 64.8 % 5 Unknown COMPLETE BLOOD COUNT 0301386 LY % 24.6 % 5 Unknown COMPLETE BLOOD COUNT 7603951 MON % 7.0 % 5 Unknown COMPLETE BLOOD COUNT 2863531 EOS % 3.3 % 5 Unknown COMPLETE BLOOD COUNT 2306537 BASO % 0.3 % 5 Unknown COMPLETE BLOOD COUNT 3374348 RDW 13.2 % 5 Unknown COMPLETE BLOOD COUNT [id number] ABS ERIN 7.91 10e9/L 015 Unknown COMPLETE BLOOD COUNT [id number] ABS LYMPH 3.00 10e9/L 015 Unknown COMPLETE BLOOD COUNT [id number] ABS MONO 0.85 10e9/L 015 Unknown COMPLETE BLOOD COUNT [id number] ABS EOS 0.40 10e9/L 015 Unknown COMPLETE BLOOD COUNT [id number] ABS BASO 0.04 10e9/L 015 Unknown COMPLETE BLOOD COUNT 9303762 RDW-SD 42.3 fL 5 Unknown COMPREHENSIVE METABOLIC 42693 AST 21 U/L 2014 Unknown COMPREHENSIVE METABOLIC 00135 ALT 27 IU/L 2014 Unknown COMPREHENSIVE METABOLIC 07385 BUN 12 MG/DL 2014 Unknown COMPREHENSIVE METABOLIC 89583 ALBUMIN 4.1 GM/DL 2014 Unknown COMPREHENSIVE METABOLIC 47228 CHLORIDE 102 MMOL/L 07/21 Unknown COMPREHENSIVE METABOLIC 32191 BILI TOT 0.3 MG/DL 2014 Unknown COMPREHENSIVE METABOLIC 22523 ALK PHOS 94 U/L 2014 Unknown COMPREHENSIVE METABOLIC 72579 SODIUM 138 MMOL/L 07/21 Unknown COMPREHENSIVE METABOLIC 37707 CREATININE 0.71 MG/DL 02/2014 Unknown COMPREHENSIVE METABOLIC 25176 CALCIUM 9.4 MG/DL 2014 Unknown COMPREHENSIVE METABOLIC 94541 POTASSIUM 3.7 MMOL/L 07/21 Unknown COMPREHENSIVE METABOLIC 75009 PROT TOT 7.0 GM/DL 2014 Unknown COMPREHENSIVE METABOLIC 86694 Glucose 84 MG/DL 2014 Unknown COMPREHENSIVE METABOLIC 17173 BICARB 27 MMOL/L 2014 Unknown COMPREHENSIVE METABOLIC 13141 ANION GAP 9 MEQ/L 2014 Unknown GFR CALC [id number] GFR AA >60 ML/MIN 07/21/2014 Unknown GFR CALC 8864625 GFR NON-AA >60 ML/MIN 07/21/2014 Unknown FREE T4 58654 FREE T4 0.90 NG/DL 07/21/2014 Unknown THYROID STIMULATING HORMONE 82875 TSH 1.838 uIU/ML 07/21/2014 Unknown LIPID GROUP 06907 HDL TEST 33 MG/DL 07/21/2014 Unknown LIPID GROUP 37026 TRIG 320 MG/DL 07/21/2014 Unknown LIPID GROUP 58396 TEST LDL 122 MG/DL 07/21/2014 Unknown LIPID GROUP 01472 CHOL 219 MG/DL 07/21/2014 Unknown LIPID GROUP 69777 RCHOL/HDL 6.64 RATIO 07/21/2014 Unknow n LIPID GROUP 70273 NON-HDL CH 186 MG/DL 07/21/2014 Unknow n IRON 52869 IRON TEST 99 UG/DL 09/12/2013 Unknown C-REACTIVE PROTEIN (CRP) QUANT 71880 CRP 0.2 MG/DL 09/12/2013 Unknown GFR CALC 5863460 GFR AA >60 ML/MIN 09/12/2013 Unknown GFR CALC 3329850 GFR NON-AA >60 ML/MIN 09/12/2013 Unknown THYROID STIMULATING HORMONE 41965 TSH 1.882 uIU/ML 09/12/2013 Unknown COMPLETE BLOOD COUNT [id number] WBC 7.9 10e9/L 09/13/19 14 Unknown COMPLETE BLOOD COUNT 7117165 RBC 4.83 10e12/L 2013 Unknown COMPLETE BLOOD COUNT 9894508 HGB 14.2 g/dL 4 Unknown COMPLETE BLOOD COUNT 9614943 HCT DET 42.5 % 4 Unknown COMPLETE BLOOD COUNT 3443196 MCV 88.0 fL 4 Unknown COMPLETE BLOOD COUNT 8102827 MCH 29.4 pg 4 Unknown COMPLETE BLOOD COUNT [id number] MCHC 33.4 g/dL 4 Unknown COMPLETE BLOOD COUNT [id number] PLT 359 10e9/L 09/13/19 14 Unknown COMPLETE BLOOD COUNT [id number] MPV 10.1 fL 4 Unknown COMPLETE BLOOD COUNT [id number] ERIN % 55.7 % 4 Unknown COMPLETE BLOOD COUNT [id number] LY % 32.7 % 4 Unknown COMPLETE BLOOD COUNT [id number] MON % 6.6 % 4 Unknown COMPLETE BLOOD COUNT [id number] EOS % 4.5 % 4 Unknown COMPLETE BLOOD COUNT [id number] BASO % 0.5 % 4 Unknown COMPLETE BLOOD COUNT [id number] RDW 13.8 % 4 Unknown COMPLETE BLOOD COUNT [id number] ABS ERIN 4.40 10e9/L 014 Unknown COMPLETE BLOOD COUNT [id number] ABS LYMPH 2.58 10e9/L 014 Unknown COMPLETE BLOOD COUNT [id number] ABS MONO 0.52 10e9/L 014 Unknown COMPLETE BLOOD COUNT [id number] ABS EOS 0.36 10e9/L 014 Unknown COMPLETE BLOOD COUNT [id number] ABS BASO 0.04 10e9/L 014 Unknown COMPLETE BLOOD COUNT [id number] RDW-SD 44.0 fL 4 Unknown FREE T4 15880 FREE T4 0.95 NG/DL 09/12/2013 Unknown COMPREHENSIVE METABOLIC 47038 AST 19 U/L 2013 Unknown COMPREHENSIVE METABOLIC 10459 ALT 18 IU/L 2013 Unknown COMPREHENSIVE METABOLIC 15035 BUN 11 MG/DL 2013 Unknown COMPREHENSIVE METABOLIC 15123 ALBUMIN 4.8 GM/DL 2013 Unknown COMPREHENSIVE METABOLIC 99926 CHLORIDE 107 MMOL/L 09/12 Unknown COMPREHENSIVE METABOLIC 46781 BILI TOT 0.4 MG/DL 2013 Unknown COMPREHENSIVE METABOLIC 78076 ALK PHOS 86 U/L 2013 Unknown COMPREHENSIVE METABOLIC 45710 SODIUM 138 MMOL/L 09/12 Unknown COMPREHENSIVE METABOLIC 48701 CREATININE 0.79 MG/DL 08/21 Unknown COMPREHENSIVE METABOLIC 91655 CALCIUM 10.0 MG/DL 09/12 Unknown COMPREHENSIVE METABOLIC 45880 POTASSIUM 4.1 MMOL/L 09/12 Unknown COMPREHENSIVE METABOLIC 07213 PROT TOT 7.6 GM/DL 2013 Unknown COMPREHENSIVE METABOLIC 35381 Glucose 96 MG/DL 2013 Unknown COMPREHENSIVE METABOLIC 55021 BICARB 23 MMOL/L 2013 Unknown COMPREHENSIVE METABOLIC 10161 ANION GAP 8 MEQ/L 2013 Unknown LIPID GROUP 41220 HDL TEST 38 MG/DL 05/07/2013 Unknown LIPID GROUP 68801 TRIG 176 MG/DL 05/07/2013 Unknown LIPID GROUP 71308 TEST LDL 163 MG/DL 05/07/2013 Unknown LIPID GROUP 51452 CHOL 236 MG/DL 05/07/2013 Unknown LIPID GROUP 36644 RCHOL/HDL 6.21 RATIO 05/07/2013 Unknow n GFR CALC [id number] GFR AA >60 ML/MIN 05/07/2013 Unknown GFR CALC 4380645 GFR NON-AA >60 ML/MIN 05/07/2013 Unknown COMPREHENSIVE METABOLIC 62787 AST 34 U/L 2013 Unknown COMPREHENSIVE METABOLIC 67454 ALT 37 IU/L 2013 Unknown COMPREHENSIVE METABOLIC 26469 BUN 15 MG/DL 2013 Unknown COMPREHENSIVE METABOLIC 15569 ALBUMIN 4.4 GM/DL 2013 Unknown COMPREHENSIVE METABOLIC 75626 CHLORIDE 106 MMOL/L 05/07 Unknown COMPREHENSIVE METABOLIC 59053 BILI TOT 0.3 MG/DL 2013 Unknown COMPREHENSIVE METABOLIC 24618 ALK PHOS 106 U/L 2013 Unknown COMPREHENSIVE METABOLIC 53410 SODIUM 139 MMOL/L 05/07 Unknown COMPREHENSIVE METABOLIC 23358 CREATININE 0.67 MG/DL 04/20 Unknown COMPREHENSIVE METABOLIC 32326 CALCIUM 9.4 MG/DL 2013 Unknown COMPREHENSIVE METABOLIC 63569 POTASSIUM 4.2 MMOL/L 05/07 Unknown COMPREHENSIVE METABOLIC 53771 PROT TOT 7.1 GM/DL 2013 Unknown COMPREHENSIVE METABOLIC 58198 Glucose 93 MG/DL 2013 Unknown COMPREHENSIVE METABOLIC 09786 BICARB 25 MMOL/L 2013 Unknown COMPREHENSIVE METABOLIC 65038 ANION GAP 8 MEQ/L 2013 Unknown COMPLETE BLOOD COUNT [id number] WBC 6.7 10e9/L 05/08/19 14 Unknown COMPLETE BLOOD COUNT [id number] RBC 4.68 10e12/L 2013 Unknown COMPLETE BLOOD COUNT [id number] HGB 13.6 g/dL 4 Unknown COMPLETE BLOOD COUNT [id number] HCT DET 41.1 % 4 Unknown COMPLETE BLOOD COUNT [id number] MCV 87.8 fL 4 Unknown COMPLETE BLOOD COUNT 9290996 MCH 29.1 pg 4 Unknown COMPLETE BLOOD COUNT [id number] MCHC 33.1 g/dL 4 Unknown COMPLETE BLOOD COUNT [id number] PLT 326 10e9/L 05/08/19 14 Unknown COMPLETE BLOOD COUNT 2133594 MPV 10.1 fL 4 Unknown COMPLETE BLOOD COUNT [id number] ERIN % 57.3 % 4 Unknown COMPLETE BLOOD COUNT 9118827 LY % 30.3 % 4 Unknown COMPLETE BLOOD COUNT [id number] MON % 6.9 % 4 Unknown COMPLETE BLOOD COUNT [id number] EOS % 5.2 % 4 Unknown COMPLETE BLOOD COUNT 1063866 BASO % 0.3 % 4 Unknown COMPLETE BLOOD COUNT [id number] RDW 13.9 % 4 Unknown COMPLETE BLOOD COUNT [id number] ABS ERIN 3.84 10e9/L 014 Unknown COMPLETE BLOOD COUNT [id number] ABS LYMPH 2.03 10e9/L 014 Unknown COMPLETE BLOOD COUNT [id number] ABS MONO 0.46 10e9/L 014 Unknown COMPLETE BLOOD COUNT [id number] ABS EOS 0.35 10e9/L 014 Unknown COMPLETE BLOOD COUNT [id number] ABS BASO 0.02 10e9/L 014 Unknown COMPLETE BLOOD COUNT [id number] RDW-SD 43.5 fL 4 Unknown THYROID STIMULATING HORMONE 97375 TSH 1.476 uIU/ML 05/07/2013 Unknown FREE T4 05692 FREE T4 0.83 NG/DL 05/07/2013 Unknown FREE T4 41504 FREE T4 1.28 NG/DL 08/18/2010 Unknown COMPLETE BLOOD COUNT 61198 WBC 7.3 10e9/L 08/19/19 11 Unknown COMPLETE BLOOD COUNT 76483 RBC 5.15 10e12/L 2010 Unknown COMPLETE BLOOD COUNT 08319 HGB 14.4 g/dL 1 Unknown COMPLETE BLOOD COUNT 72472 HCT DET 43.2 % 1 Unknown COMPLETE BLOOD COUNT 65181 MCV 83.9 fL 1 Unknown COMPLETE BLOOD COUNT 55632 MCH 28.0 pg 1 Unknown COMPLETE BLOOD COUNT 41096 MCHC 33.3 g/dL 1 Unknown COMPLETE BLOOD COUNT 34801 PLT 341 10e9/L 08/19/19 11 Unknown COMPLETE BLOOD COUNT 17776 MPV 10.2 fL 1 Unknown COMPLETE BLOOD COUNT 58148 ERIN % 42.6 % 1 Unknown COMPLETE BLOOD COUNT 78566 LY % 45.2 % 1 Unknown COMPLETE BLOOD COUNT 49321 MON % 7.4 % 1 Unknown COMPLETE BLOOD COUNT 74649 EOS % 4.1 % 1 Unknown COMPLETE BLOOD COUNT 17521 BASO % 0.7 % 1 Unknown COMPLETE BLOOD COUNT 69239 RDW 14.4 % 1 Unknown COMPLETE BLOOD COUNT 12517 ABS ERIN 3.11 10e9/L 011 Unknown COMPLETE BLOOD COUNT 60889 ABS LYMPH 3.30 10e9/L 011 Unknown COMPLETE BLOOD COUNT 42463 ABS MONO 0.54 10e9/L 011 Unknown COMPLETE BLOOD COUNT 42265 ABS EOS 0.30 10e9/L 011 Unknown COMPLETE BLOOD COUNT 85763 ABS BASO 0.05 10e9/L 011 Unknown COMPLETE BLOOD COUNT 74670 RDW-SD 43.1 fL 1 Unknown THYROID STIMULATING HORMONE 33190 TSH 1.931 uIU/ML 08/18/2010 Unknown GFR CALC 9794965 GFR AA >60 ML/MIN 08/18/2010 Unknown GFR CALC 8580805 GFR NON-AA >60 ML/MIN 08/18/2010 Unknown COMPREHENSIVE METABOLIC 14044 AST 17 U/L 2010 Unknown COMPREHENSIVE METABOLIC 69016 ALT 11 IU/L 2010 Unknown COMPREHENSIVE METABOLIC 01746 BUN 12 MG/DL 2010 Unknown COMPREHENSIVE METABOLIC 75685 ALBUMIN 4.9 GM/DL 2010 Unknown COMPREHENSIVE METABOLIC 64851 CHLORIDE 104 MMOL/L 08/18 Unknown COMPREHENSIVE METABOLIC 03766 BILI TOT 0.5 MG/DL 2010 Unknown COMPREHENSIVE METABOLIC 94677 ALK PHOS 80 U/L 2010 Unknown COMPREHENSIVE METABOLIC 27312 SODIUM 137 MMOL/L 08/18 Unknown COMPREHENSIVE METABOLIC 12806 CREATININE 0.79 MG/DL 07/22 Unknown COMPREHENSIVE METABOLIC 42781 CALCIUM 9.6 MG/DL 2010 Unknown COMPREHENSIVE METABOLIC 65505 POTASSIUM 3.7 MMOL/L 08/18 Unknown COMPREHENSIVE METABOLIC 92228 PROT TOT 7.5 GM/DL 2010 Unknown COMPREHENSIVE METABOLIC 54822 Glucose 72 MG/DL 2010 Unknown COMPREHENSIVE METABOLIC 72097 BICARB 22 MMOL/L 2010 Unknown COMPREHENSIVE METABOLIC 15301 ANION GAP 11 MEQ/L 2010 Unknown Procedures Procedure Codes Date IIV4 VACC NO PRSV 6 MTHS TO 64 YRS+ IM CPT-4: 55328 11/22/2018 IIV4 VACC NO PRSV 6 MTHS TO 64 YRS+ IM CPT-4: 28199 11/22/2018 IMMUNIZATION ADMIN CPT-4: 21754 11/22/2018 THER/PROPH/DIAG INJ SC/IM CPT-4: 33015 05/29/2018 TRIAMCINOLONE ACET INJ NOS CPT-4: J3301 05/29/2018 DEXAMETHASONE SODIUM PHOS CPT-4: J1100 05/29/2018 SPECIMEN HANDLING OFFICE-LAB CPT-4: 29620 02/08/2018 THER/PROPH/DIAG INJ SC/IM CPT-4: 63517 01/09/2018 IIV4 VACCINE 3 YRS+ IM AND UP CPT-4: 64924 01/02/2018 IMMUNIZATION ADMIN CPT-4: 46209 01/02/2018 THER/PROPH/DIAG INJ SC/IM CPT-4: 69576 12/11/2017 TRIAMCINOLONE ACET INJ NOS CPT-4: J3301 12/11/2017 DEXAMETHASONE SODIUM PHOS CPT-4: J1100 12/11/2017 STREP A ASSAY W/OPTIC CPT-4: 24134 11/30/2017 THER/PROPH/DIAG INJ SC/IM CPT-4: 12501 10/13/2017 THER/PROPH/DIAG INJ SC/IM CPT-4: 72135 07/21/2017 THER/PROPH/DIAG INJ SC/IM CPT-4: 28429 04/27/2017 METHYLPREDNISOLONE INJECTION CPT-4: J2930 04/27/2017 THER/PROPH/DIAG INJ SC/IM CPT-4: 45192 04/27/2017 THER/PROPH/DIAG INJ SC/IM CPT-4: 13419 03/20/2017 METHYLPREDNISOLONE INJECTION CPT-4: J2930 03/20/2017 ROUTINE VENIPUNCTURE CPT-4: 13922 03/20/2017 A FRT/VG P CPT-4: 5725614 03/20/2017 A FOOD C P CPT-4: 4867255 03/20/2017 A NUTS PNL CPT-4: 5299968 03/20/2017 THER/PROPH/DIAG INJ SC/IM CPT-4: 57901 01/31/2017 URINE TEST CPT-4: 78756 01/31/2017 THER/PROPH/DIAG INJ SC/IM CPT-4: 07093 10/31/2016 URINE TEST CPT-4: 64323 10/31/2016 SPECIMEN HANDLING OFFICE-LAB CPT-4: 89742 09/06/2016 URINALYSIS NONAUTO W/O SCOPE CPT-4: 92443 04/28/2016 URINE CULTURE/ COLONY COUNT CPT-4: 36318 04/28/2016 THER/PROPH/DIAG INJ SC/IM CPT-4: 82795 06/12/2015 TRIAMCINOLONE ACET INJ NOS CPT-4: J3301 06/12/2015 DEXAMETHASONE SODIUM PHOS CPT-4: J1100 06/12/2015 ROUTINE VENIPUNCTURE CPT-4: 21196 07/21/2014 ASSAY OF FREE THYROXINE CPT-4: 88703 07/21/2014 ASSAY THYROID STIM HORMONE CPT-4: 34456 07/21/2014 COMPREHEN METABOLIC PANEL CPT-4: 68111 07/21/2014 COMPLETE CBC W/AUTO DIFF WBC CPT-4: 43677 07/21/2014 LIPID PANEL CPT-4: 23263 07/21/2014 THER/PROPH/DIAG INJ SC/IM CPT-4: 47516 04/02/2014 METHYLPREDNISOLONE 40 MG INJ CPT-4: J1030 04/02/2014 TRIAMCINOLONE ACET INJ NOS CPT-4: J3301 04/02/2014 URINALYSIS NONAUTO W/O SCOPE CPT-4: 21115 10/01/2013 URINE CULTURE/ COLONY COUNT CPT-4: 15375 10/01/2013 ROUTINE VENIPUNCTURE CPT-4: 05265 09/12/2013 COMPLETE CBC W/AUTO DIFF WBC CPT-4: 28188 09/12/2013 COMPREHEN METABOLIC PANEL CPT-4: 76773 09/12/2013 ASSAY OF IRON CPT-4: 02319 09/12/2013 ASSAY THYROID STIM HORMONE CPT-4: 94915 09/12/2013 ASSAY OF FREE THYROXINE CPT-4: 57460 09/12/2013 C-REACTIVE PROTEIN CPT-4: 71375 09/12/2013 THER/PROPH/DIAG INJ SC/IM CPT-4: 53890 05/17/2013 SPECIMEN HANDLING OFFICE-LAB CPT-4: 82292 05/16/2013 ROUTINE VENIPUNCTURE CPT-4: 77971 05/07/2013 ASSAY OF FREE THYROXINE CPT-4: 08437 05/07/2013 ASSAY THYROID STIM HORMONE CPT-4: 09220 05/07/2013 COMPREHEN METABOLIC PANEL CPT-4: 30031 05/07/2013 COMPLETE CBC W/AUTO DIFF WBC CPT-4: 92394 05/07/2013 LIPID PANEL CPT-4: 09958 05/07/2013 FLU VACCINE 3 YRS & > IM UP 64 CPT-4: 11059 3 IMMUNIZATION ADMIN CPT-4: 46224 01/08/2013 AEROBIC WOUND CULTURE & STN CPT-4: 27195 04/29/2011 DRAINAGE OF SKIN ABSCESS CPT-4: 08699 04/29/2011 URINALYSIS NONAUTO W/O SCOPE CPT-4: 89262 03/07/2011 URINE CULTURE/ COLONY COUNT CPT-4: 45150 03/07/2011 SPECIMEN HANDLING OFFICE-LAB CPT-4: 79866 08/18/2010 COMPLETE CBC W/AUTO DIFF WBC CPT-4: 54600 08/18/2010 COMPREHEN METABOLIC PANEL CPT-4: 41598 08/18/2010 ASSAY THYROID STIM HORMONE CPT-4: 12789 08/18/2010 ASSAY OF FREE THYROXINE CPT-4: 97638 08/18/2010 Vital Signs Date Vital 07/25/2019 Blood Pressure 1: 114/82 Code: 8480-6 BMI: 32.9 Code: 49005-8 Heart Rate 1: 76 bpm Height: 5'6" [...] 1: 126/90 Code: 8480-6 BMI: 33.4 Code: 15640-1 Heart Rate 1: 100 bpm Height: 5'6" [...] 1: 126/82 Code: 8480-6 BMI: 33.7 Code: 84284-0 Heart Rate 1: 76 bpm Height: 5'6" Respiratory Rate: 20 bpm Temperature: 37 .0 (C) / 98.6 (F) Weight: 209 lbs 04/27/2017 Heart Rate 1: 71 bpm SpO2: 97% Weight: 206 lbs 03/20/2017 Blood Pressure 1: 132/84 Code: 8480-6 BMI: 33.1 Code: 72074-1 Heart Rate 1: 96 bpm Height: 5'6" Respiratory Rate: 22 bpm SpO2: 97% Tempera ture: 36.2 (C) / 97.2 (F) Weight: 205 lbs 01/03/2017 Blood Pressure 1: 126/82 Code: 8480-6 BMI: 32.6 Code: 37404-0 Heart Rate 1: 80 bpm Height: 5'6" Respiratory Rate: 20 bpm SpO2: 97% Tempera ture: 36.6 (C) / 97.8 (F) Weight: 202 lbs 09/06/2016 Blood Pressure 1: 110/74 Code: 8480-6 BMI: 32.4 Code: 46501-0 Heart Rate 1: 86 bpm Height: 5'6" Respiratory Rate: 24 bpm SpO2: 97% Tempera ture: 36.6 (C) / 97.8 (F) Weight: 201 lbs 05/18/2016 Blood Pressure 1: 112/64 Code: 8480-6 He art Rate 1: 82 bpm 04/28/2016 Blood Pressure 1: 168/98 Code: 8480-6 BMI: 32.0 Code: 12187-8 Heart Rate 1: 102 bpm Height: 5'6" Respiratory Rate: 24 bpm SpO2: 97% Tempera ture: 36.4 (C) / 97.6 (F) Weight: 198 lbs 02/01/2016 Blood Pressure 1: 142/90 Code: 8480-6 He art Rate 1: 116 bpm 01/26/2016 Blood Pressure 1: 184/100 Code: 8480-6 H eart Rate 1: 114 bpm 09/10/2015 Blood Pressure 1: 126/64 Code: 8480-6 BMI: 32.0 Code: 53574-4 Heart Rate 1: 96 bpm Height: 5'5" Respiratory Rate: 24 bpm SpO2: 97% Tempera ture: 36.6 (C) / 97.8 (F) Weight: 192 lbs 06/12/2015 Blood Pressure 1: 106/80 Code: 8480-6 BMI: 33.4 Code: 68002-0 Heart Rate 1: 108 bpm Height: 5'5" Respiratory Rate: 20 bpm SpO2: 96% Tempera ture: 36.8 (C) / 98.3 (F) Weight: 201 lbs 11/04/2014 Blood Pressure 1: 134/86 Code: 8480-6 BMI: 32.9 Code: 11756-1 Heart Rate 1: 76 bpm Height: 5'5" Respiratory Rate: 20 bpm Temperature: 36 .6 (C) / 97.8 (F) Weight: 198 lbs 08/04/2014 Blood Pressure 1: 128/88 Code: 8480-6 BMI: 34.4 Code: 57516-4 Heart Rate 1: 90 bpm Height: 5'5" Respiratory Rate: 20 bpm Temperature: 37 .0 (C) / 98.6 (F) Weight: 207 lbs 07/21/2014 Blood Pressure 1: 146/94 Code: 8480-6 BMI: 34.4 Code: 03482-0 Heart Rate 1: 88 bpm Height: 5'5" Respiratory Rate: 20 bpm Temperature: 36 .7 (C) / 98.1 (F) Weight: 207 lbs 04/02/2014 Blood Pressure 1: 128/76 Code: 8480-6 BMI: 34.1 Code: 60299-3 Heart Rate 1: 84 bpm Height: 5'5" Respiratory Rate: 22 bpm Temperature: 36 .6 (C) / 97.8 (F) Weight: 205 lbs 03/20/2014 Blood Pressure 1: 126/82 Code: 8480-6 BMI: 33.9 Code: 49460-1 Heart Rate 1: 88 bpm Height: 5'5" Respiratory Rate: 20 bpm Temperature: 36 .7 (C) / 98.1 (F) Weight: 204 lbs 02/18/2014 Blood Pressure 1: 120/78 Code: 8480-6 BMI: 33.9 Code: 00266-9 Heart Rate 1: 72 bpm Height: 5'5" Respiratory Rate: 20 bpm Temperature: 36 .6 (C) / 97.9 (F) Weight: 204 lbs 10/01/2013 Blood Pressure 1: 124/78 Code: 8480-6 BMI: 32.9 Code: 80612-8 Heart Rate 1: 84 bpm Height: 5'5" Respiratory Rate: 20 bpm Temperature: 36 .4 (C) / 97.6 (F) Weight: 198 lbs 09/12/2013 Blood Pressure 1: 126/84 Code: 8480-6 BMI: 32.8 Code: 69983-0 Heart Rate 1: 76 bpm Height: 5'5" Respiratory Rate: 18 bpm Temperature: 36 .4 (C) / 97.6 (F) Weight: 197 lbs 05/16/2013 Blood Pressure 1: 124/68 Code: 8480-6 BMI: 33.3 Code: 20473-2 Heart Rate 1: 70 bpm Height: 5'5" Respiratory Rate: 20 bpm Temperature: 36 .3 (C) / 97.4 (F) Weight: 200 lbs 12/07/2012 Blood Pressure 1: 112/88 Code: 8480-6 BMI: 30.5 Code: 87668-1 Heart Rate 1: 92 bpm Height: 5'5" Respiratory Rate: 20 bpm Temperature: 37 .4 (C) / 99.3 (F) Weight: 183 lbs 12/03/2012 Blood Pressure 1: 124/88 Code: 8480-6 BMI: 30.5 Code: 79608-0 Heart Rate 1: 86 bpm Height: 5'5" Respiratory Rate: 20 bpm Temperature: 36 .6 (C) / 97.8 (F) Weight: 183 lbs 04/03/2012 Blood Pressure 1: 114/76 Code: 8480-6 BMI: 27.5 Code: 27152-2 Heart Rate 1: 64 bpm Height: 5'6" Temperature: 37.4 (C) / 99.4 (F) Weight: 168 lbs 03/30/2012 Blood Pressure 1: 122/80 Code: 8480-6 BMI: 27.5 Code: 83150-2 Heart Rate 1: 72 bpm Height: 5'6" Respiratory Rate: 20 bpm Temperature: 36 .8 (C) / 98.3 (F) Weight: 168 lbs 07/29/2011 Blood Pressure 1: 120/64 Code: 8480-6 BMI: 24.7 Code: 25121-0 Heart Rate 1: 84 bpm Height: 5'6" Temperature: 36.9 (C) / 98.4 (F) Weight: 151 lbs 04/29/2011 Blood Pressure 1: 102/70 Code: 8480-6 BMI: 24.4 Code: 23067-2 Heart Rate 1: 60 bpm Height: 5'6" Temperature: 36.8 (C) / 98.2 (F) Weight: 149 lbs 04/28/2011 Blood Pressure 1: 110/72 Code: 8480-6 BMI: 24.4 Code: 08152-1 Heart Rate 1: 74 bpm Height: 5'6" Temperature: 37.2 (C) / 99.0 (F) Weight: 149 lbs 03/07/2011 Blood Pressure 1: 102/72 Code: 8480-6 BMI: 23.5 Code: 26729-3 Heart Rate 1: 68 bpm Height: 5'6" Temperature: 37.1 (C) / 98.7 (F) Weight: 143 lbs 6 oz 11/10/2010 Blood Pressure 1: 121/80 Code: 8480-6 Heart Rate 1: 72 bpm Temperature: 36.7 (C) / 98.0 (F) Weight: 142 lbs 08/18/2010 Blood Pressure 1: 122/72 Code: 8480-6 BMI: 24.3 Code: 56382-5 Heart Rate 1: 88 bpm Height: 5'6" [...] for pain. Patient was given hydrocodone 5-325mg [id number] pain nasal allergies 06/12/2015 palpitations 11/04/2014 follow [...] Visit Encounters Encounter Performer Location Codes Date ([id number]) PREV VISIT EST AGE 40-64 Diagnosis: Encounter for general adult medical examination without abnormal findings[ICD10: Z00.00] Diagnosis: Essential (primary) hypertension[ICD10: I10] Diagnosis: Major depressive disorder, single episode, unspecified[ICD10: F32.9] Ritika CINTRON [facility] CPT-4: 80922 07/25/2019 ([id number]) OFFICE/OUTPATIENT VISIT EST Diagnosis: Essential (primary) hypertension[ICD10: I10] Diagnosis: Gastro-esophageal reflux disease without esophagitis[ICD10: K21.9] Diagnosis: Generalized anxiety disorder[ICD10: F41.1] Ritika CINTRON [facility] CPT-4: 03394 01/08/2019 ([id number]) NURSE/OUTPATIENT VISIT EST Diagnosis: FLU VACCINE[ICD10: Z23] Ritika POP [facility] CPT-4: 90711 11/22/2018 ([id number]) OFFICE/OUTPATIENT VISIT EST Diagnosis: Esophageal reflux[ICD10: K21.9] Diagnosis: Epigastric pain[ICD10: R10.13] Ritika CINTRON [facility] CPT-4: 89047 11/14/2018 ([id number]) OFFICE/OUTPATIENT VISIT EST Diagnosis: Elevated blood-pressure reading, without diagnosis of hypertension[ICD10: R03.0] Diagnosis: Localized edema[ICD10: R60.0] Diagnosis: Major depressive disorder, single episode, unspecified[ICD10: F32.9] Diagnosis: Gastro-esophageal reflux disease without esophagitis[ICD10: K21.9] Ritika CINTRON [facility] CPT-4: 17688 09/17/2018 ([id number]) OFFICE/OUTPATIENT VISIT EST Diagnosis: Generalized abdominal pain[ICD10: R10.84] Diagnosis: Acute gastritis with bleeding[ICD10: K29.01] Quita CINTRON [facility] CPT-4: 34816 08/13/2018 ([id number]) OFFICE/OUTPATIENT VISIT EST Diagnosis: Other allergic rhinitis[ICD10: J30.89] Anaya Marte [facility]: 35450 05/29/2018 ([id number]) OFFICE/OUTPATIENT VISIT EST Diagnosis: Essential (primary) hypertension[ICD10: I10] Diagnosis: Localized edema[ICD10: R60.0] Diagnosis: Major depressive disorder, single episode, unspecified[ICD10: F32.9] Ritika CINTRON DO [facility] CPT-4: 14976 05/24/2018 ([id number]) PREV VISIT EST AGE 18-39 Diagnosis: Encounter for general adult medical examination without abnormal findings[ICD10: Z00.00] Diagnosis: Encounter for gynecological examination (general) (routine) without abnormal findings[ICD10: Z01.419] Diagnosis: Gastro-esophageal reflux disease without esophagitis[ICD10: K21.9] Diagnosis: Generalized anxiety disorder[ICD10: F41.1] Ritika CINTRON DO [facility] CPT-4: 63468 02/08/2018 ([id number]) NURSE/OUTPATIENT VISIT EST Diagnosis: Excessive and frequent menstruation with regular cycle[ICD10: N92.0] Ritika CINTRON DO [employer] CPT-4: 80306 01/09/2018 ([id number]) NURSE/OUTPATIENT VISIT EST Diagnosis: FLU VACCINE[ICD10: Z23] Ritika POP [employer] CPT-4: 37551 01/02/2018 ([id number]) OFFICE/OUTPATIENT VISIT EST Diagnosis: Acute sinusitis, unspecified[ICD10: J01.90] Quita CINTRON DO [facility] CPT-4: 15898 12/11/2017 ([id number]) OFFICE/OUTPATIENT VISIT EST Diagnosis: Acute pharyngitis, unspecified[ICD10: J02.9] Quita CINTRON DO [facility] CPT-4: 80740 11/30/2017 ([id number]) OFFICE/OUTPATIENT VISIT EST Diagnosis: Low back pain[ICD10: M54.5] Diagnosis: Pelvic and perineal pain[ICD10: R10.2] Diagnosis: Excessive and frequent menstruation with regular cycle[ICD10: N92.0] Ritika CINTRON DO [employer] CPT-4: 82103 10/13/2017 ([id number]) OFFICE/OUTPATIENT VISIT EST Diagnosis: Vitamin D deficiency, unspecified[ICD10: E55.9] Diagnosis: Endocrine disorder, unspecified[ICD10: E34.9] Ritika CINTRON [employer] [facility] CPT-4: 59680 09/05/2017 ([id number]) NURSE/OUTPATIENT VISIT EST Diagnosis: Excessive and frequent menstruation with regular cycle[ICD10: N92.0] Ritika CINTRON DO [facility] CPT-4: 63068 07/21/2017 OFFICE/OUTPATIENT VISIT EST Diagnosis: Other allergic rhinitis[ICD10: J30.89] Diagnosis: Encounter for other contraceptive management[ICD10: Z30.8] Quita CINTRON DO [facility] CPT-4: 60052 04/27/2017 OFFICE/OUTPATIENT VISIT EST Diagnosis: Allergic rhinitis, unspecified[ICD10: J30.9] Quita CINTRON DO [facility] CPT-4: 15306 03/20/2017 ([id number]) OFFICE/OUTPATIENT VISIT EST Diagnosis: Excessive and frequent menstruation with regular cycle[ICD10: N92.0] Ritika CINTRON [employer] [facility] CPT-4: 63289 01/31/2017 ([id number]) OFFICE/OUTPATIENT VISIT EST Diagnosis: Epigastric pain[ICD10: R10.13] Diagnosis: Gastro-esophageal reflux disease without esophagitis[ICD10: K21.9] Diagnosis: Pain in thoracic spine[ICD10: M54.6] Diagnosis: Low back pain[ICD10: M54.5] Ritiak CURRY [employer] [facility] CPT-4: 27323 01/03/2017 ([id number]) OFFICE/OUTPATIENT VISIT EST Diagnosis: Excessive and frequent menstruation with regular cycle[ICD10: N92.0] Ritika CINTRON [employer] [facility] CPT-4: 54123 10/31/2016 ([id number]) PREV VISIT EST AGE 18-39 Diagnosis: Encounter for general adult medical examination without abnormal findings[ICD10: Z00.00] Diagnosis: Encounter for general adult medical examination with abnormal findings[ICD10: Z00.01] Diagnosis: Other fatigue[ICD10: R53.83] Diagnosis: Generalized hyperhidrosis[ICD10: R61] Diagnosis: Iron deficiency anemia, unspecified[ICD10: D50.9] Ritika Abdulaziz [facility]: 92305 09/06/2016 ([id number]) OFFICE/OUTPATIENT VISIT EST Diagnosis: Essential (primary) hypertension[ICD10: I10] Diagnosis: Major depressive disorder, single episode, unspecified[ICD10: F32.9] Diagnosis: Urinary tract infection, site not specified[ICD10: N39.0] Diagnosis: Acute vaginitis[ICD10: N76.0] Diagnosis: Nonscarring hair loss, unspecified[ICD10: L65.9] Mary House [facility]IT[facility]: 98157 04/28/2016 ([id number]) OFFICE/OUTPATIENT VISIT EST Diagnosis: Atypical facial pain[ICD10: G50.1] Mary TEMPLE [facility] C[facility]: 90791 09/10/2015 OFFICE/OUTPATIENT VISIT EST Diagnosis: Allergic rhinitis, unspecified[ICD10: J30.9] Sarah LOWERYQUELINE [facility]Katelyn [facility] CPT-4: 89732 06/12/2015 ([id number]) OFFICE/OUTPATIENT VISIT EST Diagnosis: PALPITATIONS[ICD9: 785.1] Diagnosis: CHEST PAIN NOS[ICD9: 786.50] Diagnosis: GERD[ICD9: 530.81] Ritika Carrollesequiel LOWERYRITIKA [facility]Katelyn [facility] CPT-[facility]: 38406 11/04/2014 ([id number]) OFFICE/OUTPATIENT VISIT EST Diagnosis: EDEMA[ICD9: 782.3] Diagnosis: PALPITATIONS[ICD9: 785.1] Diamante LOWERYQUELINE [facility] CPT[facility]: 02601 08/04/2014 ([id number]) OFFICE/OUTPATIENT VISIT EST Diagnosis: SINUSITIS, ACUTE[ICD9: 461.9] Diagnosis: PALPITATIONS[ICD9: 785.1] Diagnosis: Elevated blood pressure[ICD9: 796.2] Diagnosis: EDEMA[ICD9: 782.3] Ritika CRUZ [facility]Katelyn [facility] CPT-4: 14693 07/21/2014 ([id number]) OFFICE/OUTPATIENT VISIT EST Diagnosis: SINUSITIS, ACUTE[ICD9: 461.9] Diagnosis: COUGH[ICD9: 786.2] Diamante CINTRON DO [facility] CPT-4: 73137 04/02/2014 ([id number]) OFFICE/OUTPATIENT VISIT EST Diagnosis: Cervicalgia[ICD9: 723.1] Diagnosis: Thoracic back pain[ICD9: 724.1] Ritika CINTRON DO [employer] CPT-4: 48033 03/20/2014 ([id number]) OFFICE/OUTPATIENT VISIT EST Diagnosis: EXCESSIVE MENSTRUATION[ICD9: 626.2] Diagnosis: MALAISE AND FATIGUE[ICD9: 780.79] Diagnosis: ABNORMAL WEIGHT GAIN[ICD9: 783.1] Diagnosis: IBS[ICD9: 564.1] Ritika HOLLINSLINE BrittanyKatelyn ABDULAZIZ [employer] [facility] [employer] CPT - 4: 75685 02/18/2014 OFFICE/OUTPATIENT VISIT EST Diagnosis: URINARY TRACT INFECTION[ICD9: 599.0] Diagnosis: HYPERLIPIDEMIA NEC/NOS[ICD9: 272.4] Diamante CINTRON [facility] CPT-4: 23539 10/01/2013 OFFICE/OUTPATIENT VISIT EST Diagnosis: ARTHRALGIA-MULTIPLE SITES[ICD9: 719.49] Diagnosis: MALAISE AND FATIGUE[ICD9: 780.79] Diagnosis: ABNORMAL WEIGHT GAIN[ICD9: 783.1] Diamante ChapmanBirgitjanis HOLLINSKOBI Upton Aura CINTRON [facility] CPT-4: 91015 09/12/2013 ([id number]) OFFICE/OUTPATIENT VISIT EST Diagnosis: EXCESSIVE MENSTRUATION[ICD9: 626.2] Ritika CINTRON [facility] CPT-4: 36165 05/17/2013 ([id number]) PREV VISIT EST AGE 18-39 Diagnosis: ROUTINE GYNE EXAM[ICD9: V72.31] Diagnosis: ROUTINE MEDICAL EXAM[ICD9: V70.0] Diagnosis: Menorrhagia[ICD9: 626.2] Diagnosis: HYPERLIPIDEMIA NEC/NOS[ICD9: 272.4] Ritika Carrollcaer JACLASHAWN CINTRON [facility] CPT-4: 76910 05/16/2013 ([id number]) OFFICE/OUTPATIENT VISIT EST Diagnosis: ROUTINE MEDICAL EXAM[ICD9: V70.0] Ritika CINTRON [facility] CPT-4: 47594 05/07/2013 ([id number]) OFFICE/OUTPATIENT VISIT EST Diagnosis: FLU VACCINE[ICD9: V04.81] Ritika LOCK [facility] CPT-4: 46276 01/08/2013 OFFICE/OUTPATIENT VISIT EST Diagnosis: Skin infection[ICD9: 686.9] Diamante CINTRON [facility] CPT-4: 36347 12/07/2012 OFFICE/OUTPATIENT VISIT EST Diagnosis: Skin lesion, infected[ICD9: 686.9] Diagnosis: MRSA (methicillin resistant Staphylococcus aureus)[ICD9: 041.12] Diagnosis: CELLULITIS[ICD9: 682.9] Diamante POP [facility] CPT-4: 59250 12/03/2012 OFFICE/OUTPATIENT VISIT EST Diagnosis: FEBRILE ILLNESS[ICD9: 780.60] Diagnosis: SINUSITIS, ACUTE[ICD9: 461.9] Diagnosis: COUGH[ICD9: 786.2] Ritika CINTRON [facility] CPT-4: 94650 04/03/2012 OFFICE/OUTPATIENT VISIT EST Diagnosis: SINUSITIS, ACUTE[ICD9: 461.9] Ritika CINTRON [facility] CPT-4: 27212 03/30/2012 OFFICE/OUTPATIENT VISIT EST Diagnosis: CONJUNCTIVITIS NOS[ICD9: 372.30] Diagnosis: URI, ACUTE[ICD9: 465.9] Ritika POP [facility] CPT-4: 19909 07/29/2011 OFFICE/OUTPATIENT VISIT EST Diagnosis: CELLULITIS OF HAND[ICD9: 682.4] Ritika CINTRON [facility] CPT-4: 70358 04/28/2011 OFFICE/OUTPATIENT VISIT EST Diagnosis: URINARY TRACT INFECTION[ICD9: 599.0] Diagnosis: Vaginal itching[ICD9: 698.1] Ritika CINTRON [employer] CPT-4: 80226 03/07/2011 OFFICE/OUTPATIENT VISIT EST Diagnosis: Skin lesion of face[ICD9: 709.9] Diagnosis: Scratched by cat[ICD9: 919.8] Ritika CINTRON DO [employer] CPT-4: 64193 11/10/2010 PREV VISIT NEW AGE 18-39 Ritika Tamayo [employer] [facility] [employer] CPT-4: 27719 08/18/2010 Plan of Care Planned Activity Notes Codes Status Date Visit Diagnosis Plan: Essential (primary) hypertension Discussion: Stable ICD-9 : 401.9 ICD-10 : I10 07/25/2019 Visit Diagnosis Plan: Major depressive disorder, singl e episode, unspecified Discussion: Stable Follow Up: 6 months ICD-9 : 311 ICD-10 : F32.9 07/25/2019 Visit Diagnosis Plan: Encounter for [facility] adult medical examination without abnormal findings Discussion: Mediterranean diet Combinati on of cardio and weight bearing exercise Update fasting lab ICD-9 : V70.9 ICD-10 : Z00.00 07/25/2019 Patient Education: sertraline- [employer] Coupon [id number] [email or web address].eDossea/GuidePal/resources/getResource/61/[email or web address] Completed 07/25/2019 Visit Diagnosis Plan: Generalized anxiety [...] K21.9 01/08/2019 Appointment: Rit[facility] Cintron [facility]el[phone] [facility] [facility] 01/08/2019 Appointment: Ritika Cintron WPtel: [address] [place], [place] [phone] [place] INJECTION 11/22/2018 Patient Education: INFLUENZA VACCINE FORMERLY NAMED [facility] Completed 11/22/2018 Visit Diagnosis Plan: Esophageal reflux Discussion: Ch nayan protonix to nexium Referral for EGD May need GB workup pending EGD results ICD-9 : 530.81 ICD-10 : K21.9 11/14/2018 Appointment: Ritika Cintron WPtel: [facility]4 [facility] FOLLOW UP 11/14/2018 Patient Education: Nexium- [employer] Coupon [id number] https://www.eDossea/sampleAvaz/resources/getResource/61/[email or web address].pdf Completed 11/14/2018 Visit Diagnosis Plan: Gastro-esophageal reflux disease without esophagitis Discussion: Continue protonix at current dose Recheck 3mos ICD-9 : 530.81 ICD-10 : K21.9 09/17/2018 Visit Diagnosis Plan: Elevated blood-pre ssure reading, without diagnosis of hypertension Discussion: Continue spironolactone Low Na diet ICD-9 : 796.2 ICD-10 : R03.0 09/17/2018 Appointment: Ritika Cintron WPtel: [address] [place], [place] [phone] FOLLOW UP 09/17/2018 Patient Education: spironolactone- [employer] Coupon [id number] Completed 09/17/2018 Patient Education: sertraline- [employer] Coupon [id number] Completed 09/17/2018 Visit Diagnosis Plan: Acute gastritis [...] : R10.84 08/13/2018 App[facility]ment: [facility]uita [facility] [facility] 08/13/2018 Patient Education: Protonix- [employer] Coupon [id number] [email or web address]://www.eDossea/GuidePal/resources/getResource/61/[email or web address] Completed 08/13/2018 Visit Diagnosis Plan: Other allergic rhinitis Discussi on: Steroid injection administered in the clinic- patient tolerated well. Start oral prednisone tomorrow. Ok to continue daily allergy medications. She has established with Dr. Zuleta and will be starting allergy injections with him this summer. No further questions at this time. ICD-9 : 477.8 ICD-10 : J30.89 05/29/2018 Appointment: Anaya Marte [address] [facility] ACUTE ILLNESS 05/29/2018 Visit Diagnosis Plan: Essential [...] F32.9 05/24/2018 Appointment: Ritika Cintron WPtel: [phone] [facility] [place] FOLLOW UP 05/24/2018 Visit Diagnosis [...] : K21.9 02/08/2018 Appointment: Ritika Cintron WPtel: [address] [place] [address] Annual Well Visit 02/08/2018 Appointment: Ritika Cintron WPtel: [address] [place], [place] [phone] [place] INJECTION 01/09/2018 Appointment: Ritika Cintron WPtel: [address] [place] [address] [place] INJECTION 01/02/2018 Patient Education: INFLUENZA VACCINE [...] : J01.90 12/11/2017 Appointment: Quita Jerry [address] ACUTE ILLNESS 12/11/2017 Patient Education: Patient Medication Summary Completed 12/11/2017 Patient Education: Patient Medication Summary Completed 12/11/2017 Visit Diagnosis Plan: Acute pharyngitis, unspecified D iscussion: rapid strep negative. due to clinical s/s and worsening, clindamycin sent out for patient. change toothbrush in 48 hours, no sharing food or drinks with others. 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 tylenol/ibuprofen prn pain or fever. call office with new or worsening symptoms. ICD-9 : 462 ICD-10 : J02.9 11/30/2017 Appointment: Quita Jerry [address] ACUTE ILLNESS 11/30/2017 Patient Education: Patient [...] : M54.5 10/13/2017 Appointment: Ritika Cintron WPtel: [address] [place], [place] [phone] ACUTE ILLNESS 10/13/2017 Patient Education: Patient Medication [...] : E55.9 09/05/2017 Appointment: Ritika Cintron WPtel: [address] [place], [place] [phone] FOLLOW UP 09/05/2017 Patient Education: Patient Medication Summary Completed 09/05/2017 Appointment: Ritika Cintron WPtel: [address] [place], [place] [phone] [place] INJECTION 07/21/2017 Patient Education: Patient Medication [...] ICD-10 : Z30.8 04/27/2017 Appointment: Quita Jerry 504 [facility] ACUTE ILLNESS 04/27/2017 Patient Education: Patient Medication Summary Completed 04/27/2017 Appointment: Quita Jerry 504 [facility] ACUTE ILLNESS 03/31/2017 Visit Diagnosis Plan: Allergic [...] : J30.9 03/20/2017 Appointment: [facility]uita Jerry [facility] [facility] 03/20/2017 Patient Education: Patient Medication Summary Completed 03/20/2017 Appointment: Ritika Cintron WPtel: [address] [place], [place] [phone] [place] INJECTION 01/31/2017 Patient Education: Patient Medication Summary Completed 01/31/2017 Visit Diagnosis Plan: Pain in thoracic spine Discussio n: Daily stretches Change ibuprofen to meloxicam once daily in AM with protonix and food Follow Up: 2 months ICD-9 : 724.1 ICD-10 : M54.6 01/03/2017 Visit Diagnosis Plan: Gastro-esophageal reflux disease without esophagitis Diet: GERD diet ICD-9 : 530.81 ICD-10 : K21.9 01/03/2017 Visit Diagnosis Plan: Epigastric pain Discussion: Tria l of protonix BID ICD-9 : 789.06 ICD-10 : R10.13 01/03/2017 Appointment: Ritika Cintron WPtel: [facility]2 [facility] Annual Well Visit 01/03/2017 Patient Education: Patient Medication Summary Completed 01/03/2017 Appointment: Ritika Cintron WPtel: [address] [place], [place] [phone] [place] PAP 11/22/2016 Appointment: Ritika Cintron WPtel: [address] [place], [place] [phone] [place] INJECTION 10/31/2016 Patient Education: Patient Medication Summary Completed 10/31/2016 Visit Diagnosis Plan: Other fatigue Discussion: Check TSH, Free T4, CBC, CMP ICD-9 : 780.79 ICD-10 : R53.83 09/06/2016 Visit Diagnosis Plan: Encounter for [facility] adult medical examination with abnormal findings Discussion: Pap done May need pelvic US due to pain with intercourse ICD-9 : V70.0 ICD-10 : Z00.01 09/06/2016 Visit Diagnosis Plan: Iron deficiency anemia, unspecif ied Discussion: Check CBC, iron ICD-9 : 280.9 ICD-10 : D50.9 09/06/2016 Appointment: Ritika Cintron WPtel: [address] [place], [place] [phone] 09/05 confirmed~sl PAP 09/06/2016 Patient Education: Patient Medication Summary Completed 09/06/2016 Appointment: Ritika Cintron WPtel: [address] [place], [place] [phone] BP CHECK 05/18/2016 Patient Education: Patient Medication Summary Completed 05/18/2016 Visit Diagnosis Plan: Essential (primary) hypertension Discussion: Restart metoprolol at previous dosing Daily BP readings x 2 weeks at home Recheck in 2 weeks with nurse and turn in BP log ICD-9 : 401.9 ICD-10 : I10 04/28/2016 Visit Diagnosis Plan: Acute vaginitis Discussion: Foll ow macrobid with diflucan Supportive care in the meantime Yogurt/probiotic Topical OTC vaginal cream for relief in the meantime ICD-9 : 616.10 ICD-10 : N76.0 04/28/2016 Visit Diagnosis Plan: Nonscarring hair loss, unspecifi ed Discussion: Discussed hair loss is fairly normal Continue Can add hair growth stimulating shampoo and conditioner If worsening, can update labs Encouraged her to discuss with her OBGYN as well ICD-9 : 704.00 ICD-10 : L65.9 04/28/2016 Visit Diagnosis Plan: Urinary tract infection, site [...] ICD-9 : 311 ICD-10 : F32.9 04/28/2016 Appointment: [facility] [address] ACUTE ILLNESS 04/28/2016 Patient Education: Patient Medication Summary Completed 04/28/2016 Appointment: Ritika Cintron WPtel: [address] [place] [address] BP CHECK 02/01/2016 Patient Education: Patient Medication Summary Completed 02/01/2016 Appointment: Ritika Cintron WPtel: [address] [place] [address] BP CHECK 01/26/2016 Patient Education: Patient Medication Summary Completed 01/26/2016 Visit Plan: Discussed POC with Dr Leticia tamayo Increase dose to 300mg TID for a full 10 days Follow up with us, dentist and OB as needed Cautioned to monitor BP and follow up if not at goal 09/10/2015 Appointment: [facility] [address] [place] [address] ACUTE ILLNESS 09/10/2015 Patient Education: Patient Medication Summary Completed 09/10/2015 Visit Plan: Dexamethesone 4mg with Kenal og 40 IM now Continue antihistamines Use nasal saline multiple times a day Humidified air Rest/fluids Reviewed s/s of worsening, go to over weekend if needed. 06/12/2015 Appointment: Sarah Campbell WPtel: [address] [place] [address] ACUTE ILLNESS 06/12/2015 Patient Education: Patient Medication Summary Completed 06/12/2015 Visit Plan: Proceed with Stress ECHO Add omeprazole Fwup after stress ECHO 11/04/2014 Appointment: Ritika Cintron WPtel: [address] [place], [place] [phone] 11/03/14 confirm FOLLOW UP 11/04/2014 Patient Education: Patient Medication Summary Completed 11/04/2014 Visit Plan: Continue HCTZ 12.5 mg for 2 more weeks. Discussed decreasing dietary sodium intake Advised against future use of pseudoephedrine 08/04/2014 Appointment: Diamante Santana WPtel: [address] [place] [address] FOLLOW UP 08/04/2014 Patient Education: Patient Medication Summary Completed 08/04/2014 Appointment: Ritika Cintron WPtel: [address] [place], [place] [phone] Urgent/Quick Care Follow Up 02/2014 Patient Education: Patient Medication Summary Completed 07/21/2014 Appointment: Diamante Santana WPtel: [address] [place], [place] [id number] ACUTE ILLNESS 04/02/2014 Patient Education: Patient Medication Summary Completed 04/02/2014 Patient Education: [employer] - Antibi otics, Analgesics 18+, Oral Contraceptives F 18+ Completed 04/02/2014 Visit Plan: Check cervical and thoracic spine x-rays Daily Neck and Back stretches Duexis TID 03/20/2014 Appointment: Ritika Cintron WPtel: [address] [place], [place] [phone] ACUTE ILLNESS 03/20/2014 Patient Education: Patient Medication Summary Completed 03/20/2014 Visit Plan: Trial of Aviane Discussed di et and exercise at length--1400--1500cal ADA diet with exercise Trial of levbid 0.375mg q HS Discussed trial of Phenteramine Call in 1mo on Levbid 02/18/2014 Appointment: Ritika Cintron WPtel: [address] [place] [address] ACUTE ILLNESS 02/18/2014 Patient Education: Patient Medication Summary Completed 02/18/2014 Patient Education: Consumer[employer] - Antibi otics, Analgesics 18+, Oral Contraceptives F 18+ Completed 02/18/2014 Appointment: Diamante Santana WPtel: [address] [place] [address] ACUTE ILLNESS 10/01/2013 Patient Education: Patient Medication Summary Completed 10/01/2013 Appointment: Diamante Santana WPtel: [address] [place] [address] ACUTE ILLNESS 09/12/2013 Patient Education: Patient Medication Summary Completed 09/12/2013 Referral: Ritika Cintron WPtel: [address] [place] [address] Dr Rodriguez Initiated 06/18/2013 Appointment: Ritika Cintron WPtel: [address] [place] [address] INJECTION 05/17/2013 Patient Education: Patient Medication Summary Completed 05/17/2013 Visit Plan: [facility] discussed--fish oil 3grams daily and lifestyle change with exercise and recheck lipids 6mos 05/16/2013 Appointment: Ritika Cintron WPtel: [address] [place] [address] 05/14 pt came in and verified appt is 25 PAP 05/16/2013 Patient Education: Patient Medication Summary Completed 05/16/2013 Appointment: Ritika Cintron WPtel: [address] [place] [address] LAB 05/07/2013 Patient Education: Patient Medication Summary Completed 05/07/2013 Appointment: Ritika Cintron WPtel: [phone] [place] [facility]CTION 01/08/2013 Patient Education: Patient Medication Summary Completed 01/08/2013 Appointment: Diamante Santana WPtel: [phone] [facility] [place] ACUTE ILLNESS 12/07/2012 Patient Education: Patient Medication Summary Completed 12/07/2012 Appointment: Diamante Santana WPtel: [phone] [facility] [place] ACUTE ILLNESS 12/03/2012 Patient Education: Patient Medication Summary Completed 12/03/2012 Visit Plan: 2 months old at home. (saida adams) Azithromycin increased dose. Pt. reports Clindamycin is possible allergy but not sure-states "makes my throat close....I think" Discussed that will notify if symptoms worsen or fever continues. Strongly encouraged her to stay home until fever resolves. 04/03/2012 Appointment: Venecia Smith WPtel: [phone] [facility] ACUTE ILLNESS 04/03/2012 Patient Education: Patient Medication Summary Completed 04/03/2012 Visit Plan: ERx for ZPack (due to multip le med allergies and ) OTC multiple symptom cold formula (Like Robitussing PE) as directed OTC nasal saline, Tylenol, Ibuprofen prn RTC for no improvement, UC for worsening. 03/30/2012 Appointment: Sarah Campbell WPtel: [address] [place], [place] [phone] [place] ACUTE ILLNESS 03/30/2012 Patient Education: Patient [...] the time) 07/29/2011 Appointment: Sarah Campbell WPtel: [address] [place] [address] ACUTE ILLNESS 07/29/2011 Patient Education: Patient Medication Summary Completed 07/29/2011 Appointment: Venecia Smith WPtel: [address] [place] [address] FOLLOW UP 04/29/2011 Patient Education: Patient Medication Summary Completed 04/29/2011 Visit Plan: due to multiple allergies wi ll try Doxycycline and mupirocin topical.(has some topical left over from past topical infection) Will ice/cool pack finger and use Ibuprofen in addition to antibiotic. Discussed that pt. will notify if redness is worse tomorrow. 04/28/2011 Appointment: Venecia Smith WPtel: [address] [place] [address] ACUTE ILLNESS 04/28/2011 Patient Education: Patient Medication Summary Completed 04/28/2011 Visit Plan: Macrobid and Pyridium. Diflu can for possible yeast. Discussed increased fluids. Pt. will notify if symptoms worsen or fever occurs. Urine for culture. 03/07/2011 Appointment: Venecia Smith WPtel: [address] [place] [address] ACUTE ILLNESS 03/07/2011 Patient Education: Patient Medication Summary Completed 03/07/2011 Visit Plan: Pt will apply mild heat devante ral times daily to aid in healing process. Pt. has past RX for mupirocin topical. Will apply to area being careful to not get any in the eye. Will follow up if no resolution in the next 5 days. 11/10/2010 Appointment: Venecia Smith WPtel: [address] [place] [address] ACUTE ILLNESS 11/10/2010 Patient Education: Patient Medication Summary Completed 11/10/2010 Visit Plan: Pap done Check CBC, CMP, TSH , Free T4 08/18/2010 Appointment: Ritika Cintron WPtel: [address] [place] [address] NEW PATIENT 08/18/2010 Patient Education: Patient Medication [...]
--- OUTSIDE RECORDS SUMMARY | 2019-10-02 17:22 | XMS REPORT | CCD ---
Author Author Catherine Cintron D.O. Organization RITIKA CINTRON DO [facility] Address [address] [place] [address] Phone Care Team Providers Care Instant Powder Supervisor Name Role Phone Ritika Cintron D.O., PP Unavailable CCM Unavailable Summary Purpose Interface Exchange Insurance Providers Payer name Policy type / Coverage type Covered alliance party ID Effective Begin Date Effective End Date Blue Cross Blue Shield Blue Cross/Blue Shield [id number] Unknown Family history Mother Diagnosis Age At Onset No Family Disease Entered N/A Father Diagnosis Age At Onset Diabetes mellitus Type 1 Unknown Social History Social History Element Codes Description Effective Dates Tobacco history SNOMED CT: 628107273 Has never smoked or chewed tobacco 09/01/2010 [...] Fill Instructions spironolactone 50 mg tablet RxNorm: 080308 Tablet(s) 1 TABLET(S ) PO QAM 07/25/2019 01/21/2020 Active sertraline 50 mg tablet RxNorm: 318395 1 Tablet(s) Oral QD 1 TA BLET(S) PO QD 07/25/2019 01/20/2020 Active Tri-Sprintec (28) 0.18 mg(7)/0.215 mg(7)/0.25 mg(7)-35 mcg tablet RxNorm: 875624 TAKE 1 TABLET BY MOUTH EVERY DAY 07/25/2019 01/21/2020 Active Tri-Sprintec (28) 0.18 mg(7)/0.215 mg(7)/0.25 mg(7)-35 mcg tablet RxNorm: 056400 TAKE 1 TABLET BY MOUTH EVERY DAY 07/08/2019 07/24/2019 Inactive Tri-Sprintec (28) 0.18 mg(7)/0.215 mg(7)/0.25 mg(7)-35 mcg tablet RxNorm: 540939 1 Tablet(s) Oral QD Due for annual appt 06/12/2019 07/07/2019 I nactive Due for annual appointment Tri-Sprintec (28) 0.18 mg(7)/0.215 mg(7)/0.25 mg(7)-35 mcg tablet RxNorm: 381810 TAKE 1 TABLET BY MOUTH EVERY DAY 04/15/2019 06/11/2019 Inactive Zetia 10 mg tablet RxNorm: 492449 1 Tablet(s) Oral QD 01/08/201904/2019 Inactive Tri-Sprintec (28) 0.18 mg(7)/0.215 mg(7)/0.25 mg(7)-35 mcg tablet RxNorm: 889725 TABLET(S) 1 TABLET(S) PO QD 01/07/2019 04/14/2019 Inactive Nexium 40 mg capsule,delayed release RxNorm: 512301 1 Capsule(s ) Oral QD 11/14/2018 01/07/2019 Inactive metronidazole 500 mg tablet RxNorm: 229042 1 Tablet(s) Oral thr ee times a day 11/14/2018 11/14/2018 Inactive Bactrim DS 800 mg-160 mg tablet RxNorm: 743220 1 Tablet(s) Oral two times a day 11/14/2018 11/14/2018 Inactive sertraline 50 mg tablet RxNorm: 762791 1 Tablet(s) PO QD 1 TABL ET(S) PO QD 09/17/2018 03/15/2019 Inactive spironolactone 50 mg tablet RxNorm: 872327 Tablet(s) 1 TABLET(S ) PO QAM 09/17/2018 03/15/2019 Inactive sertraline 50 mg tablet RxNorm: 695488 1 TABLET(S) PO QD 09/10/2018 0 09/16/2018 Inactive Tri-Sprintec (28) 0.18 mg(7)/0.215 mg(7)/0.25 mg(7)-35 mcg tablet RxNorm: 220279 Tablet(s) 1 TABLET(S) PO QD 08/20/2018 01/06/2019 Inactive Protonix 40 mg tablet,delayed release RxNorm: 080306 1 Tablet(s ) PO BID 08/13/2018 11/13/2018 Inactive Flagyl 500 mg tablet RxNorm: 643919 1 Tablet(s) PO BID 08/13/2018 Inactive spironolactone 50 mg tablet RxNorm: 056999 1 TABLET(S) PO QAM 08/1309/16/2018 Inactive Tri-Sprintec (28) 0.18 mg(7)/0.215 mg(7)/0.25 mg(7)-35 mcg tablet RxNorm: 915616 1 TABLET(S) PO QD 06/18/2018 07/15/2018 Inactive sertraline 50 mg tablet RxNorm: 076513 1 Tablet(s) PO QD 06/07/2018 0 09/04/2018 Inactive prednisone 10 mg tablet RxNorm: 984868 1 Tablet(s) PO BID 05/30/2018 06/03/2018 Inactive Tri-Sprintec (28) 0.18 mg(7)/0.215 mg(7)/0.25 mg(7)-35 mcg tablet RxNorm: 288050 1 Tablet(s) PO QD 05/17/2018 06/13/2018 Inactive sertraline 50 mg tablet RxNorm: 603364 1 TABLET(S) PO QD 05/07/2018 0 06/05/2018 Inactive Tri-Sprintec (28) 0.18 mg(7)/0.215 mg(7)/0.25 mg(7)-35 mcg tablet RxNorm: 736607 1 Tablet(s) PO QD 02/08/2018 05/02/2018 Inactive sertraline 50 mg tablet RxNorm: 425139 1 Tablet(s) PO QD 02/08/2018 0 04/08/2018 Inactive omeprazole 40 mg capsule,delayed release RxNorm: 064796 1 Capsule(s) PO QD for acid reflux 02/08/2018 08/12/2018 Inactive montelukast 10 mg tablet RxNorm: 635612 1 Tablet(s) PO QHS 12/15/19 18 12/13/2017 Inactive montelukast 10 mg tablet RxNorm: 964493 1 Tablet(s) PO QHS 12/15/19 18 08/12/2018 Inactive spironolactone 50 mg tablet RxNorm: 742303 1 Tablet(s) PO QAM 12/0612/05/2017 Inactive spironolactone 50 mg tablet RxNorm: 884247 1 Tablet(s) PO QAM 12/0603/05/2018 Inactive spironolactone 25 mg tablet RxNorm: 331140 1 TABLET(S) PO QAM BLOOD PRESSURE CHECK IN 1 MONTH 12/04/2017 12/10/2017 Inactive clindamycin HCl 300 mg capsule RxNorm: 718015 1 Capsule(s) PO TID 1 12/09/2017 Inactive spironolactone 25 mg tablet RxNorm: 570186 1 Tablet(s) PO QAM Blood pressure check in 1 month 11/06/2017 12/03/2017 Inactive spironolactone 25 mg tablet RxNorm: 807821 1 Tablet(s) PO QAM Blood pressure check in 1 month 11/06/2017 11/05/2017 Inactive cyclobenzaprine 5 mg tablet RxNorm: 363505 1/2-1 Tablet(s) PO Q HS for spasm 10/13/2017 11/11/2017 Inactive Macrobid 100 mg capsule RxNorm: 536643 1 Capsule(s) PO BID 10/14/19 18 10/19/2017 Inactive Mobic 15 mg tablet RxNorm: 720512 1 Tablet(s) PO QAM for pain 10/1311/11/2017 Inactive Depo-Provera 150 mg/mL intramuscular syringe RxNorm: 4796214 Milliliter(s) IM Bring to office for administration 07/18/2017 02/07/2018 Inactive Singulair 10 mg tablet RxNorm: 327762 1 Tablet(s) PO QD 04/12/2017 Inactive Singulair 10 mg tablet RxNorm: 578576 1 Tablet(s) PO QD 03/20/2017 Inactive metoprolol tartrate 50 mg tablet RxNorm: 344956 1 Tablet(s) PO QD 0 02/21/2017 09/04/2017 Inactive Mobic 15 mg tablet RxNorm: 853768 1 Tablet(s) PO QD 01/30/20172017 Inactive Mobic 15 mg tablet RxNorm: 051949 1 Tablet(s) PO QD 01/03/20172016 Inactive Protonix 40 mg tablet,delayed release RxNorm: 998406 1 Tablet(s ) PO BID 01/03/2017 11/29/2017 Inactive metoprolol tartrate 50 mg tablet RxNorm: 046015 1 Tablet(s) PO QD 1 02/21/2017 Inactive Depo-Provera 150 mg/mL intramuscular syringe RxNorm: 2198306 Milliliter(s) IM Bring to office for administration 10/28/2016 07/17/2017 Inactive Depo-Provera 150 mg/mL intramuscular syringe RxNorm: 7086206 Milliliter(s) IM Bring to office for administration 10/10/2016 10/27/2016 Inactive Macrobid 100 mg capsule RxNorm: 398138 1 Capsule(s) PO BID 04/29/19 17 05/04/2016 Inactive metoprolol succinate ER 50 mg tablet,extended release 24 hr RxNorm: 697671 1 Tablet(s) PO QD 04/28/2016 07/26/2016 Inactive Diflucan 150 mg tablet RxNorm: 955443 1 Tablet(s) PO QD x 1 dose 09/05/2016 Inactive sertraline 25 mg tablet RxNorm: 742514 1/2 Tablet(s) PO QD for 1 week and then increase to 1 tablet PO QD 04/28/2016 09/05/2016 Inactive Toprol XL 50 mg tablet,extended release RxNorm: 591046 1 Tablet (s) PO QD 01/26/2016 04/27/2016 Inactive clindamycin 300 mg capsule RxNorm: 508789 1 Capsule(s) PO TID 09/0909/19/2015 Inactive omeprazole 20 mg capsule,delayed release RxNorm: 001186 1 Capsu le(s) PO QD 11/04/2014 04/27/2016 Inactive hydrochlorothiazide 12.5 mg tablet RxNorm: 994829 1 Tablet(s) PO QD 09/10/2014 04/27/2016 Inactive Aviane 0.1 mg-20 mcg tablet RxNorm: 036512 1 Tablet(s) PO QD 201404/27/2016 Inactive hydrochlorothiazide 12.5 mg tablet RxNorm: 160167 1 Tablet(s) PO QD 07/21/2014 09/09/2014 Inactive Zithromax Z-Ykle 250 mg tablet RxNorm: 160002 Tablet(s) PO As Di rected 07/21/2014 11/03/2014 Inactive tobramycin 0.3 % eye drops RxNorm: 428829 2 Drop(s) OPH Q4H 015 04/02/2014 Inactive tobramycin 0.3 % eye drops RxNorm: 521038 2 Drop(s) OPH Q4H 015 04/09/2014 Inactive azithromycin 250 mg tablet RxNorm: 898755 2 Tablet(s) P O on day one then one tablet on days 2 - 5 04/02/2014 11/03/2014 Inactive hyoscyamine ER 0.375 mg tablet,extended release,12 hr RxNorm : 8369693 1 Tablet(s) PO QHS 03/20/2014 11/03/2014 Inactive Levbid 0.375 mg tablet,extended release RxNorm: 4156133 1 Tablet (s) PO QHS 02/18/2014 03/19/2014 Inactive Aviane 0.1 mg-20 mcg tablet RxNorm: 932370 1 Tablet(s) PO QD 201308/27/2014 Inactive Diflucan 150 mg tablet RxNorm: 544441 1 Tablet(s) PO QOD 10/01/2013 1 Inactive Macrobid 100 mg capsule RxNorm: 917389 1 Capsule(s) PO BID 10/02/19 14 10/07/2013 Inactive clindamycin 300 mg capsule RxNorm: 222444 1 Capsule(s) PO TID 12/0312/12/2012 Inactive azithromycin 250 mg tablet RxNorm: 784434 2 Tablet(s) PO QD 013 04/08/2012 Inactive Zithromax Z-Kyle 250 mg tablet RxNorm: 086352 1 Tablet(s ) PO QD Take 2 today and 1 a day on days 2-5 03/30/2012 04/03/2012 Inactive Tobrex 0.3 % Eye Drops RxNorm: 805051 2 Drop(s) OPH Q4H 07/29/2011 Inactive doxycycline hyclate 100 mg Tab RxNorm: 6199881 1 Tablet(s) PO BID 0 04/28/2011 05/07/2011 Inactive Pyridium 200 mg Tab RxNorm: 2359959 1 Tablet(s) PO TID 03/07/2011 Inactive Macrobid 100 mg Cap RxNorm: 024251 1 Capsule(s) PO BID 03/07/2011 Inactive Diflucan 100 mg Tab RxNorm: 716864 1 Tablet(s) PO QD 03/07/201103/16 Inactive Benadryl 25 mg capsule RxNorm: 0581214 Capsule(s) PO as needed No Sta rt Date Active Vitamin B12 1000mcg Tablet RxNorm: 1/2 Tablet(s) PO QD No Star t Date 11/29/2017 Inactive Depo-Provera 150 mg/mL intramuscular syringe RxNorm: 2559673 Milliliter(s) IM Bring to office for administration No Start Date 10/09/2016 Inactive metoprolol tartrate 50 mg tablet RxNorm: 524880 1 Tablet(s) PO QD N o Start Date 11/22/2016 Inactive Zyrtec 10 mg tablet RxNorm: 8411501 1 Tablet(s) PO QD No Start Date 1 Inactive Sudafed PE 10 mg tablet RxNorm: 9144333 Tablet(s) PO as needed No S tart Date 09/04/2017 Inactive Toprol XL 50 mg tablet,extended release RxNorm: 040385 1 Tablet (s) PO QD No Start Date 01/25/2016 Inactive Depo-Provera 150 mg/mL intramuscular suspension RxNorm: 1000 128 1 Milliliter(s) IM every 3mos No Start Date 02/17/2014 Inactive Flonase Allergy Relief 50 mcg/actuation nasal spray,suspensi on RxNorm: [place] NASAL as needed No Start Date 11/29/2017 Inactive Zyrtec 10 mg tablet RxNorm: 9956467 1 Tablet(s) PO QD as needed No Start Date 05/23/2018 Inactive Medication Administered No Medication Administered data Immunizations Vaccine Codes Date Status Influenza CVX: 141 11/22/2018 Complete Influenza CVX: 141 11/22/2018 Complete Influenza CVX: 141 01/02/2018 Complete Influenza CVX: 141 01/08/2013 Pediatric Influenza CVX: 141 01/08/2013 Results Observation Observation Code Item Item Code Result Date S ervice Location COMPLETE BLOOD COUNT [id number] WBC 15.9 10e9/L 019 Unknown COMPLETE BLOOD COUNT [id number] RBC 5.10 10e12/L 2018 Unknown COMPLETE BLOOD COUNT [id number] HEMOGLOBIN 15.2 g/dL 08/14/19 19 Unknown COMPLETE BLOOD COUNT [id number] HEMATOCRIT 46.2 % 08/14/19 19 Unknown COMPLETE BLOOD COUNT [id number] MCV 90.6 fL 9 Unknown COMPLETE BLOOD COUNT [id number] MCH 29.8 pg 9 Unknown COMPLETE BLOOD COUNT [id number] MCHC 32.9 g/dL 9 Unknown COMPLETE BLOOD COUNT [id number] PLATELET COUNT 433 10e9/L Unknown COMPLETE BLOOD COUNT [id number] Mean Plt Volume 9.9 fL Unknown COMPLETE BLOOD COUNT [id number] Neut Auto 74.7 % 9 Unknown COMPLETE BLOOD COUNT [id number] Lymph Auto 18.6 % 08/14/19 19 Unknown COMPLETE BLOOD COUNT [id number] [place] Auto 5.8 % 9 Unknown COMPLETE BLOOD COUNT 2400539 RDW 14.1 % 9 Unknown COMPLETE BLOOD COUNT [id number] Eos Auto 0.6 % 9 Unknown COMPLETE BLOOD COUNT 1221256 Baso Auto 0.3 % 9 Unknown COMPLETE BLOOD COUNT [id number] Neutrophil Abs 11.88 10e9/L 0 08/13/2018 Unknown COMPLETE BLOOD COUNT [id number] Lymphocyte Abs 2.96 10e9/L Unknown COMPLETE BLOOD COUNT [id number] Monocyte Abs 0.92 10e9/L 07/22 Unknown COMPLETE BLOOD COUNT [id number] Eosinophil Abs 0.10 10e9/L Unknown COMPLETE BLOOD COUNT 1024493 RDW-SD 45.7 fL 9 Unknown COMPLETE BLOOD COUNT [id number] Basophil Abs 0.05 10e9/L 07/22 Unknown A FOOD C P [id number] Codfish Cl Class 0 03/21/2017 Unknown A FOOD C P [id number] [place] Ct <0.35 kU/L 03/21/2017 Unknow n A FOOD C P [id number] [place] Cl Class 0 03/21/2017 Unkn own A FOOD C P [id number] [place] Ct <0.35 kU/L 03/21/2017 Unk nown A FOOD C P [id number] Egg White Cl Class 3 03/21/2017 Unkno wn A FOOD C P [id number] Egg White Ct 4.68 kU/L 03/21/2017 Unkno wn A FOOD C P [id number] Egg Yolk Cl Class 1 03/21/2017 Unknow n A FOOD C P [id number] Egg Yolk Ct 0.49 kU/L 03/21/2017 Unknow n A FOOD C P 8888702 Cow Milk Cl Class 3 03/21/2017 Unknow n A FOOD C P [id number] Cow Milk Ct 3.77 kU/L 03/21/2017 Unknow n A FOOD C P 1656542 Peanut Cl Class 0 03/21/2017 Unknown A FOOD C P [id number] Peanut Ct <0.35 kU/L 03/21/2017 Unknown A FOOD C P [id number] Shrimp Cl Class 2 03/21/2017 Unknown A FOOD C P [id number] Shrimp Ct 0.78 kU/L 03/21/2017 Unknown A FOOD C P [id number] Soybean Cl Class 0 03/21/2017 Unknown A FOOD C P [id number] Soybean Ct <0.35 kU/L 03/21/2017 Unknow n A FOOD C P 8587855 Wheat Cl Class 1 03/21/2017 Unknown A FOOD C P [id number] Wheat Ct 0.58 kU/L 03/21/2017 Unknown A FOOD C P [id number] Potato Cl Class 0 03/21/2017 Unknown A FOOD C P [id number] Potato Ct <0.35 kU/L 03/21/2017 Unknown A FOOD C P [id number] Beef Cl Class 0 03/21/2017 Unknown A FOOD C P [id number] Beef Ct <0.35 kU/L 03/21/2017 Unknown A FOOD C P [id number] Peel Cl Class 0 03/21/2017 Unknown A FOOD C P [id number] Peel Ct <0.35 kU/L 03/21/2017 Unknown A FOOD C P [id number] Pork Cl Class 0 03/21/2017 Unknown A FOOD C P [id number] Pork Ct <0.35 kU/L 03/21/2017 Unknown A FOOD C P [id number] Rice Cl Class 0 03/21/2017 Unknown A FOOD C P [id number] Rice Ct <0.35 kU/L 03/21/2017 Unknown A FOOD C P [id number] [place] Cl Class 0 03/21/2017 Unkn own A FOOD C P [id number] [place] Ct <0.35 kU/L 03/21/2017 Unk nown A FOOD C P [id number] Tomato Cl Class 0 03/21/2017 Unknown A FOOD C P [id number] Tomato Ct <0.35 kU/L 03/21/2017 Unknown A FOOD C P [id number] Tuna Cl Class 0 03/21/2017 Unknown A FOOD C P [id number] Tuna Ct <0.35 kU/L 03/21/2017 Unknown A FOOD C P [id number] [place] CL Class 0 03/21/2017 Unknown A FOOD C P [id number] [place] <0.35 kU/L 03/21/2017 Unknown A FOOD C P [id number] Casein Cl Class 1 03/21/2017 Unknown A FOOD C P [id number] Casein Ct 0.64 kU/L 03/21/2017 Unknown A FOOD C P [id number] Oat Cl Class 0 03/21/2017 Unknown A FOOD C P [id number] Oat Ct <0.35 kU/L 03/21/2017 Unknown A FOOD C P [id number] [place] Cl Class 2 03/21/2017 Unknown A FOOD C P [id number] [place] Ct 0.75 kU/L 03/21/2017 Unknown A FOOD C P [id number] Chicken Meat CL Class 0 03/21/2017 Un known A FOOD C P [id number] Chicken Meat Ct <0.35 kU/L 03/21/2017 U nknown A FOOD C P [id number] [place] Cl Class 0 03/21/2017 Unknown A FOOD C P [id number] [place] Ct <0.35 kU/L 03/21/2017 Unknown A FOOD C P [id number] Pecan Meat Cl Class 0 03/21/2017 Unkn own A FOOD C P [id number] Pecan Meat Ct <0.35 kU/L 03/21/2017 Unk nown A NUTS PNL 2480337 Peanut Cl Class 0 03/21/2017 Unknown A NUTS PNL [id number] Peanut Ct <0.35 kU/L 03/21/2017 Unknown A NUTS PNL [id number] [place] Meat Cl Class 0 03/21/2017 Unk nown A NUTS PNL [id number] [place] Meat Ct <0.35 kU/L 03/21/2017 Un known A NUTS PNL [id number] Pecan Meat Cl Class 0 03/21/2017 Unkn own A NUTS PNL [id number] Pecan Meat Ct <0.35 kU/L 03/21/2017 Unk nown A NUTS PNL [id number] [place]ig Cl Class 0 03/21/2017 Unknown A NUTS PNL [id number] Redig Ct <0.35 kU/L 03/21/2017 Unknown A NUTS PNL [id number] [place] Cl Class 0 03/21/2017 Unknow n A NUTS PNL [id number] [place] Ct <0.35 kU/L 03/21/2017 Unkno wn A NUTS PNL [id number] [place] Cl Class 0 03/21/2017 Unkno wn A NUTS PNL [id number] [place] Ct <0.35 kU/L 03/21/2017 Unkn own A NUTS PNL [id number] [place] Cl Class 0 03/21/2017 Unknown A NUTS PNL 1366692 [place] Ct <0.35 kU/L 03/21/2017 Unknown A NUTS PNL 5720843 Pistachio Cl Class 0 03/21/2017 Unkno wn A NUTS PNL [id number] Pistachio Ct <0.35 kU/L 03/21/2017 Unkn own A NUTS PNL [id number] Allergen Interp See Note 03/21/2017 Un known A FRT/VG P [id number] [place] Cl Class 0 03/21/2017 Unkn own A FRT/VG P [id number] [place] Ct <0.35 kU/L 03/21/2017 Unk nown A FRT/VG P 0309762 Potato Cl Class 0 03/21/2017 Unknown A FRT/VG P [id number] Potato Ct <0.35 kU/L 03/21/2017 Unknown A FRT/VG P 7803590 [place] Cl Class 0 03/21/2017 Unkn own A FRT/VG P [id number] [place] Ct <0.35 kU/L 03/21/2017 Unk nown A FRT/VG P [id number] Tomato Cl Class 0 03/21/2017 Unknown A FRT/VG P [id number] Tomato Ct <0.35 kU/L 03/21/2017 Unknown A FRT/VG P 9312167 [place] Cl Class 2 03/21/2017 Unknown A FRT/VG P 6680745 [place] Ct 0.75 kU/L 03/21/2017 Unknown A FRT/VG P [id number] Banana Cl Class 2 03/21/2017 Unknown A FRT/VG P [id number] Banana Ct 2.58 kU/L 03/21/2017 Unknown A FRT/VG P 9181333 [place] Fruit Cl Class 0 03/21/2017 Unk nown A FRT/VG P [id number] [place] Fruit Ct <0.35 kU/L 03/21/2017 Un known A FRT/VG P 3117651 Apple Fruit Cl Class 0 03/21/2017 Unk nown A FRT/VG P [id number] Apple Fruit Ct <0.35 kU/L 03/21/2017 Un known A FRT/VG P 6894073 Carrot Cl Class 0 03/21/2017 Unknown A FRT/VG P [id number] Carrot Ct <0.35 kU/L 03/21/2017 Unknown A FRT/VG P 1038712 Pea Cl Class 0 03/21/2017 Unknown A FRT/VG P 5222819 Pea Ct <0.35 kU/L 03/21/2017 Unknown A FRT/VG P 7667010 Pear Fruit Cl Class 0 03/21/2017 Unkn own A FRT/VG P 4498041 Pear Fruit Ct <0.35 kU/L 03/21/2017 Unk nown A FRT/VG P 9343289 Swt Potato Cl Class 0 03/21/2017 Unkn own A FRT/VG P [id number] Swt Potato Ct <0.35 kU/L 03/21/2017 Unk nown A OK/KS/PN 5141925 [place] Cl Class 0 03/21/2017 Unknown A [place]/PN 6909424 [place] Ct <0.35 kU/L 03/21/2017 Unknow n A OK/KS/PN 4298874 Alt Ten Cl Class 0 03/21/2017 Unknown A [place]/PN [id number] Alt Ten Ct <0.35 kU/L 03/21/2017 Unknow n A OK/KS/PN 7621414 [place] Cl Class 0 03/21/2017 Un known A [place]/PN 5287162 [place] Ct <0.35 kU/L 03/21/2017 U nknown A OK/KS/PN 4139668 [place] Cl Class 0 03/21/2017 Unknow n A [place]/PN 6049232 [place] Ct <0.35 kU/L 03/21/2017 Unkno wn A OK/KS/PN 6737870 Gadiel Gr Cl Class 0 03/21/2017 Unkn own A OK/KS/PN 2293237 Gad[place] Gr Ct <0.35 kU/L 03/21/2017 Unk nown A OK/KS/PN 0165383 Yasir Blue Cl Class 1 03/21/2017 Unkno wn A OK/KS/PN 5299171 [place] Blue Ct 0.59 kU/L 03/21/2017 Unkno wn A OK/KS/PN 8636273 Rough [place] Cl Class 0 03/21/2017 Unk nown A OK/KS/PN 7052698 Rough [place] Ct <0.35 kU/L 03/21/2017 Un known A OK/KS/PN 4428393 [place] Cl Class 2 03/21/2017 Unknow n A OK/KS/PN 8499017 [place] Ct 0.72 kU/L 03/21/2017 Unknow n A OK/KS/PN 0275759 Rag[place] Cl Class 2 03/21/2017 Unknown A OK/KS/PN 8212340 [place] Ct 1.46 kU/L 03/21/2017 Unknown A OK/KS/PN 1081735 Cat Dander Cl Class 0 03/21/2017 Unkn own A OK/KS/PN 7926240 Cat [place] Ct <0.35 kU/L 03/21/2017 Unk nown A OK/KS/PN 9917335 Dog Dander Cl Class 0 03/21/2017 Unkn own A OK/KS/PN 8460558 Dog Dander Ct <0.35 kU/L 03/21/2017 Unk nown A OK/KS/PN 6450381 Pecan Tr Cl Class 0 03/21/2017 Unknow n A OK/KS/PN 5050497 Pecan Tr Ct <0.35 kU/L 03/21/2017 Unkno wn A OK/KS/PN 7865185 Dust Mite Cl Class 0 03/21/2017 Unkno wn A OK/KS/PN 8992440 Dust Mite Ct <0.35 kU/L 03/21/2017 Unkn own A OK/KS/PN 7394213 Allergen Interp See Note 03/21/2017 Un known FREE T4 08484 T4 Free 0.97 ng/dL 09/06/2016 Unknown THYROID STIMULATING HORMONE 55328 TSH 1.665 uIU/mL 09/06/2016 Unknown COMPLETE BLOOD COUNT [id number] WBC 11.9 10e9/L 017 Unknown COMPLETE BLOOD COUNT 0581119 RBC 4.70 10e12/L 2016 Unknown COMPLETE BLOOD COUNT 0275770 HEMOGLOBIN 13.9 g/dL 09/07/19 17 Unknown COMPLETE BLOOD COUNT 1227793 HEMATOCRIT 41.0 % 09/07/19 17 Unknown COMPLETE BLOOD COUNT 7562323 MCV 87.2 fL 7 Unknown COMPLETE BLOOD COUNT [id number] MCH 29.6 pg 7 Unknown COMPLETE BLOOD COUNT 6849870 MCHC 33.9 g/dL 7 Unknown COMPLETE BLOOD COUNT 2281848 PLATELET COUNT 395 10e9/L Unknown COMPLETE BLOOD COUNT 9740814 Mean Plt Volume 9.1 fL Unknown COMPLETE BLOOD COUNT 7969264 Neut Auto 62.9 % 7 Unknown COMPLETE BLOOD COUNT 5850115 Lymph Auto 24.4 % 09/07/19 17 Unknown COMPLETE BLOOD COUNT 2507325 [place] Auto 7.6 % 7 Unknown COMPLETE BLOOD COUNT 2998010 RDW 13.5 % 7 Unknown COMPLETE BLOOD COUNT 2907611 Eos Auto 4.6 % 7 Unknown COMPLETE BLOOD COUNT 4832860 Baso Auto 0.5 % 7 Unknown COMPLETE BLOOD COUNT 7103652 Neutrophil Abs 7.49 10e9/L Unknown COMPLETE BLOOD COUNT 9093442 Lymphocyte Abs 2.90 10e9/L Unknown COMPLETE BLOOD COUNT 7111327 Monocyte Abs 0.90 10e9/L 08/20 Unknown COMPLETE BLOOD COUNT 1553048 Eosinophil Abs 0.55 10e9/L Unknown COMPLETE BLOOD COUNT [id number] RDW-SD 41.9 fL 7 Unknown COMPLETE BLOOD COUNT 9354473 Basophil Abs 0.06 10e9/L 08/20 Unknown GFR CALC 8451398 GFR Non Afr Amr >60 mL/min 09/06/2016 Un known GFR CALC 8277745 GFR Afr Amr >60 mL/min 09/06/2016 Unknow n COMPREHENSIVE METABOLIC 60344 AST 22 U/L 2016 Unknown COMPREHENSIVE METABOLIC 70725 ALT 30 U/L 2016 Unknown COMPREHENSIVE METABOLIC 84996 BUN 26 mg/dL 2016 Unknown COMPREHENSIVE METABOLIC 06223 ALBUMIN 4.8 g/dL 2016 Unknown COMPREHENSIVE METABOLIC 09126 CHLORIDE 107 mmol/L 09/06 Unknown COMPREHENSIVE METABOLIC 08352 Bili Total 0.2 mg/dL 09/06 Unknown COMPREHENSIVE METABOLIC 83088 ALK PHOS 118 U/L 2016 Unknown COMPREHENSIVE METABOLIC 00522 SODIUM 139 mmol/L 09/06 Unknown COMPREHENSIVE METABOLIC 72167 CREATININE 0.67 mg/dL 08/20 Unknown COMPREHENSIVE METABOLIC 19806 CALCIUM 9.8 mg/dL 2016 Unknown COMPREHENSIVE METABOLIC 96483 POTASSIUM 4.3 mmol/L 09/06 Unknown COMPREHENSIVE METABOLIC 82008 Total Protein 7.8 g/dL Unknown COMPREHENSIVE METABOLIC 05824 Glucose 96 mg/dL 2016 Unknown COMPREHENSIVE METABOLIC 02038 Bicarbonate 22 mmol/L 08/20 Unknown COMPREHENSIVE METABOLIC 10399 AGAP 10 mmol/L 2016 Unknown IRON 99386 Iron 58 ug/dL 09/06/2016 Unknown COMPLETE BLOOD COUNT 4081386 WBC 12.2 10e9/L 015 Unknown COMPLETE BLOOD COUNT 1010362 RBC 4.52 10e12/L 2014 Unknown COMPLETE BLOOD COUNT 7792588 HGB 13.3 g/dL 5 Unknown COMPLETE BLOOD COUNT 0893997 HCT DET 40.3 % 5 Unknown COMPLETE BLOOD COUNT 7288984 MCV 89.2 fL 5 Unknown COMPLETE BLOOD COUNT 5941741 MCH 29.4 pg 5 Unknown COMPLETE BLOOD COUNT 7701725 MCHC 33.0 g/dL 5 Unknown COMPLETE BLOOD COUNT 7887804 PLT 402 10e9/L 07/22/19 15 Unknown COMPLETE BLOOD COUNT 2481934 MPV 9.6 fL 5 Unknown COMPLETE BLOOD COUNT 8461073 ERIN % 64.8 % 5 Unknown COMPLETE BLOOD COUNT 3194512 LY % 24.6 % 5 Unknown COMPLETE BLOOD COUNT 1800637 MON % 7.0 % 5 Unknown COMPLETE BLOOD COUNT 6974275 EOS % 3.3 % 5 Unknown COMPLETE BLOOD COUNT 8920047 BASO % 0.3 % 5 Unknown COMPLETE BLOOD COUNT 3568097 RDW 13.2 % 5 Unknown COMPLETE BLOOD COUNT [id number] ABS ERIN 7.91 10e9/L 015 Unknown COMPLETE BLOOD COUNT [id number] ABS LYMPH 3.00 10e9/L 015 Unknown COMPLETE BLOOD COUNT [id number] ABS MONO 0.85 10e9/L 015 Unknown COMPLETE BLOOD COUNT [id number] ABS EOS 0.40 10e9/L 015 Unknown COMPLETE BLOOD COUNT [id number] ABS BASO 0.04 10e9/L 015 Unknown COMPLETE BLOOD COUNT [id number] RDW-SD 42.3 fL 5 Unknown COMPREHENSIVE METABOLIC 25260 AST 21 U/L 2014 Unknown COMPREHENSIVE METABOLIC 67149 ALT 27 IU/L 2014 Unknown COMPREHENSIVE METABOLIC 60491 BUN 12 MG/DL 2014 Unknown COMPREHENSIVE METABOLIC 88577 ALBUMIN 4.1 GM/DL 2014 Unknown COMPREHENSIVE METABOLIC 51930 CHLORIDE 102 MMOL/L 07/21 Unknown COMPREHENSIVE METABOLIC 60757 BILI TOT 0.3 MG/DL 2014 Unknown COMPREHENSIVE METABOLIC 76884 ALK PHOS 94 U/L 2014 Unknown COMPREHENSIVE METABOLIC 43413 SODIUM 138 MMOL/L 07/21 Unknown COMPREHENSIVE METABOLIC 03031 CREATININE 0.71 MG/DL 02/2014 Unknown COMPREHENSIVE METABOLIC 80012 CALCIUM 9.4 MG/DL 2014 Unknown COMPREHENSIVE METABOLIC 33159 POTASSIUM 3.7 MMOL/L 07/21 Unknown COMPREHENSIVE METABOLIC 03030 PROT TOT 7.0 GM/DL 2014 Unknown COMPREHENSIVE METABOLIC 42295 Glucose 84 MG/DL 2014 Unknown COMPREHENSIVE METABOLIC 90174 BICARB 27 MMOL/L 2014 Unknown COMPREHENSIVE METABOLIC 72756 ANION GAP 9 MEQ/L 2014 Unknown GFR CALC [id number] GFR AA >60 ML/MIN 07/21/2014 Unknown GFR CALC 0620803 GFR NON-AA >60 ML/MIN 07/21/2014 Unknown FREE T4 43577 FREE T4 0.90 NG/DL 07/21/2014 Unknown THYROID STIMULATING HORMONE 25924 TSH 1.838 uIU/ML 07/21/2014 Unknown LIPID GROUP 42168 HDL TEST 33 MG/DL 07/21/2014 Unknown LIPID GROUP 19564 TRIG 320 MG/DL 07/21/2014 Unknown LIPID GROUP 44180 TEST LDL 122 MG/DL 07/21/2014 Unknown LIPID GROUP 75738 CHOL 219 MG/DL 07/21/2014 Unknown LIPID GROUP 17923 RCHOL/HDL 6.64 RATIO 07/21/2014 Unknow n LIPID GROUP 51604 NON-HDL CH 186 MG/DL 07/21/2014 Unknow n IRON 63751 IRON TEST 99 UG/DL 09/12/2013 Unknown C-REACTIVE PROTEIN (CRP) QUANT 99815 CRP 0.2 MG/DL 09/12/2013 Unknown GFR CALC [id number] GFR AA >60 ML/MIN 09/12/2013 Unknown GFR CALC 0205577 GFR NON-AA >60 ML/MIN 09/12/2013 Unknown THYROID STIMULATING HORMONE 04178 TSH 1.882 uIU/ML 09/12/2013 Unknown COMPLETE BLOOD COUNT [id number] WBC 7.9 10e9/L 09/13/19 14 Unknown COMPLETE BLOOD COUNT [id number] RBC 4.83 10e12/L 2013 Unknown COMPLETE BLOOD COUNT 5729002 HGB 14.2 g/dL 4 Unknown COMPLETE BLOOD COUNT 4036436 HCT DET 42.5 % 4 Unknown COMPLETE BLOOD COUNT 4075286 MCV 88.0 fL 4 Unknown COMPLETE BLOOD COUNT 0058452 MCH 29.4 pg 4 Unknown COMPLETE BLOOD COUNT [id number] MCHC 33.4 g/dL 4 Unknown COMPLETE BLOOD COUNT [id number] PLT 359 10e9/L 09/13/19 14 Unknown COMPLETE BLOOD COUNT [id number] MPV 10.1 fL 4 Unknown COMPLETE BLOOD COUNT [id number] ERIN % 55.7 % 4 Unknown COMPLETE BLOOD COUNT [id number] LY % 32.7 % 4 Unknown COMPLETE BLOOD COUNT [id number] MON % 6.6 % 4 Unknown COMPLETE BLOOD COUNT [id number] EOS % 4.5 % 4 Unknown COMPLETE BLOOD COUNT [id number] BASO % 0.5 % 4 Unknown COMPLETE BLOOD COUNT [id number] RDW 13.8 % 4 Unknown COMPLETE BLOOD COUNT [id number] ABS ERIN 4.40 10e9/L 014 Unknown COMPLETE BLOOD COUNT [id number] ABS LYMPH 2.58 10e9/L 014 Unknown COMPLETE BLOOD COUNT [id number] ABS MONO 0.52 10e9/L 014 Unknown COMPLETE BLOOD COUNT [id number] ABS EOS 0.36 10e9/L 014 Unknown COMPLETE BLOOD COUNT [id number] ABS BASO 0.04 10e9/L 014 Unknown COMPLETE BLOOD COUNT [id number] RDW-SD 44.0 fL 4 Unknown FREE T4 71398 FREE T4 0.95 NG/DL 09/12/2013 Unknown COMPREHENSIVE METABOLIC 12885 AST 19 U/L 2013 Unknown COMPREHENSIVE METABOLIC 28688 ALT 18 IU/L 2013 Unknown COMPREHENSIVE METABOLIC 37468 BUN 11 MG/DL 2013 Unknown COMPREHENSIVE METABOLIC 30946 ALBUMIN 4.8 GM/DL 2013 Unknown COMPREHENSIVE METABOLIC 01239 CHLORIDE 107 MMOL/L 09/12 Unknown COMPREHENSIVE METABOLIC 98527 BILI TOT 0.4 MG/DL 2013 Unknown COMPREHENSIVE METABOLIC 56839 ALK PHOS 86 U/L 2013 Unknown COMPREHENSIVE METABOLIC 55655 SODIUM 138 MMOL/L 09/12 Unknown COMPREHENSIVE METABOLIC 74485 CREATININE 0.79 MG/DL 08/21 Unknown COMPREHENSIVE METABOLIC 42786 CALCIUM 10.0 MG/DL 09/12 Unknown COMPREHENSIVE METABOLIC 60995 POTASSIUM 4.1 MMOL/L 09/12 Unknown COMPREHENSIVE METABOLIC 55562 PROT TOT 7.6 GM/DL 2013 Unknown COMPREHENSIVE METABOLIC 84491 Glucose 96 MG/DL 2013 Unknown COMPREHENSIVE METABOLIC 99556 BICARB 23 MMOL/L 2013 Unknown COMPREHENSIVE METABOLIC 83377 ANION GAP 8 MEQ/L 2013 Unknown LIPID GROUP 60687 HDL TEST 38 MG/DL 05/07/2013 Unknown LIPID GROUP 81454 TRIG 176 MG/DL 05/07/2013 Unknown LIPID GROUP 45128 TEST LDL 163 MG/DL 05/07/2013 Unknown LIPID GROUP 86445 CHOL 236 MG/DL 05/07/2013 Unknown LIPID GROUP 69621 RCHOL/HDL 6.21 RATIO 05/07/2013 Unknow n GFR CALC 1985531 GFR AA >60 ML/MIN 05/07/2013 Unknown GFR CALC 1458503 GFR NON-AA >60 ML/MIN 05/07/2013 Unknown COMPREHENSIVE METABOLIC 67161 AST 34 U/L 2013 Unknown COMPREHENSIVE METABOLIC 78537 ALT 37 IU/L 2013 Unknown COMPREHENSIVE METABOLIC 25652 BUN 15 MG/DL 2013 Unknown COMPREHENSIVE METABOLIC 10490 ALBUMIN 4.4 GM/DL 2013 Unknown COMPREHENSIVE METABOLIC 23696 CHLORIDE 106 MMOL/L 05/07 Unknown COMPREHENSIVE METABOLIC 96991 BILI TOT 0.3 MG/DL 2013 Unknown COMPREHENSIVE METABOLIC 73696 ALK PHOS 106 U/L 2013 Unknown COMPREHENSIVE METABOLIC 74813 SODIUM 139 MMOL/L 05/07 Unknown COMPREHENSIVE METABOLIC 76583 CREATININE 0.67 MG/DL 04/20 Unknown COMPREHENSIVE METABOLIC 98316 CALCIUM 9.4 MG/DL 2013 Unknown COMPREHENSIVE METABOLIC 05656 POTASSIUM 4.2 MMOL/L 05/07 Unknown COMPREHENSIVE METABOLIC 84905 PROT TOT 7.1 GM/DL 2013 Unknown COMPREHENSIVE METABOLIC 80191 Glucose 93 MG/DL 2013 Unknown COMPREHENSIVE METABOLIC 19218 BICARB 25 MMOL/L 2013 Unknown COMPREHENSIVE METABOLIC 61746 ANION GAP 8 MEQ/L 2013 Unknown COMPLETE BLOOD COUNT [id number] WBC 6.7 10e9/L 05/08/19 14 Unknown COMPLETE BLOOD COUNT [id number] RBC 4.68 10e12/L 2013 Unknown COMPLETE BLOOD COUNT [id number] HGB 13.6 g/dL 4 Unknown COMPLETE BLOOD COUNT [id number] HCT DET 41.1 % 4 Unknown COMPLETE BLOOD COUNT 1864666 MCV 87.8 fL 4 Unknown COMPLETE BLOOD COUNT 8993330 MCH 29.1 pg 4 Unknown COMPLETE BLOOD COUNT 4131585 MCHC 33.1 g/dL 4 Unknown COMPLETE BLOOD COUNT [id number] PLT 326 10e9/L 05/08/19 14 Unknown COMPLETE BLOOD COUNT 6424074 MPV 10.1 fL 4 Unknown COMPLETE BLOOD COUNT [id number] ERIN % 57.3 % 4 Unknown COMPLETE BLOOD COUNT [id number] LY % 30.3 % 4 Unknown COMPLETE BLOOD COUNT [id number] MON % 6.9 % 4 Unknown COMPLETE BLOOD COUNT [id number] EOS % 5.2 % 4 Unknown COMPLETE BLOOD COUNT [id number] BASO % 0.3 % 4 Unknown COMPLETE BLOOD COUNT [id number] RDW 13.9 % 4 Unknown COMPLETE BLOOD COUNT [id number] ABS ERIN 3.84 10e9/L 014 Unknown COMPLETE BLOOD COUNT [id number] ABS LYMPH 2.03 10e9/L 014 Unknown COMPLETE BLOOD COUNT [id number] ABS MONO 0.46 10e9/L 014 Unknown COMPLETE BLOOD COUNT [id number] ABS EOS 0.35 10e9/L 014 Unknown COMPLETE BLOOD COUNT [id number] ABS BASO 0.02 10e9/L 014 Unknown COMPLETE BLOOD COUNT [id number] RDW-SD 43.5 fL 4 Unknown THYROID STIMULATING HORMONE 99636 TSH 1.476 uIU/ML 05/07/2013 Unknown FREE T4 55493 FREE T4 0.83 NG/DL 05/07/2013 Unknown FREE T4 07817 FREE T4 1.28 NG/DL 08/18/2010 Unknown COMPLETE BLOOD COUNT 81155 WBC 7.3 10e9/L 08/19/19 11 Unknown COMPLETE BLOOD COUNT 18230 RBC 5.15 10e12/L 2010 Unknown COMPLETE BLOOD COUNT 18659 HGB 14.4 g/dL 1 Unknown COMPLETE BLOOD COUNT 54405 HCT DET 43.2 % 1 Unknown COMPLETE BLOOD COUNT 58712 MCV 83.9 fL 1 Unknown COMPLETE BLOOD COUNT 92560 MCH 28.0 pg 1 Unknown COMPLETE BLOOD COUNT 01996 MCHC 33.3 g/dL 1 Unknown COMPLETE BLOOD COUNT 04184 PLT 341 10e9/L 08/19/19 11 Unknown COMPLETE BLOOD COUNT 83706 MPV 10.2 fL 1 Unknown COMPLETE BLOOD COUNT 67842 ERIN % 42.6 % 1 Unknown COMPLETE BLOOD COUNT 75340 LY % 45.2 % 1 Unknown COMPLETE BLOOD COUNT 53059 MON % 7.4 % 1 Unknown COMPLETE BLOOD COUNT 13445 EOS % 4.1 % 1 Unknown COMPLETE BLOOD COUNT 17168 BASO % 0.7 % 1 Unknown COMPLETE BLOOD COUNT 23649 RDW 14.4 % 1 Unknown COMPLETE BLOOD COUNT 71676 ABS ERIN 3.11 10e9/L 011 Unknown COMPLETE BLOOD COUNT 82754 ABS LYMPH 3.30 10e9/L 011 Unknown COMPLETE BLOOD COUNT 05939 ABS MONO 0.54 10e9/L 011 Unknown COMPLETE BLOOD COUNT 85380 ABS EOS 0.30 10e9/L 011 Unknown COMPLETE BLOOD COUNT 13684 ABS BASO 0.05 10e9/L 011 Unknown COMPLETE BLOOD COUNT 51488 RDW-SD 43.1 fL 1 Unknown THYROID STIMULATING HORMONE 19897 TSH 1.931 uIU/ML 08/18/2010 Unknown GFR CALC 8745365 GFR AA >60 ML/MIN 08/18/2010 Unknown GFR CALC 0480427 GFR NON-AA >60 ML/MIN 08/18/2010 Unknown COMPREHENSIVE METABOLIC 20534 AST 17 U/L 2010 Unknown COMPREHENSIVE METABOLIC 48478 ALT 11 IU/L 2010 Unknown COMPREHENSIVE METABOLIC 56237 BUN 12 MG/DL 2010 Unknown COMPREHENSIVE METABOLIC 96748 ALBUMIN 4.9 GM/DL 2010 Unknown COMPREHENSIVE METABOLIC 12809 CHLORIDE 104 MMOL/L 08/18 Unknown COMPREHENSIVE METABOLIC 06187 BILI TOT 0.5 MG/DL 2010 Unknown COMPREHENSIVE METABOLIC 16387 ALK PHOS 80 U/L 2010 Unknown COMPREHENSIVE METABOLIC 18666 SODIUM 137 MMOL/L 08/18 Unknown COMPREHENSIVE METABOLIC 60020 CREATININE 0.79 MG/DL 07/22 Unknown COMPREHENSIVE METABOLIC 45641 CALCIUM 9.6 MG/DL 2010 Unknown COMPREHENSIVE METABOLIC 40374 POTASSIUM 3.7 MMOL/L 08/18 Unknown COMPREHENSIVE METABOLIC 21614 PROT TOT 7.5 GM/DL 2010 Unknown COMPREHENSIVE METABOLIC 25743 Glucose 72 MG/DL 2010 Unknown COMPREHENSIVE METABOLIC 72005 BICARB 22 MMOL/L 2010 Unknown COMPREHENSIVE METABOLIC 10935 ANION GAP 11 MEQ/L 2010 Unknown Procedures Procedure Codes Date IIV4 VACC NO PRSV 6 MTHS TO 64 YRS+ IM CPT-4: 30502 11/22/2018 IIV4 VACC NO PRSV 6 MTHS TO 64 YRS+ IM CPT-4: 53807 11/22/2018 IMMUNIZATION ADMIN CPT-4: 43028 11/22/2018 THER/PROPH/DIAG INJ SC/IM CPT-4: 35889 05/29/2018 TRIAMCINOLONE ACET INJ NOS CPT-4: J3301 05/29/2018 DEXAMETHASONE SODIUM PHOS CPT-4: J1100 05/29/2018 SPECIMEN HANDLING OFFICE-LAB CPT-4: 91485 02/08/2018 THER/PROPH/DIAG INJ SC/IM CPT-4: 35822 01/09/2018 IIV4 VACCINE 3 YRS+ IM AND UP CPT-4: 42906 01/02/2018 IMMUNIZATION ADMIN CPT-4: 30446 01/02/2018 THER/PROPH/DIAG INJ SC/IM CPT-4: 11006 12/11/2017 TRIAMCINOLONE ACET INJ NOS CPT-4: J3301 12/11/2017 DEXAMETHASONE SODIUM PHOS CPT-4: J1100 12/11/2017 STREP A ASSAY W/OPTIC CPT-4: 23857 11/30/2017 THER/PROPH/DIAG INJ SC/IM CPT-4: 31251 10/13/2017 THER/PROPH/DIAG INJ SC/IM CPT-4: 86997 07/21/2017 THER/PROPH/DIAG INJ SC/IM CPT-4: 49653 04/27/2017 METHYLPREDNISOLONE INJECTION CPT-4: J2930 04/27/2017 THER/PROPH/DIAG INJ SC/IM CPT-4: 07018 04/27/2017 THER/PROPH/DIAG INJ SC/IM CPT-4: 97750 03/20/2017 METHYLPREDNISOLONE INJECTION CPT-4: J2930 03/20/2017 ROUTINE VENIPUNCTURE CPT-4: 71337 03/20/2017 A FRT/VG P CPT-4: 7861090 03/20/2017 A FOOD C P CPT-4: 8141367 03/20/2017 A NUTS PNL CPT-4: 5310214 03/20/2017 THER/PROPH/DIAG INJ SC/IM CPT-4: 15165 01/31/2017 URINE TEST CPT-4: 48438 01/31/2017 THER/PROPH/DIAG INJ SC/IM CPT-4: 28600 10/31/2016 URINE TEST CPT-4: 56581 10/31/2016 SPECIMEN HANDLING OFFICE-LAB CPT-4: 63472 09/06/2016 URINALYSIS NONAUTO W/O SCOPE CPT-4: 07483 04/28/2016 URINE CULTURE/ COLONY COUNT CPT-4: 68857 04/28/2016 THER/PROPH/DIAG INJ SC/IM CPT-4: 32103 06/12/2015 TRIAMCINOLONE ACET INJ NOS CPT-4: J3301 06/12/2015 DEXAMETHASONE SODIUM PHOS CPT-4: J1100 06/12/2015 ROUTINE VENIPUNCTURE CPT-4: 76849 07/21/2014 ASSAY OF FREE THYROXINE CPT-4: 69441 07/21/2014 ASSAY THYROID STIM HORMONE CPT-4: 04267 07/21/2014 COMPREHEN METABOLIC PANEL CPT-4: 40929 07/21/2014 COMPLETE CBC W/AUTO DIFF WBC CPT-4: 04393 07/21/2014 LIPID PANEL CPT-4: 69766 07/21/2014 THER/PROPH/DIAG INJ SC/IM CPT-4: 31669 04/02/2014 METHYLPREDNISOLONE 40 MG INJ CPT-4: J1030 04/02/2014 TRIAMCINOLONE ACET INJ NOS CPT-4: J3301 04/02/2014 URINALYSIS NONAUTO W/O SCOPE CPT-4: 95551 10/01/2013 URINE CULTURE/ COLONY COUNT CPT-4: 55528 10/01/2013 ROUTINE VENIPUNCTURE CPT-4: 36210 09/12/2013 COMPLETE CBC W/AUTO DIFF WBC CPT-4: 25444 09/12/2013 COMPREHEN METABOLIC PANEL CPT-4: 97581 09/12/2013 ASSAY OF IRON CPT-4: 33361 09/12/2013 ASSAY THYROID STIM HORMONE CPT-4: 30305 09/12/2013 ASSAY OF FREE THYROXINE CPT-4: 38759 09/12/2013 C-REACTIVE PROTEIN CPT-4: 50833 09/12/2013 THER/PROPH/DIAG INJ SC/IM CPT-4: 18476 05/17/2013 SPECIMEN HANDLING OFFICE-LAB CPT-4: 47077 05/16/2013 ROUTINE VENIPUNCTURE CPT-4: 24279 05/07/2013 ASSAY OF FREE THYROXINE CPT-4: 06588 05/07/2013 ASSAY THYROID STIM HORMONE CPT-4: 08889 05/07/2013 COMPREHEN METABOLIC PANEL CPT-4: 08795 05/07/2013 COMPLETE CBC W/AUTO DIFF WBC CPT-4: 41454 05/07/2013 LIPID PANEL CPT-4: 36151 05/07/2013 FLU VACCINE 3 YRS & > IM UP 64 CPT-4: 33340 3 IMMUNIZATION ADMIN CPT-4: 44200 01/08/2013 AEROBIC WOUND CULTURE & STN CPT-4: 71882 04/29/2011 DRAINAGE OF SKIN ABSCESS CPT-4: 31628 04/29/2011 URINALYSIS NONAUTO W/O SCOPE CPT-4: 39314 03/07/2011 URINE CULTURE/ COLONY COUNT CPT-4: 90217 03/07/2011 SPECIMEN HANDLING OFFICE-LAB CPT-4: 12510 08/18/2010 COMPLETE CBC W/AUTO DIFF WBC CPT-4: 14331 08/18/2010 COMPREHEN METABOLIC PANEL CPT-4: 25256 08/18/2010 ASSAY THYROID STIM HORMONE CPT-4: 26139 08/18/2010 ASSAY OF FREE THYROXINE CPT-4: 59330 08/18/2010 Vital Signs Date Vital 07/25/2019 Blood Pressure 1: 114/82 Code: 8480-6 BMI: 32.9 Code: 13714-7 Heart Rate 1: 76 bpm Height: 5'6" [...] 1: 126/90 Code: 8480-6 BMI: 33.4 Code: 65078-1 Heart Rate 1: 100 bpm Height: 5'6" [...] 1: 126/82 Code: 8480-6 BMI: 33.7 Code: 96977-4 Heart Rate 1: 76 bpm Height: 5'6" Respiratory Rate: 20 bpm Temperature: 37 .0 (C) / 98.6 (F) Weight: 209 lbs 04/27/2017 Heart Rate 1: 71 bpm SpO2: 97% Weight: 206 lbs 03/20/2017 Blood Pressure 1: 132/84 Code: 8480-6 BMI: 33.1 Code: 69661-8 Heart Rate 1: 96 bpm Height: 5'6" Respiratory Rate: 22 bpm SpO2: 97% Tempera ture: 36.2 (C) / 97.2 (F) Weight: 205 lbs 01/03/2017 Blood Pressure 1: 126/82 Code: 8480-6 BMI: 32.6 Code: 10977-5 Heart Rate 1: 80 bpm Height: 5'6" Respiratory Rate: 20 bpm SpO2: 97% Tempera ture: 36.6 (C) / 97.8 (F) Weight: 202 lbs 09/06/2016 Blood Pressure 1: 110/74 Code: 8480-6 BMI: 32.4 Code: 35563-6 Heart Rate 1: 86 bpm Height: 5'6" Respiratory Rate: 24 bpm SpO2: 97% Tempera ture: 36.6 (C) / 97.8 (F) Weight: 201 lbs 05/18/2016 Blood Pressure 1: 112/64 Code: 8480-6 He art Rate 1: 82 bpm 04/28/2016 Blood Pressure 1: 168/98 Code: 8480-6 BMI: 32.0 Code: 53204-2 Heart Rate 1: 102 bpm Height: 5'6" Respiratory Rate: 24 bpm SpO2: 97% Tempera ture: 36.4 (C) / 97.6 (F) Weight: 198 lbs 02/01/2016 Blood Pressure 1: 142/90 Code: 8480-6 He art Rate 1: 116 bpm 01/26/2016 Blood Pressure 1: 184/100 Code: 8480-6 H eart Rate 1: 114 bpm 09/10/2015 Blood Pressure 1: 126/64 Code: 8480-6 BMI: 32.0 Code: 98051-9 Heart Rate 1: 96 bpm Height: 5'5" Respiratory Rate: 24 bpm SpO2: 97% Tempera ture: 36.6 (C) / 97.8 (F) Weight: 192 lbs 06/12/2015 Blood Pressure 1: 106/80 Code: 8480-6 BMI: 33.4 Code: 32096-8 Heart Rate 1: 108 bpm Height: 5'5" Respiratory Rate: 20 bpm SpO2: 96% Tempera ture: 36.8 (C) / 98.3 (F) Weight: 201 lbs 11/04/2014 Blood Pressure 1: 134/86 Code: 8480-6 BMI: 32.9 Code: 62585-3 Heart Rate 1: 76 bpm Height: 5'5" Respiratory Rate: 20 bpm Temperature: 36 .6 (C) / 97.8 (F) Weight: 198 lbs 08/04/2014 Blood Pressure 1: 128/88 Code: 8480-6 BMI: 34.4 Code: 13702-4 Heart Rate 1: 90 bpm Height: 5'5" Respiratory Rate: 20 bpm Temperature: 37 .0 (C) / 98.6 (F) Weight: 207 lbs 07/21/2014 Blood Pressure 1: 146/94 Code: 8480-6 BMI: 34.4 Code: 57539-5 Heart Rate 1: 88 bpm Height: 5'5" Respiratory Rate: 20 bpm Temperature: 36 .7 (C) / 98.1 (F) Weight: 207 lbs 04/02/2014 Blood Pressure 1: 128/76 Code: 8480-6 BMI: 34.1 Code: 86749-1 Heart Rate 1: 84 bpm Height: 5'5" Respiratory Rate: 22 bpm Temperature: 36 .6 (C) / 97.8 (F) Weight: 205 lbs 03/20/2014 Blood Pressure 1: 126/82 Code: 8480-6 BMI: 33.9 Code: 92964-1 Heart Rate 1: 88 bpm Height: 5'5" Respiratory Rate: 20 bpm Temperature: 36 .7 (C) / 98.1 (F) Weight: 204 lbs 02/18/2014 Blood Pressure 1: 120/78 Code: 8480-6 BMI: 33.9 Code: 70444-3 Heart Rate 1: 72 bpm Height: 5'5" Respiratory Rate: 20 bpm Temperature: 36 .6 (C) / 97.9 (F) Weight: 204 lbs 10/01/2013 Blood Pressure 1: 124/78 Code: 8480-6 BMI: 32.9 Code: 32279-8 Heart Rate 1: 84 bpm Height: 5'5" Respiratory Rate: 20 bpm Temperature: 36 .4 (C) / 97.6 (F) Weight: 198 lbs 09/12/2013 Blood Pressure 1: 126/84 Code: 8480-6 BMI: 32.8 Code: 80583-9 Heart Rate 1: 76 bpm Height: 5'5" Respiratory Rate: 18 bpm Temperature: 36 .4 (C) / 97.6 (F) Weight: 197 lbs 05/16/2013 Blood Pressure 1: 124/68 Code: 8480-6 BMI: 33.3 Code: 77404-3 Heart Rate 1: 70 bpm Height: 5'5" Respiratory Rate: 20 bpm Temperature: 36 .3 (C) / 97.4 (F) Weight: 200 lbs 12/07/2012 Blood Pressure 1: 112/88 Code: 8480-6 BMI: 30.5 Code: 54234-3 Heart Rate 1: 92 bpm Height: 5'5" Respiratory Rate: 20 bpm Temperature: 37 .4 (C) / 99.3 (F) Weight: 183 lbs 12/03/2012 Blood Pressure 1: 124/88 Code: 8480-6 BMI: 30.5 Code: 44803-3 Heart Rate 1: 86 bpm Height: 5'5" Respiratory Rate: 20 bpm Temperature: 36 .6 (C) / 97.8 (F) Weight: 183 lbs 04/03/2012 Blood Pressure 1: 114/76 Code: 8480-6 BMI: 27.5 Code: 72443-0 Heart Rate 1: 64 bpm Height: 5'6" Temperature: 37.4 (C) / 99.4 (F) Weight: 168 lbs 03/30/2012 Blood Pressure 1: 122/80 Code: 8480-6 BMI: 27.5 Code: 92203-7 Heart Rate 1: 72 bpm Height: 5'6" Respiratory Rate: 20 bpm Temperature: 36 .8 (C) / 98.3 (F) Weight: 168 lbs 07/29/2011 Blood Pressure 1: 120/64 Code: 8480-6 BMI: 24.7 Code: 31217-8 Heart Rate 1: 84 bpm Height: 5'6" Temperature: 36.9 (C) / 98.4 (F) Weight: 151 lbs 04/29/2011 Blood Pressure 1: 102/70 Code: 8480-6 BMI: 24.4 Code: 38974-4 Heart Rate 1: 60 bpm Height: 5'6" Temperature: 36.8 (C) / 98.2 (F) Weight: 149 lbs 04/28/2011 Blood Pressure 1: 110/72 Code: 8480-6 BMI: 24.4 Code: 30210-5 Heart Rate 1: 74 bpm Height: 5'6" Temperature: 37.2 (C) / 99.0 (F) Weight: 149 lbs 03/07/2011 Blood Pressure 1: 102/72 Code: 8480-6 BMI: 23.5 Code: 91516-8 Heart Rate 1: 68 bpm Height: 5'6" Temperature: 37.1 (C) / 98.7 (F) Weight: 143 lbs 6 oz 11/10/2010 Blood Pressure 1: 121/80 Code: 8480-6 Heart Rate 1: 72 bpm Temperature: 36.7 (C) / 98.0 (F) Weight: 142 lbs 08/18/2010 Blood Pressure 1: 122/72 Code: 8480-6 BMI: 24.3 Code: 31189-2 Heart Rate 1: 88 bpm Height: 5'6" [...] for pain. Patient was given hydrocodone 5-325mg [id number] pain nasal allergies 06/12/2015 palpitations 11/04/2014 follow [...] Visit Encounters Encounter Performer Location Codes Date ([id number]) PREV VISIT EST AGE 40-64 Diagnosis: Encounter for general adult medical examination without abnormal findings[ICD10: Z00.00] Diagnosis: Essential (primary) hypertension[ICD10: I10] Diagnosis: Major depressive disorder, single episode, unspecified[ICD10: F32.9] Ritika CINTRON [facility] CPT-4: 64253 07/25/2019 ([id number]) OFFICE/OUTPATIENT VISIT EST Diagnosis: Essential (primary) hypertension[ICD10: I10] Diagnosis: Gastro-esophageal reflux disease without esophagitis[ICD10: K21.9] Diagnosis: Generalized anxiety disorder[ICD10: F41.1] Ritika CINTRON [facility] CPT-4: 31279 01/08/2019 ([id number]) NURSE/OUTPATIENT VISIT EST Diagnosis: FLU VACCINE[ICD10: Z23] Ritika POP [facility] CPT-4: 50219 11/22/2018 ([id number]) OFFICE/OUTPATIENT VISIT EST Diagnosis: Esophageal reflux[ICD10: K21.9] Diagnosis: Epigastric pain[ICD10: R10.13] Ritika CINTRON [facility] CPT-4: 84364 11/14/2018 ([id number]) OFFICE/OUTPATIENT VISIT EST Diagnosis: Elevated blood-pressure reading, without diagnosis of hypertension[ICD10: R03.0] Diagnosis: Localized edema[ICD10: R60.0] Diagnosis: Major depressive disorder, single episode, unspecified[ICD10: F32.9] Diagnosis: Gastro-esophageal reflux disease without esophagitis[ICD10: K21.9] Ritika CINTRON [facility] CPT-4: 10892 09/17/2018 ([id number]) OFFICE/OUTPATIENT VISIT EST Diagnosis: Generalized abdominal pain[ICD10: R10.84] Diagnosis: Acute gastritis with bleeding[ICD10: K29.01] Quita CINTRON [facility] CPT-4: 80831 08/13/2018 ([id number]) OFFICE/OUTPATIENT VISIT EST Diagnosis: Other allergic rhinitis[ICD10: J30.89] Anaya Marte [facility] C[facility]: 10812 05/29/2018 ([id number]) OFFICE/OUTPATIENT VISIT EST Diagnosis: Essential (primary) hypertension[ICD10: I10] Diagnosis: Localized edema[ICD10: R60.0] Diagnosis: Major depressive disorder, single episode, unspecified[ICD10: F32.9] Ritika CINTRON DO [facility] CPT-4: 87459 05/24/2018 ([id number]) PREV VISIT EST AGE 18-39 Diagnosis: Encounter for general adult medical examination without abnormal findings[ICD10: Z00.00] Diagnosis: Encounter for gynecological examination (general) (routine) without abnormal findings[ICD10: Z01.419] Diagnosis: Gastro-esophageal reflux disease without esophagitis[ICD10: K21.9] Diagnosis: Generalized anxiety disorder[ICD10: F41.1] Ritika CINTRON DO [facility] CPT-4: 92997 02/08/2018 ([id number]) NURSE/OUTPATIENT VISIT EST Diagnosis: Excessive and frequent menstruation with regular cycle[ICD10: N92.0] Ritika CINTRON DO [facility] CPT-4: 90925 01/09/2018 ([id number]) NURSE/OUTPATIENT VISIT EST Diagnosis: FLU VACCINE[ICD10: Z23] Ritika POP [employer] CPT-4: 92121 01/02/2018 ([id number]) OFFICE/OUTPATIENT VISIT EST Diagnosis: Acute sinusitis, unspecified[ICD10: J01.90] Quita CINTRON DO [facility] CPT-4: 74212 12/11/2017 ([id number]) OFFICE/OUTPATIENT VISIT EST Diagnosis: Acute pharyngitis, unspecified[ICD10: J02.9] Quita CINTRON DO [facility] CPT-4: 97574 11/30/2017 ([id number]) OFFICE/OUTPATIENT VISIT EST Diagnosis: Low back pain[ICD10: M54.5] Diagnosis: Pelvic and perineal pain[ICD10: R10.2] Diagnosis: Excessive and frequent menstruation with regular cycle[ICD10: N92.0] Ritika CINTRON DO [facility] CPT-4: 38475 10/13/2017 ([id number]) OFFICE/OUTPATIENT VISIT EST Diagnosis: Vitamin D deficiency, unspecified[ICD10: E55.9] Diagnosis: Endocrine disorder, unspecified[ICD10: E34.9] Ritika CINTRON [employer] [facility] CPT-4: 68310 09/05/2017 ([id number]) NURSE/OUTPATIENT VISIT EST Diagnosis: Excessive and frequent menstruation with regular cycle[ICD10: N92.0] Ritika CINTRON DO [facility] CPT-4: 97951 07/21/2017 OFFICE/OUTPATIENT VISIT EST Diagnosis: Other allergic rhinitis[ICD10: J30.89] Diagnosis: Encounter for other contraceptive management[ICD10: Z30.8] Quita CINTRON DO [facility] CPT-4: 00179 04/27/2017 OFFICE/OUTPATIENT VISIT EST Diagnosis: Allergic rhinitis, unspecified[ICD10: J30.9] Quita CINTRON DO [facility] CPT-4: 54880 03/20/2017 ([id number]) OFFICE/OUTPATIENT VISIT EST Diagnosis: Excessive and frequent menstruation with regular cycle[ICD10: N92.0] Ritika CINTRON [employer] [facility] CPT-4: 71244 01/31/2017 ([id number]) OFFICE/OUTPATIENT VISIT EST Diagnosis: Epigastric pain[ICD10: R10.13] Diagnosis: Gastro-esophageal reflux disease without esophagitis[ICD10: K21.9] Diagnosis: Pain in thoracic spine[ICD10: M54.6] Diagnosis: Low back pain[ICD10: M54.5] Ritika CURRY [employer] [facility] CPT-4: 58770 01/03/2017 ([id number]) OFFICE/OUTPATIENT VISIT EST Diagnosis: Excessive and frequent menstruation with regular cycle[ICD10: N92.0] Ritika CINTRON [employer] [facility] CPT-4: 91585 10/31/2016 ([id number]) PREV VISIT EST AGE 18-39 Diagnosis: Encounter for general adult medical examination without abnormal findings[ICD10: Z00.00] Diagnosis: Encounter for general adult medical examination with abnormal findings[ICD10: Z00.01] Diagnosis: Other fatigue[ICD10: R53.83] Diagnosis: Generalized hyperhidrosis[ICD10: R61] Diagnosis: Iron deficiency anemia, unspecified[ICD10: D50.9] Ritika Abdulaziz [facility] CPT-[facility]: 99971 09/06/2016 ([id number]) OFFICE/OUTPATIENT VISIT EST Diagnosis: Essential (primary) hypertension[ICD10: I10] Diagnosis: Major depressive disorder, single episode, unspecified[ICD10: F32.9] Diagnosis: Urinary tract infection, site not specified[ICD10: N39.0] Diagnosis: Acute vaginitis[ICD10: N76.0] Diagnosis: Nonscarring hair loss, unspecified[ICD10: L65.9] Mary House RITKIA [facility] CPT-[facility]: 94168 04/28/2016 ([id number]) OFFICE/OUTPATIENT VISIT EST Diagnosis: Atypical facial pain[ICD10: G50.1] Mary TEMPLE [facility]: 19536 09/10/2015 OFFICE/OUTPATIENT VISIT EST Diagnosis: Allergic rhinitis, unspecified[ICD10: J30.9] Sarah LOWERYQUELINE BrittanyKatelyn [facility] CPT-4: 78107 06/12/2015 ([id number]) OFFICE/OUTPATIENT VISIT EST Diagnosis: PALPITATIONS[ICD9: 785.1] Diagnosis: CHEST PAIN NOS[ICD9: 786.50] Diagnosis: GERD[ICD9: 530.81] Ritika Carrollesequiel LOWERYRITIKA Britt[facility]Katelyn [facility] CPT-[facility]: 24726 11/04/2014 ([id number]) OFFICE/OUTPATIENT VISIT EST Diagnosis: EDEMA[ICD9: 782.3] Diagnosis: PALPITATIONS[ICD9: 785.1] Diamante LOWERYQUELINE [facility]: 71514 08/04/2014 ([id number]) OFFICE/OUTPATIENT VISIT EST Diagnosis: SINUSITIS, ACUTE[ICD9: 461.9] Diagnosis: PALPITATIONS[ICD9: 785.1] Diagnosis: Elevated blood pressure[ICD9: 796.2] Diagnosis: EDEMA[ICD9: 782.3] Ritika CRUZ BrittanyKatelyn [facility] CPT-[facility]: 51001 07/21/2014 ([id number]) OFFICE/OUTPATIENT VISIT EST Diagnosis: SINUSITIS, ACUTE[ICD9: 461.9] Diagnosis: COUGH[ICD9: 786.2] Diamante CINTRON DO [facility] CPT-4: 30861 04/02/2014 ([id number]) OFFICE/OUTPATIENT VISIT EST Diagnosis: Cervicalgia[ICD9: 723.1] Diagnosis: Thoracic back pain[ICD9: 724.1] Ritika CINTRON DO [facility] CPT-4: 71776 03/20/2014 ([id number]) OFFICE/OUTPATIENT VISIT EST Diagnosis: EXCESSIVE MENSTRUATION[ICD9: 626.2] Diagnosis: MALAISE AND FATIGUE[ICD9: 780.79] Diagnosis: ABNORMAL WEIGHT GAIN[ICD9: 783.1] Diagnosis: IBS[ICD9: 564.1] Ritika HOLLINSLINE BrittanyKatelyn ABDULAZIZ [facility] CPT - 4: 32464 02/18/2014 OFFICE/OUTPATIENT VISIT EST Diagnosis: URINARY TRACT INFECTION[ICD9: 599.0] Diagnosis: HYPERLIPIDEMIA NEC/NOS[ICD9: 272.4] Diamante CINTRON [facility] CPT-4: 95155 10/01/2013 OFFICE/OUTPATIENT VISIT EST Diagnosis: ARTHRALGIA-MULTIPLE SITES[ICD9: 719.49] Diagnosis: MALAISE AND FATIGUE[ICD9: 780.79] Diagnosis: ABNORMAL WEIGHT GAIN[ICD9: 783.1] Diamante ChapmanBirgitjanis HOLLINSKOBI U[place] Aura CINTRON [facility] CPT-4: 24799 09/12/2013 ([id number]) OFFICE/OUTPATIENT VISIT EST Diagnosis: EXCESSIVE MENSTRUATION[ICD9: 626.2] Ritika CINTRON [facility] CPT-4: 00532 05/17/2013 ([id number]) PREV VISIT EST AGE 18-39 Diagnosis: ROUTINE GYNE EXAM[ICD9: V72.31] Diagnosis: ROUTINE MEDICAL EXAM[ICD9: V70.0] Diagnosis: Menorrhagia[ICD9: 626.2] Diagnosis: HYPERLIPIDEMIA NEC/NOS[ICD9: 272.4] Ritika Carrollcaer JACLASHAWN CINTRON [facility] CPT-4: 65176 05/16/2013 ([id number]) OFFICE/OUTPATIENT VISIT EST Diagnosis: ROUTINE MEDICAL EXAM[ICD9: V70.0] Ritika CINTRON [facility] CPT-4: 30654 05/07/2013 ([id number]) OFFICE/OUTPATIENT VISIT EST Diagnosis: FLU VACCINE[ICD9: V04.81] Ritika LOCK [facility] CPT-4: 01449 01/08/2013 OFFICE/OUTPATIENT VISIT EST Diagnosis: Skin infection[ICD9: 686.9] Diamante CINTRON [facility] CPT-4: 02419 12/07/2012 OFFICE/OUTPATIENT VISIT EST Diagnosis: Skin lesion, infected[ICD9: 686.9] Diagnosis: MRSA (methicillin resistant Staphylococcus aureus)[ICD9: 041.12] Diagnosis: CELLULITIS[ICD9: 682.9] Diamante POP [facility] CPT-4: 42010 12/03/2012 OFFICE/OUTPATIENT VISIT EST Diagnosis: FEBRILE ILLNESS[ICD9: 780.60] Diagnosis: SINUSITIS, ACUTE[ICD9: 461.9] Diagnosis: COUGH[ICD9: 786.2] Ritika CINTRON [facility] CPT-4: 01654 04/03/2012 OFFICE/OUTPATIENT VISIT EST Diagnosis: SINUSITIS, ACUTE[ICD9: 461.9] Ritika CINTRON [facility] CPT-4: 53598 03/30/2012 OFFICE/OUTPATIENT VISIT EST Diagnosis: CONJUNCTIVITIS NOS[ICD9: 372.30] Diagnosis: URI, ACUTE[ICD9: 465.9] Ritika POP [facility] CPT-4: 98312 07/29/2011 OFFICE/OUTPATIENT VISIT EST Diagnosis: CELLULITIS OF HAND[ICD9: 682.4] Ritika CINTRON [facility] CPT-4: 52293 04/28/2011 OFFICE/OUTPATIENT VISIT EST Diagnosis: URINARY TRACT INFECTION[ICD9: 599.0] Diagnosis: Vaginal itching[ICD9: 698.1] Ritika CINTRON [facility] CPT-4: 11708 03/07/2011 OFFICE/OUTPATIENT VISIT EST Diagnosis: Skin lesion of face[ICD9: 709.9] Diagnosis: Scratched by cat[ICD9: 919.8] Ritika CINTRON DO [facility] CPT-4: 62976 11/10/2010 PREV VISIT NEW AGE 18-39 Ritika SotoKatelyn RUI Tamayo [facility] CPT-4: 21672 08/18/2010 Plan of Care Planned Activity Notes Codes Status Date Visit Diagnosis Plan: Encounter for [facility] adult medical examination without abnormal findings Discussion: Mediterranean diet Combinati on of cardio and weight bearing exercise Update fasting lab ICD-9 : V70.9 ICD-10 : Z00.00 07/25/2019 Visit Diagnosis Plan: Essential (primary) hypertension Discussion: Stable ICD-9 : 401.9 ICD-10 : I10 07/25/2019 Visit Diagnosis Plan: Major depressive disorder, singl e episode, unspecified Discussion: Stable Follow Up: 6 months ICD-9 : 311 ICD-10 : F32.9 07/25/2019 Patient Education: sertraline- [employer] Coupon [id number] [email or web address] Interactive/resources/getResource/[email or web address] Completed 07/25/2019 Visit Diagnosis Plan: Generalized anxiety [...] K21.9 01/08/2019 Appointment: [facility]it[facility] [phone] [facility] [facility] 01/08/2019 Appointment: Ritika Cintron WPtel: [address] [place], [place] [phone] [place] INJECTION 11/22/2018 Patient Education: INFLUENZA VACCINE [facility] Completed 11/22/2018 Visit Diagnosis Plan: Esophageal reflux Discussion: Ch nayan protonix to nexium Referral for EGD May need GB workup pending EGD results ICD-9 : 530.81 ICD-10 : K21.9 11/14/2018 Appointment: Ritika Cintron WPtel: [facility]8 [facility] FOLLOW UP 11/14/2018 Patient Education: Nexium- [employer] Coupon [id number] [email or web address]/sampleDelenex Therapeutics/resources/getResource/61/[email or web address].pdf Completed 11/14/2018 Visit Diagnosis Plan: Elevated blood-pre ssure reading, without diagnosis of hypertension Discussion: Continue spironolactone Low Na diet ICD-9 : 796.2 ICD-10 : R03.0 09/17/2018 Visit Diagnosis Plan: Gastro-esophageal reflux disease without esophagitis Discussion: Continue protonix at current dose Recheck 3mos ICD-9 : 530.81 ICD-10 : K21.9 09/17/2018 Appointment: Ritika Cintron WPtel: [address] [place], [place] [phone] FOLLOW UP 09/17/2018 Patient Education: spironolactone- [employer] Coupon [id number] Completed 09/17/2018 Patient Education: sertraline- [employer] Coupon [id number] Completed 09/17/2018 Visit Diagnosis Plan: Generalized abdominal pain Discu ssion: see other plan for details. bland diet and increase fluid intake. ICD-9 : 789.07 ICD-10 : R10.84 08/13/2018 Visit Diagnosis Plan: Acute gastritis with bleeding [...] ICD-9 : 535.01 ICD-10 : K29.01 08/13/2018 [facility]ment[facility] [facility] 08/13/2018 Patient Education: Protonix- [employer] Coupon [id number] [email or web address]/resources/getResource/[email or web address] Completed 08/13/2018 Visit Diagnosis Plan: Other allergic [...] 05/29/2018 Appointment: Anaya Marte [address] [facility] ACUTE ILLNESS 05/29/2018 Visit Diagnosis Plan: Major depressive disorder, singl e episode, unspecified Discussion: Stable on current sertraline dose Follow Up: 3 months ICD-9 : 311 ICD-10 : F32.9 05/24/2018 Visit Diagnosis Plan: Localized edema Discussion: Ongo ing but improved ICD-9 : 782.3 ICD-10 : R60.0 05/24/2018 Visit Diagnosis Plan: Essential (primary) hypertension Discussion: Stable on spironolactone ICD-9 : 401.9 ICD-10 : I10 05/24/2018 Appointment: Ritika Cintron [facility]el[facility] [address] [facility] [place] FOLLOW UP 05/24/2018 Visit Diagnosis Plan: Gastro-esophageal reflux disease without esophagitis Discussion: Omeprazole 40mg daily ICD-9 : 530.81 ICD-10 : K21.9 02/08/2018 Visit Diagnosis Plan: Generalized anxiety disorder Dis cussion: Zoloft 50gmg daily Stress Reducers Follow Up: 1 months ICD-9 : 300.00 ICD-10 : F41.1 02/08/2018 Visit Diagnosis Plan: Encounter for gyne cological examination (general) (routine) without abnormal findings Discussion: Pap done Change depoprovera to Tri-sprintec ICD-9 : V72.31 ICD-10 : Z01.419 02/08/2018 Appointment: Ritika Cintron WPtel: [address] [place] [address] Annual Well Visit 02/08/2018 Appointment: Ritika Cintron WPtel: [address] [facility] [place] INJECTION 01/09/2018 Appointment: Ritika Cintron WPtel: [address] [place] [address] [place] INJECTION 01/02/2018 Patient Education: INFLUENZA VACCINE [...] : J01.90 12/11/2017 Appointment: Quita Jerry [address] ACUTE ILLNESS 12/11/2017 Patient Education: Patient Medication Summary Completed 12/11/2017 Patient Education: Patient Medication Summary Completed 12/11/2017 Visit Diagnosis Plan: Acute pharyngitis, unspecified D iscussion: rapid strep negative. due to clinical s/s and worsening, clindamycin sent out for patient. change toothbrush in 48 hours, no sharing food or drinks with others. discussed frequent hand washing and hand pickle processor to prevent spread of infection. tylenol/ibuprofen prn pain or fever. call office with new or worsening symptoms. ICD-9 : 462 ICD-10 : J02.9 11/30/2017 Appointment: Quita Jerry [address] [address] ACUTE ILLNESS 11/30/2017 Patient Education: Patient Medication [...] : M54.5 10/13/2017 Appointment: Ritika Cintron WPtel: [address] [place], [place] [phone] ACUTE ILLNESS 10/13/2017 Patient Education: Patient Medication Summary Completed 10/13/2017 Visit Diagnosis Plan: Vitamin D deficiency, unspecifie d Discussion: Was started on 50,000u weekly Will also add Vitamin D3 1000u daily Recheck Vit D3 in 3mmos ICD-9 : 268.9 ICD-10 : E55.9 09/05/2017 Visit Diagnosis Plan: Endocrine disorder, unspecified Discussion: Will start spironolactone 25mg po daily once weans son from nursing and then will plan on repeat hormone levels in 3mos as well ICD-9 : 259.9 ICD-10 : E34.9 09/05/2017 Appointment: Ritika Cintron WPtel: [address] [place] [address] FOLLOW UP 09/05/2017 Patient Education: Patient Medication Summary Completed 09/05/2017 Appointment: Ritika Cintron WPtel: [address] [place], [place] [phone] [place] INJECTION 07/21/2017 Patient Education: Patient Medication [...] : Z30.8 04/27/2017 Appointment: Quita Jerry 504 [facility] ACUTE ILLNESS 04/27/2017 Patient Education: Patient Medication Summary Completed 04/27/2017 Appointment: Quita Jerry 504 [facility] ACUTE ILLNESS 03/31/2017 Visit Diagnosis Plan: Allergic [...] : J30.9 03/20/2017 Appointment: [facility]a Jerry [facility] [facility] 03/20/2017 Patient Education: Patient Medication Summary Completed 03/20/2017 Appointment: Ritika Cintron WPtel: [address] [place], [place] [phone] [place] INJECTION 01/31/2017 Patient Education: Patient Medication [...] : R10.13 01/03/2017 Appointment: Ritika Cintron WPtel: [facility]4 [facility] Annual Well Visit 01/03/2017 Patient Education: Patient Medication Summary Completed 01/03/2017 Appointment: Ritika Cintron WPtel: [address] [place], [place] [phone] [place] PAP 11/22/2016 Appointment: Ritika Cintron WPtel: [address] [place], [place] [phone] [place] INJECTION 10/31/2016 Patient Education: Patient Medication Summary Completed 10/31/2016 Visit Diagnosis Plan: Other fatigue Discussion: Check TSH, Free T4, CBC, CMP ICD-9 : 780.79 ICD-10 : R53.83 09/06/2016 Visit Diagnosis Plan: Encounter for [facility] adult medical examination with abnormal findings Discussion: Pap done May need pelvic US due to pain with intercourse ICD-9 : V70.0 ICD-10 : Z00.01 09/06/2016 Visit Diagnosis Plan: Iron deficiency anemia, unspecif ied Discussion: Check CBC, iron ICD-9 : 280.9 ICD-10 : D50.9 09/06/2016 Appointment: Ritika Cintron WPtel: [address] [place], [place] [phone] 09/05 confirmed~sl PAP 09/06/2016 Patient Education: Patient Medication Summary Completed 09/06/2016 Appointment: Ritika Cintron WPtel: [address] [place], [place] [phone] BP CHECK 05/18/2016 Patient Education: Patient Medication [...] : F32.9 04/28/2016 Appointment: [facility] [address] ACUTE ILLNESS 04/28/2016 Patient Education: Patient Medication Summary Completed 04/28/2016 Appointment: Ritika Cintron WPtel: [address] [place] [address] BP CHECK 02/01/2016 Patient Education: Patient Medication Summary Completed 02/01/2016 Appointment: Ritika Cintron WPtel: [address] [place] [address] BP CHECK 01/26/2016 Patient Education: Patient Medication Summary Completed 01/26/2016 Visit Plan: Discussed POC with Dr Rui tamayo Increase dose to 300mg TID for a full 10 days Follow up with us, dentist and OB as needed Cautioned to monitor BP and follow up if not at goal 09/10/2015 Appointment: [facility] [address] [place] [address] ACUTE ILLNESS 09/10/2015 Patient Education: Patient Medication Summary Completed 09/10/2015 Visit Plan: Dexamethesone 4mg with Kenal og 40 IM now Continue antihistamines Use nasal saline multiple times a day Humidified air Rest/fluids Reviewed s/s of worsening, go to over weekend if needed. 06/12/2015 Appointment: Sarah Campbell WPtel: [address] [place] [address] ACUTE ILLNESS 06/12/2015 Patient Education: Patient Medication Summary Completed 06/12/2015 Visit Plan: Proceed with Stress ECHO Add omeprazole Fwup after stress ECHO 11/04/2014 Appointment: Ritika Cintron WPtel: [address] [place], [place] [phone] 11/03/14 confirm FOLLOW UP 11/04/2014 Patient Education: Patient Medication Summary Completed 11/04/2014 Visit Plan: Continue HCTZ 12.5 mg for 2 more weeks. Discussed decreasing dietary sodium intake Advised against future use of pseudoephedrine 08/04/2014 Appointment: Diamante Santana WPtel: [address] [place] [address] FOLLOW UP 08/04/2014 Patient Education: Patient Medication Summary Completed 08/04/2014 Appointment: Ritika Cintron WPtel: [address] [place], [place] [phone] Urgent/Quick Care Follow Up 02/2014 Patient Education: Patient Medication Summary Completed 07/21/2014 Appointment: Diamante Santana WPtel: [address] [place], [place] [phone] ACUTE ILLNESS 04/02/2014 Patient Education: Patient Medication Summary Completed 04/02/2014 Patient Education: Consumer[employer] - Antibi otics, Analgesics 18+, Oral Contraceptives F 18+ Completed 04/02/2014 Visit Plan: Check cervical and thoracic spine x-rays Daily Neck and Back stretches Duexis TID 03/20/2014 Appointment: Ritika Cintron WPtel: [address] [place], [place] [phone] ACUTE ILLNESS 03/20/2014 Patient Education: Patient Medication Summary Completed 03/20/2014 Visit Plan: Trial of Aviane Discussed di et and exercise at length--1400--1500cal ADA diet with exercise Trial of levbid 0.375mg q HS Discussed trial of Phenteramine Call in 1mo on Levbid 02/18/2014 Appointment: Ritika Cintron WPtel: [address] [place] [address] ACUTE ILLNESS 02/18/2014 Patient Education: Patient Medication Summary Completed 02/18/2014 Patient Education: ConsumerCare - Antibi otics, Analgesics 18+, Oral Contraceptives F 18+ Completed 02/18/2014 Appointment: Diamante Santana WPtel: [address] [place] [address] ACUTE ILLNESS 10/01/2013 Patient Education: Patient Medication Summary Completed 10/01/2013 Appointment: Diamante Santana WPtel: [address] [place] [address] ACUTE ILLNESS 09/12/2013 Patient Education: Patient Medication Summary Completed 09/12/2013 Referral: Ritika Cintron WPtel: [address] [place] [address] Dr Rodriguez Initiated 06/18/2013 Appointment: Ritika Cintron WPtel: [address] [place] [address] INJECTION 05/17/2013 Patient Education: Patient Medication Summary Completed 05/17/2013 Visit Plan: Pap smear with [facility] Lab discussed--fish oil 3grams daily and lifestyle change with exercise and recheck lipids 6mos 05/16/2013 Appointment: Ritika Cintron WPtel: [address] [place] [address] 05/14 pt came in and verified appt is 27 PAP 05/16/2013 Patient Education: Patient Medication Summary Completed 05/16/2013 Appointment: Ritika Cintron WPtel: [address] [place] [address] LAB 05/07/2013 Patient Education: Patient Medication Summary Completed 05/07/2013 Appointment: Rit[facility]ron [facility]Ptel[facility] [facility] [facility] 01/08/2013 Patient Education: Patient Medication Summary Completed 01/08/2013 Appointment: Diamante Santana WPtel: [phone] [facility] [place] ACUTE ILLNESS 12/07/2012 Patient Education: Patient Medication Summary Completed 12/07/2012 Appointment: Diamante Santana WPtel: [address] [facility] [place] ACUTE ILLNESS 12/03/2012 Patient Education: Patient Medication Summary Completed 12/03/2012 Visit Plan: 2 months old at home. (saida adams) Azithromycin increased dose. Pt. reports Clindamycin is possible allergy but not sure-states "makes my throat close....I think" Discussed that will notify if symptoms worsen or fever continues. Strongly encouraged her to stay home until fever resolves. 04/03/2012 Appointment: Venecia Smith WPtel: [address] [facility] ACUTE ILLNESS 04/03/2012 Patient Education: Patient Medication Summary Completed 04/03/2012 Visit Plan: ERx for ZPack (due to multip le med allergies and ) OTC multiple symptom cold formula (Like Robitussing PE) as directed OTC nasal saline, Tylenol, Ibuprofen prn RTC for no improvement, UC for worsening. 03/30/2012 Appointment: Sarah Campbell WPtel: [address] [place], [place] [phone] [place] ACUTE ILLNESS 03/30/2012 Patient Education: Patient [...] the time) 07/29/2011 Appointment: Sarah Campbell WPtel: [address] [place] [address] ACUTE ILLNESS 07/29/2011 Patient Education: Patient Medication Summary Completed 07/29/2011 Appointment: Venecia Smith WPtel: [address] [place] [address] FOLLOW UP 04/29/2011 Patient Education: Patient Medication Summary Completed 04/29/2011 Visit Plan: due to multiple allergies wi ll try Doxycycline and mupirocin topical.(has some topical left over from past topical infection) Will ice/cool pack finger and use Ibuprofen in addition to antibiotic. Discussed that pt. will notify if redness is worse tomorrow. 04/28/2011 Appointment: Venecia Smith WPtel: [address] [place] [address] ACUTE ILLNESS 04/28/2011 Patient Education: Patient Medication Summary Completed 04/28/2011 Visit Plan: Macrobid and Pyridium. Diflu can for possible yeast. Discussed increased fluids. Pt. will notify if symptoms worsen or fever occurs. Urine for culture. 03/07/2011 Appointment: Venecia Smith WPtel: [address] [place] [address] ACUTE ILLNESS 03/07/2011 Patient Education: Patient Medication Summary Completed 03/07/2011 Visit Plan: Pt will apply mild heat devante ral times daily to aid in healing process. Pt. has past RX for mupirocin topical. Will apply to area being careful to not get any in the eye. Will follow up if no resolution in the next 5 days. 11/10/2010 Appointment: Venecia Smith WPtel: [address] [place] [address] ACUTE ILLNESS 11/10/2010 Patient Education: Patient Medication Summary Completed 11/10/2010 Visit Plan: Pap done Check CBC, CMP, TSH , Free T4 08/18/2010 Appointment: Ritika Cintron WPtel: [address] [place] [address] NEW PATIENT 08/18/2010 Patient Education: Patient Medication [...]
--- OUTSIDE RECORDS SUMMARY | 2019-10-02 17:22 | XMS REPORT | CCD ---
Author Author Catherine Cintron D.O. Organization [facility] Address [address] [place] [address] Phone Care Team Providers Care Drum Saw Operator Name Role Phone Ritika Cintron D.O., PP Unavailable CCM Unavailable Summary Purpose Interface Exchange Insurance Providers Payer name Policy type / Coverage type Covered republican ID Effective Begin Date Effective End Date Blue Cross Blue Shield Blue Cross/Blue Shield [id number] Unknown Family history Mother Diagnosis Age At Onset No Family Disease Entered N/A Father Diagnosis Age At Onset Diabetes mellitus Type 1 Unknown Social History Social History Element Codes Description Effective Dates Tobacco history SNOMED CT: 599489032 Has never smoked or chewed tobacco 09/01/2010 [...] Fill Instructions spironolactone 50 mg tablet RxNorm: 433916 Tablet(s) 1 TABLET(S ) PO QAM 07/25/2019 01/21/2020 Active sertraline 50 mg tablet RxNorm: 142469 1 Tablet(s) Oral QD 1 TA BLET(S) PO QD 07/25/2019 01/20/2020 Active Tri-Sprintec (28) 0.18 mg(7)/0.215 mg(7)/0.25 mg(7)-35 mcg tablet RxNorm: 996653 TAKE 1 TABLET BY MOUTH EVERY DAY 07/25/2019 01/21/2020 Active Tri-Sprintec (28) 0.18 mg(7)/0.215 mg(7)/0.25 mg(7)-35 mcg tablet RxNorm: 889574 TAKE 1 TABLET BY MOUTH EVERY DAY 07/08/2019 07/24/2019 Inactive Tri-Sprintec (28) 0.18 mg(7)/0.215 mg(7)/0.25 mg(7)-35 mcg tablet RxNorm: 818185 1 Tablet(s) Oral QD Due for annual appt 06/12/2019 07/07/2019 I nactive Due for annual appointment Tri-Sprintec (28) 0.18 mg(7)/0.215 mg(7)/0.25 mg(7)-35 mcg tablet RxNorm: 245074 TAKE 1 TABLET BY MOUTH EVERY DAY 04/15/2019 06/11/2019 Inactive Zetia 10 mg tablet RxNorm: 991810 1 Tablet(s) Oral QD 01/08/201904/2019 Inactive Tri-Sprintec (28) 0.18 mg(7)/0.215 mg(7)/0.25 mg(7)-35 mcg tablet RxNorm: 605781 TABLET(S) 1 TABLET(S) PO QD 01/07/2019 04/14/2019 Inactive Nexium 40 mg capsule,delayed release RxNorm: 629121 1 Capsule(s ) Oral QD 11/14/2018 01/07/2019 Inactive metronidazole 500 mg tablet RxNorm: 084050 1 Tablet(s) Oral thr ee times a day 11/14/2018 11/14/2018 Inactive Bactrim DS 800 mg-160 mg tablet RxNorm: 583618 1 Tablet(s) Oral two times a day 11/14/2018 11/14/2018 Inactive sertraline 50 mg tablet RxNorm: 264982 1 Tablet(s) PO QD 1 TABL ET(S) PO QD 09/17/2018 03/15/2019 Inactive spironolactone 50 mg tablet RxNorm: 328363 Tablet(s) 1 TABLET(S ) PO QAM 09/17/2018 03/15/2019 Inactive sertraline 50 mg tablet RxNorm: 361880 1 TABLET(S) PO QD 09/10/2018 0 09/16/2018 Inactive Tri-Sprintec (28) 0.18 mg(7)/0.215 mg(7)/0.25 mg(7)-35 mcg tablet RxNorm: 982971 Tablet(s) 1 TABLET(S) PO QD 08/20/2018 01/06/2019 Inactive Protonix 40 mg tablet,delayed release RxNorm: 395606 1 Tablet(s ) PO BID 08/13/2018 11/13/2018 Inactive Flagyl 500 mg tablet RxNorm: 072511 1 Tablet(s) PO BID 08/13/2018 Inactive spironolactone 50 mg tablet RxNorm: 806684 1 TABLET(S) PO QAM 08/1309/16/2018 Inactive Tri-Sprintec (28) 0.18 mg(7)/0.215 mg(7)/0.25 mg(7)-35 mcg tablet RxNorm: 007490 1 TABLET(S) PO QD 06/18/2018 07/15/2018 Inactive sertraline 50 mg tablet RxNorm: 518938 1 Tablet(s) PO QD 06/07/2018 0 09/04/2018 Inactive prednisone 10 mg tablet RxNorm: 414020 1 Tablet(s) PO BID 05/30/2018 06/03/2018 Inactive Tri-Sprintec (28) 0.18 mg(7)/0.215 mg(7)/0.25 mg(7)-35 mcg tablet RxNorm: 706300 1 Tablet(s) PO QD 05/17/2018 06/13/2018 Inactive sertraline 50 mg tablet RxNorm: 698758 1 TABLET(S) PO QD 05/07/2018 0 06/05/2018 Inactive Tri-Sprintec (28) 0.18 mg(7)/0.215 mg(7)/0.25 mg(7)-35 mcg tablet RxNorm: 104849 1 Tablet(s) PO QD 02/08/2018 05/02/2018 Inactive sertraline 50 mg tablet RxNorm: 421000 1 Tablet(s) PO QD 02/08/2018 0 04/08/2018 Inactive omeprazole 40 mg capsule,delayed release RxNorm: 643737 1 Capsule(s) PO QD for acid reflux 02/08/2018 08/12/2018 Inactive montelukast 10 mg tablet RxNorm: 949027 1 Tablet(s) PO QHS 12/15/19 18 12/13/2017 Inactive montelukast 10 mg tablet RxNorm: 511240 1 Tablet(s) PO QHS 12/15/19 18 08/12/2018 Inactive spironolactone 50 mg tablet RxNorm: 122361 1 Tablet(s) PO QAM 12/0612/05/2017 Inactive spironolactone 50 mg tablet RxNorm: 985816 1 Tablet(s) PO QAM 12/0603/05/2018 Inactive spironolactone 25 mg tablet RxNorm: 942457 1 TABLET(S) PO QAM BLOOD PRESSURE CHECK IN 1 MONTH 12/04/2017 12/10/2017 Inactive clindamycin HCl 300 mg capsule RxNorm: 522007 1 Capsule(s) PO TID 1 12/09/2017 Inactive spironolactone 25 mg tablet RxNorm: 044754 1 Tablet(s) PO QAM Blood pressure check in 1 month 11/06/2017 12/03/2017 Inactive spironolactone 25 mg tablet RxNorm: 230610 1 Tablet(s) PO QAM Blood pressure check in 1 month 11/06/2017 11/05/2017 Inactive cyclobenzaprine 5 mg tablet RxNorm: 112320 1/2-1 Tablet(s) PO Q HS for spasm 10/13/2017 11/11/2017 Inactive Macrobid 100 mg capsule RxNorm: 987508 1 Capsule(s) PO BID 10/14/19 18 10/19/2017 Inactive Mobic 15 mg tablet RxNorm: 276011 1 Tablet(s) PO QAM for pain 10/1311/11/2017 Inactive Depo-Provera 150 mg/mL intramuscular syringe RxNorm: 2849844 Milliliter(s) IM Bring to office for administration 07/18/2017 02/07/2018 Inactive Singulair 10 mg tablet RxNorm: 954255 1 Tablet(s) PO QD 04/12/2017 Inactive Singulair 10 mg tablet RxNorm: 769895 1 Tablet(s) PO QD 03/20/2017 Inactive metoprolol tartrate 50 mg tablet RxNorm: 948389 1 Tablet(s) PO QD 0 02/21/2017 09/04/2017 Inactive Mobic 15 mg tablet RxNorm: 692113 1 Tablet(s) PO QD 01/30/20172017 Inactive Mobic 15 mg tablet RxNorm: 339319 1 Tablet(s) PO QD 01/03/20172016 Inactive Protonix 40 mg tablet,delayed release RxNorm: 420088 1 Tablet(s ) PO BID 01/03/2017 11/29/2017 Inactive metoprolol tartrate 50 mg tablet RxNorm: 166854 1 Tablet(s) PO QD 1 02/21/2017 Inactive Depo-Provera 150 mg/mL intramuscular syringe RxNorm: 6734426 Milliliter(s) IM Bring to office for administration 10/28/2016 07/17/2017 Inactive Depo-Provera 150 mg/mL intramuscular syringe RxNorm: 0095864 Milliliter(s) IM Bring to office for administration 10/10/2016 10/27/2016 Inactive Macrobid 100 mg capsule RxNorm: 788458 1 Capsule(s) PO BID 04/29/19 17 05/04/2016 Inactive metoprolol succinate ER 50 mg tablet,extended release 24 hr RxNorm: 216638 1 Tablet(s) PO QD 04/28/2016 07/26/2016 Inactive Diflucan 150 mg tablet RxNorm: 453457 1 Tablet(s) PO QD x 1 dose 09/05/2016 Inactive sertraline 25 mg tablet RxNorm: 244929 1/2 Tablet(s) PO QD for 1 week and then increase to 1 tablet PO QD 04/28/2016 09/05/2016 Inactive Toprol XL 50 mg tablet,extended release RxNorm: 392704 1 Tablet (s) PO QD 01/26/2016 04/27/2016 Inactive clindamycin 300 mg capsule RxNorm: 667729 1 Capsule(s) PO TID 09/0909/19/2015 Inactive omeprazole 20 mg capsule,delayed release RxNorm: 984017 1 Capsu le(s) PO QD 11/04/2014 04/27/2016 Inactive hydrochlorothiazide 12.5 mg tablet RxNorm: 470229 1 Tablet(s) PO QD 09/10/2014 04/27/2016 Inactive Aviane 0.1 mg-20 mcg tablet RxNorm: 053850 1 Tablet(s) PO QD 201404/27/2016 Inactive hydrochlorothiazide 12.5 mg tablet RxNorm: 810979 1 Tablet(s) PO QD 07/21/2014 09/09/2014 Inactive Zithromax Z-Kyle 250 mg tablet RxNorm: 487210 Tablet(s) PO As Di rected 07/21/2014 11/03/2014 Inactive tobramycin 0.3 % eye drops RxNorm: 225164 2 Drop(s) OPH Q4H 015 04/02/2014 Inactive tobramycin 0.3 % eye drops RxNorm: 188499 2 Drop(s) OPH Q4H 015 04/09/2014 Inactive azithromycin 250 mg tablet RxNorm: 720599 2 Tablet(s) P O on day one then one tablet on days 2 - 5 04/02/2014 11/03/2014 Inactive hyoscyamine ER 0.375 mg tablet,extended release,12 hr RxNorm : 6395236 1 Tablet(s) PO QHS 03/20/2014 11/03/2014 Inactive Levbid 0.375 mg tablet,extended release RxNorm: 2179267 1 Tablet (s) PO QHS 02/18/2014 03/19/2014 Inactive Aviane 0.1 mg-20 mcg tablet RxNorm: 203235 1 Tablet(s) PO QD 201308/27/2014 Inactive Diflucan 150 mg tablet RxNorm: 444680 1 Tablet(s) PO QOD 10/01/2013 1 Inactive Macrobid 100 mg capsule RxNorm: 218171 1 Capsule(s) PO BID 10/02/19 14 10/07/2013 Inactive clindamycin 300 mg capsule RxNorm: 424926 1 Capsule(s) PO TID 12/0312/12/2012 Inactive azithromycin 250 mg tablet RxNorm: 823130 2 Tablet(s) PO QD 013 04/08/2012 Inactive Zithromax Z-Kyle 250 mg tablet RxNorm: 232683 1 Tablet(s ) PO QD Take 2 today and 1 a day on days 2-5 03/30/2012 04/03/2012 Inactive Tobrex 0.3 % Eye Drops RxNorm: 251791 2 Drop(s) OPH Q4H 07/29/2011 Inactive doxycycline hyclate 100 mg Tab RxNorm: 7483670 1 Tablet(s) PO BID 0 04/28/2011 05/07/2011 Inactive Pyridium 200 mg Tab RxNorm: 3553230 1 Tablet(s) PO TID 03/07/2011 Inactive Macrobid 100 mg Cap RxNorm: 363459 1 Capsule(s) PO BID 03/07/2011 Inactive Diflucan 100 mg Tab RxNorm: 954211 1 Tablet(s) PO QD 03/07/201103/16 Inactive Benadryl 25 mg capsule RxNorm: 0892687 Capsule(s) PO as needed No Sta rt Date Active Vitamin B12 1000mcg Tablet RxNorm: 1/2 Tablet(s) PO QD No Star t Date 11/29/2017 Inactive Depo-Provera 150 mg/mL intramuscular syringe RxNorm: 7613902 Milliliter(s) IM Bring to office for administration No Start Date 10/09/2016 Inactive metoprolol tartrate 50 mg tablet RxNorm: 759649 1 Tablet(s) PO QD N o Start Date 11/22/2016 Inactive Zyrtec 10 mg tablet RxNorm: 7284847 1 Tablet(s) PO QD No Start Date 1 Inactive Sudafed PE 10 mg tablet RxNorm: 9439009 Tablet(s) PO as needed No S tart Date 09/04/2017 Inactive Toprol XL 50 mg tablet,extended release RxNorm: 811268 1 Tablet (s) PO QD No Start Date 01/25/2016 Inactive Depo-Provera 150 mg/mL intramuscular suspension RxNorm: 1000 128 1 Milliliter(s) IM every 3mos No Start Date 02/17/2014 Inactive Flonase Allergy Relief 50 mcg/actuation nasal spray,suspensi on RxNorm: [place] NASAL as needed No Start Date 11/29/2017 Inactive Zyrtec 10 mg tablet RxNorm: 0311228 1 Tablet(s) PO QD as needed No Start Date 05/23/2018 Inactive Medication Administered No Medication Administered data Immunizations Vaccine Codes Date Status Influenza CVX: 141 11/22/2018 Complete Influenza CVX: 141 11/22/2018 Complete Influenza CVX: 141 01/02/2018 Complete Influenza CVX: 141 01/08/2013 Pediatric Influenza CVX: 141 01/08/2013 Results Observation Observation Code Item Item Code Result Date S ervice Location COMPLETE BLOOD COUNT [id number] WBC 15.9 10e9/L 019 Unknown COMPLETE BLOOD COUNT [id number] RBC 5.10 10e12/L 2018 Unknown COMPLETE BLOOD COUNT [id number] HEMOGLOBIN 15.2 g/dL 08/14/19 19 Unknown COMPLETE BLOOD COUNT [id number] HEMATOCRIT 46.2 % 08/14/19 19 Unknown COMPLETE BLOOD COUNT [id number] MCV 90.6 fL 9 Unknown COMPLETE BLOOD COUNT [id number] MCH 29.8 pg 9 Unknown COMPLETE BLOOD COUNT [id number] MCHC 32.9 g/dL 9 Unknown COMPLETE BLOOD COUNT [id number] PLATELET COUNT 433 10e9/L Unknown COMPLETE BLOOD COUNT [id number] Mean Plt Volume 9.9 fL Unknown COMPLETE BLOOD COUNT [id number] Neut Auto 74.7 % 9 Unknown COMPLETE BLOOD COUNT [id number] Lymph Auto 18.6 % 08/14/19 19 Unknown COMPLETE BLOOD COUNT [id number] [place] Auto 5.8 % 9 Unknown COMPLETE BLOOD COUNT [id number] Eos Auto 0.6 % 9 Unknown COMPLETE BLOOD COUNT [id number] RDW 14.1 % 9 Unknown COMPLETE BLOOD COUNT [id number] Baso Auto 0.3 % 9 Unknown COMPLETE BLOOD COUNT [id number] Neutrophil Abs 11.88 10e9/L 0 08/13/2018 Unknown COMPLETE BLOOD COUNT [id number] Lymphocyte Abs 2.96 10e9/L Unknown COMPLETE BLOOD COUNT [id number] Monocyte Abs 0.92 10e9/L 07/22 Unknown COMPLETE BLOOD COUNT [id number] Eosinophil Abs 0.10 10e9/L Unknown COMPLETE BLOOD COUNT [id number] Basophil Abs 0.05 10e9/L 07/22 Unknown COMPLETE BLOOD COUNT [id number] RDW-SD 45.7 fL 9 Unknown A FOOD C P [id number] Codfish Cl Class 0 03/21/2017 Unknown A FOOD C P [id number] Codfish Ct <0.35 kU/L 03/21/2017 Unknow n A FOOD C P [id number] [place] Cl Class 0 03/21/2017 Unkn own A FOOD C P [id number] [place] Ct <0.35 kU/L 03/21/2017 Unk nown A FOOD C P [id number] Egg White Cl Class 3 03/21/2017 Unkno wn A FOOD C P 7883787 Egg White Ct 4.68 kU/L 03/21/2017 Unkno wn A FOOD C P 9378890 Egg Yolk Cl Class 1 03/21/2017 Unknow n A FOOD C P 5328786 Egg Yolk Ct 0.49 kU/L 03/21/2017 Unknow n A FOOD C P 7132645 Cow Milk Cl Class 3 03/21/2017 Unknow n A FOOD C P 0115082 Cow Milk Ct 3.77 kU/L 03/21/2017 Unknow n A FOOD C P 0237052 Peanut Cl Class 0 03/21/2017 Unknown A FOOD C P [id number] Peanut Ct <0.35 kU/L 03/21/2017 Unknown A FOOD C P 9650921 Shrimp Cl Class 2 03/21/2017 Unknown A FOOD C P 2215152 Shrimp Ct 0.78 kU/L 03/21/2017 Unknown A FOOD C P 3166838 Soybean Cl Class 0 03/21/2017 Unknown A FOOD C P [id number] Soybean Ct <0.35 kU/L 03/21/2017 Unknow n A FOOD C P 0894115 Wheat Cl Class 1 03/21/2017 Unknown A FOOD C P [id number] Wheat Ct 0.58 kU/L 03/21/2017 Unknown A FOOD C P 9377815 Potato Cl Class 0 03/21/2017 Unknown A FOOD C P 1046241 Potato Ct <0.35 kU/L 03/21/2017 Unknown A FOOD C P 9090994 Beef Cl Class 0 03/21/2017 Unknown A FOOD C P [id number] Beef Ct <0.35 kU/L 03/21/2017 Unknown A FOOD C P 9335376 [place] Cl Class 0 03/21/2017 Unknown A FOOD C P 7437635 [place] Ct <0.35 kU/L 03/21/2017 Unknown A FOOD C P 5034761 Pork Cl Class 0 03/21/2017 Unknown A FOOD C P [id number] Pork Ct <0.35 kU/L 03/21/2017 Unknown A FOOD C P [id number] [place] Cl Class 0 03/21/2017 Unknown A FOOD C P 5331097 Rice Ct <0.35 kU/L 03/21/2017 Unknown A FOOD C P 5469810 [place] Cl Class 0 03/21/2017 Unkn own A FOOD C P [id number] [place] Ct <0.35 kU/L 03/21/2017 Unk nown A FOOD C P [id number] Tomato Cl Class 0 03/21/2017 Unknown A FOOD C P [id number] Tomato Ct <0.35 kU/L 03/21/2017 Unknown A FOOD C P 5407294 Tuna Cl Class 0 03/21/2017 Unknown A FOOD C P 6329343 Tuna Ct <0.35 kU/L 03/21/2017 Unknown A FOOD C P 1631357 [place] CL Class 0 03/21/2017 Unknown A FOOD C P [id number] [place] CT <0.35 kU/L 03/21/2017 Unknown A FOOD C P 1652691 Casein Cl Class 1 03/21/2017 Unknown A FOOD C P [id number] Casein Ct 0.64 kU/L 03/21/2017 Unknown A FOOD C P [id number] Oat Cl Class 0 03/21/2017 Unknown A FOOD C P [id number] Oat Ct <0.35 kU/L 03/21/2017 Unknown A FOOD C P [id number] [place] Cl Class 2 03/21/2017 Unknown A FOOD C P [id number] [place] Ct 0.75 kU/L 03/21/2017 Unknown A FOOD C P 6586989 Chicken Meat CL Class 0 03/21/2017 Un known A FOOD C P 4720976 Chicken Meat Ct <0.35 kU/L 03/21/2017 U nknown A FOOD C P 6603741 [place] Cl Class 0 03/21/2017 Unknown A FOOD C P 8350924 [place] Ct <0.35 kU/L 03/21/2017 Unknown A FOOD C P 2205407 Pecan Meat Cl Class 0 03/21/2017 Unkn own A FOOD C P [id number] Pecan Meat Ct <0.35 kU/L 03/21/2017 Unk nown A NUTS PNL 5549131 Peanut Cl Class 0 03/21/2017 Unknown A NUTS PNL 3802259 Peanut Ct <0.35 kU/L 03/21/2017 Unknown A NUTS PNL 1682521 Bath Meat Cl Class 0 03/21/2017 Unk nown A NUTS PNL 1432006 Bath Meat Ct <0.35 kU/L 03/21/2017 Un known A NUTS PNL 0582541 Pecan Meat Cl Class 0 03/21/2017 Unkn own A NUTS PNL 2455283 Pecan Meat Ct <0.35 kU/L 03/21/2017 Unk nown A NUTS PNL [id number] [place] Cl Class 0 03/21/2017 Unknown A NUTS PNL [id number] [place] Ct <0.35 kU/L 03/21/2017 Unknown A NUTS PNL 8747994 [place] Cl Class 0 03/21/2017 Unknow n A NUTS PNL 5354599 [place] Ct <0.35 kU/L 03/21/2017 Unkno wn A NUTS PNL 9954857 [place] Cl Class 0 03/21/2017 Unkno wn A NUTS PNL 7182964 [place] Ct <0.35 kU/L 03/21/2017 Unkn own A NUTS PNL 7954875 [place] Cl Class 0 03/21/2017 Unknown A NUTS PNL 5220820 [place] Ct <0.35 kU/L 03/21/2017 Unknown A NUTS PNL 4109602 Pistachio Cl Class 0 03/21/2017 Unkno wn A NUTS PNL 0582481 Pistachio Ct <0.35 kU/L 03/21/2017 Unkn own A NUTS PNL 7350376 Allergen Interp See Note 03/21/2017 Un known A FRT/VG P 0491130 [place] Cl Class 0 03/21/2017 Unkn own A FRT/VG P 7597901 [place] Ct <0.35 kU/L 03/21/2017 Unk nown A FRT/VG P 5843850 Potato Cl Class 0 03/21/2017 Unknown A FRT/VG P 2030483 Potato Ct <0.35 kU/L 03/21/2017 Unknown A FRT/VG P 2637794 [place] Cl Class 0 03/21/2017 Unkn own A FRT/VG P 1347832 [place] Ct <0.35 kU/L 03/21/2017 Unk nown A FRT/VG P [id number] Tomato Cl Class 0 03/21/2017 Unknown A FRT/VG P 1443562 Tomato Ct <0.35 kU/L 03/21/2017 Unknown A FRT/VG P 0237253 [place] Cl Class 2 03/21/2017 Unknown A FRT/VG P 4487534 [place] Ct 0.75 kU/L 03/21/2017 Unknown A FRT/VG P 3925975 Banana Cl Class 2 03/21/2017 Unknown A FRT/VG P 2789335 Banana Ct 2.58 kU/L 03/21/2017 Unknown A FRT/VG P 6298825 [place] Fruit Cl Class 0 03/21/2017 Unk nown A FRT/VG P 0189934 [place] Fruit Ct <0.35 kU/L 03/21/2017 Un known A FRT/VG P 4614012 Apple Fruit Cl Class 0 03/21/2017 Unk nown A FRT/VG P 5609219 Apple Fruit Ct <0.35 kU/L 03/21/2017 Un known A FRT/VG P 7997340 Carrot Cl Class 0 03/21/2017 Unknown A FRT/VG P 5889015 Carrot Ct <0.35 kU/L 03/21/2017 Unknown A FRT/VG P 1400182 Pea Cl Class 0 03/21/2017 Unknown A FRT/VG P 2240325 Pea Ct <0.35 kU/L 03/21/2017 Unknown A FRT/VG P 7031010 Pear Fruit Cl Class 0 03/21/2017 Unkn own A FRT/VG P 8799193 Pear Fruit Ct <0.35 kU/L 03/21/2017 Unk nown A FRT/VG P 2805446 Swt Potato Cl Class 0 03/21/2017 Unkn own A FRT/VG P 3150496 Swt Potato Ct <0.35 kU/L 03/21/2017 Unk nown A OK/KS/PN 5580046 [place] Cl Class 0 03/21/2017 Unknown A OK/[place]/PN 9548741 [place] Ct <0.35 kU/L 03/21/2017 Unknow n A OK/KS/PN 3201564 Alt Ten Cl Class 0 03/21/2017 Unknown A OK/KS/PN 6715180 Alt Ten Ct <0.35 kU/L 03/21/2017 Unknow n A OK/KS/PN 1020263 [place] Cl Class 0 03/21/2017 Un known A [place]/PN 6711412 [place] Ct <0.35 kU/L 03/21/2017 U nknown A OK/KS/PN 0335009 [place] Cl Class 0 03/21/2017 Unknow n A [place]/PN 9451901 [place] Ct <0.35 kU/L 03/21/2017 Unkno wn A OK/KS/PN 3554205 Gadiel Gr Cl Class 0 03/21/2017 Unkn own A OK/KS/PN 6977738 Gad[place] Gr Ct <0.35 kU/L 03/21/2017 Unk nown A OK/KS/PN 5711116 Yasir Blue Cl Class 1 03/21/2017 Unkno wn A OK/KS/PN 9311781 [place] Blue Ct 0.59 kU/L 03/21/2017 Unkno wn A OK/KS/PN 9105909 Rough [place] Cl Class 0 03/21/2017 Unk nown A OK/KS/PN 1796493 Rough [place] Ct <0.35 kU/L 03/21/2017 Un known A OK/KS/PN 6007710 [place] Cl Class 2 03/21/2017 Unknow n A OK/[place]/PN 3823164 [place] Ct 0.72 kU/L 03/21/2017 Unknow n A OK/KS/PN 6289013 Rag[place] Cl Class 2 03/21/2017 Unknown A OK/KS/PN 2124977 [place] Ct 1.46 kU/L 03/21/2017 Unknown A OK/KS/PN 4658137 Cat Dander Cl Class 0 03/21/2017 Unkn own A OK/KS/PN 1676444 Cat [place] Ct <0.35 kU/L 03/21/2017 Unk nown A OK/KS/PN 2109907 Dog Dander Cl Class 0 03/21/2017 Unkn own A OK/KS/PN 6648119 Dog D[place] Ct <0.35 kU/L 03/21/2017 Unk nown A OK/KS/PN 8314788 Pecan Tr Cl Class 0 03/21/2017 Unknow n A OK/KS/PN 3728128 Pecan Tr Ct <0.35 kU/L 03/21/2017 Unkno wn A OK/KS/PN 7392229 Dust Mite Cl Class 0 03/21/2017 Unkno wn A OK/KS/PN 4331204 Dust Mite Ct <0.35 kU/L 03/21/2017 Unkn own A OK/KS/PN 9362107 Allergen Interp See Note 03/21/2017 Un known FREE T4 28226 T4 Free 0.97 ng/dL 09/06/2016 Unknown THYROID STIMULATING HORMONE 68586 TSH 1.665 uIU/mL 09/06/2016 Unknown COMPLETE BLOOD COUNT 9791314 WBC 11.9 10e9/L 017 Unknown COMPLETE BLOOD COUNT 8284186 RBC 4.70 10e12/L 2016 Unknown COMPLETE BLOOD COUNT 3740458 HEMOGLOBIN 13.9 g/dL 09/07/19 17 Unknown COMPLETE BLOOD COUNT 4877139 HEMATOCRIT 41.0 % 09/07/19 17 Unknown COMPLETE BLOOD COUNT 2481740 MCV 87.2 fL 7 Unknown COMPLETE BLOOD COUNT 6651376 MCH 29.6 pg 7 Unknown COMPLETE BLOOD COUNT 3989862 MCHC 33.9 g/dL 7 Unknown COMPLETE BLOOD COUNT 7246772 PLATELET COUNT 395 10e9/L Unknown COMPLETE BLOOD COUNT 3289794 Mean Plt Volume 9.1 fL Unknown COMPLETE BLOOD COUNT 4594369 Neut Auto 62.9 % 7 Unknown COMPLETE BLOOD COUNT 6492305 Lymph Auto 24.4 % 09/07/19 17 Unknown COMPLETE BLOOD COUNT 7849310 [place] Auto 7.6 % 7 Unknown COMPLETE BLOOD COUNT 8448879 RDW 13.5 % 7 Unknown COMPLETE BLOOD COUNT 4654357 Eos Auto 4.6 % 7 Unknown COMPLETE BLOOD COUNT 1559417 Baso Auto 0.5 % 7 Unknown COMPLETE BLOOD COUNT 1468195 Neutrophil Abs 7.49 10e9/L Unknown COMPLETE BLOOD COUNT 0854607 Lymphocyte Abs 2.90 10e9/L Unknown COMPLETE BLOOD COUNT 3476225 Monocyte Abs 0.90 10e9/L 08/20 Unknown COMPLETE BLOOD COUNT 3723947 Eosinophil Abs 0.55 10e9/L Unknown COMPLETE BLOOD COUNT 8693655 RDW-SD 41.9 fL 7 Unknown COMPLETE BLOOD COUNT [id number] Basophil Abs 0.06 10e9/L 08/20 Unknown GFR CALC 0712395 GFR Non Afr Amr >60 mL/min 09/06/2016 Un known GFR CALC 0520789 GFR Afr Amr >60 mL/min 09/06/2016 Unknow n COMPREHENSIVE METABOLIC 69099 AST 22 U/L 2016 Unknown COMPREHENSIVE METABOLIC 23140 ALT 30 U/L 2016 Unknown COMPREHENSIVE METABOLIC 03830 BUN 26 mg/dL 2016 Unknown COMPREHENSIVE METABOLIC 61469 ALBUMIN 4.8 g/dL 2016 Unknown COMPREHENSIVE METABOLIC 23961 CHLORIDE 107 mmol/L 09/06 Unknown COMPREHENSIVE METABOLIC 72550 Bili Total 0.2 mg/dL 09/06 Unknown COMPREHENSIVE METABOLIC 77117 ALK PHOS 118 U/L 2016 Unknown COMPREHENSIVE METABOLIC 74797 SODIUM 139 mmol/L 09/06 Unknown COMPREHENSIVE METABOLIC 22506 CREATININE 0.67 mg/dL 08/20 Unknown COMPREHENSIVE METABOLIC 59859 CALCIUM 9.8 mg/dL 2016 Unknown COMPREHENSIVE METABOLIC 85190 POTASSIUM 4.3 mmol/L 09/06 Unknown COMPREHENSIVE METABOLIC 14641 Total Protein 7.8 g/dL Unknown COMPREHENSIVE METABOLIC 59126 Glucose 96 mg/dL 2016 Unknown COMPREHENSIVE METABOLIC 76399 Bicarbonate 22 mmol/L 08/20 Unknown COMPREHENSIVE METABOLIC 07294 AGAP 10 mmol/L 2016 Unknown IRON 59523 Iron 58 ug/dL 09/06/2016 Unknown COMPLETE BLOOD COUNT 7449636 WBC 12.2 10e9/L 015 Unknown COMPLETE BLOOD COUNT 3756428 RBC 4.52 10e12/L 2014 Unknown COMPLETE BLOOD COUNT 9111182 HGB 13.3 g/dL 5 Unknown COMPLETE BLOOD COUNT 7529833 HCT DET 40.3 % 5 Unknown COMPLETE BLOOD COUNT 5593296 MCV 89.2 fL 5 Unknown COMPLETE BLOOD COUNT 8729660 MCH 29.4 pg 5 Unknown COMPLETE BLOOD COUNT 6468159 MCHC 33.0 g/dL 5 Unknown COMPLETE BLOOD COUNT 0978015 PLT 402 10e9/L 07/22/19 15 Unknown COMPLETE BLOOD COUNT 8665749 MPV 9.6 fL 5 Unknown COMPLETE BLOOD COUNT 2105928 ERIN % 64.8 % 5 Unknown COMPLETE BLOOD COUNT 7502695 LY % 24.6 % 5 Unknown COMPLETE BLOOD COUNT 2939016 MON % 7.0 % 5 Unknown COMPLETE BLOOD COUNT 4089057 EOS % 3.3 % 5 Unknown COMPLETE BLOOD COUNT 5004042 BASO % 0.3 % 5 Unknown COMPLETE BLOOD COUNT [id number] RDW 13.2 % 5 Unknown COMPLETE BLOOD COUNT [id number] ABS ERIN 7.91 10e9/L 015 Unknown COMPLETE BLOOD COUNT [id number] ABS LYMPH 3.00 10e9/L 015 Unknown COMPLETE BLOOD COUNT [id number] ABS MONO 0.85 10e9/L 015 Unknown COMPLETE BLOOD COUNT [id number] ABS EOS 0.40 10e9/L 015 Unknown COMPLETE BLOOD COUNT [id number] ABS BASO 0.04 10e9/L 015 Unknown COMPLETE BLOOD COUNT [id number] RDW-SD 42.3 fL 5 Unknown COMPREHENSIVE METABOLIC 04966 AST 21 U/L 2014 Unknown COMPREHENSIVE METABOLIC 99019 ALT 27 IU/L 2014 Unknown COMPREHENSIVE METABOLIC 81359 BUN 12 MG/DL 2014 Unknown COMPREHENSIVE METABOLIC 52171 ALBUMIN 4.1 GM/DL 2014 Unknown COMPREHENSIVE METABOLIC 94123 CHLORIDE 102 MMOL/L 07/21 Unknown COMPREHENSIVE METABOLIC 15552 BILI TOT 0.3 MG/DL 2014 Unknown COMPREHENSIVE METABOLIC 41057 ALK PHOS 94 U/L 2014 Unknown COMPREHENSIVE METABOLIC 95442 SODIUM 138 MMOL/L 07/21 Unknown COMPREHENSIVE METABOLIC 66764 CREATININE 0.71 MG/DL 02/2014 Unknown COMPREHENSIVE METABOLIC 18758 CALCIUM 9.4 MG/DL 2014 Unknown COMPREHENSIVE METABOLIC 76651 POTASSIUM 3.7 MMOL/L 07/21 Unknown COMPREHENSIVE METABOLIC 23131 PROT TOT 7.0 GM/DL 2014 Unknown COMPREHENSIVE METABOLIC 75454 Glucose 84 MG/DL 2014 Unknown COMPREHENSIVE METABOLIC 13509 BICARB 27 MMOL/L 2014 Unknown COMPREHENSIVE METABOLIC 06930 ANION GAP 9 MEQ/L 2014 Unknown GFR CALC [id number] GFR AA >60 ML/MIN 07/21/2014 Unknown GFR CALC [id number] GFR NON-AA >60 ML/MIN 07/21/2014 Unknown FREE T4 44147 FREE T4 0.90 NG/DL 07/21/2014 Unknown THYROID STIMULATING HORMONE 16008 TSH 1.838 uIU/ML 07/21/2014 Unknown LIPID GROUP 58537 HDL TEST 33 MG/DL 07/21/2014 Unknown LIPID GROUP 32316 TRIG 320 MG/DL 07/21/2014 Unknown LIPID GROUP 29846 TEST LDL 122 MG/DL 07/21/2014 Unknown LIPID GROUP 27765 CHOL 219 MG/DL 07/21/2014 Unknown LIPID GROUP 97556 RCHOL/HDL 6.64 RATIO 07/21/2014 Unknow n LIPID GROUP 57522 NON-HDL CH 186 MG/DL 07/21/2014 Unknow n IRON 29506 IRON TEST 99 UG/DL 09/12/2013 Unknown C-REACTIVE PROTEIN (CRP) QUANT 01669 CRP 0.2 MG/DL 09/12/2013 Unknown GFR CALC 1143012 GFR AA >60 ML/MIN 09/12/2013 Unknown GFR CALC 7521426 GFR NON-AA >60 ML/MIN 09/12/2013 Unknown THYROID STIMULATING HORMONE 21439 TSH 1.882 uIU/ML 09/12/2013 Unknown COMPLETE BLOOD COUNT [id number] WBC 7.9 10e9/L 09/13/19 14 Unknown COMPLETE BLOOD COUNT [id number] RBC 4.83 10e12/L 2013 Unknown COMPLETE BLOOD COUNT [id number] HGB 14.2 g/dL 4 Unknown COMPLETE BLOOD COUNT [id number] HCT DET 42.5 % 4 Unknown COMPLETE BLOOD COUNT [id number] MCV 88.0 fL 4 Unknown COMPLETE BLOOD COUNT [id number] MCH 29.4 pg 4 Unknown COMPLETE BLOOD COUNT [id number] MCHC 33.4 g/dL 4 Unknown COMPLETE BLOOD COUNT [id number] PLT 359 10e9/L 09/13/19 14 Unknown COMPLETE BLOOD COUNT [id number] MPV 10.1 fL 4 Unknown COMPLETE BLOOD COUNT [id number] ERIN % 55.7 % 4 Unknown COMPLETE BLOOD COUNT [id number] LY % 32.7 % 4 Unknown COMPLETE BLOOD COUNT [id number] MON % 6.6 % 4 Unknown COMPLETE BLOOD COUNT [id number] EOS % 4.5 % 4 Unknown COMPLETE BLOOD COUNT [id number] BASO % 0.5 % 4 Unknown COMPLETE BLOOD COUNT [id number] RDW 13.8 % 4 Unknown COMPLETE BLOOD COUNT [id number] ABS ERIN 4.40 10e9/L 014 Unknown COMPLETE BLOOD COUNT [id number] ABS LYMPH 2.58 10e9/L 014 Unknown COMPLETE BLOOD COUNT [id number] ABS MONO 0.52 10e9/L 014 Unknown COMPLETE BLOOD COUNT [id number] ABS EOS 0.36 10e9/L 014 Unknown COMPLETE BLOOD COUNT [id number] ABS BASO 0.04 10e9/L 014 Unknown COMPLETE BLOOD COUNT [id number] RDW-SD 44.0 fL 4 Unknown FREE T4 86529 FREE T4 0.95 NG/DL 09/12/2013 Unknown COMPREHENSIVE METABOLIC 06591 AST 19 U/L 2013 Unknown COMPREHENSIVE METABOLIC 23740 ALT 18 IU/L 2013 Unknown COMPREHENSIVE METABOLIC 02584 BUN 11 MG/DL 2013 Unknown COMPREHENSIVE METABOLIC 38186 ALBUMIN 4.8 GM/DL 2013 Unknown COMPREHENSIVE METABOLIC 24199 CHLORIDE 107 MMOL/L 09/12 Unknown COMPREHENSIVE METABOLIC 72105 BILI TOT 0.4 MG/DL 2013 Unknown COMPREHENSIVE METABOLIC 21089 ALK PHOS 86 U/L 2013 Unknown COMPREHENSIVE METABOLIC 34975 SODIUM 138 MMOL/L 09/12 Unknown COMPREHENSIVE METABOLIC 27622 CREATININE 0.79 MG/DL 08/21 Unknown COMPREHENSIVE METABOLIC 12773 CALCIUM 10.0 MG/DL 09/12 Unknown COMPREHENSIVE METABOLIC 55325 POTASSIUM 4.1 MMOL/L 09/12 Unknown COMPREHENSIVE METABOLIC 98867 PROT TOT 7.6 GM/DL 2013 Unknown COMPREHENSIVE METABOLIC 61684 Glucose 96 MG/DL 2013 Unknown COMPREHENSIVE METABOLIC 51660 BICARB 23 MMOL/L 2013 Unknown COMPREHENSIVE METABOLIC 01124 ANION GAP 8 MEQ/L 2013 Unknown LIPID GROUP 95402 HDL TEST 38 MG/DL 05/07/2013 Unknown LIPID GROUP 12238 TRIG 176 MG/DL 05/07/2013 Unknown LIPID GROUP 53201 TEST LDL 163 MG/DL 05/07/2013 Unknown LIPID GROUP 78655 CHOL 236 MG/DL 05/07/2013 Unknown LIPID GROUP 96412 RCHOL/HDL 6.21 RATIO 05/07/2013 Unknow n GFR CALC [id number] GFR AA >60 ML/MIN 05/07/2013 Unknown GFR CALC 7784014 GFR NON-AA >60 ML/MIN 05/07/2013 Unknown COMPREHENSIVE METABOLIC 57862 AST 34 U/L 2013 Unknown COMPREHENSIVE METABOLIC 90407 ALT 37 IU/L 2013 Unknown COMPREHENSIVE METABOLIC 26785 BUN 15 MG/DL 2013 Unknown COMPREHENSIVE METABOLIC 54568 ALBUMIN 4.4 GM/DL 2013 Unknown COMPREHENSIVE METABOLIC 43459 CHLORIDE 106 MMOL/L 05/07 Unknown COMPREHENSIVE METABOLIC 26359 BILI TOT 0.3 MG/DL 2013 Unknown COMPREHENSIVE METABOLIC 99795 ALK PHOS 106 U/L 2013 Unknown COMPREHENSIVE METABOLIC 20894 SODIUM 139 MMOL/L 05/07 Unknown COMPREHENSIVE METABOLIC 78403 CREATININE 0.67 MG/DL 04/20 Unknown COMPREHENSIVE METABOLIC 58403 CALCIUM 9.4 MG/DL 2013 Unknown COMPREHENSIVE METABOLIC 70810 POTASSIUM 4.2 MMOL/L 05/07 Unknown COMPREHENSIVE METABOLIC 27349 PROT TOT 7.1 GM/DL 2013 Unknown COMPREHENSIVE METABOLIC 92366 Glucose 93 MG/DL 2013 Unknown COMPREHENSIVE METABOLIC 87710 BICARB 25 MMOL/L 2013 Unknown COMPREHENSIVE METABOLIC 41486 ANION GAP 8 MEQ/L 2013 Unknown COMPLETE BLOOD COUNT [id number] WBC 6.7 10e9/L 05/08/19 14 Unknown COMPLETE BLOOD COUNT [id number] RBC 4.68 10e12/L 2013 Unknown COMPLETE BLOOD COUNT 8674286 HGB 13.6 g/dL 4 Unknown COMPLETE BLOOD COUNT [id number] HCT DET 41.1 % 4 Unknown COMPLETE BLOOD COUNT 9591401 MCV 87.8 fL 4 Unknown COMPLETE BLOOD COUNT [id number] MCH 29.1 pg 4 Unknown COMPLETE BLOOD COUNT 2820119 MCHC 33.1 g/dL 4 Unknown COMPLETE BLOOD COUNT [id number] PLT 326 10e9/L 05/08/19 14 Unknown COMPLETE BLOOD COUNT 3809288 MPV 10.1 fL 4 Unknown COMPLETE BLOOD COUNT 9514561 ERIN % 57.3 % 4 Unknown COMPLETE BLOOD COUNT 8332441 LY % 30.3 % 4 Unknown COMPLETE BLOOD COUNT 8644999 MON % 6.9 % 4 Unknown COMPLETE BLOOD COUNT 2963180 EOS % 5.2 % 4 Unknown COMPLETE BLOOD COUNT 0246361 BASO % 0.3 % 4 Unknown COMPLETE BLOOD COUNT 0662758 RDW 13.9 % 4 Unknown COMPLETE BLOOD COUNT [id number] ABS ERIN 3.84 10e9/L 014 Unknown COMPLETE BLOOD COUNT 4274712 ABS LYMPH 2.03 10e9/L 014 Unknown COMPLETE BLOOD COUNT 9605626 ABS MONO 0.46 10e9/L 014 Unknown COMPLETE BLOOD COUNT 9644750 ABS EOS 0.35 10e9/L 014 Unknown COMPLETE BLOOD COUNT [id number] ABS BASO 0.02 10e9/L 014 Unknown COMPLETE BLOOD COUNT 6868966 RDW-SD 43.5 fL 4 Unknown THYROID STIMULATING HORMONE 55529 TSH 1.476 uIU/ML 05/07/2013 Unknown FREE T4 96749 FREE T4 0.83 NG/DL 05/07/2013 Unknown FREE T4 65853 FREE T4 1.28 NG/DL 08/18/2010 Unknown COMPLETE BLOOD COUNT 33017 WBC 7.3 10e9/L 08/19/19 11 Unknown COMPLETE BLOOD COUNT 20690 RBC 5.15 10e12/L 2010 Unknown COMPLETE BLOOD COUNT 20555 HGB 14.4 g/dL 1 Unknown COMPLETE BLOOD COUNT 25631 HCT DET 43.2 % 1 Unknown COMPLETE BLOOD COUNT 74348 MCV 83.9 fL 1 Unknown COMPLETE BLOOD COUNT 47052 MCH 28.0 pg 1 Unknown COMPLETE BLOOD COUNT 02273 MCHC 33.3 g/dL 1 Unknown COMPLETE BLOOD COUNT 83861 PLT 341 10e9/L 08/19/19 11 Unknown COMPLETE BLOOD COUNT 15387 MPV 10.2 fL 1 Unknown COMPLETE BLOOD COUNT 97759 ERIN % 42.6 % 1 Unknown COMPLETE BLOOD COUNT 19281 LY % 45.2 % 1 Unknown COMPLETE BLOOD COUNT 47594 MON % 7.4 % 1 Unknown COMPLETE BLOOD COUNT 46658 EOS % 4.1 % 1 Unknown COMPLETE BLOOD COUNT 19737 BASO % 0.7 % 1 Unknown COMPLETE BLOOD COUNT 42058 RDW 14.4 % 1 Unknown COMPLETE BLOOD COUNT 23751 ABS ERIN 3.11 10e9/L 011 Unknown COMPLETE BLOOD COUNT 98841 ABS LYMPH 3.30 10e9/L 011 Unknown COMPLETE BLOOD COUNT 70757 ABS MONO 0.54 10e9/L 011 Unknown COMPLETE BLOOD COUNT 43963 ABS EOS 0.30 10e9/L 011 Unknown COMPLETE BLOOD COUNT 79158 ABS BASO 0.05 10e9/L 011 Unknown COMPLETE BLOOD COUNT 76784 RDW-SD 43.1 fL 1 Unknown THYROID STIMULATING HORMONE 10326 TSH 1.931 uIU/ML 08/18/2010 Unknown GFR CALC 2522064 GFR AA >60 ML/MIN 08/18/2010 Unknown GFR CALC 0969978 GFR NON-AA >60 ML/MIN 08/18/2010 Unknown COMPREHENSIVE METABOLIC 88392 AST 17 U/L 2010 Unknown COMPREHENSIVE METABOLIC 99602 ALT 11 IU/L 2010 Unknown COMPREHENSIVE METABOLIC 05274 BUN 12 MG/DL 2010 Unknown COMPREHENSIVE METABOLIC 99081 ALBUMIN 4.9 GM/DL 2010 Unknown COMPREHENSIVE METABOLIC 42483 CHLORIDE 104 MMOL/L 08/18 Unknown COMPREHENSIVE METABOLIC 54278 BILI TOT 0.5 MG/DL 2010 Unknown COMPREHENSIVE METABOLIC 99908 ALK PHOS 80 U/L 2010 Unknown COMPREHENSIVE METABOLIC 54212 SODIUM 137 MMOL/L 08/18 Unknown COMPREHENSIVE METABOLIC 62141 CREATININE 0.79 MG/DL 07/22 Unknown COMPREHENSIVE METABOLIC 33531 CALCIUM 9.6 MG/DL 2010 Unknown COMPREHENSIVE METABOLIC 74282 POTASSIUM 3.7 MMOL/L 08/18 Unknown COMPREHENSIVE METABOLIC 84321 PROT TOT 7.5 GM/DL 2010 Unknown COMPREHENSIVE METABOLIC 73527 Glucose 72 MG/DL 2010 Unknown COMPREHENSIVE METABOLIC 93252 BICARB 22 MMOL/L 2010 Unknown COMPREHENSIVE METABOLIC 41960 ANION GAP 11 MEQ/L 2010 Unknown Procedures Procedure Codes Date IIV4 VACC NO PRSV 6 MTHS TO 64 YRS+ IM CPT-4: 06149 11/22/2018 IIV4 VACC NO PRSV 6 MTHS TO 64 YRS+ IM CPT-4: 76662 11/22/2018 IMMUNIZATION ADMIN CPT-4: 41484 11/22/2018 THER/PROPH/DIAG INJ SC/IM CPT-4: 61255 05/29/2018 TRIAMCINOLONE ACET INJ NOS CPT-4: J3301 05/29/2018 DEXAMETHASONE SODIUM PHOS CPT-4: J1100 05/29/2018 SPECIMEN HANDLING OFFICE-LAB CPT-4: 57778 02/08/2018 THER/PROPH/DIAG INJ SC/IM CPT-4: 83716 01/09/2018 IIV4 VACCINE 3 YRS+ IM AND UP CPT-4: 09421 01/02/2018 IMMUNIZATION ADMIN CPT-4: 08420 01/02/2018 THER/PROPH/DIAG INJ SC/IM CPT-4: 18997 12/11/2017 TRIAMCINOLONE ACET INJ NOS CPT-4: J3301 12/11/2017 DEXAMETHASONE SODIUM PHOS CPT-4: J1100 12/11/2017 STREP A ASSAY W/OPTIC CPT-4: 53040 11/30/2017 THER/PROPH/DIAG INJ SC/IM CPT-4: 70926 10/13/2017 THER/PROPH/DIAG INJ SC/IM CPT-4: 29759 07/21/2017 THER/PROPH/DIAG INJ SC/IM CPT-4: 99748 04/27/2017 METHYLPREDNISOLONE INJECTION CPT-4: J2930 04/27/2017 THER/PROPH/DIAG INJ SC/IM CPT-4: 91513 04/27/2017 THER/PROPH/DIAG INJ SC/IM CPT-4: 24309 03/20/2017 METHYLPREDNISOLONE INJECTION CPT-4: J2930 03/20/2017 ROUTINE VENIPUNCTURE CPT-4: 03734 03/20/2017 A FRT/VG P CPT-4: 1004996 03/20/2017 A FOOD C P CPT-4: 5608594 03/20/2017 A NUTS PNL CPT-4: 4645264 03/20/2017 THER/PROPH/DIAG INJ SC/IM CPT-4: 95689 01/31/2017 URINE TEST CPT-4: 62360 01/31/2017 THER/PROPH/DIAG INJ SC/IM CPT-4: 60469 10/31/2016 URINE TEST CPT-4: 87630 10/31/2016 SPECIMEN HANDLING OFFICE-LAB CPT-4: 54427 09/06/2016 URINALYSIS NONAUTO W/O SCOPE CPT-4: 41246 04/28/2016 URINE CULTURE/ COLONY COUNT CPT-4: 47135 04/28/2016 THER/PROPH/DIAG INJ SC/IM CPT-4: 85677 06/12/2015 TRIAMCINOLONE ACET INJ NOS CPT-4: J3301 06/12/2015 DEXAMETHASONE SODIUM PHOS CPT-4: J1100 06/12/2015 ROUTINE VENIPUNCTURE CPT-4: 37576 07/21/2014 ASSAY OF FREE THYROXINE CPT-4: 11415 07/21/2014 ASSAY THYROID STIM HORMONE CPT-4: 41876 07/21/2014 COMPREHEN METABOLIC PANEL CPT-4: 94204 07/21/2014 COMPLETE CBC W/AUTO DIFF WBC CPT-4: 09306 07/21/2014 LIPID PANEL CPT-4: 93184 07/21/2014 THER/PROPH/DIAG INJ SC/IM CPT-4: 24678 04/02/2014 METHYLPREDNISOLONE 40 MG INJ CPT-4: J1030 04/02/2014 TRIAMCINOLONE ACET INJ NOS CPT-4: J3301 04/02/2014 URINALYSIS NONAUTO W/O SCOPE CPT-4: 72624 10/01/2013 URINE CULTURE/ COLONY COUNT CPT-4: 12621 10/01/2013 ROUTINE VENIPUNCTURE CPT-4: 49444 09/12/2013 COMPLETE CBC W/AUTO DIFF WBC CPT-4: 49344 09/12/2013 COMPREHEN METABOLIC PANEL CPT-4: 85009 09/12/2013 ASSAY OF IRON CPT-4: 23009 09/12/2013 ASSAY THYROID STIM HORMONE CPT-4: 20746 09/12/2013 ASSAY OF FREE THYROXINE CPT-4: 08002 09/12/2013 C-REACTIVE PROTEIN CPT-4: 95141 09/12/2013 THER/PROPH/DIAG INJ SC/IM CPT-4: 93190 05/17/2013 SPECIMEN HANDLING OFFICE-LAB CPT-4: 69307 05/16/2013 ROUTINE VENIPUNCTURE CPT-4: 14349 05/07/2013 ASSAY OF FREE THYROXINE CPT-4: 30049 05/07/2013 ASSAY THYROID STIM HORMONE CPT-4: 65083 05/07/2013 COMPREHEN METABOLIC PANEL CPT-4: 87216 05/07/2013 COMPLETE CBC W/AUTO DIFF WBC CPT-4: 74995 05/07/2013 LIPID PANEL CPT-4: 65941 05/07/2013 FLU VACCINE 3 YRS & > IM UP 64 CPT-4: 55612 3 IMMUNIZATION ADMIN CPT-4: 48268 01/08/2013 AEROBIC WOUND CULTURE & STN CPT-4: 51778 04/29/2011 DRAINAGE OF SKIN ABSCESS CPT-4: 12135 04/29/2011 URINALYSIS NONAUTO W/O SCOPE CPT-4: 14188 03/07/2011 URINE CULTURE/ COLONY COUNT CPT-4: 29564 03/07/2011 SPECIMEN HANDLING OFFICE-LAB CPT-4: 45121 08/18/2010 COMPLETE CBC W/AUTO DIFF WBC CPT-4: 24088 08/18/2010 COMPREHEN METABOLIC PANEL CPT-4: 28066 08/18/2010 ASSAY THYROID STIM HORMONE CPT-4: 41257 08/18/2010 ASSAY OF FREE THYROXINE CPT-4: 64883 08/18/2010 Vital Signs Date Vital 07/25/2019 Blood Pressure 1: 114/82 Code: 8480-6 BMI: 32.9 Code: 04047-1 Heart Rate 1: 76 bpm Height: 5'6" [...] 1: 126/90 Code: 8480-6 BMI: 33.4 Code: 59065-4 Heart Rate 1: 100 bpm Height: 5'6" [...] 1: 126/82 Code: 8480-6 BMI: 33.7 Code: 99389-1 Heart Rate 1: 76 bpm Height: 5'6" Respiratory Rate: 20 bpm Temperature: 37 .0 (C) / 98.6 (F) Weight: 209 lbs 04/27/2017 Heart Rate 1: 71 bpm SpO2: 97% Weight: 206 lbs 03/20/2017 Blood Pressure 1: 132/84 Code: 8480-6 BMI: 33.1 Code: 86610-6 Heart Rate 1: 96 bpm Height: 5'6" Respiratory Rate: 22 bpm SpO2: 97% Tempera ture: 36.2 (C) / 97.2 (F) Weight: 205 lbs 01/03/2017 Blood Pressure 1: 126/82 Code: 8480-6 BMI: 32.6 Code: 07790-0 Heart Rate 1: 80 bpm Height: 5'6" Respiratory Rate: 20 bpm SpO2: 97% Tempera ture: 36.6 (C) / 97.8 (F) Weight: 202 lbs 09/06/2016 Blood Pressure 1: 110/74 Code: 8480-6 BMI: 32.4 Code: 15537-8 Heart Rate 1: 86 bpm Height: 5'6" Respiratory Rate: 24 bpm SpO2: 97% Tempera ture: 36.6 (C) / 97.8 (F) Weight: 201 lbs 05/18/2016 Blood Pressure 1: 112/64 Code: 8480-6 He art Rate 1: 82 bpm 04/28/2016 Blood Pressure 1: 168/98 Code: 8480-6 BMI: 32.0 Code: 67064-4 Heart Rate 1: 102 bpm Height: 5'6" Respiratory Rate: 24 bpm SpO2: 97% Tempera ture: 36.4 (C) / 97.6 (F) Weight: 198 lbs 02/01/2016 Blood Pressure 1: 142/90 Code: 8480-6 He art Rate 1: 116 bpm 01/26/2016 Blood Pressure 1: 184/100 Code: 8480-6 H eart Rate 1: 114 bpm 09/10/2015 Blood Pressure 1: 126/64 Code: 8480-6 BMI: 32.0 Code: 11941-6 Heart Rate 1: 96 bpm Height: 5'5" Respiratory Rate: 24 bpm SpO2: 97% Tempera ture: 36.6 (C) / 97.8 (F) Weight: 192 lbs 06/12/2015 Blood Pressure 1: 106/80 Code: 8480-6 BMI: 33.4 Code: 65299-5 Heart Rate 1: 108 bpm Height: 5'5" Respiratory Rate: 20 bpm SpO2: 96% Tempera ture: 36.8 (C) / 98.3 (F) Weight: 201 lbs 11/04/2014 Blood Pressure 1: 134/86 Code: 8480-6 BMI: 32.9 Code: 95310-0 Heart Rate 1: 76 bpm Height: 5'5" Respiratory Rate: 20 bpm Temperature: 36 .6 (C) / 97.8 (F) Weight: 198 lbs 08/04/2014 Blood Pressure 1: 128/88 Code: 8480-6 BMI: 34.4 Code: 61487-6 Heart Rate 1: 90 bpm Height: 5'5" Respiratory Rate: 20 bpm Temperature: 37 .0 (C) / 98.6 (F) Weight: 207 lbs 07/21/2014 Blood Pressure 1: 146/94 Code: 8480-6 BMI: 34.4 Code: 34086-7 Heart Rate 1: 88 bpm Height: 5'5" Respiratory Rate: 20 bpm Temperature: 36 .7 (C) / 98.1 (F) Weight: 207 lbs 04/02/2014 Blood Pressure 1: 128/76 Code: 8480-6 BMI: 34.1 Code: 26259-4 Heart Rate 1: 84 bpm Height: 5'5" Respiratory Rate: 22 bpm Temperature: 36 .6 (C) / 97.8 (F) Weight: 205 lbs 03/20/2014 Blood Pressure 1: 126/82 Code: 8480-6 BMI: 33.9 Code: 24550-9 Heart Rate 1: 88 bpm Height: 5'5" Respiratory Rate: 20 bpm Temperature: 36 .7 (C) / 98.1 (F) Weight: 204 lbs 02/18/2014 Blood Pressure 1: 120/78 Code: 8480-6 BMI: 33.9 Code: 43843-1 Heart Rate 1: 72 bpm Height: 5'5" Respiratory Rate: 20 bpm Temperature: 36 .6 (C) / 97.9 (F) Weight: 204 lbs 10/01/2013 Blood Pressure 1: 124/78 Code: 8480-6 BMI: 32.9 Code: 50448-0 Heart Rate 1: 84 bpm Height: 5'5" Respiratory Rate: 20 bpm Temperature: 36 .4 (C) / 97.6 (F) Weight: 198 lbs 09/12/2013 Blood Pressure 1: 126/84 Code: 8480-6 BMI: 32.8 Code: 60324-9 Heart Rate 1: 76 bpm Height: 5'5" Respiratory Rate: 18 bpm Temperature: 36 .4 (C) / 97.6 (F) Weight: 197 lbs 05/16/2013 Blood Pressure 1: 124/68 Code: 8480-6 BMI: 33.3 Code: 65628-1 Heart Rate 1: 70 bpm Height: 5'5" Respiratory Rate: 20 bpm Temperature: 36 .3 (C) / 97.4 (F) Weight: 200 lbs 12/07/2012 Blood Pressure 1: 112/88 Code: 8480-6 BMI: 30.5 Code: 25429-3 Heart Rate 1: 92 bpm Height: 5'5" Respiratory Rate: 20 bpm Temperature: 37 .4 (C) / 99.3 (F) Weight: 183 lbs 12/03/2012 Blood Pressure 1: 124/88 Code: 8480-6 BMI: 30.5 Code: 59772-6 Heart Rate 1: 86 bpm Height: 5'5" Respiratory Rate: 20 bpm Temperature: 36 .6 (C) / 97.8 (F) Weight: 183 lbs 04/03/2012 Blood Pressure 1: 114/76 Code: 8480-6 BMI: 27.5 Code: 39692-8 Heart Rate 1: 64 bpm Height: 5'6" Temperature: 37.4 (C) / 99.4 (F) Weight: 168 lbs 03/30/2012 Blood Pressure 1: 122/80 Code: 8480-6 BMI: 27.5 Code: 65181-5 Heart Rate 1: 72 bpm Height: 5'6" Respiratory Rate: 20 bpm Temperature: 36 .8 (C) / 98.3 (F) Weight: 168 lbs 07/29/2011 Blood Pressure 1: 120/64 Code: 8480-6 BMI: 24.7 Code: 19720-0 Heart Rate 1: 84 bpm Height: 5'6" Temperature: 36.9 (C) / 98.4 (F) Weight: 151 lbs 04/29/2011 Blood Pressure 1: 102/70 Code: 8480-6 BMI: 24.4 Code: 64165-6 Heart Rate 1: 60 bpm Height: 5'6" Temperature: 36.8 (C) / 98.2 (F) Weight: 149 lbs 04/28/2011 Blood Pressure 1: 110/72 Code: 8480-6 BMI: 24.4 Code: 30579-2 Heart Rate 1: 74 bpm Height: 5'6" Temperature: 37.2 (C) / 99.0 (F) Weight: 149 lbs 03/07/2011 Blood Pressure 1: 102/72 Code: 8480-6 BMI: 23.5 Code: 42121-4 Heart Rate 1: 68 bpm Height: 5'6" Temperature: 37.1 (C) / 98.7 (F) Weight: 143 lbs 6 oz 11/10/2010 Blood Pressure 1: 121/80 Code: 8480-6 Heart Rate 1: 72 bpm Temperature: 36.7 (C) / 98.0 (F) Weight: 142 lbs 08/18/2010 Blood Pressure 1: 122/72 Code: 8480-6 BMI: 24.3 Code: 91254-6 Heart Rate 1: 88 bpm Height: 5'6" [...] for pain. Patient was given hydrocodone 5-325mg [id number] pain nasal allergies 06/12/2015 palpitations 11/04/2014 follow [...] Visit Encounters Encounter Performer Location Codes Date ([id number]) PREV VISIT EST AGE 40-64 Diagnosis: Encounter for general adult medical examination without abnormal findings[ICD10: Z00.00] Diagnosis: Essential (primary) hypertension[ICD10: I10] Diagnosis: Major depressive disorder, single episode, unspecified[ICD10: F32.9] Ritika CINTRON [facility] CPT-4: 07359 07/25/2019 ([id number]) OFFICE/OUTPATIENT VISIT EST Diagnosis: Essential (primary) hypertension[ICD10: I10] Diagnosis: Gastro-esophageal reflux disease without esophagitis[ICD10: K21.9] Diagnosis: Generalized anxiety disorder[ICD10: F41.1] Ritika CINTRON [facility] CPT-4: 82932 01/08/2019 ([id number]) NURSE/OUTPATIENT VISIT EST Diagnosis: FLU VACCINE[ICD10: Z23] Ritika POP [facility] CPT-4: 54180 11/22/2018 ([id number]) OFFICE/OUTPATIENT VISIT EST Diagnosis: Esophageal reflux[ICD10: K21.9] Diagnosis: Epigastric pain[ICD10: R10.13] Ritika CINTRON [facility] CPT-4: 30450 11/14/2018 ([id number]) OFFICE/OUTPATIENT VISIT EST Diagnosis: Elevated blood-pressure reading, without diagnosis of hypertension[ICD10: R03.0] Diagnosis: Localized edema[ICD10: R60.0] Diagnosis: Major depressive disorder, single episode, unspecified[ICD10: F32.9] Diagnosis: Gastro-esophageal reflux disease without esophagitis[ICD10: K21.9] Ritika CINTRON [facility] CPT-4: 83288 09/17/2018 ([id number]) OFFICE/OUTPATIENT VISIT EST Diagnosis: Generalized abdominal pain[ICD10: R10.84] Diagnosis: Acute gastritis with bleeding[ICD10: K29.01] [place]uita CINTRON [facility] CPT-4: 58135 08/13/2018 ([id number]) OFFICE/OUTPATIENT VISIT EST Diagnosis: Other allergic rhinitis[ICD10: J30.89] Anaya Marte [facility]: 35093 05/29/2018 ([id number]) OFFICE/OUTPATIENT VISIT EST Diagnosis: Essential (primary) hypertension[ICD10: I10] Diagnosis: Localized edema[ICD10: R60.0] Diagnosis: Major depressive disorder, single episode, unspecified[ICD10: F32.9] Ritika CINTRON DO [facility] CPT-4: 75732 05/24/2018 ([id number]) PREV VISIT EST AGE 18-39 Diagnosis: Encounter for general adult medical examination without abnormal findings[ICD10: Z00.00] Diagnosis: Encounter for gynecological examination (general) (routine) without abnormal findings[ICD10: Z01.419] Diagnosis: Gastro-esophageal reflux disease without esophagitis[ICD10: K21.9] Diagnosis: Generalized anxiety disorder[ICD10: F41.1] Ritika CINTRON DO [facility] CPT-4: 15948 02/08/2018 ([id number]) NURSE/OUTPATIENT VISIT EST Diagnosis: Excessive and frequent menstruation with regular cycle[ICD10: N92.0] Ritika CINTRON DO [employer] CPT-4: 68974 01/09/2018 ([id number]) NURSE/OUTPATIENT VISIT EST Diagnosis: FLU VACCINE[ICD10: Z23] Ritika POP [employer] CPT-4: 04476 01/02/2018 ([id number]) OFFICE/OUTPATIENT VISIT EST Diagnosis: Acute sinusitis, unspecified[ICD10: J01.90] [place] CINTRON DO [facility] CPT-4: 72170 12/11/2017 ([id number]) OFFICE/OUTPATIENT VISIT EST Diagnosis: Acute pharyngitis, unspecified[ICD10: J02.9] [place] CINTRON DO [facility] CPT-4: 94071 11/30/2017 ([id number]) OFFICE/OUTPATIENT VISIT EST Diagnosis: Low back pain[ICD10: M54.5] Diagnosis: Pelvic and perineal pain[ICD10: R10.2] Diagnosis: Excessive and frequent menstruation with regular cycle[ICD10: N92.0] Ritika CINTRON DO [employer] CPT-4: 08211 10/13/2017 ([id number]) OFFICE/OUTPATIENT VISIT EST Diagnosis: Vitamin D deficiency, unspecified[ICD10: E55.9] Diagnosis: Endocrine disorder, unspecified[ICD10: E34.9] Ritika CINTRON [employer] [facility] CPT-4: 91904 09/05/2017 ([id number]) NURSE/OUTPATIENT VISIT EST Diagnosis: Excessive and frequent menstruation with regular cycle[ICD10: N92.0] Ritika CINTRON DO [facility] CPT-4: 92387 07/21/2017 OFFICE/OUTPATIENT VISIT EST Diagnosis: Other allergic rhinitis[ICD10: J30.89] Diagnosis: Encounter for other contraceptive management[ICD10: Z30.8] [place] CINTRON DO [facility] CPT-4: 15331 04/27/2017 OFFICE/OUTPATIENT VISIT EST Diagnosis: Allergic rhinitis, unspecified[ICD10: J30.9] [place] CINTRON DO [facility] CPT-4: 86274 03/20/2017 ([id number]) OFFICE/OUTPATIENT VISIT EST Diagnosis: Excessive and frequent menstruation with regular cycle[ICD10: N92.0] Ritika CINTRON [employer] [facility] CPT-4: 81003 01/31/2017 ([id number]) OFFICE/OUTPATIENT VISIT EST Diagnosis: Epigastric pain[ICD10: R10.13] Diagnosis: Gastro-esophageal reflux disease without esophagitis[ICD10: K21.9] Diagnosis: Pain in thoracic spine[ICD10: M54.6] Diagnosis: Low back pain[ICD10: M54.5] Ritika CURRY [employer] [facility] CPT-4: 83949 01/03/2017 ([id number]) OFFICE/OUTPATIENT VISIT EST Diagnosis: Excessive and frequent menstruation with regular cycle[ICD10: N92.0] Ritika CINTRON [employer] [facility] CPT-4: 85099 10/31/2016 ([id number]) PREV VISIT EST AGE 18-39 Diagnosis: Encounter for general adult medical examination without abnormal findings[ICD10: Z00.00] Diagnosis: Encounter for general adult medical examination with abnormal findings[ICD10: Z00.01] Diagnosis: Other fatigue[ICD10: R53.83] Diagnosis: Generalized hyperhidrosis[ICD10: R61] Diagnosis: Iron deficiency anemia, unspecified[ICD10: D50.9] Ritika Abdulaziz [facility]LLINSLINE [facility]: 96378 09/06/2016 ([id number]) OFFICE/OUTPATIENT VISIT EST Diagnosis: Essential (primary) hypertension[ICD10: I10] Diagnosis: Major depressive disorder, single episode, unspecified[ICD10: F32.9] Diagnosis: Urinary tract infection, site not specified[ICD10: N39.0] Diagnosis: Acute vaginitis[ICD10: N76.0] Diagnosis: Nonscarring hair loss, unspecified[ICD10: L65.9] Mary House RITIKA [facility]n [facility] CPT-[facility]: 55776 04/28/2016 ([id number]) OFFICE/OUTPATIENT VISIT EST Diagnosis: Atypical facial pain[ICD10: G50.1] Mary TEMPLE [facility] C[facility]: 06596 09/10/2015 OFFICE/OUTPATIENT VISIT EST Diagnosis: Allergic rhinitis, unspecified[ICD10: J30.9] Sarah LOWERYQUELINE BrittanyKatelyn [facility] CPT-4: 33271 06/12/2015 ([id number]) OFFICE/OUTPATIENT VISIT EST Diagnosis: PALPITATIONS[ICD9: 785.1] Diagnosis: CHEST PAIN NOS[ICD9: 786.50] Diagnosis: GERD[ICD9: 530.81] Ritika Carrolleesquiel LOWERYRITIKA BrittanyKatelyn [facility] CPT-4: 79279 11/04/2014 ([id number]) OFFICE/OUTPATIENT VISIT EST Diagnosis: EDEMA[ICD9: 782.3] Diagnosis: PALPITATIONS[ICD9: 785.1] Diamante LOWERYQUELINE [facility] CPT-[facility]: 03393 08/04/2014 ([id number]) OFFICE/OUTPATIENT VISIT EST Diagnosis: SINUSITIS, ACUTE[ICD9: 461.9] Diagnosis: PALPITATIONS[ICD9: 785.1] Diagnosis: Elevated blood pressure[ICD9: 796.2] Diagnosis: EDEMA[ICD9: 782.3] Ritika CRUZ BrittanyKatelyn [facility] CPT-4: 27190 07/21/2014 ([id number]) OFFICE/OUTPATIENT VISIT EST Diagnosis: SINUSITIS, ACUTE[ICD9: 461.9] Diagnosis: COUGH[ICD9: 786.2] Diamante CINTRON DO [employer] CPT-4: 44234 04/02/2014 ([id number]) OFFICE/OUTPATIENT VISIT EST Diagnosis: Cervicalgia[ICD9: 723.1] Diagnosis: Thoracic back pain[ICD9: 724.1] Ritika CINTRON DO [employer] CPT-4: 86377 03/20/2014 ([id number]) OFFICE/OUTPATIENT VISIT EST Diagnosis: EXCESSIVE MENSTRUATION[ICD9: 626.2] Diagnosis: MALAISE AND FATIGUE[ICD9: 780.79] Diagnosis: ABNORMAL WEIGHT GAIN[ICD9: 783.1] Diagnosis: IBS[ICD9: 564.1] Ritika HOLLINSLINE BrittanyKatelyn ABDULAZIZ [facility] CPT - 4: 57202 02/18/2014 OFFICE/OUTPATIENT VISIT EST Diagnosis: URINARY TRACT INFECTION[ICD9: 599.0] Diagnosis: HYPERLIPIDEMIA NEC/NOS[ICD9: 272.4] Diamante CINTRON [facility] CPT-4: 12993 10/01/2013 OFFICE/OUTPATIENT VISIT EST Diagnosis: ARTHRALGIA-MULTIPLE SITES[ICD9: 719.49] Diagnosis: MALAISE AND FATIGUE[ICD9: 780.79] Diagnosis: ABNORMAL WEIGHT GAIN[ICD9: 783.1] Diamante ChapmanBirgitjanis HOLLINSKOBI [place] Aura CINTRON [facility] CPT-4: 18837 09/12/2013 ([id number]) OFFICE/OUTPATIENT VISIT EST Diagnosis: EXCESSIVE MENSTRUATION[ICD9: 626.2] Ritika CINTRON [facility] CPT-4: 90352 05/17/2013 ([id number]) PREV VISIT EST AGE 18-39 Diagnosis: ROUTINE GYNE EXAM[ICD9: V72.31] Diagnosis: ROUTINE MEDICAL EXAM[ICD9: V70.0] Diagnosis: Menorrhagia[ICD9: 626.2] Diagnosis: HYPERLIPIDEMIA NEC/NOS[ICD9: 272.4] Ritika Carrollcaer JACLASHAWN CINTRON [facility] CPT-4: 26380 05/16/2013 ([id number]) OFFICE/OUTPATIENT VISIT EST Diagnosis: ROUTINE MEDICAL EXAM[ICD9: V70.0] Ritika CINTRON [facility] CPT-4: 53045 05/07/2013 ([id number]) OFFICE/OUTPATIENT VISIT EST Diagnosis: FLU VACCINE[ICD9: V04.81] Ritika LOCK [facility] CPT-4: 63924 01/08/2013 OFFICE/OUTPATIENT VISIT EST Diagnosis: Skin infection[ICD9: 686.9] Diamante CINTRON [facility] CPT-4: 44365 12/07/2012 OFFICE/OUTPATIENT VISIT EST Diagnosis: Skin lesion, infected[ICD9: 686.9] Diagnosis: MRSA (methicillin resistant Staphylococcus aureus)[ICD9: 041.12] Diagnosis: CELLULITIS[ICD9: 682.9] Diamante POP [facility] CPT-4: 21162 12/03/2012 OFFICE/OUTPATIENT VISIT EST Diagnosis: FEBRILE ILLNESS[ICD9: 780.60] Diagnosis: SINUSITIS, ACUTE[ICD9: 461.9] Diagnosis: COUGH[ICD9: 786.2] Ritika CINTRON [facility] CPT-4: 65851 04/03/2012 OFFICE/OUTPATIENT VISIT EST Diagnosis: SINUSITIS, ACUTE[ICD9: 461.9] Ritika CINTRON [facility] CPT-4: 34176 03/30/2012 OFFICE/OUTPATIENT VISIT EST Diagnosis: CONJUNCTIVITIS NOS[ICD9: 372.30] Diagnosis: URI, ACUTE[ICD9: 465.9] Ritika POP [facility] CPT-4: 53217 07/29/2011 OFFICE/OUTPATIENT VISIT EST Diagnosis: CELLULITIS OF HAND[ICD9: 682.4] Ritika CINTRON [facility] CPT-4: 81435 04/28/2011 OFFICE/OUTPATIENT VISIT EST Diagnosis: URINARY TRACT INFECTION[ICD9: 599.0] Diagnosis: Vaginal itching[ICD9: 698.1] Ritika CINTRON [employer] CPT-4: 42335 03/07/2011 OFFICE/OUTPATIENT VISIT EST Diagnosis: Skin lesion of face[ICD9: 709.9] Diagnosis: Scratched by cat[ICD9: 919.8] Ritika CINTRON DO [employer] CPT-4: 25013 11/10/2010 PREV VISIT NEW AGE 18-39 Ritika Tamayo [facility] CPT-4: 06653 08/18/2010 Plan of Care Planned Activity Notes Codes Status Date Visit Diagnosis Plan: Essential (primary) hypertension Discussion: Stable ICD-9 : 401.9 ICD-10 : I10 07/25/2019 Visit Diagnosis Plan: Major depressive disorder, singl e episode, unspecified Discussion: Stable Follow Up: 6 months ICD-9 : 311 ICD-10 : F32.9 07/25/2019 Visit Diagnosis Plan: Encounter for [facility] adult medical examination without abnormal findings Discussion: Mediterranean diet Combinati on of cardio and weight bearing exercise Update fasting lab ICD-9 : V70.9 ICD-10 : Z00.00 07/25/2019 Patient Education: sertraline- [employer] Coupon [id number] [email or web address]/resources/getResource/[email or web address] Completed 07/25/2019 Visit Diagnosis Plan: Generalized anxiety [...] K21.9 01/08/2019 Appointment: [facility]it[facility]ron [phone] [facility] [facility] 01/08/2019 Appointment: Ritika Cintron WPtel: [address] [place], [place] [phone] [place] INJECTION 11/22/2018 Patient Education: INFLUENZA VACCINE [facility] Completed 11/22/2018 Visit Diagnosis Plan: Esophageal reflux Discussion: Ch nayan protonix to nexium Referral for EGD May need GB workup pending EGD results ICD-9 : 530.81 ICD-10 : K21.9 11/14/2018 Appointment: Ritika Cintron WPtel: [facility]7 [facility] [place] [facility] FOLLOW UP 11/14/2018 Patient Education: Nexium- [employer] Coupon [id number] [email or web address]/getResource/[email or web address].pdf Completed 11/14/2018 Visit Diagnosis Plan: Gastro-esophageal reflux disease without esophagitis Discussion: Continue protonix at current dose Recheck 3mos ICD-9 : 530.81 ICD-10 : K21.9 09/17/2018 Visit Diagnosis Plan: Elevated blood-pre ssure reading, without diagnosis of hypertension Discussion: Continue spironolactone Low Na diet ICD-9 : 796.2 ICD-10 : R03.0 09/17/2018 Appointment: Ritika Cintron WPtel: [address] [place], [place] [phone] FOLLOW UP 09/17/2018 Patient Education: spironolactone- [employer] Coupon [id number] Completed 09/17/2018 Patient Education: sertraline- [employer] Coupon [id number] Completed 09/17/2018 Visit Diagnosis Plan: Acute gastritis [...] : R10.84 08/13/2018 Appointment: Quita Jerry [address] [facility] [facility] 08/13/2018 Patient Education: Protonix- [employer] Coupon [id number] [email or web address]://www.[email or web address]/[email or web address]/resources/getResource/61/[email or web address] Completed 08/13/2018 Visit Diagnosis Plan: Other allergic rhinitis Discussi on: Steroid injection administered in the clinic- patient tolerated well. Start oral prednisone tomorrow. Ok to continue daily allergy medications. She has established with Dr. Zuleta and will be starting allergy injections with him this summer. No further questions at this time. ICD-9 : 477.8 ICD-10 : J30.89 05/29/2018 Appointment: Anaya Marte [address] [facility] ACUTE ILLNESS 05/29/2018 Visit Diagnosis Plan: Essential [...] F32.9 05/24/2018 Appointment: Ritika Cintron WPtel: [phone] [facility] [place] FOLLOW UP 05/24/2018 Visit Diagnosis Plan: [...] : K21.9 02/08/2018 Appointment: Ritika Cintron WPtel: [address] [place] [address] Annual Well Visit 02/08/2018 Appointment: Ritika Cintron WPtel: [address] [place], [place] [phone] [place] INJECTION 01/09/2018 Appointment: Ritika Cintron WPtel: [address] [place] [address] [place] INJECTION 01/02/2018 Patient Education: INFLUENZA VACCINE [...] : J01.90 12/11/2017 Appointment: Quita Jerry [address] ACUTE ILLNESS 12/11/2017 Patient Education: Patient Medication Summary Completed 12/11/2017 Patient Education: Patient Medication Summary Completed 12/11/2017 Visit Diagnosis Plan: Acute pharyngitis, unspecified D iscussion: rapid strep negative. due to clinical s/s and worsening, clindamycin sent out for patient. change toothbrush in 48 hours, no sharing food or drinks with others. discussed frequent hand washing and hand butcher chicken and fish to prevent spread of infection. tylenol/ibuprofen prn pain or fever. call office with new or worsening symptoms. ICD-9 : 462 ICD-10 : J02.9 11/30/2017 Appointment: Quita Jerry [address] ACUTE ILLNESS 11/30/2017 Patient Education: Patient [...] : M54.5 10/13/2017 Appointment: Ritika Cintron WPtel: [address] [place], [place] [phone] ACUTE ILLNESS 10/13/2017 Patient Education: Patient Medication [...] : E55.9 09/05/2017 Appointment: Ritika Cintron WPtel: [address] [place], [place] [phone] FOLLOW UP 09/05/2017 Patient Education: Patient Medication Summary Completed 09/05/2017 Appointment: Ritika Cintron WPtel: [address] [place], [place] [phone] [place] INJECTION 07/21/2017 Patient Education: Patient Medication [...] ICD-10 : Z30.8 04/27/2017 Appointment: Quita Jerry [address] [place], [place] [phone] ACUTE ILLNESS 04/27/2017 Patient Education: Patient Medication Summary Completed 04/27/2017 Appointment: Quita Jerry [address] [place], [place] [phone] ACUTE ILLNESS 03/31/2017 Visit Diagnosis Plan: Allergic [...] : J30.9 03/20/2017 Appointment: Quita Jerry [facility] [facility] 03/20/2017 Patient Education: Patient Medication Summary Completed 03/20/2017 Appointment: Ritika Cintron WPtel: [address] [place], [place] [phone] [place] INJECTION 01/31/2017 Patient Education: Patient Medication [...] : M54.6 01/03/2017 Appointment: Ritika Cintron WPtel: [facility]6 [facility] Annual Well Visit 01/03/2017 Patient Education: Patient Medication Summary Completed 01/03/2017 Appointment: Ritika Cintron WPtel: [address] [place], [place] [phone] [place] PAP 11/22/2016 Appointment: Ritika Cintron WPtel: [address] [place], [place] [phone] [place] INJECTION 10/31/2016 Patient Education: Patient Medication Summary Completed 10/31/2016 Visit Diagnosis Plan: Other fatigue Discussion: Check TSH, Free T4, CBC, CMP ICD-9 : 780.79 ICD-10 : R53.83 09/06/2016 Visit Diagnosis Plan: Iron deficiency anemia, unspecif ied Discussion: Check CBC, iron ICD-9 : 280.9 ICD-10 : D50.9 09/06/2016 Visit Diagnosis Plan: Encounter for [facility] adult medical examination with abnormal findings Discussion: Pap done May need pelvic US due to pain with intercourse ICD-9 : V70.0 ICD-10 : Z00.01 09/06/2016 Appointment: Ritika Cintron WPtel: [address] [place], [place] [phone] 09/05 confirmed~sl PAP 09/06/2016 Patient Education: Patient Medication Summary Completed 09/06/2016 Appointment: Ritika Cintron WPtel: [address] [place], [place] [phone] BP CHECK 05/18/2016 Patient Education: Patient [...] : F32.9 04/28/2016 Appointment: [facility] [address] ACUTE ILLNESS 04/28/2016 Patient Education: Patient Medication Summary Completed 04/28/2016 Appointment: Ritika Cintron WPtel: [address] [place] [address] BP CHECK 02/01/2016 Patient Education: Patient Medication Summary Completed 02/01/2016 Appointment: Ritika Cintron WPtel: [address] [place] [address] BP CHECK 01/26/2016 Patient Education: Patient Medication Summary Completed 01/26/2016 Visit Plan: Discussed POC with Dr Leticia tamayo Increase dose to 300mg TID for a full 10 days Follow up with us, dentist and OB as needed Cautioned to monitor BP and follow up if not at goal 09/10/2015 Appointment: [facility] [address] [place] [address] ACUTE ILLNESS 09/10/2015 Patient Education: Patient Medication Summary Completed 09/10/2015 Visit Plan: Dexamethesone 4mg with Kenal og 40 IM now Continue antihistamines Use nasal saline multiple times a day Humidified air Rest/fluids Reviewed s/s of worsening, go to over weekend if needed. 06/12/2015 Appointment: Sarah Campbell WPtel: [address] [place] [address] ACUTE ILLNESS 06/12/2015 Patient Education: Patient Medication Summary Completed 06/12/2015 Visit Plan: Proceed with Stress ECHO Add omeprazole Fwup after stress ECHO 11/04/2014 Appointment: Ritika Cintron WPtel: [address] [place], [place] [phone] 11/03/14 confirm FOLLOW UP 11/04/2014 Patient Education: Patient Medication Summary Completed 11/04/2014 Visit Plan: Continue HCTZ 12.5 mg for 2 more weeks. Discussed decreasing dietary sodium intake Advised against future use of pseudoephedrine 08/04/2014 Appointment: Diamante Santana WPtel: [address] [place] [address] FOLLOW UP 08/04/2014 Patient Education: Patient Medication Summary Completed 08/04/2014 Appointment: Ritika Cintron WPtel: [address] [place], [place] [phone] Urgent/Quick Care Follow Up 02/2014 Patient Education: Patient Medication Summary Completed 07/21/2014 Appointment: Diamante Santana WPtel: [address] [place], [place] [phone] ACUTE ILLNESS 04/02/2014 Patient Education: Patient Medication Summary Completed 04/02/2014 Patient Education: ConsumerCare - Antibi otics, Analgesics 18+, Oral Contraceptives F 18+ Completed 04/02/2014 Visit Plan: Check cervical and thoracic spine x-rays Daily Neck and Back stretches Duexis TID 03/20/2014 Appointment: Ritika Cintron WPtel: [address] [place], [place] [phone] ACUTE ILLNESS 03/20/2014 Patient Education: Patient Medication Summary Completed 03/20/2014 Visit Plan: Trial of Aviane Discussed di et and exercise at length--1400--1500cal ADA diet with exercise Trial of levbid 0.375mg q HS Discussed trial of Phenteramine Call in 1mo on Levbid 02/18/2014 Appointment: Ritika Cintron WPtel: [address] [place] [address] ACUTE ILLNESS 02/18/2014 Patient Education: Patient Medication Summary Completed 02/18/2014 Patient Education: ConsumerCare - Antibi otics, Analgesics 18+, Oral Contraceptives F 18+ Completed 02/18/2014 Appointment: Diamante Santana WPtel: [address] [place] [address] ACUTE ILLNESS 10/01/2013 Patient Education: Patient Medication Summary Completed 10/01/2013 Appointment: Diamante Santana WPtel: [address] [place] [address] ACUTE ILLNESS 09/12/2013 Patient Education: Patient Medication Summary Completed 09/12/2013 Referral: Ritika Cintron WPtel: [address] [place] [address] Dr Rodriguez Initiated 06/18/2013 Appointment: Ritika Cintron WPtel: [address] [place] [address] INJECTION 05/17/2013 Patient Education: Patient Medication Summary Completed 05/17/2013 Visit Plan: [facility] with [facility] discussed--fish oil 3grams daily and lifestyle change with exercise and recheck lipids 6mos 05/16/2013 Appointment: Ritika Cintron WPtel: [address] [place] [address] 05/14 pt came in and verified appt is 27 PAP 05/16/2013 Patient Education: Patient Medication Summary Completed 05/16/2013 Appointment: Ritika Cintron WPtel: [address] [place] [address] LAB 05/07/2013 Patient Education: Patient Medication Summary Completed 05/07/2013 Appointment: Rit[facility]intron [facility]Ptel: [phone] [facility] [place] [facility]JECTION 01/08/2013 Patient Education: Patient Medication Summary Completed 01/08/2013 Appointment: Diamante Santana WPtel: [phone] [facility] [place] ACUTE ILLNESS 12/07/2012 Patient Education: Patient Medication Summary Completed 12/07/2012 Appointment: Diamante Santana WPtel: [phone] [facility] [place] ACUTE ILLNESS 12/03/2012 Patient Education: Patient Medication Summary Completed 12/03/2012 Visit Plan: 2 months old at home. (saida adams) Azithromycin increased dose. Pt. reports Clindamycin is possible allergy but not sure-states "makes my throat close....I think" Discussed that will notify if symptoms worsen or fever continues. Strongly encouraged her to stay home until fever resolves. 04/03/2012 Appointment: Venecia Smith WPtel: [phone] [facility] ACUTE ILLNESS 04/03/2012 Patient Education: Patient Medication Summary Completed 04/03/2012 Visit Plan: ERx for ZPack (due to multip le med allergies and ) OTC multiple symptom cold formula (Like Robitussing PE) as directed OTC nasal saline, Tylenol, Ibuprofen prn RTC for no improvement, UC for worsening. 03/30/2012 Appointment: Sarah Campbell WPtel: [address] [place], [place] [phone] [place] ACUTE ILLNESS 03/30/2012 Patient Education: Patient [...] the time) 07/29/2011 Appointment: Sarah Campbell WPtel: [address] [place] [address] ACUTE ILLNESS 07/29/2011 Patient Education: Patient Medication Summary Completed 07/29/2011 Appointment: Venecia Smith WPtel: [address] [place] [address] FOLLOW UP 04/29/2011 Patient Education: Patient Medication Summary Completed 04/29/2011 Visit Plan: due to multiple allergies wi ll try Doxycycline and mupirocin topical.(has some topical left over from past topical infection) Will ice/cool pack finger and use Ibuprofen in addition to antibiotic. Discussed that pt. will notify if redness is worse tomorrow. 04/28/2011 Appointment: Venecia Smith WPtel: [address] [place] [address] ACUTE ILLNESS 04/28/2011 Patient Education: Patient Medication Summary Completed 04/28/2011 Visit Plan: Macrobid and Pyridium. Diflu can for possible yeast. Discussed increased fluids. Pt. will notify if symptoms worsen or fever occurs. Urine for culture. 03/07/2011 Appointment: Venecia Smith WPtel: [address] [place] [address] ACUTE ILLNESS 03/07/2011 Patient Education: Patient Medication Summary Completed 03/07/2011 Visit Plan: Pt will apply mild heat devante ral times daily to aid in healing process. Pt. has past RX for mupirocin topical. Will apply to area being careful to not get any in the eye. Will follow up if no resolution in the next 5 days. 11/10/2010 Appointment: Venecia Smith WPtel: [address] [place] [address] ACUTE ILLNESS 11/10/2010 Patient Education: Patient Medication Summary Completed 11/10/2010 Visit Plan: Pap done Check CBC, CMP, TSH , Free T4 08/18/2010 Appointment: Ritika Cintron WPtel: [address] [place] [address] NEW PATIENT 08/18/2010 Patient Education: Patient Medication [...]
--- OUTSIDE RECORDS SUMMARY | 2019-10-02 17:23 | XMS REPORT | CCD ---
Author Author Catherine Cintron D.O. Organization [facility] Address [address] [place] [address] Phone Care Team Providers Care Auto Service Instructor Name Role Phone Ritika Cintron D.O., PP Unavailable CCM Unavailable Summary Purpose Interface Exchange Insurance Providers Payer name Policy type / Coverage type Covered libertarian ID Effective Begin Date Effective End Date Blue Cross Blue Shield Blue Cross/Blue Shield [id number] Unknown Family history Mother Diagnosis Age At Onset No Family Disease Entered N/A Father Diagnosis Age At Onset Diabetes mellitus Type 1 Unknown Social History Social History Element Codes Description Effective Dates Tobacco history SNOMED CT: 208018922 Has never smoked or chewed tobacco 09/01/2010 [...] Problems Condition Codes Effective Dates Condition Status Essential (primary) hypertension ICD-9: 401.9 ICD-10: I10 04/28/2016 Active Gastro-esophageal reflux disease without esophagitis I CD-9: 530.81 ICD-10: K21.9 01/03/2017 Active Generalized anxiety disorder ICD-9: 300.00 ICD-10: F41.1 02/08/2018 Active FLU VACCINE ICD-9: V04.81 ICD-10: Z23 01/02/2018 Active Epigastric pain ICD-9: 789.06 ICD-10: R10.13 01/03/2017 Active Elevated blood-pressure reading, without diagnosis of hypertension ICD-9: 796.2 ICD-10: R03.0 07/21/2014 Active Localized edema ICD-9: 782.3 ICD-10: R60.0 05/24/2018 Active Major depressive disorder, single episode, unspecified ICD-9: 311 ICD-10: F32.9 04/28/2016 Active Acute gastritis with bleeding ICD-9: 535.01 ICD-10: K29.01 08/13/2018 Active Generalized abdominal pain ICD-9: 789.07 ICD-10: R10.84 08/13/2018 Active Encounter for screening mammogram for malignant neopla sm of breast ICD-9: V76.10 ICD-10: Z12.31 07/17/2018 Active Allergic rhinitis, unspecified ICD-9: 477.9 ICD-10: J30.9 06/11/2015 Active Other allergic rhinitis ICD-9: 477.8 ICD-10: J30.89 04/27/2017 Active Encounter for general adult medical examination withou t abnormal findings ICD-9: V70.9 ICD-10: Z00.00 09/06/2016 Active Encounter for gynecological examination (general) (routine) [...] Start Date Stop Date Status Fill Instructions Tri-Sprintec (28) 0.18 mg(7)/0.215 mg(7)/0.25 mg(7)-35 mcg tablet RxNorm: 124848 TAKE 1 TABLET BY MOUTH EVERY DAY 07/08/2019 09/01/2019 Active Tri-Sprintec (28) 0.18 mg(7)/0.215 mg(7)/0.25 mg(7)-35 mcg tablet RxNorm: 711311 1 Tablet(s) Oral QD Due for annual appt 06/12/2019 07/07/2019 I nactive Due for annual appointment Tri-Sprintec (28) 0.18 mg(7)/0.215 mg(7)/0.25 mg(7)-35 mcg tablet RxNorm: 128941 TAKE 1 TABLET BY MOUTH EVERY DAY 04/15/2019 06/11/2019 Inactive Zetia 10 mg tablet RxNorm: 900780 1 Tablet(s) Oral QD 01/08/2019 No S top Date Active Tri-Sprintec (28) 0.18 mg(7)/0.215 mg(7)/0.25 mg(7)-35 mcg tablet RxNorm: 693675 TABLET(S) 1 TABLET(S) PO QD 01/07/2019 04/14/2019 Inactive Nexium 40 mg capsule,delayed release RxNorm: 138063 1 Capsule(s ) Oral QD 11/14/2018 01/07/2019 Inactive metronidazole 500 mg tablet RxNorm: 309592 1 Tablet(s) Oral thr ee times a day 11/14/2018 11/14/2018 Inactive Bactrim DS 800 mg-160 mg tablet RxNorm: 513127 1 Tablet(s) Oral two times a day 11/14/2018 11/14/2018 Inactive sertraline 50 mg tablet RxNorm: 287340 1 Tablet(s) PO QD 1 TABL ET(S) PO QD 09/17/2018 03/15/2019 Inactive spironolactone 50 mg tablet RxNorm: 854527 Tablet(s) 1 TABLET(S ) PO QAM 09/17/2018 03/15/2019 Inactive sertraline 50 mg tablet RxNorm: 584485 1 TABLET(S) PO QD 09/10/2018 0 09/16/2018 Inactive Tri-Sprintec (28) 0.18 mg(7)/0.215 mg(7)/0.25 mg(7)-35 mcg tablet RxNorm: 657356 Tablet(s) 1 TABLET(S) PO QD 08/20/2018 01/06/2019 Inactive Protonix 40 mg tablet,delayed release RxNorm: 681302 1 Tablet(s ) PO BID 08/13/2018 11/13/2018 Inactive Flagyl 500 mg tablet RxNorm: 758473 1 Tablet(s) PO BID 08/13/2018 Inactive spironolactone 50 mg tablet RxNorm: 953076 1 TABLET(S) PO QAM 08/1309/16/2018 Inactive Tri-Sprintec (28) 0.18 mg(7)/0.215 mg(7)/0.25 mg(7)-35 mcg tablet RxNorm: 022896 1 TABLET(S) PO QD 06/18/2018 07/15/2018 Inactive sertraline 50 mg tablet RxNorm: 395794 1 Tablet(s) PO QD 06/07/2018 0 09/04/2018 Inactive prednisone 10 mg tablet RxNorm: 893171 1 Tablet(s) PO BID 05/30/2018 06/03/2018 Inactive Tri-Sprintec (28) 0.18 mg(7)/0.215 mg(7)/0.25 mg(7)-35 mcg tablet RxNorm: 887657 1 Tablet(s) PO QD 05/17/2018 06/13/2018 Inactive sertraline 50 mg tablet RxNorm: 950015 1 TABLET(S) PO QD 05/07/2018 0 06/05/2018 Inactive Tri-Sprintec (28) 0.18 mg(7)/0.215 mg(7)/0.25 mg(7)-35 mcg tablet RxNorm: 860221 1 Tablet(s) PO QD 02/08/2018 05/02/2018 Inactive sertraline 50 mg tablet RxNorm: 257565 1 Tablet(s) PO QD 02/08/2018 0 04/08/2018 Inactive omeprazole 40 mg capsule,delayed release RxNorm: 231701 1 Capsule(s) PO QD for acid reflux 02/08/2018 08/12/2018 Inactive montelukast 10 mg tablet RxNorm: 636487 1 Tablet(s) PO QHS 12/15/19 18 12/13/2017 Inactive montelukast 10 mg tablet RxNorm: 477191 1 Tablet(s) PO QHS 12/15/19 18 08/12/2018 Inactive spironolactone 50 mg tablet RxNorm: 207197 1 Tablet(s) PO QAM 12/0612/05/2017 Inactive spironolactone 50 mg tablet RxNorm: 973721 1 Tablet(s) PO QAM 12/0603/05/2018 Inactive spironolactone 25 mg tablet RxNorm: 681578 1 TABLET(S) PO QAM BLOOD PRESSURE CHECK IN 1 MONTH 12/04/2017 12/10/2017 Inactive clindamycin HCl 300 mg capsule RxNorm: 108114 1 Capsule(s) PO TID 1 12/09/2017 Inactive spironolactone 25 mg tablet RxNorm: 628179 1 Tablet(s) PO QAM Blood pressure check in 1 month 11/06/2017 12/03/2017 Inactive spironolactone 25 mg tablet RxNorm: 497125 1 Tablet(s) PO QAM Blood pressure check in 1 month 11/06/2017 11/05/2017 Inactive cyclobenzaprine 5 mg tablet RxNorm: 410210 1/2-1 Tablet(s) PO Q HS for spasm 10/13/2017 11/11/2017 Inactive Macrobid 100 mg capsule RxNorm: 833608 1 Capsule(s) PO BID 10/14/19 18 10/19/2017 Inactive Mobic 15 mg tablet RxNorm: 888621 1 Tablet(s) PO QAM for pain 10/1311/11/2017 Inactive Depo-Provera 150 mg/mL intramuscular syringe RxNorm: 6668719 Milliliter(s) IM Bring to office for administration 07/18/2017 02/07/2018 Inactive Singulair 10 mg tablet RxNorm: 043577 1 Tablet(s) PO QD 04/12/2017 Inactive Singulair 10 mg tablet RxNorm: 090559 1 Tablet(s) PO QD 03/20/2017 Inactive metoprolol tartrate 50 mg tablet RxNorm: 138084 1 Tablet(s) PO QD 0 02/21/2017 09/04/2017 Inactive Mobic 15 mg tablet RxNorm: 644959 1 Tablet(s) PO QD 01/30/20172017 Inactive Mobic 15 mg tablet RxNorm: 756387 1 Tablet(s) PO QD 01/03/20172016 Inactive Protonix 40 mg tablet,delayed release RxNorm: 864398 1 Tablet(s ) PO BID 01/03/2017 11/29/2017 Inactive metoprolol tartrate 50 mg tablet RxNorm: 814825 1 Tablet(s) PO QD 1 02/21/2017 Inactive Depo-Provera 150 mg/mL intramuscular syringe RxNorm: 7122957 Milliliter(s) IM Bring to office for administration 10/28/2016 07/17/2017 Inactive Depo-Provera 150 mg/mL intramuscular syringe RxNorm: 7110614 Milliliter(s) IM Bring to office for administration 10/10/2016 10/27/2016 Inactive Macrobid 100 mg capsule RxNorm: 582999 1 Capsule(s) PO BID 04/29/19 17 05/04/2016 Inactive metoprolol succinate ER 50 mg tablet,extended release 24 hr RxNorm: 940399 1 Tablet(s) PO QD 04/28/2016 07/26/2016 Inactive Diflucan 150 mg tablet RxNorm: 314325 1 Tablet(s) PO QD x 1 dose 09/05/2016 Inactive sertraline 25 mg tablet RxNorm: 624324 1/2 Tablet(s) PO QD for 1 week and then increase to 1 tablet PO QD 04/28/2016 09/05/2016 Inactive Toprol XL 50 mg tablet,extended release RxNorm: 875170 1 Tablet (s) PO QD 01/26/2016 04/27/2016 Inactive clindamycin 300 mg capsule RxNorm: 083295 1 Capsule(s) PO TID 09/0909/19/2015 Inactive omeprazole 20 mg capsule,delayed release RxNorm: 018525 1 Capsu le(s) PO QD 11/04/2014 04/27/2016 Inactive hydrochlorothiazide 12.5 mg tablet RxNorm: 762126 1 Tablet(s) PO QD 09/10/2014 04/27/2016 Inactive Aviane 0.1 mg-20 mcg tablet RxNorm: 415244 1 Tablet(s) PO QD 201404/27/2016 Inactive hydrochlorothiazide 12.5 mg tablet RxNorm: 903300 1 Tablet(s) PO QD 07/21/2014 09/09/2014 Inactive Zithromax Z-Kyle 250 mg tablet RxNorm: 305537 Tablet(s) PO As Di rected 07/21/2014 11/03/2014 Inactive tobramycin 0.3 % eye drops RxNorm: 990671 2 Drop(s) OPH Q4H 015 04/02/2014 Inactive tobramycin 0.3 % eye drops RxNorm: 120717 2 Drop(s) OPH Q4H 015 04/09/2014 Inactive azithromycin 250 mg tablet RxNorm: 287872 2 Tablet(s) P O on day one then one tablet on days 2 - 5 04/02/2014 11/03/2014 Inactive hyoscyamine ER 0.375 mg tablet,extended release,12 hr RxNorm : 5262227 1 Tablet(s) PO QHS 03/20/2014 11/03/2014 Inactive Levbid 0.375 mg tablet,extended release RxNorm: 9844681 1 Tablet (s) PO QHS 02/18/2014 03/19/2014 Inactive Aviane 0.1 mg-20 mcg tablet RxNorm: 399878 1 Tablet(s) PO QD 201308/27/2014 Inactive Diflucan 150 mg tablet RxNorm: 329052 1 Tablet(s) PO QOD 10/01/2013 1 Inactive Macrobid 100 mg capsule RxNorm: 927179 1 Capsule(s) PO BID 10/02/19 14 10/07/2013 Inactive clindamycin 300 mg capsule RxNorm: 087112 1 Capsule(s) PO TID 12/0312/12/2012 Inactive azithromycin 250 mg tablet RxNorm: 936936 2 Tablet(s) PO QD 013 04/08/2012 Inactive Zithromax Z-Kyle 250 mg tablet RxNorm: 862477 1 Tablet(s ) PO QD Take 2 today and 1 a day on days 2-5 03/30/2012 04/03/2012 Inactive Tobrex 0.3 % Eye Drops RxNorm: 985916 2 Drop(s) OPH Q4H 07/29/2011 Inactive doxycycline hyclate 100 mg Tab RxNorm: 1372325 1 Tablet(s) PO BID 0 04/28/2011 05/07/2011 Inactive Pyridium 200 mg Tab RxNorm: 8531867 1 Tablet(s) PO TID 03/07/2011 Inactive Macrobid 100 mg Cap RxNorm: 142283 1 Capsule(s) PO BID 03/07/2011 Inactive Diflucan 100 mg Tab RxNorm: 241852 1 Tablet(s) PO QD 03/07/201103/16 Inactive Benadryl 25 mg capsule RxNorm: 6450218 Capsule(s) PO as needed No Sta rt Date Active Vitamin B12 1000mcg Tablet RxNorm: 1/2 Tablet(s) PO QD No Star t Date 11/29/2017 Inactive Depo-Provera 150 mg/mL intramuscular syringe RxNorm: 7317337 Milliliter(s) IM Bring to office for administration No Start Date 10/09/2016 Inactive metoprolol tartrate 50 mg tablet RxNorm: 966808 1 Tablet(s) PO QD N o Start Date 11/22/2016 Inactive Zyrtec 10 mg tablet RxNorm: 5598331 1 Tablet(s) PO QD No Start Date 1 Inactive Sudafed PE 10 mg tablet RxNorm: 8689328 Tablet(s) PO as needed No S tart Date 09/04/2017 Inactive Toprol XL 50 mg tablet,extended release RxNorm: 966468 1 Tablet (s) PO QD No Start Date 01/25/2016 Inactive Depo-Provera 150 mg/mL intramuscular suspension RxNorm: 1000 128 1 Milliliter(s) IM every 3mos No Start Date 02/17/2014 Inactive Flonase Allergy Relief 50 mcg/actuation nasal spray,suspensi on RxNorm: [place] NASAL as needed No Start Date 11/29/2017 Inactive Zyrtec 10 mg tablet RxNorm: 6843520 1 Tablet(s) PO QD as needed No Start Date 05/23/2018 Inactive Medication Administered No Medication Administered data Immunizations Vaccine Codes Date Status Influenza CVX: 141 11/22/2018 Complete Influenza CVX: 141 11/22/2018 Complete Influenza CVX: 141 01/02/2018 Complete Influenza CVX: 141 01/08/2013 Pediatric Influenza CVX: 141 01/08/2013 Results Observation Observation Code Item Item Code Result Date S vice Location COMPLETE BLOOD COUNT [id number] WBC 15.9 10e9/L 019 Unknown COMPLETE BLOOD COUNT [id number] RBC 5.10 10e12/L 2018 Unknown COMPLETE BLOOD COUNT [id number] HEMOGLOBIN 15.2 g/dL 08/14/19 19 Unknown COMPLETE BLOOD COUNT [id number] HEMATOCRIT 46.2 % 08/14/19 19 Unknown COMPLETE BLOOD COUNT [id number] MCV 90.6 fL 9 Unknown COMPLETE BLOOD COUNT [id number] MCH 29.8 pg 9 Unknown COMPLETE BLOOD COUNT [id number] MCHC 32.9 g/dL 9 Unknown COMPLETE BLOOD COUNT [id number] PLATELET COUNT 433 10e9/L Unknown COMPLETE BLOOD COUNT [id number] Mean Plt Volume 9.9 fL Unknown COMPLETE BLOOD COUNT [id number] Neut Auto 74.7 % 9 Unknown COMPLETE BLOOD COUNT [id number] Lymph Auto 18.6 % 08/14/19 19 Unknown COMPLETE BLOOD COUNT [id number] [place] Auto 5.8 % 9 Unknown COMPLETE BLOOD COUNT [id number] RDW 14.1 % 9 Unknown COMPLETE BLOOD COUNT [id number] Eos Auto 0.6 % 9 Unknown COMPLETE BLOOD COUNT [id number] Baso Auto 0.3 % 9 Unknown COMPLETE BLOOD COUNT [id number] Neutrophil Abs 11.88 10e9/L 0 08/13/2018 Unknown COMPLETE BLOOD COUNT [id number] Lymphocyte Abs 2.96 10e9/L Unknown COMPLETE BLOOD COUNT [id number] Monocyte Abs 0.92 10e9/L 07/22 Unknown COMPLETE BLOOD COUNT [id number] Eosinophil Abs 0.10 10e9/L Unknown COMPLETE BLOOD COUNT [id number] RDW-SD 45.7 fL 9 Unknown COMPLETE BLOOD COUNT [id number] Basophil Abs 0.05 10e9/L 07/22 Unknown A FOOD C P [id number] Codfish Cl Class 0 03/21/2017 Unknown A FOOD C P [id number] Codfish Ct <0.35 kU/L 03/21/2017 Unknow n A FOOD C P [id number] [place] Cl Class 0 03/21/2017 Unkn own A FOOD C P [id number] [place] Ct <0.35 kU/L 03/21/2017 Unk nown A FOOD C P [id number] Egg White Cl Class 3 03/21/2017 Unkno wn A FOOD C P [id number] Egg White Ct 4.68 kU/L 03/21/2017 Unkno wn A FOOD C P 1642531 Egg Yolk Cl Class 1 03/21/2017 Unknow n A FOOD C P [id number] Egg Yolk Ct 0.49 kU/L 03/21/2017 Unknow n A FOOD C P 1424411 Cow Milk Cl Class 3 03/21/2017 Unknow n A FOOD C P [id number] Cow Milk Ct 3.77 kU/L 03/21/2017 Unknow n A FOOD C P [id number] Peanut Cl Class 0 03/21/2017 Unknown A FOOD C P [id number] Peanut Ct <0.35 kU/L 03/21/2017 Unknown A FOOD C P [id number] Shrimp Cl Class 2 03/21/2017 Unknown A FOOD C P [id number] Shrimp Ct 0.78 kU/L 03/21/2017 Unknown A FOOD C P [id number] Soybean Cl Class 0 03/21/2017 Unknown A FOOD C P [id number] Soybean Ct <0.35 kU/L 03/21/2017 Unknow n A FOOD C P 7855172 Wheat Cl Class 1 03/21/2017 Unknown A FOOD C P [id number] Wheat Ct 0.58 kU/L 03/21/2017 Unknown A FOOD C P [id number] Potato Cl Class 0 03/21/2017 Unknown A FOOD C P [id number] Potato Ct <0.35 kU/L 03/21/2017 Unknown A FOOD C P [id number] Beef Cl Class 0 03/21/2017 Unknown A FOOD C P [id number] Beef Ct <0.35 kU/L 03/21/2017 Unknown A FOOD C P [id number] [place] Cl Class 0 03/21/2017 Unknown A FOOD C P [id number] [place] Ct <0.35 kU/L 03/21/2017 Unknown A FOOD C P [id number] Pork Cl Class 0 03/21/2017 Unknown A FOOD C P [id number] Pork Ct <0.35 kU/L 03/21/2017 Unknown A FOOD C P [id number] [place] Cl Class 0 03/21/2017 Unknown A FOOD C P [id number] Rice Ct <0.35 kU/L 03/21/2017 Unknown A FOOD C P [id number] [place] Cl Class 0 03/21/2017 Unkn own A FOOD C P [id number] [place] Ct <0.35 kU/L 03/21/2017 Unk nown A FOOD C P [id number] Tomato Cl Class 0 03/21/2017 Unknown A FOOD C P [id number] Tomato Ct <0.35 kU/L 03/21/2017 Unknown A FOOD C P [id number] Tuna Cl Class 0 03/21/2017 Unknown A FOOD C P [id number] Tuna Ct <0.35 kU/L 03/21/2017 Unknown A FOOD C P [id number] [place] CL Class 0 03/21/2017 Unknown A FOOD C P [id number] [place] CT <0.35 kU/L 03/21/2017 Unknown A FOOD C P [id number] Casein Cl Class 1 03/21/2017 Unknown A FOOD C P [id number] Casein Ct 0.64 kU/L 03/21/2017 Unknown A FOOD C P [id number] Oat Cl Class 0 03/21/2017 Unknown A FOOD C P [id number] Oat Ct <0.35 kU/L 03/21/2017 Unknown A FOOD C P [id number] [place] Cl Class 2 03/21/2017 Unknown A FOOD C P [id number] [place] Ct 0.75 kU/L 03/21/2017 Unknown A FOOD C P [id number] Chicken Meat CL Class 0 03/21/2017 Un known A FOOD C P [id number] Chicken Meat Ct <0.35 kU/L 03/21/2017 U nknown A FOOD C P [id number] [place] Cl Class 0 03/21/2017 Unknown A FOOD C P [id number] [place] Ct <0.35 kU/L 03/21/2017 Unknown A FOOD C P [id number] Pecan Meat Cl Class 0 03/21/2017 Unkn own A FOOD C P [id number] Pecan Meat Ct <0.35 kU/L 03/21/2017 Unk nown A NUTS PNL [id number] Peanut Cl Class 0 03/21/2017 Unknown A NUTS PNL 6040995 Peanut Ct <0.35 kU/L 03/21/2017 Unknown A NUTS PNL [id number] [place] Meat Cl Class 0 03/21/2017 Unk nown A NUTS PNL [id number] [place] Meat Ct <0.35 kU/L 03/21/2017 Un known A NUTS PNL [id number] Pec[place] Meat Cl Class 0 03/21/2017 Unkn own A NUTS PNL [id number] Pecan Meat Ct <0.35 kU/L 03/21/2017 Unk nown A NUTS PNL [id number] [place] Cl Class 0 03/21/2017 Unknown A NUTS PNL [id number] [place] Ct <0.35 kU/L 03/21/2017 Unknown A NUTS PNL [id number] [place] Cl Class 0 03/21/2017 Unknow n A NUTS PNL 6155101 [place] Ct <0.35 kU/L 03/21/2017 Unkno wn A NUTS PNL 4637663 [place] Cl Class 0 03/21/2017 Unkno wn A NUTS PNL 3820362 [place] Ct <0.35 kU/L 03/21/2017 Unkn own A NUTS PNL [id number] [place] Cl Class 0 03/21/2017 Unknown A NUTS PNL 4384757 [place] Ct <0.35 kU/L 03/21/2017 Unknown A NUTS PNL 5142004 Pistachio Cl Class 0 03/21/2017 Unkno wn A NUTS PNL [id number] Pistachio Ct <0.35 kU/L 03/21/2017 Unkn own A NUTS PNL 5595130 Allergen Interp See Note 03/21/2017 Un known A FRT/VG P [id number] [place] Cl Class 0 03/21/2017 Unkn own A FRT/VG P [id number] [place] Ct <0.35 kU/L 03/21/2017 Unk nown A FRT/VG P 4505774 Potato Cl Class 0 03/21/2017 Unknown A FRT/VG P [id number] Potato Ct <0.35 kU/L 03/21/2017 Unknown A FRT/VG P [id number] [place] Cl Class 0 03/21/2017 Unkn own A FRT/VG P [id number] [place] Ct <0.35 kU/L 03/21/2017 Unk nown A FRT/VG P 2130101 Tomato Cl Class 0 03/21/2017 Unknown A FRT/VG P [id number] Tomato Ct <0.35 kU/L 03/21/2017 Unknown A FRT/VG P 8690145 [place] Cl Class 2 03/21/2017 Unknown A FRT/VG P [id number] [place] Ct 0.75 kU/L 03/21/2017 Unknown A FRT/VG P [id number] Banana Cl Class 2 03/21/2017 Unknown A FRT/VG P 1102864 Banana Ct 2.58 kU/L 03/21/2017 Unknown A FRT/VG P 1202922 [place] Fruit Cl Class 0 03/21/2017 Unk nown A FRT/VG P 4998819 [place] Fruit Ct <0.35 kU/L 03/21/2017 Un known A FRT/VG P [id number] Apple Fruit Cl Class 0 03/21/2017 Unk nown A FRT/VG P 1336727 Apple Fruit Ct <0.35 kU/L 03/21/2017 Un known A FRT/VG P 4357907 Carrot Cl Class 0 03/21/2017 Unknown A FRT/VG P [id number] Carrot Ct <0.35 kU/L 03/21/2017 Unknown A FRT/VG P 9367124 Pea Cl Class 0 03/21/2017 Unknown A FRT/VG P [id number] Pea Ct <0.35 kU/L 03/21/2017 Unknown A FRT/VG P 5612252 Pear Fruit Cl Class 0 03/21/2017 Unkn own A FRT/VG P 3836142 Pear Fruit Ct <0.35 kU/L 03/21/2017 Unk nown A FRT/VG P 2152559 Swt Potato Cl Class 0 03/21/2017 Unkn own A FRT/VG P 8971299 Swt Potato Ct <0.35 kU/L 03/21/2017 Unk nown A OK/KS/PN 2004703 [place] Cl Class 0 03/21/2017 Unknown A OK/KS/PN 2879790 [place] Ct <0.35 kU/L 03/21/2017 Unknow n A OK/KS/PN 4928699 Alt Ten Cl Class 0 03/21/2017 Unknown A OK/KS/PN 1654030 Alt Ten Ct <0.35 kU/L 03/21/2017 Unknow n A OK/KS/PN 5454098 [place] Cl Class 0 03/21/2017 Un known A OK/KS/PN 4460908 [place] Ct <0.35 kU/L 03/21/2017 U nknown A OK/KS/PN 6779996 [place] Cl Class 0 03/21/2017 Unknow n A OK/KS/PN 7385581 [place] Ct <0.35 kU/L 03/21/2017 Unkno wn A OK/KS/PN 6150239 [place] Gr Cl Class 0 03/21/2017 Unkn own A OK/KS/PN 3259740 Gadiel Gr Ct <0.35 kU/L 03/21/2017 Unk nown A OK/KS/PN 7896026 Yasir Blue Cl Class 1 03/21/2017 Unkno wn A OK/KS/PN 6193699 Yas[place] Blue Ct 0.59 kU/L 03/21/2017 Unkno wn A OK/KS/PN 3241834 Rough [place] Cl Class 0 03/21/2017 Unk nown A OK/KS/PN 5962333 Rough [place] Ct <0.35 kU/L 03/21/2017 Un known A OK/KS/PN 3215742 [place] Cl Class 2 03/21/2017 Unknow n A OK/KS/PN 4681531 [place] Ct 0.72 kU/L 03/21/2017 Unknow n A OK/KS/PN 6869519 Rag[place] Cl Class 2 03/21/2017 Unknown A OK/KS/PN 0497726 Rag[place] Ct 1.46 kU/L 03/21/2017 Unknown A OK/KS/PN 2470625 Cat D[place] Cl Class 0 03/21/2017 Unkn own A OK/KS/PN 1746698 Cat D[place] Ct <0.35 kU/L 03/21/2017 Unk nown A OK/KS/PN 0004946 Dog Dander Cl Class 0 03/21/2017 Unkn own A OK/KS/PN 0854316 Dog Dander Ct <0.35 kU/L 03/21/2017 Unk nown A OK/KS/PN 2948129 Pecan Tr Cl Class 0 03/21/2017 Unknow n A OK/KS/PN 8706511 Pecan Tr Ct <0.35 kU/L 03/21/2017 Unkno wn A OK/KS/PN 6356975 Dust Mite Cl Class 0 03/21/2017 Unkno wn A OK/KS/PN 4320010 Dust Mite Ct <0.35 kU/L 03/21/2017 Unkn own A OK/KS/PN 9304346 Allergen Interp See Note 03/21/2017 Un known FREE T4 02326 T4 Free 0.97 ng/dL 09/06/2016 Unknown THYROID STIMULATING HORMONE 26101 TSH 1.665 uIU/mL 09/06/2016 Unknown COMPLETE BLOOD COUNT 6426634 WBC 11.9 10e9/L 017 Unknown COMPLETE BLOOD COUNT 1920493 RBC 4.70 10e12/L 2016 Unknown COMPLETE BLOOD COUNT [id number] HEMOGLOBIN 13.9 g/dL 09/07/19 17 Unknown COMPLETE BLOOD COUNT 6607085 HEMATOCRIT 41.0 % 09/07/19 17 Unknown COMPLETE BLOOD COUNT 1415770 MCV 87.2 fL 7 Unknown COMPLETE BLOOD COUNT 1139826 MCH 29.6 pg 7 Unknown COMPLETE BLOOD COUNT 4128739 MCHC 33.9 g/dL 7 Unknown COMPLETE BLOOD COUNT 9273234 PLATELET COUNT 395 10e9/L Unknown COMPLETE BLOOD COUNT 5934352 Mean Plt Volume 9.1 fL Unknown COMPLETE BLOOD COUNT 8025538 Neut Auto 62.9 % 7 Unknown COMPLETE BLOOD COUNT 9957662 Lymph Auto 24.4 % 09/07/19 17 Unknown COMPLETE BLOOD COUNT 1148537 [place] Auto 7.6 % 7 Unknown COMPLETE BLOOD COUNT 1567546 RDW 13.5 % 7 Unknown COMPLETE BLOOD COUNT 6693374 Eos Auto 4.6 % 7 Unknown COMPLETE BLOOD COUNT 3766333 Baso Auto 0.5 % 7 Unknown COMPLETE BLOOD COUNT 3382826 Neutrophil Abs 7.49 10e9/L Unknown COMPLETE BLOOD COUNT 0191846 Lymphocyte Abs 2.90 10e9/L Unknown COMPLETE BLOOD COUNT [id number] Monocyte Abs 0.90 10e9/L 08/20 Unknown COMPLETE BLOOD COUNT 1239837 Eosinophil Abs 0.55 10e9/L Unknown COMPLETE BLOOD COUNT 1104028 Basophil Abs 0.06 10e9/L 08/20 Unknown COMPLETE BLOOD COUNT 2516545 RDW-SD 41.9 fL 7 Unknown GFR CALC 3544902 GFR Afr Amr >60 mL/min 09/06/2016 Unknow n GFR CALC 3451312 GFR Non Afr Amr >60 mL/min 09/06/2016 Un known COMPREHENSIVE METABOLIC 73857 AST 22 U/L 2016 Unknown COMPREHENSIVE METABOLIC 82184 ALT 30 U/L 2016 Unknown COMPREHENSIVE METABOLIC 86298 BUN 26 mg/dL 2016 Unknown COMPREHENSIVE METABOLIC 77257 ALBUMIN 4.8 g/dL 2016 Unknown COMPREHENSIVE METABOLIC 04153 CHLORIDE 107 mmol/L 09/06 Unknown COMPREHENSIVE METABOLIC 42690 Bili Total 0.2 mg/dL 09/06 Unknown COMPREHENSIVE METABOLIC 30973 ALK PHOS 118 U/L 2016 Unknown COMPREHENSIVE METABOLIC 68502 SODIUM 139 mmol/L 09/06 Unknown COMPREHENSIVE METABOLIC 48832 CREATININE 0.67 mg/dL 08/20 Unknown COMPREHENSIVE METABOLIC 75432 CALCIUM 9.8 mg/dL 2016 Unknown COMPREHENSIVE METABOLIC 11918 POTASSIUM 4.3 mmol/L 09/06 Unknown COMPREHENSIVE METABOLIC 80804 Total Protein 7.8 g/dL Unknown COMPREHENSIVE METABOLIC 80153 Glucose 96 mg/dL 2016 Unknown COMPREHENSIVE METABOLIC 94869 Bicarbonate 22 mmol/L 08/20 Unknown COMPREHENSIVE METABOLIC 78942 AGAP 10 mmol/L 2016 Unknown IRON 36157 Iron 58 ug/dL 09/06/2016 Unknown COMPLETE BLOOD COUNT 6160723 WBC 12.2 10e9/L 015 Unknown COMPLETE BLOOD COUNT [id number] RBC 4.52 10e12/L 2014 Unknown COMPLETE BLOOD COUNT [id number] HGB 13.3 g/dL 5 Unknown COMPLETE BLOOD COUNT 9179557 HCT DET 40.3 % 5 Unknown COMPLETE BLOOD COUNT 1653941 MCV 89.2 fL 5 Unknown COMPLETE BLOOD COUNT 6558535 MCH 29.4 pg 5 Unknown COMPLETE BLOOD COUNT 1127320 MCHC 33.0 g/dL 5 Unknown COMPLETE BLOOD COUNT [id number] PLT 402 10e9/L 07/22/19 15 Unknown COMPLETE BLOOD COUNT 2327464 MPV 9.6 fL 5 Unknown COMPLETE BLOOD COUNT 8557845 ERIN % 64.8 % 5 Unknown COMPLETE BLOOD COUNT 9156858 LY % 24.6 % 5 Unknown COMPLETE BLOOD COUNT 2863971 MON % 7.0 % 5 Unknown COMPLETE BLOOD COUNT 8840408 EOS % 3.3 % 5 Unknown COMPLETE BLOOD COUNT 9151947 BASO % 0.3 % 5 Unknown COMPLETE BLOOD COUNT 8015156 RDW 13.2 % 5 Unknown COMPLETE BLOOD COUNT [id number] ABS ERIN 7.91 10e9/L 015 Unknown COMPLETE BLOOD COUNT 3116907 ABS LYMPH 3.00 10e9/L 015 Unknown COMPLETE BLOOD COUNT 6488293 ABS MONO 0.85 10e9/L 015 Unknown COMPLETE BLOOD COUNT 2605715 ABS EOS 0.40 10e9/L 015 Unknown COMPLETE BLOOD COUNT 4442811 ABS BASO 0.04 10e9/L 015 Unknown COMPLETE BLOOD COUNT [id number] RDW-SD 42.3 fL 5 Unknown COMPREHENSIVE METABOLIC 16538 AST 21 U/L 2014 Unknown COMPREHENSIVE METABOLIC 97872 ALT 27 IU/L 2014 Unknown COMPREHENSIVE METABOLIC 99387 BUN 12 MG/DL 2014 Unknown COMPREHENSIVE METABOLIC 97227 ALBUMIN 4.1 GM/DL 2014 Unknown COMPREHENSIVE METABOLIC 36281 CHLORIDE 102 MMOL/L 07/21 Unknown COMPREHENSIVE METABOLIC 34854 BILI TOT 0.3 MG/DL 2014 Unknown COMPREHENSIVE METABOLIC 83296 ALK PHOS 94 U/L 2014 Unknown COMPREHENSIVE METABOLIC 67453 SODIUM 138 MMOL/L 07/21 Unknown COMPREHENSIVE METABOLIC 70340 CREATININE 0.71 MG/DL 02/2014 Unknown COMPREHENSIVE METABOLIC 55194 CALCIUM 9.4 MG/DL 2014 Unknown COMPREHENSIVE METABOLIC 02453 POTASSIUM 3.7 MMOL/L 07/21 Unknown COMPREHENSIVE METABOLIC 58041 PROT TOT 7.0 GM/DL 2014 Unknown COMPREHENSIVE METABOLIC 83260 Glucose 84 MG/DL 2014 Unknown COMPREHENSIVE METABOLIC 00970 BICARB 27 MMOL/L 2014 Unknown COMPREHENSIVE METABOLIC 08323 ANION GAP 9 MEQ/L 2014 Unknown GFR CALC [id number] GFR AA >60 ML/MIN 07/21/2014 Unknown GFR CALC 3476856 GFR NON-AA >60 ML/MIN 07/21/2014 Unknown FREE T4 89131 FREE T4 0.90 NG/DL 07/21/2014 Unknown THYROID STIMULATING HORMONE 36557 TSH 1.838 uIU/ML 07/21/2014 Unknown LIPID GROUP 00045 HDL TEST 33 MG/DL 07/21/2014 Unknown [facility] 73114 TRIG 320 MG/DL 07/21/2014 Unknown [facility] 21434 TEST LDL 122 MG/DL 07/21/2014 Unknown [facility] 62189 CHOL 219 MG/DL 07/21/2014 Unknown [facility] GROUP 20192 RCHOL/HDL 6.64 RATIO 07/21/2014 Unknow n LIP[facility] GROUP 31979 NON-HDL CH 186 MG/DL 07/21/2014 Unknow n IRON 39548 IRON TEST 99 UG/DL 09/12/2013 Unknown C-REACTIVE PROTEIN (CRP) QUANT 06714 CRP 0.2 MG/DL 09/12/2013 Unknown GFR CALC GFR AA >60 ML/MIN 09/12/2013 Unknown GFR CALC 4809005 GFR NON-AA >60 ML/MIN 09/12/2013 Unknown THYROID STIMULATING HORMONE 03762 TSH 1.882 uIU/ML 09/12/2013 Unknown COMPLETE BLOOD COUNT [id number] WBC 7.9 10e9/L 09/13/19 14 Unknown COMPLETE BLOOD COUNT [id number] RBC 4.83 10e12/L 2013 Unknown COMPLETE BLOOD COUNT 2665540 HGB 14.2 g/dL 4 Unknown COMPLETE BLOOD COUNT 1545461 HCT DET 42.5 % 4 Unknown COMPLETE BLOOD COUNT 8364605 MCV 88.0 fL 4 Unknown COMPLETE BLOOD COUNT 0606824 MCH 29.4 pg 4 Unknown COMPLETE BLOOD COUNT 9154452 MCHC 33.4 g/dL 4 Unknown COMPLETE BLOOD COUNT [id number] PLT 359 10e9/L 09/13/19 14 Unknown COMPLETE BLOOD COUNT 2624321 MPV 10.1 fL 4 Unknown COMPLETE BLOOD COUNT 9011956 ERIN % 55.7 % 4 Unknown COMPLETE BLOOD COUNT 5883453 LY % 32.7 % 4 Unknown COMPLETE BLOOD COUNT 6597717 MON % 6.6 % 4 Unknown COMPLETE BLOOD COUNT 7481369 EOS % 4.5 % 4 Unknown COMPLETE BLOOD COUNT [id number] BASO % 0.5 % 4 Unknown COMPLETE BLOOD COUNT 0023817 RDW 13.8 % 4 Unknown COMPLETE BLOOD COUNT [id number] ABS ERIN 4.40 10e9/L 014 Unknown COMPLETE BLOOD COUNT [id number] ABS LYMPH 2.58 10e9/L 014 Unknown COMPLETE BLOOD COUNT [id number] ABS MONO 0.52 10e9/L 014 Unknown COMPLETE BLOOD COUNT [id number] ABS EOS 0.36 10e9/L 014 Unknown COMPLETE BLOOD COUNT 2338181 ABS BASO 0.04 10e9/L 014 Unknown COMPLETE BLOOD COUNT [id number] RDW-SD 44.0 fL 4 Unknown FREE T4 74826 FREE T4 0.95 NG/DL 09/12/2013 Unknown COMPREHENSIVE METABOLIC 42935 AST 19 U/L 2013 Unknown COMPREHENSIVE METABOLIC 97523 ALT 18 IU/L 2013 Unknown COMPREHENSIVE METABOLIC 64991 BUN 11 MG/DL 2013 Unknown COMPREHENSIVE METABOLIC 69414 ALBUMIN 4.8 GM/DL 2013 Unknown COMPREHENSIVE METABOLIC 61026 CHLORIDE 107 MMOL/L 09/12 Unknown COMPREHENSIVE METABOLIC 11464 BILI TOT 0.4 MG/DL 2013 Unknown COMPREHENSIVE METABOLIC 95764 ALK PHOS 86 U/L 2013 Unknown COMPREHENSIVE METABOLIC 36642 SODIUM 138 MMOL/L 09/12 Unknown COMPREHENSIVE METABOLIC 51254 CREATININE 0.79 MG/DL 08/21 Unknown COMPREHENSIVE METABOLIC 51164 CALCIUM 10.0 MG/DL 09/12 Unknown COMPREHENSIVE METABOLIC 39827 POTASSIUM 4.1 MMOL/L 09/12 Unknown COMPREHENSIVE METABOLIC 20127 PROT TOT 7.6 GM/DL 2013 Unknown COMPREHENSIVE METABOLIC 35923 Glucose 96 MG/DL 2013 Unknown COMPREHENSIVE METABOLIC 35155 BICARB 23 MMOL/L 2013 Unknown COMPREHENSIVE METABOLIC 09667 ANION GAP 8 MEQ/L 2013 Unknown [facility] 29248 HDL TEST 38 MG/DL 05/07/2013 Unknown [facility] GROUP 77151 TRIG 176 MG/DL 05/07/2013 Unknown [facility] GROUP 52224 TEST LDL 163 MG/DL 05/07/2013 Unknown LIP[facility] GROUP 02331 CHOL 236 MG/DL 05/07/2013 Unknown [facility] GROUP 86862 RCHOL/HDL 6.21 RATIO 05/07/2013 Unknow n GFR CALC 2618454 GFR AA >60 ML/MIN 05/07/2013 Unknown GFR CALC 6100859 GFR NON-AA >60 ML/MIN 05/07/2013 Unknown COMPREHENSIVE METABOLIC 46404 AST 34 U/L 2013 Unknown COMPREHENSIVE METABOLIC 42990 ALT 37 IU/L 2013 Unknown COMPREHENSIVE METABOLIC 51983 BUN 15 MG/DL 2013 Unknown COMPREHENSIVE METABOLIC 08350 ALBUMIN 4.4 GM/DL 2013 Unknown COMPREHENSIVE METABOLIC 70979 CHLORIDE 106 MMOL/L 05/07 Unknown COMPREHENSIVE METABOLIC 75165 BILI TOT 0.3 MG/DL 2013 Unknown COMPREHENSIVE METABOLIC 63348 ALK PHOS 106 U/L 2013 Unknown COMPREHENSIVE METABOLIC 04548 SODIUM 139 MMOL/L 05/07 Unknown COMPREHENSIVE METABOLIC 14049 CREATININE 0.67 MG/DL 04/20 Unknown COMPREHENSIVE METABOLIC 38920 CALCIUM 9.4 MG/DL 2013 Unknown COMPREHENSIVE METABOLIC 54096 POTASSIUM 4.2 MMOL/L 05/07 Unknown COMPREHENSIVE METABOLIC 55711 PROT TOT 7.1 GM/DL 2013 Unknown COMPREHENSIVE METABOLIC 63069 Glucose 93 MG/DL 2013 Unknown COMPREHENSIVE METABOLIC 83454 BICARB 25 MMOL/L 2013 Unknown COMPREHENSIVE METABOLIC 69018 ANION GAP 8 MEQ/L 2013 Unknown COMPLETE BLOOD COUNT 2335272 WBC 6.7 10e9/L 05/08/19 14 Unknown COMPLETE BLOOD COUNT 9559217 RBC 4.68 10e12/L 2013 Unknown COMPLETE BLOOD COUNT 5963914 HGB 13.6 g/dL 4 Unknown COMPLETE BLOOD COUNT 4450404 HCT DET 41.1 % 4 Unknown COMPLETE BLOOD COUNT 1171032 MCV 87.8 fL 4 Unknown COMPLETE BLOOD COUNT 1062506 MCH 29.1 pg 4 Unknown COMPLETE BLOOD COUNT 6583709 MCHC 33.1 g/dL 4 Unknown COMPLETE BLOOD COUNT 7031599 PLT 326 10e9/L 05/08/19 14 Unknown COMPLETE BLOOD COUNT 9078769 MPV 10.1 fL 4 Unknown COMPLETE BLOOD COUNT 5195609 ERIN % 57.3 % 4 Unknown COMPLETE BLOOD COUNT 3823765 LY % 30.3 % 4 Unknown COMPLETE BLOOD COUNT 3293482 MON % 6.9 % 4 Unknown COMPLETE BLOOD COUNT 4446354 EOS % 5.2 % 4 Unknown COMPLETE BLOOD COUNT 4465717 BASO % 0.3 % 4 Unknown COMPLETE BLOOD COUNT 1058278 RDW 13.9 % 4 Unknown COMPLETE BLOOD COUNT 4712491 ABS ERIN 3.84 10e9/L 03/18/2 014 Unknown COMPLETE BLOOD COUNT 7274144 ABS LYMPH 2.03 10e9/L 014 Unknown COMPLETE BLOOD COUNT [id number] ABS MONO 0.46 10e9/L 014 Unknown COMPLETE BLOOD COUNT 6934559 ABS EOS 0.35 10e9/L 014 Unknown COMPLETE BLOOD COUNT 8927474 ABS BASO 0.02 10e9/L 014 Unknown COMPLETE BLOOD COUNT 9343493 RDW-SD 43.5 fL 4 Unknown THYROID STIMULATING HORMONE 54357 TSH 1.476 uIU/ML 05/07/2013 Unknown FREE T4 59529 FREE T4 0.83 NG/DL 05/07/2013 Unknown FREE T4 08934 FREE T4 1.28 NG/DL 08/18/2010 Unknown COMPLETE BLOOD COUNT 73697 WBC 7.3 10e9/L 08/19/19 11 Unknown COMPLETE BLOOD COUNT 35368 RBC 5.15 10e12/L 2010 Unknown COMPLETE BLOOD COUNT 71281 HGB 14.4 g/dL 1 Unknown COMPLETE BLOOD COUNT 47923 HCT DET 43.2 % 1 Unknown COMPLETE BLOOD COUNT 28989 MCV 83.9 fL 1 Unknown COMPLETE BLOOD COUNT 28566 MCH 28.0 pg 1 Unknown COMPLETE BLOOD COUNT 12011 MCHC 33.3 g/dL 1 Unknown COMPLETE BLOOD COUNT 61082 PLT 341 10e9/L 08/19/19 11 Unknown COMPLETE BLOOD COUNT 82833 MPV 10.2 fL 1 Unknown COMPLETE BLOOD COUNT 08138 ERIN % 42.6 % 1 Unknown COMPLETE BLOOD COUNT 82294 LY % 45.2 % 1 Unknown COMPLETE BLOOD COUNT 92397 MON % 7.4 % 1 Unknown COMPLETE BLOOD COUNT 08199 EOS % 4.1 % 1 Unknown COMPLETE BLOOD COUNT 06779 BASO % 0.7 % 1 Unknown COMPLETE BLOOD COUNT 56521 RDW 14.4 % 1 Unknown COMPLETE BLOOD COUNT 14118 ABS ERIN 3.11 10e9/L 011 Unknown COMPLETE BLOOD COUNT 66465 ABS LYMPH 3.30 10e9/L 011 Unknown COMPLETE BLOOD COUNT 78573 ABS MONO 0.54 10e9/L 011 Unknown COMPLETE BLOOD COUNT 93495 ABS EOS 0.30 10e9/L 011 Unknown COMPLETE BLOOD COUNT 30151 ABS BASO 0.05 10e9/L 011 Unknown COMPLETE BLOOD COUNT 24513 RDW-SD 43.1 fL 1 Unknown THYROID STIMULATING HORMONE 90129 TSH 1.931 uIU/ML 08/18/2010 Unknown GFR CALC 2165837 GFR AA >60 ML/MIN 08/18/2010 Unknown GFR CALC 7242145 GFR NON-AA >60 ML/MIN 08/18/2010 Unknown COMPREHENSIVE METABOLIC 32987 AST 17 U/L 2010 Unknown COMPREHENSIVE METABOLIC 31819 ALT 11 IU/L 2010 Unknown COMPREHENSIVE METABOLIC 70014 BUN 12 MG/DL 2010 Unknown COMPREHENSIVE METABOLIC 53535 ALBUMIN 4.9 GM/DL 2010 Unknown COMPREHENSIVE METABOLIC 76023 CHLORIDE 104 MMOL/L 08/18 Unknown COMPREHENSIVE METABOLIC 49185 BILI TOT 0.5 MG/DL 2010 Unknown COMPREHENSIVE METABOLIC 20494 ALK PHOS 80 U/L 2010 Unknown COMPREHENSIVE METABOLIC 47553 SODIUM 137 MMOL/L 08/18 Unknown COMPREHENSIVE METABOLIC 50133 CREATININE 0.79 MG/DL 07/22 Unknown COMPREHENSIVE METABOLIC 45875 CALCIUM 9.6 MG/DL 2010 Unknown COMPREHENSIVE METABOLIC 79877 POTASSIUM 3.7 MMOL/L 08/18 Unknown COMPREHENSIVE METABOLIC 52532 PROT TOT 7.5 GM/DL 2010 Unknown COMPREHENSIVE METABOLIC 81655 Glucose 72 MG/DL 2010 Unknown COMPREHENSIVE METABOLIC 64805 BICARB 22 MMOL/L 2010 Unknown COMPREHENSIVE METABOLIC 32027 ANION GAP 11 MEQ/L 2010 Unknown Procedures Procedure Codes Date IIV4 VACC NO PRSV 6 MTHS TO 64 YRS+ IM CPT-4: 16207 11/22/2018 IIV4 VACC NO PRSV 6 MTHS TO 64 YRS+ IM CPT-4: 17405 11/22/2018 IMMUNIZATION ADMIN CPT-4: 40690 11/22/2018 THER/PROPH/DIAG INJ SC/IM CPT-4: 51922 05/29/2018 TRIAMCINOLONE ACET INJ NOS CPT-4: J3301 05/29/2018 DEXAMETHASONE SODIUM PHOS CPT-4: J1100 05/29/2018 SPECIMEN HANDLING OFFICE-LAB CPT-4: 29860 02/08/2018 THER/PROPH/DIAG INJ SC/IM CPT-4: 43102 01/09/2018 IIV4 VACCINE 3 YRS+ IM AND UP CPT-4: 32421 01/02/2018 IMMUNIZATION ADMIN CPT-4: 39579 01/02/2018 THER/PROPH/DIAG INJ SC/IM CPT-4: 30026 12/11/2017 TRIAMCINOLONE ACET INJ NOS CPT-4: J3301 12/11/2017 DEXAMETHASONE SODIUM PHOS CPT-4: J1100 12/11/2017 STREP A ASSAY W/OPTIC CPT-4: 72568 11/30/2017 THER/PROPH/DIAG INJ SC/IM CPT-4: 48011 10/13/2017 THER/PROPH/DIAG INJ SC/IM CPT-4: 33712 07/21/2017 THER/PROPH/DIAG INJ SC/IM CPT-4: 76692 04/27/2017 METHYLPREDNISOLONE INJECTION CPT-4: J2930 04/27/2017 THER/PROPH/DIAG INJ SC/IM CPT-4: 93015 04/27/2017 THER/PROPH/DIAG INJ SC/IM CPT-4: 91040 03/20/2017 METHYLPREDNISOLONE INJECTION CPT-4: J2930 03/20/2017 ROUTINE VENIPUNCTURE CPT-4: 67511 03/20/2017 A FRT/VG P CPT-4: 2523099 03/20/2017 A FOOD C P CPT-4: 6910861 03/20/2017 A NUTS PNL CPT-4: 8000974 03/20/2017 THER/PROPH/DIAG INJ SC/IM CPT-4: 41742 01/31/2017 URINE TEST CPT-4: 31719 01/31/2017 THER/PROPH/DIAG INJ SC/IM CPT-4: 63111 10/31/2016 URINE TEST CPT-4: 01675 10/31/2016 SPECIMEN HANDLING OFFICE-LAB CPT-4: 77919 09/06/2016 URINALYSIS NONAUTO W/O SCOPE CPT-4: 90733 04/28/2016 URINE CULTURE/ COLONY COUNT CPT-4: 23230 04/28/2016 THER/PROPH/DIAG INJ SC/IM CPT-4: 52130 06/12/2015 TRIAMCINOLONE ACET INJ NOS CPT-4: J3301 06/12/2015 DEXAMETHASONE SODIUM PHOS CPT-4: J1100 06/12/2015 ROUTINE VENIPUNCTURE CPT-4: 02235 07/21/2014 ASSAY OF FREE THYROXINE CPT-4: 34306 07/21/2014 ASSAY THYROID STIM HORMONE CPT-4: 01405 07/21/2014 COMPREHEN METABOLIC PANEL CPT-4: 51405 07/21/2014 COMPLETE CBC W/AUTO DIFF WBC CPT-4: 25125 07/21/2014 LIPID PANEL CPT-4: 65502 07/21/2014 THER/PROPH/DIAG INJ SC/IM CPT-4: 95393 04/02/2014 METHYLPREDNISOLONE 40 MG INJ CPT-4: J1030 04/02/2014 TRIAMCINOLONE ACET INJ NOS CPT-4: J3301 04/02/2014 URINALYSIS NONAUTO W/O SCOPE CPT-4: 26950 10/01/2013 URINE CULTURE/ COLONY COUNT CPT-4: 11181 10/01/2013 ROUTINE VENIPUNCTURE CPT-4: 91948 09/12/2013 COMPLETE CBC W/AUTO DIFF WBC CPT-4: 58457 09/12/2013 COMPREHEN METABOLIC PANEL CPT-4: 34213 09/12/2013 ASSAY OF IRON CPT-4: 05434 09/12/2013 ASSAY THYROID STIM HORMONE CPT-4: 64134 09/12/2013 ASSAY OF FREE THYROXINE CPT-4: 32106 09/12/2013 C-REACTIVE PROTEIN CPT-4: 58390 09/12/2013 THER/PROPH/DIAG INJ SC/IM CPT-4: 74311 05/17/2013 SPECIMEN HANDLING OFFICE-LAB CPT-4: 75870 05/16/2013 ROUTINE VENIPUNCTURE CPT-4: 16078 05/07/2013 ASSAY OF FREE THYROXINE CPT-4: 89762 05/07/2013 ASSAY THYROID STIM HORMONE CPT-4: 68765 05/07/2013 COMPREHEN METABOLIC PANEL CPT-4: 14739 05/07/2013 COMPLETE CBC W/AUTO DIFF WBC CPT-4: 84391 05/07/2013 LIPID PANEL CPT-4: 83364 05/07/2013 FLU VACCINE 3 YRS & > IM UP 64 CPT-4: 60291 3 IMMUNIZATION ADMIN CPT-4: 43519 01/08/2013 AEROBIC WOUND CULTURE & STN CPT-4: 74323 04/29/2011 DRAINAGE OF SKIN ABSCESS CPT-4: 17326 04/29/2011 URINALYSIS NONAUTO W/O SCOPE CPT-4: 84044 03/07/2011 URINE CULTURE/ COLONY COUNT CPT-4: 11090 03/07/2011 SPECIMEN HANDLING OFFICE-LAB CPT-4: 62462 08/18/2010 COMPLETE CBC W/AUTO DIFF WBC CPT-4: 23247 08/18/2010 COMPREHEN METABOLIC PANEL CPT-4: 19179 08/18/2010 ASSAY THYROID STIM HORMONE CPT-4: 91626 08/18/2010 ASSAY OF FREE THYROXINE CPT-4: 82208 08/18/2010 Vital Signs Date Vital 01/08/2019 Blood Pressure 1: 128/86 Code: 8480-6 [...] 1: 126/90 Code: 8480-6 BMI: 33.4 Code: 68460-4 Heart Rate 1: 100 bpm Height: 5'6" [...] 1: 126/82 Code: 8480-6 BMI: 33.7 Code: 94128-1 Heart Rate 1: 76 bpm Height: 5'6" Respiratory Rate: 20 bpm Temperature: 37 .0 (C) / 98.6 (F) Weight: 209 lbs 04/27/2017 Heart Rate 1: 71 bpm SpO2: 97% Weight: 206 lbs 03/20/2017 Blood Pressure 1: 132/84 Code: 8480-6 BMI: 33.1 Code: 83287-7 Heart Rate 1: 96 bpm Height: 5'6" Respiratory Rate: 22 bpm SpO2: 97% Tempera ture: 36.2 (C) / 97.2 (F) Weight: 205 lbs 01/03/2017 Blood Pressure 1: 126/82 Code: 8480-6 BMI: 32.6 Code: 37150-7 Heart Rate 1: 80 bpm Height: 5'6" Respiratory Rate: 20 bpm SpO2: 97% Tempera ture: 36.6 (C) / 97.8 (F) Weight: 202 lbs 09/06/2016 Blood Pressure 1: 110/74 Code: 8480-6 BMI: 32.4 Code: 33600-1 Heart Rate 1: 86 bpm Height: 5'6" Respiratory Rate: 24 bpm SpO2: 97% Tempera ture: 36.6 (C) / 97.8 (F) Weight: 201 lbs 05/18/2016 Blood Pressure 1: 112/64 Code: 8480-6 He art Rate 1: 82 bpm 04/28/2016 Blood Pressure 1: 168/98 Code: 8480-6 BMI: 32.0 Code: 07479-3 Heart Rate 1: 102 bpm Height: 5'6" Respiratory Rate: 24 bpm SpO2: 97% Tempera ture: 36.4 (C) / 97.6 (F) Weight: 198 lbs 02/01/2016 Blood Pressure 1: 142/90 Code: 8480-6 He art Rate 1: 116 bpm 01/26/2016 Blood Pressure 1: 184/100 Code: 8480-6 H eart Rate 1: 114 bpm 09/10/2015 Blood Pressure 1: 126/64 Code: 8480-6 BMI: 32.0 Code: 59151-8 Heart Rate 1: 96 bpm Height: 5'5" Respiratory Rate: 24 bpm SpO2: 97% Tempera ture: 36.6 (C) / 97.8 (F) Weight: 192 lbs 06/12/2015 Blood Pressure 1: 106/80 Code: 8480-6 BMI: 33.4 Code: 03245-2 Heart Rate 1: 108 bpm Height: 5'5" Respiratory Rate: 20 bpm SpO2: 96% Tempera ture: 36.8 (C) / 98.3 (F) Weight: 201 lbs 11/04/2014 Blood Pressure 1: 134/86 Code: 8480-6 BMI: 32.9 Code: 67531-3 Heart Rate 1: 76 bpm Height: 5'5" Respiratory Rate: 20 bpm Temperature: 36 .6 (C) / 97.8 (F) Weight: 198 lbs 08/04/2014 Blood Pressure 1: 128/88 Code: 8480-6 BMI: 34.4 Code: 40997-8 Heart Rate 1: 90 bpm Height: 5'5" Respiratory Rate: 20 bpm Temperature: 37 .0 (C) / 98.6 (F) Weight: 207 lbs 07/21/2014 Blood Pressure 1: 146/94 Code: 8480-6 BMI: 34.4 Code: 51567-0 Heart Rate 1: 88 bpm Height: 5'5" Respiratory Rate: 20 bpm Temperature: 36 .7 (C) / 98.1 (F) Weight: 207 lbs 04/02/2014 Blood Pressure 1: 128/76 Code: 8480-6 BMI: 34.1 Code: 06653-2 Heart Rate 1: 84 bpm Height: 5'5" Respiratory Rate: 22 bpm Temperature: 36 .6 (C) / 97.8 (F) Weight: 205 lbs 03/20/2014 Blood Pressure 1: 126/82 Code: 8480-6 BMI: 33.9 Code: 01847-6 Heart Rate 1: 88 bpm Height: 5'5" Respiratory Rate: 20 bpm Temperature: 36 .7 (C) / 98.1 (F) Weight: 204 lbs 02/18/2014 Blood Pressure 1: 120/78 Code: 8480-6 BMI: 33.9 Code: 59205-2 Heart Rate 1: 72 bpm Height: 5'5" Respiratory Rate: 20 bpm Temperature: 36 .6 (C) / 97.9 (F) Weight: 204 lbs 10/01/2013 Blood Pressure 1: 124/78 Code: 8480-6 BMI: 32.9 Code: 10454-4 Heart Rate 1: 84 bpm Height: 5'5" Respiratory Rate: 20 bpm Temperature: 36 .4 (C) / 97.6 (F) Weight: 198 lbs 09/12/2013 Blood Pressure 1: 126/84 Code: 8480-6 BMI: 32.8 Code: 06185-9 Heart Rate 1: 76 bpm Height: 5'5" Respiratory Rate: 18 bpm Temperature: 36 .4 (C) / 97.6 (F) Weight: 197 lbs 05/16/2013 Blood Pressure 1: 124/68 Code: 8480-6 BMI: 33.3 Code: 49012-1 Heart Rate 1: 70 bpm Height: 5'5" Respiratory Rate: 20 bpm Temperature: 36 .3 (C) / 97.4 (F) Weight: 200 lbs 12/07/2012 Blood Pressure 1: 112/88 Code: 8480-6 BMI: 30.5 Code: 76089-1 Heart Rate 1: 92 bpm Height: 5'5" Respiratory Rate: 20 bpm Temperature: 37 .4 (C) / 99.3 (F) Weight: 183 lbs 12/03/2012 Blood Pressure 1: 124/88 Code: 8480-6 BMI: 30.5 Code: 64331-6 Heart Rate 1: 86 bpm Height: 5'5" Respiratory Rate: 20 bpm Temperature: 36 .6 (C) / 97.8 (F) Weight: 183 lbs 04/03/2012 Blood Pressure 1: 114/76 Code: 8480-6 BMI: 27.5 Code: 77986-9 Heart Rate 1: 64 bpm Height: 5'6" Temperature: 37.4 (C) / 99.4 (F) Weight: 168 lbs 03/30/2012 Blood Pressure 1: 122/80 Code: 8480-6 BMI: 27.5 Code: 90908-6 Heart Rate 1: 72 bpm Height: 5'6" Respiratory Rate: 20 bpm Temperature: 36 .8 (C) / 98.3 (F) Weight: 168 lbs 07/29/2011 Blood Pressure 1: 120/64 Code: 8480-6 BMI: 24.7 Code: 37517-8 Heart Rate 1: 84 bpm Height: 5'6" Temperature: 36.9 (C) / 98.4 (F) Weight: 151 lbs 04/29/2011 Blood Pressure 1: 102/70 Code: 8480-6 BMI: 24.4 Code: 38254-3 Heart Rate 1: 60 bpm Height: 5'6" Temperature: 36.8 (C) / 98.2 (F) Weight: 149 lbs 04/28/2011 Blood Pressure 1: 110/72 Code: 8480-6 BMI: 24.4 Code: 52235-2 Heart Rate 1: 74 bpm Height: 5'6" Temperature: 37.2 (C) / 99.0 (F) Weight: 149 lbs 03/07/2011 Blood Pressure 1: 102/72 Code: 8480-6 BMI: 23.5 Code: 84161-4 Heart Rate 1: 68 bpm Height: 5'6" Temperature: 37.1 (C) / 98.7 (F) Weight: 143 lbs 6 oz 11/10/2010 Blood Pressure 1: 121/80 Code: 8480-6 Heart Rate 1: 72 bpm Temperature: 36.7 (C) / 98.0 (F) Weight: 142 lbs 08/18/2010 Blood Pressure 1: 122/72 Code: 8480-6 BMI: 24.3 Code: 48085-8 Heart Rate 1: 88 bpm Height: 5'6" Temperature: 36.8 (C) / 98.2 (F) Weight: 148 lbs Functional Status No Functional Status data Reason For Visit Reason For Visit Effective Dates Notes follow up 01/08/2019 injection(s) 11/22/2018 flu shot [...] for pain. Patient was given hydrocodone 5-325mg H1vydcv pain nasal allergies 06/12/2015 palpitations 11/04/2014 follow [...] Visit Encounters Encounter Performer Location Codes Date ([id number]) OFFICE/OUTPATIENT VISIT EST Diagnosis: Essential (primary) hypertension[ICD10: I10] Diagnosis: Gastro-esophageal reflux disease without esophagitis[ICD10: K21.9] Diagnosis: Generalized anxiety disorder[ICD10: F41.1] Ritika Carrollcatiffany RITIKA [email or web address] CPT-4: 17729 01/08/2019 ([id number]) NURSE/OUTPATIENT VISIT EST Diagnosis: FLU VACCINE[ICD10: Z23] Ritika Carrollesequiel LOWERYRITIKA [employer] CPT-4: 74590 11/22/2018 ([id number]) OFFICE/OUTPATIENT VISIT EST Diagnosis: Esophageal reflux[ICD10: K21.9] Diagnosis: Epigastric pain[ICD10: R10.13] Ritika Carrollcatiffany RITIKA [email or web address] [facility] [employer] CPT-4: 12554 11/14/2018 ([id number]) OFFICE/OUTPATIENT VISIT EST Diagnosis: Elevated blood-pressure reading, without diagnosis of hypertension[ICD10: R03.0] Diagnosis: Localized edema[ICD10: R60.0] Diagnosis: Major depressive disorder, single episode, unspecified[ICD10: F32.9] Diagnosis: Gastro-esophageal reflux disease without esophagitis[ICD10: K21.9] Ritika CRUZ [email or web address] [employer] CPT-4: 12107 09/17/2018 ([id number]) OFFICE/OUTPATIENT VISIT EST Diagnosis: Generalized abdominal pain[ICD10: R10.84] Diagnosis: Acute gastritis with bleeding[ICD10: K29.01] Quita CINTRON DO [facility] CPT-4: 16825 08/13/2018 ([id number]) OFFICE/OUTPATIENT VISIT EST Diagnosis: Other allergic rhinitis[ICD10: J30.89] Anaya CINTRON [facility] CPT-4: 32570 05/29/2018 ([id number]) OFFICE/OUTPATIENT VISIT EST Diagnosis: Essential (primary) hypertension[ICD10: I10] Diagnosis: Localized edema[ICD10: R60.0] Diagnosis: Major depressive disorder, single episode, unspecified[ICD10: F32.9] Ritika CINTRON [facility] CPT-4: 46910 05/24/2018 ([id number]) PREV VISIT EST AGE 18-39 Diagnosis: Encounter for general adult medical examination without abnormal findings[ICD10: Z00.00] Diagnosis: Encounter for gynecological examination (general) (routine) without abnormal findings[ICD10: Z01.419] Diagnosis: Gastro-esophageal reflux disease without esophagitis[ICD10: K21.9] Diagnosis: Generalized anxiety disorder[ICD10: F41.1] Ritika CINTRON [facility] CPT-4: 19094 02/08/2018 ([id number]) NURSE/OUTPATIENT VISIT EST Diagnosis: Excessive and frequent menstruation with regular cycle[ICD10: N92.0] Ritika CINTRON DO [facility] CPT-4: 98843 01/09/2018 ([id number]) NURSE/OUTPATIENT VISIT EST Diagnosis: FLU VACCINE[ICD10: Z23] Ritika POP [employer] [facility] CPT-4: 35326 01/02/2018 ([id number]) OFFICE/OUTPATIENT VISIT EST Diagnosis: Acute sinusitis, unspecified[ICD10: J01.90] Quita CINTRON DO [facility] CPT-4: 28672 12/11/2017 ([id number]) OFFICE/OUTPATIENT VISIT EST Diagnosis: Acute pharyngitis, unspecified[ICD10: J02.9] Quita CINTRON DO [facility] CPT-4: 63795 11/30/2017 ([id number]) OFFICE/OUTPATIENT VISIT EST Diagnosis: Low back pain[ICD10: M54.5] Diagnosis: Pelvic and perineal pain[ICD10: R10.2] Diagnosis: Excessive and frequent menstruation with regular cycle[ICD10: N92.0] Ritika CINTRON DO [facility] CPT-4: 42981 10/13/2017 ([id number]) OFFICE/OUTPATIENT VISIT EST Diagnosis: Vitamin D deficiency, unspecified[ICD10: E55.9] Diagnosis: Endocrine disorder, unspecified[ICD10: E34.9] Ritika CINTRON [employer] [facility] CPT-4: 49886 09/05/2017 ([id number]) NURSE/OUTPATIENT VISIT EST Diagnosis: Excessive and frequent menstruation with regular cycle[ICD10: N92.0] Ritika CINTRON [employer] [facility] CPT-4: 28558 07/21/2017 OFFICE/OUTPATIENT VISIT EST Diagnosis: Other allergic rhinitis[ICD10: J30.89] Diagnosis: Encounter for other contraceptive management[ICD10: Z30.8] Quita CINTRON [employer] [facility] CPT-4: 19075 04/27/2017 OFFICE/OUTPATIENT VISIT EST Diagnosis: Allergic rhinitis, unspecified[ICD10: J30.9] Quita CINTRON DO [facility] CPT-4: 37873 03/20/2017 ([id number]) OFFICE/OUTPATIENT VISIT EST Diagnosis: Excessive and frequent menstruation with regular cycle[ICD10: N92.0] Ritika CINTRON [employer] [facility] CPT-4: 60811 01/31/2017 ([id number]) OFFICE/OUTPATIENT VISIT EST Diagnosis: Epigastric pain[ICD10: R10.13] Diagnosis: Gastro-esophageal reflux disease without esophagitis[ICD10: K21.9] Diagnosis: Pain in thoracic spine[ICD10: M54.6] Diagnosis: Low back pain[ICD10: M54.5] Ritika CURRY [facility] CPT-4: 47311 01/03/2017 ([id number]) OFFICE/OUTPATIENT VISIT EST Diagnosis: Excessive and frequent menstruation with regular cycle[ICD10: N92.0] Ritika CINTRON [employer] [facility] CPT-4: 01281 10/31/2016 ([id number]) PREV VISIT EST AGE 18-39 Diagnosis: Encounter for general adult medical examination without abnormal findings[ICD10: Z00.00] Diagnosis: Encounter for general adult medical examination with abnormal findings[ICD10: Z00.01] Diagnosis: Other fatigue[ICD10: R53.83] Diagnosis: Generalized hyperhidrosis[ICD10: R61] Diagnosis: Iron deficiency anemia, unspecified[ICD10: D50.9] Ritika SotoKatelyn FELY [facility] CPT-4: 51532 09/06/2016 ([id number]) OFFICE/OUTPATIENT VISIT EST Diagnosis: Essential (primary) hypertension[ICD10: I10] Diagnosis: Major depressive disorder, single episode, unspecified[ICD10: F32.9] Diagnosis: Urinary tract infection, site not specified[ICD10: N39.0] Diagnosis: Acute vaginitis[ICD10: N76.0] Diagnosis: Nonscarring hair loss, unspecified[ICD10: L65.9] Mary CRUZ BrittanyKatelyn MAYE [facility] CPT-4: 29535 04/28/2016 ([id number]) OFFICE/OUTPATIENT VISIT EST Diagnosis: Atypical facial pain[ICD10: G50.1] Mary TEMPLE BrittanyKatelyn FELY [facility] CPT-4: 37369 09/10/2015 OFFICE/OUTPATIENT VISIT EST Diagnosis: Allergic rhinitis, unspecified[ICD10: J30.9] Sarah CRUZ BrittanyKatelyn MAYE [facility] CPT-4: 23412 06/12/2015 ([id number]) OFFICE/OUTPATIENT VISIT EST Diagnosis: PALPITATIONS[ICD9: 785.1] Diagnosis: CHEST PAIN NOS[ICD9: 786.50] Diagnosis: GERD[ICD9: 530.81] Ritika [facility]OLILNSLINE [facility]n [facility] CPT[facility]: 64417 11/04/2014 ([id number]) OFFICE/OUTPATIENT VISIT EST Diagnosis: EDEMA[ICD9: 782.3] Diagnosis: PALPITATIONS[ICD9: 785.1] Diamante LOCK [facility] CPT-4: 40529 08/04/2014 ([id number]) OFFICE/OUTPATIENT VISIT EST Diagnosis: SINUSITIS, ACUTE[ICD9: 461.9] Diagnosis: PALPITATIONS[ICD9: 785.1] Diagnosis: Elevated blood pressure[ICD9: 796.2] Diagnosis: EDEMA[ICD9: 782.3] Ritika CINTRON [facility] CPT-4: 53187 07/21/2014 ([id number]) OFFICE/OUTPATIENT VISIT EST Diagnosis: SINUSITIS, ACUTE[ICD9: 461.9] Diagnosis: COUGH[ICD9: 786.2] Diamante ChapmanBirgitjanis CINTRON [facility] CPT-4: 92306 04/02/2014 ([id number]) OFFICE/OUTPATIENT VISIT EST Diagnosis: Cervicalgia[ICD9: 723.1] Diagnosis: Thoracic back pain[ICD9: 724.1] Ritika CINTRON [facility] CPT-4: 98940 03/20/2014 ([id number]) OFFICE/OUTPATIENT VISIT EST Diagnosis: EXCESSIVE MENSTRUATION[ICD9: 626.2] Diagnosis: MALAISE AND FATIGUE[ICD9: 780.79] Diagnosis: ABNORMAL WEIGHT GAIN[ICD9: 783.1] Diagnosis: IBS[ICD9: 564.1] Ritika CINTRON [facility] CPT - 4: 63568 02/18/2014 OFFICE/OUTPATIENT VISIT EST Diagnosis: URINARY TRACT INFECTION[ICD9: 599.0] Diagnosis: HYPERLIPIDEMIA NEC/NOS[ICD9: 272.4] Diamante ChapmanBirgitjanis HOLLINSValery MILLER Aura CINTRON [facility] CPT-4: 88541 10/01/2013 OFFICE/OUTPATIENT VISIT EST Diagnosis: ARTHRALGIA-MULTIPLE SITES[ICD9: 719.49] Diagnosis: MALAISE AND FATIGUE[ICD9: 780.79] Diagnosis: ABNORMAL WEIGHT GAIN[ICD9: 783.1] Diamante CINTRON DO [facility] CPT-4: 59030 09/12/2013 ([id number]) OFFICE/OUTPATIENT VISIT EST Diagnosis: EXCESSIVE MENSTRUATION[ICD9: 626.2] Ritika CINTRON DO [facility] CPT-4: 55054 05/17/2013 ([id number]) PREV VISIT EST AGE 18-39 Diagnosis: ROUTINE GYNE EXAM[ICD9: V72.31] Diagnosis: ROUTINE MEDICAL EXAM[ICD9: V70.0] Diagnosis: Menorrhagia[ICD9: 626.2] Diagnosis: HYPERLIPIDEMIA NEC/NOS[ICD9: 272.4] Ritika CINTRON [facility] CPT-4: 58605 05/16/2013 ([id number]) OFFICE/OUTPATIENT VISIT EST Diagnosis: ROUTINE MEDICAL EXAM[ICD9: V70.0] Ritika CINTRON [facility] CPT-4: 78663 05/07/2013 ([id number]) OFFICE/OUTPATIENT VISIT EST Diagnosis: FLU VACCINE[ICD9: V04.81] Ritika LOCK [facility] CPT-4: 94451 01/08/2013 OFFICE/OUTPATIENT VISIT EST Diagnosis: Skin infection[ICD9: 686.9] Diamante VILLAVICENCIOER [facility] CPT-4: 03878 12/07/2012 OFFICE/OUTPATIENT VISIT EST Diagnosis: Skin lesion, infected[ICD9: 686.9] Diagnosis: MRSA (methicillin resistant Staphylococcus aureus)[ICD9: 041.12] Diagnosis: CELLULITIS[ICD9: 682.9] Diamante VILLAVICENCIO ER [facility] CPT-4: 83513 12/03/2012 OFFICE/OUTPATIENT VISIT EST Diagnosis: FEBRILE ILLNESS[ICD9: 780.60] Diagnosis: SINUSITIS, ACUTE[ICD9: 461.9] Diagnosis: COUGH[ICD9: 786.2] Ritika CINTRON [facility] CPT-4: 61622 04/03/2012 OFFICE/OUTPATIENT VISIT EST Diagnosis: SINUSITIS, ACUTE[ICD9: 461.9] Ritika CINTRON [facility] CPT-4: 16945 03/30/2012 OFFICE/OUTPATIENT VISIT EST Diagnosis: CONJUNCTIVITIS NOS[ICD9: 372.30] Diagnosis: URI, ACUTE[ICD9: 465.9] Ritika POP [facility] CPT-4: 67232 07/29/2011 OFFICE/OUTPATIENT VISIT EST Diagnosis: CELLULITIS OF HAND[ICD9: 682.4] Ritika CINTRON [facility] CPT-4: 28596 04/28/2011 OFFICE/OUTPATIENT VISIT EST Diagnosis: URINARY TRACT INFECTION[ICD9: 599.0] Diagnosis: Vaginal itching[ICD9: 698.1] Ritika CINTRON [facility] CPT-4: 76833 03/07/2011 OFFICE/OUTPATIENT VISIT EST Diagnosis: Skin lesion of face[ICD9: 709.9] Diagnosis: Scratched by cat[ICD9: 919.8] Ritika CINTRON [facility] CPT-4: 88624 11/10/2010 PREV VISIT NEW AGE 18-39 Ritika Tamayo [facility] CPT-4: 98605 08/18/2010 Plan of Care Planned Activity Notes Codes Status Date Visit Diagnosis Plan: Generalized anxiety disorder Dis [...] 530.81 ICD-10 : K21.9 01/08/2019 Appointment[facility] [facility] [facility] 01/08/2019 Appointment: Ritika Cintrontel[facility] [place] [facility] 11/22/2018 Patient Education: INFLUENZA VACCINE [facility] Completed 11/22/2018 Visit Diagnosis Plan: Esophageal reflux Discussion: Ch nayan protonix to nexium Referral for EGD May need GB workup pending EGD results ICD-9 : 530.81 ICD-10 : K21.9 11/14/2018 Appointment: Ritika Cintron WPtel: [facility] [place] FO[facility] 11/14/2018 Patient Education: Nexium- [employer] Coupon [id number] [email or web address] Completed 11/14/2018 Visit Diagnosis Plan: Gastro-esophageal reflux disease without esophagitis Discussion: Continue protonix at current dose Recheck 3mos ICD-9 : 530.81 ICD-10 : K21.9 09/17/2018 Visit Diagnosis Plan: Elevated blood-pre ssure reading, without diagnosis of hypertension Discussion: Continue spironolactone Low Na diet ICD-9 : 796.2 ICD-10 : R03.0 09/17/2018 Appointment: Ritika Cintron WPtel: [address] [place], [place] [address] [place] FOLLOW UP 09/17/2018 Patient Education: spironolactone- [employer] Coupon [id number] Completed 09/17/2018 Patient Education: sertraline- [employer] Coupon [id number] Completed 09/17/2018 Visit Diagnosis Plan: Acute gastritis [...] hgb levels. ICD-9 : 535.01 ICD-10 : K29.08/13/2018 Visit Diagnosis Plan: Generalized abdominal pain Discu ssion: see other plan for details. bland diet and increase fluid intake. ICD-9 : 789.07 ICD-10 : R10.84 08/13/2018 Appointment: Quita Jerry [address] ACUTE ILLNESS 08/13/2018 Patient Education: Protonix- [employer] Coupon [id number] [email or web address]/resources/[email or web address] Completed 08/13/2018 Visit Diagnosis Plan: Other allergic rhinitis Discussi on: Steroid injection administered in the clinic- patient tolerated well. Start oral prednisone tomorrow. Ok to continue daily allergy medications. She has established with Dr. Zuleta and will be starting allergy injections with him this summer. No further questions at this time. ICD-9 : 477.8 ICD-10 : J30.89 05/29/2018 Appointment: Anaya Marte [address] ACUTE ILLNESS 05/29/2018 Visit Diagnosis Plan: Essential [...] F32.9 05/24/2018 Appointment: Ritika Cintron WPtel: [address] [facility] FOLLOW UP 05/24/2018 Visit Diagnosis Plan: Encounter [...] : K21.9 02/08/2018 Appointment: Ritika Cintron WPtel: [address] [place], [place] [id number] Annual Well Visit 02/08/2018 Appointment: Ritika Cintron WPtel: [address] [place], [place] [phone] [place] INJECTION 01/09/2018 Appointment: Ritika Cintron WPtel: [address] [place] [address] [place] INJECTION 01/02/2018 Patient Education: INFLUENZA VACCINE [...] : J01.90 12/11/2017 Appointment: Quita Jerry [address] ACUTE ILLNESS 12/11/2017 Patient Education: Patient Medication Summary Completed 12/11/2017 Patient Education: Patient Medication Summary Completed 12/11/2017 Visit Diagnosis Plan: Acute pharyngitis, unspecified D iscussion: rapid strep negative. due to clinical s/s and worsening, clindamycin sent out for patient. change toothbrush in 48 hours, no sharing food or drinks with others. 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 tylenol/ibuprofen prn pain or fever. call office with new or worsening symptoms. ICD-9 : 462 ICD-10 : J02.9 11/30/2017 Appointment: Quita Jerry [address] [place] [id number] ACUTE ILLNESS 11/30/2017 Patient Education: Patient Medication Summary Completed 11/30/2017 Visit Diagnosis Plan: Low back pain Discussion: Mobic, flexeril with tylenol in between prn Topical tiger balm Stretches Notify if persist or worsens ICD-9 : 724.2 ICD-10 : M54.5 10/13/2017 Visit Diagnosis Plan: Pelvic and perineal pain Discuss ion: Unable to give urine so will cover with macrobid since weekend and is having suprapubic pain with urinary hesitancy along with worsening low back pain To UC or ER over weekend if worsens ICD-9 : 625.9 ICD-10 : R10.2 10/13/2017 Appointment: Ritika Cintron WPtel: [address] [place], [place] [id number] ACUTE ILLNESS 10/13/2017 Patient Education: Patient Medication [...] : E55.9 09/05/2017 Appointment: Ritika Cintron WPtel: [address] [place], [place] [phone] [place] FOLLOW UP 09/05/2017 Patient Education: Patient Medication Summary Completed 09/05/2017 Appointment: Ritika Cintron WPtel: [address] [place], [place] [phone] [place] INJECTION 07/21/2017 Patient Education: Patient Medication [...] ICD-10 : Z30.8 04/27/2017 Appointment: Quita Jerry [address] [place] [address] [place], [place] [address] ACUTE ILLNESS 04/27/2017 Patient Education: Patient Medication Summary Completed 04/27/2017 Appointment: Quita Jerry 504 [facility] ACUTE ILLNESS 03/31/2017 Visit Diagnosis Plan: [...] ICD-10 : J30.9 03/20/2017 Appointment: Quita Jerry [address] [place], [place] [phone] ACUTE ILLNESS 03/20/2017 Patient Education: Patient Medication Summary Completed 03/20/2017 Appointment: Ritika Cintron WPtel: [address] [place] [address] INJECTION 01/31/2017 Patient Education: Patient Medication Summary [...] : M54.6 01/03/2017 Appointment: Ritika Cintron WPtel: [address] [place] [address] Annual Well Visit 01/03/2017 Patient Education: Patient Medication Summary Completed 01/03/2017 Appointment: Ritika Cintron WPtel: [address] [place], [place] [phone] [place] PAP 11/22/2016 Appointment: Ritika Cintron WPtel: [address] [place], [place] [phone] [place] INJECTION 10/31/2016 Patient Education: Patient Medication Summary Completed 10/31/2016 Visit Diagnosis Plan: Other fatigue Discussion: Check TSH, Free T4, CBC, CMP ICD-9 : 780.79 ICD-10 : R53.83 09/06/2016 Visit Diagnosis Plan: Iron deficiency anemia, unspecif ied Discussion: Check CBC, iron ICD-9 : 280.9 ICD-10 : D50.9 09/06/2016 Visit Diagnosis Plan: Encounter for [facility] adult medical examination with abnormal findings Discussion: Pap done May need pelvic US due to pain with intercourse ICD-9 : V70.0 ICD-10 : Z00.01 09/06/2016 Appointment: Ritika Cintron WPtel: [address] [place], [place] [phone] 09/05 confirmed~sl PAP 09/06/2016 Patient Education: Patient Medication Summary Completed 09/06/2016 Appointment: Ritika Cintron WPtel: [address] [place], [place] [phone] [place] BP CHECK 05/18/2016 Patient Education: Patient Medication Summary Completed 05/18/2016 Visit Diagnosis Plan: Major depressive disorder, singl [...] ICD-10 : F32.9 04/28/2016 Visit Diagnosis Plan: Urinary tract infection, site no t specified Discussion: Office dip abnormal Culture pending Unfortunately is allergic to several antibiotics Macrobid as above Pump and dump breast milk to be safe Push fluids ICD-9 : 599.0 ICD-10 : N39.0 04/28/2016 Visit Diagnosis Plan: Nonscarring hair loss, [...] ICD-10 : I10 04/28/2016 Appointment: [facility] [address] [place] [address] ACUTE ILLNESS 04/28/2016 Patient Education: Patient Medication Summary Completed 04/28/2016 Appointment: Ritika Cintron WPtel: [address] [place] [address] BP CHECK 02/01/2016 Patient Education: Patient Medication Summary Completed 02/01/2016 Appointment: Ritika Cintron WPtel: [address] [place], [place] [phone] [place] BP CHECK 01/26/2016 Patient Education: Patient Medication Summary Completed 01/26/2016 Visit Plan: Discussed POC with Dr Leticia tamayo Increase dose to 300mg TID for a full 10 days Follow up with us, dentist and OB as needed Cautioned to monitor BP and follow up if not at goal 09/10/2015 Appointment: [facility] [address] [place] [address] ACUTE ILLNESS 09/10/2015 Patient Education: Patient Medication Summary Completed 09/10/2015 Visit Plan: Dexamethesone 4mg with Kenal og 40 IM now Continue antihistamines Use nasal saline multiple times a day Humidified air Rest/fluids Reviewed s/s of worsening, go to over weekend if needed. 06/12/2015 Appointment: Sarah Campbell WPtel: [address] [place] [address] ACUTE ILLNESS 06/12/2015 Patient Education: Patient Medication Summary Completed 06/12/2015 Visit Plan: Proceed with Stress ECHO Add omeprazole Fwup after stress ECHO 11/04/2014 Appointment: Ritika Cintron WPtel: [address] [place] [address] 11/03/14 confirm FOLLOW UP 11/04/2014 Patient Education: Patient Medication Summary Completed 11/04/2014 Visit Plan: Continue HCTZ 12.5 mg for 2 more weeks. Discussed decreasing dietary sodium intake Advised against future use of pseudoephedrine 08/04/2014 Appointment: Diamante Santana WPtel: [address] [place] [address] FOLLOW UP 08/04/2014 Patient Education: Patient Medication Summary Completed 08/04/2014 Appointment: Ritika Cintron WPtel: [address] [place] [address] Urgent/Quick Care Follow Up 02/2014 Patient Education: Patient Medication Summary Completed 07/21/2014 Appointment: Diamante Santana WPtel: [address] [place] [address] ACUTE ILLNESS 04/02/2014 Patient Education: Patient Medication Summary Completed 04/02/2014 Patient Education: [employer] - Antibi otics, Analgesics 18+, Oral Contraceptives F 18+ Completed 04/02/2014 Visit Plan: Check cervical and thoracic spine x-rays Daily Neck and Back stretches Duexis TID 03/20/2014 Appointment: Ritika Cintron WPtel: [address] [place] [address] ACUTE ILLNESS 03/20/2014 Patient Education: Patient Medication Summary Completed 03/20/2014 Visit Plan: Trial of Aviane Discussed di et and exercise at length--1400--1500cal ADA diet with exercise Trial of levbid 0.375mg q HS Discussed trial of Phenteramine Call in 1mo on Levbid 02/18/2014 Appointment: Ritika Cintron WPtel: [address] [place] [address] ACUTE ILLNESS 02/18/2014 Patient Education: Patient Medication Summary Completed 02/18/2014 Patient Education: [employer] - Antibi otics, Analgesics 18+, Oral Contraceptives F 18+ Completed 02/18/2014 Appointment: Diamante Santana WPtel: [address] [place] [address] ACUTE ILLNESS 10/01/2013 Patient Education: Patient Medication Summary Completed 10/01/2013 Appointment: Daimante Santana WPtel: [address] [place] [address] ACUTE ILLNESS 09/12/2013 Patient Education: Patient Medication Summary Completed 09/12/2013 Referral: Ritika Cintron WPtel: [address] [place] [address] Dr Rodriguez Initiated 06/18/2013 Appointment: Ritika Cintron WPtel: [address] [place] [address] INJECTION 05/17/2013 Patient Education: Patient Medication Summary Completed 05/17/2013 Visit Plan: [facility] discussed--fish oil 3grams daily and lifestyle change with exercise and recheck lipids 6mos 05/16/2013 Appointment: Ritika Cintron WPtel: [address] [place] [address] 05/14 pt came in and verified appt is 27th PAP 05/16/2013 Patient Education: Patient Medication Summary Completed 05/16/2013 Appointment: Ritika Cintron WPtel: [address] [place] [address] LAB 05/07/2013 Patient Education: Patient Medication Summary Completed 05/07/2013 Appointment: Ritika Cintron WPtel: [address] [place], [place] [phone] [place] INJECTION 01/08/2013 Patient Education: Patient Medication Summary Completed 01/08/2013 Appointment: Diamante Santana WPtel: [address] [place], [place] [phone] ACUTE ILLNESS 12/07/2012 Patient Education: Patient Medication Summary Completed 12/07/2012 Appointment: Diamante Santana WPtel: [address] [place], [place] [phone] ACUTE ILLNESS 12/03/2012 Patient Education: Patient Medication Summary Completed 12/03/2012 Visit Plan: 2 months old at home. (saida adams) Azithromycin increased dose. Pt. reports Clindamycin is possible allergy but not sure-states "makes my throat close....I think" Discussed that will notify if symptoms worsen or fever continues. Strongly encouraged her to stay home until fever resolves. 04/03/2012 Appointment: Venecia Smith WPtel: [address] [place], [place] [phone] ACUTE ILLNESS 04/03/2012 Patient Education: Patient Medication Summary Completed 04/03/2012 Visit Plan: ERx for ZPack (due to multip le med allergies and ) OTC multiple symptom cold formula (Like Robitussing PE) as directed OTC nasal saline, Tylenol, Ibuprofen prn RTC for no improvement, UC for worsening. 03/30/2012 Appointment: Sarah Campbell WPtel: [address] [place], [place] [phone] ACUTE ILLNESS 03/30/2012 Patient Education: Patient Medication [...] the time) 07/29/2011 Appointment: Sarah Campbell WPtel: [address] [place], [place] [phone] ACUTE ILLNESS 07/29/2011 Patient Education: Patient Medication Summary Completed 07/29/2011 Appointment: Venecia Smith WPtel: [address] [place], [place] [phone] FOLLOW UP 04/29/2011 Patient Education: Patient Medication Summary Completed 04/29/2011 Visit Plan: due to multiple allergies wi ll try Doxycycline and mupirocin topical.(has some topical left over from past topical infection) Will ice/cool pack finger and use Ibuprofen in addition to antibiotic. Discussed that pt. will notify if redness is worse tomorrow. 04/28/2011 Appointment: Venecia Smith WPtel: [address] [place] [address] ACUTE ILLNESS 04/28/2011 Patient Education: Patient Medication Summary Completed 04/28/2011 Visit Plan: Macrobid and Pyridium. Diflu can for possible yeast. Discussed increased fluids. Pt. will notify if symptoms worsen or fever occurs. Urine for culture. 03/07/2011 Appointment: Venecia Smith WPtel: [address] [place] [address] ACUTE ILLNESS 03/07/2011 Patient Education: Patient Medication Summary Completed 03/07/2011 Visit Plan: Pt will apply mild heat devante ral times daily to aid in healing process. Pt. has past RX for mupirocin topical. Will apply to area being careful to not get any in the eye. Will follow up if no resolution in the next 5 days. 11/10/2010 Appointment: Venecia Smith WPtel: [address] [place], [place] [phone] ACUTE ILLNESS 11/10/2010 Patient Education: Patient Medication Summary Completed 11/10/2010 Visit Plan: Pap done Check CBC, CMP, TSH , Free T4 08/18/2010 Appointment: Ritika Cintron WPtel: [address] [place], [place] [phone] [place] NEW PATIENT 08/18/2010 Patient Education: Patient Medication [...]
--- OUTSIDE RECORDS SUMMARY | 2019-10-02 17:24 | XMS REPORT | CCD ---
Author Author Catherine Cintron D.O. 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..] 0.18 mg(7)/0.215 mg(7)/0.25 mg(7)-35 mcg tablet RxNorm: 541395 1 Tablet(s) Oral QD Due for annual appt 06/12/2019 07/10/2019 A ctive Due for annual appointment Tri-Sprintec (28) 0.18 mg(7)/0.215 mg(7)/0.25 mg(7)-35 mcg tablet RxNorm: 312947 TAKE 1 TABLET BY MOUTH EVERY DAY 04/15/2019 06/11/2019 Inactive Zetia 10 mg tablet RxNorm: 914559 1 Tablet(s) Oral QD 01/08/2019 No S top Date Active Tri-Sprintec (28) 0.18 mg(7)/0.215 mg(7)/0.25 mg(7)-35 mcg tablet RxNorm: 399343 TABLET(S) 1 TABLET(S) PO QD 01/07/2019 04/14/2019 Inactive Nexium 40 mg capsule,delayed release RxNorm: 087644 1 Capsule(s ) Oral QD 11/14/2018 01/07/2019 Inactive metronidazole 500 mg tablet RxNorm: 671126 1 Tablet(s) Oral thr ee times a day 11/14/2018 11/14/2018 Inactive Bactrim DS 800 mg-160 mg tablet RxNorm: 986998 1 Tablet(s) Oral two times a day 11/14/2018 11/14/2018 Inactive sertraline 50 mg tablet RxNorm: 872610 1 Tablet(s) PO QD 1 TABL ET(S) PO QD 09/17/2018 03/15/2019 Inactive spironolactone 50 mg tablet RxNorm: 791258 Tablet(s) 1 TABLET(S ) PO QAM 09/17/2018 03/15/2019 Inactive sertraline 50 mg tablet RxNorm: 732673 1 TABLET(S) PO QD 09/10/2018 0 09/16/2018 Inactive Tri-Sprintec (28) 0.18 mg(7)/0.215 mg(7)/0.25 mg(7)-35 mcg tablet RxNorm: 109801 Tablet(s) 1 TABLET(S) PO QD 08/20/2018 01/06/2019 Inactive Protonix 40 mg tablet,delayed release RxNorm: 668506 1 Tablet(s ) PO BID 08/13/2018 11/13/2018 Inactive Flagyl 500 mg tablet RxNorm: 958815 1 Tablet(s) PO BID 08/13/2018 Inactive spironolactone 50 mg tablet RxNorm: 918383 1 TABLET(S) PO QAM 08/1309/16/2018 Inactive Tri-Sprintec (28) 0.18 mg(7)/0.215 mg(7)/0.25 mg(7)-35 mcg tablet RxNorm: 704301 1 TABLET(S) PO QD 06/18/2018 07/15/2018 Inactive sertraline 50 mg tablet RxNorm: 876556 1 Tablet(s) PO QD 06/07/2018 0 09/04/2018 Inactive prednisone 10 mg tablet RxNorm: 305209 1 Tablet(s) PO BID 05/30/2018 06/03/2018 Inactive Tri-Sprintec (28) 0.18 mg(7)/0.215 mg(7)/0.25 mg(7)-35 mcg tablet RxNorm: 242957 1 Tablet(s) PO QD 05/17/2018 06/13/2018 Inactive sertraline 50 mg tablet RxNorm: 809186 1 TABLET(S) PO QD 05/07/2018 0 06/05/2018 Inactive Tri-Sprintec (28) 0.18 mg(7)/0.215 mg(7)/0.25 mg(7)-35 mcg tablet RxNorm: 004211 1 Tablet(s) PO QD 02/08/2018 05/02/2018 Inactive sertraline 50 mg tablet RxNorm: 488490 1 Tablet(s) PO QD 02/08/2018 0 04/08/2018 Inactive omeprazole 40 mg capsule,delayed release RxNorm: 245474 1 Capsule(s) PO QD for acid reflux 02/08/2018 08/12/2018 Inactive montelukast 10 mg tablet RxNorm: 925490 1 Tablet(s) PO QHS 12/15/19 18 12/13/2017 Inactive montelukast 10 mg tablet RxNorm: 214329 1 Tablet(s) PO QHS 12/15/19 18 08/12/2018 Inactive spironolactone 50 mg tablet RxNorm: 688686 1 Tablet(s) PO QAM 12/0612/05/2017 Inactive spironolactone 50 mg tablet RxNorm: 526293 1 Tablet(s) PO QAM 12/0603/05/2018 Inactive spironolactone 25 mg tablet RxNorm: 082243 1 TABLET(S) PO QAM BLOOD PRESSURE CHECK IN 1 MONTH 12/04/2017 12/10/2017 Inactive clindamycin HCl 300 mg capsule RxNorm: 038296 1 Capsule(s) PO TID 1 12/09/2017 Inactive spironolactone 25 mg tablet RxNorm: 941116 1 Tablet(s) PO QAM Blood pressure check in 1 month 11/06/2017 12/03/2017 Inactive spironolactone 25 mg tablet RxNorm: 912283 1 Tablet(s) PO QAM Blood pressure check in 1 month 11/06/2017 11/05/2017 Inactive cyclobenzaprine 5 mg tablet RxNorm: 456157 1/2-1 Tablet(s) PO Q HS for spasm 10/13/2017 11/11/2017 Inactive Macrobid 100 mg capsule RxNorm: 971884 1 Capsule(s) PO BID 10/14/19 18 10/19/2017 Inactive Mobic 15 mg tablet RxNorm: 969479 1 Tablet(s) PO QAM for pain 10/1311/11/2017 Inactive Depo-Provera 150 mg/mL intramuscular syringe RxNorm: 6092817 Milliliter(s) IM Bring to office for administration 07/18/2017 02/07/2018 Inactive Singulair 10 mg tablet RxNorm: 476181 1 Tablet(s) PO QD 04/12/2017 Inactive Singulair 10 mg tablet RxNorm: 789225 1 Tablet(s) PO QD 03/20/2017 Inactive metoprolol tartrate 50 mg tablet RxNorm: 389538 1 Tablet(s) PO QD 0 02/21/2017 09/04/2017 Inactive Mobic 15 mg tablet RxNorm: 562244 1 Tablet(s) PO QD 01/30/20172017 Inactive Mobic 15 mg tablet RxNorm: 416470 1 Tablet(s) PO QD 01/03/20172016 Inactive Protonix 40 mg tablet,delayed release RxNorm: 534124 1 Tablet(s ) PO BID 01/03/2017 11/29/2017 Inactive metoprolol tartrate 50 mg tablet RxNorm: 331684 1 Tablet(s) PO QD 1 02/21/2017 Inactive Depo-Provera 150 mg/mL intramuscular syringe RxNorm: 1998430 Milliliter(s) IM Bring to office for administration 10/28/2016 07/17/2017 Inactive Depo-Provera 150 mg/mL intramuscular syringe RxNorm: 4579372 Milliliter(s) IM Bring to office for administration 10/10/2016 10/27/2016 Inactive Macrobid 100 mg capsule RxNorm: 363905 1 Capsule(s) PO BID 04/29/19 17 05/04/2016 Inactive metoprolol succinate ER 50 mg tablet,extended release 24 hr RxNorm: 983425 1 Tablet(s) PO QD 04/28/2016 07/26/2016 Inactive Diflucan 150 mg tablet RxNorm: 475552 1 Tablet(s) PO QD x 1 dose 09/05/2016 Inactive sertraline 25 mg tablet RxNorm: 839960 1/2 Tablet(s) PO QD for 1 week and then increase to 1 tablet PO QD 04/28/2016 09/05/2016 Inactive Toprol XL 50 mg tablet,extended release RxNorm: 016133 1 Tablet (s) PO QD 01/26/2016 04/27/2016 Inactive clindamycin 300 mg capsule RxNorm: 583665 1 Capsule(s) PO TID 09/0909/19/2015 Inactive omeprazole 20 mg capsule,delayed release RxNorm: 507148 1 Capsu le(s) PO QD 11/04/2014 04/27/2016 Inactive hydrochlorothiazide 12.5 mg tablet RxNorm: 550907 1 Tablet(s) PO QD 09/10/2014 04/27/2016 Inactive Aviane 0.1 mg-20 mcg tablet RxNorm: 092058 1 Tablet(s) PO QD 201404/27/2016 Inactive hydrochlorothiazide 12.5 mg tablet RxNorm: 253875 1 Tablet(s) PO QD 07/21/2014 09/09/2014 Inactive Zithromax Z-Kyle 250 mg tablet RxNorm: 548378 Tablet(s) PO As Di rected 07/21/2014 11/03/2014 Inactive tobramycin 0.3 % eye drops RxNorm: 830597 2 Drop(s) OPH Q4H 015 04/02/2014 Inactive tobramycin 0.3 % eye drops RxNorm: 414118 2 Drop(s) OPH Q4H 015 04/09/2014 Inactive azithromycin 250 mg tablet RxNorm: 818719 2 Tablet(s) P O on day one then one tablet on days 2 - 5 04/02/2014 11/03/2014 Inactive hyoscyamine ER 0.375 mg tablet,extended release,12 hr RxNorm : 3629771 1 Tablet(s) PO QHS 03/20/2014 11/03/2014 Inactive Levbid 0.375 mg tablet,extended release RxNorm: 2596604 1 Tablet (s) PO QHS 02/18/2014 03/19/2014 Inactive Aviane 0.1 mg-20 mcg tablet RxNorm: 619079 1 Tablet(s) PO QD 201308/27/2014 Inactive Diflucan 150 mg tablet RxNorm: 119309 1 Tablet(s) PO QOD 10/01/2013 1 Inactive Macrobid 100 mg capsule RxNorm: 569294 1 Capsule(s) PO BID 10/02/19 14 10/07/2013 Inactive clindamycin 300 mg capsule RxNorm: 183900 1 Capsule(s) PO TID 12/0312/12/2012 Inactive azithromycin 250 mg tablet RxNorm: 623706 2 Tablet(s) PO QD 013 04/08/2012 Inactive Zithromax Z-Kyle 250 mg tablet RxNorm: 801145 1 Tablet(s ) PO QD Take 2 today and 1 a day on days 2-5 03/30/2012 04/03/2012 Inactive Tobrex 0.3 % Eye Drops RxNorm: 351618 2 Drop(s) OPH Q4H 07/29/2011 Inactive doxycycline hyclate 100 mg Tab RxNorm: 6714581 1 Tablet(s) PO BID 0 04/28/2011 05/07/2011 Inactive Pyridium 200 mg Tab RxNorm: 6815258 1 Tablet(s) PO TID 03/07/2011 Inactive Macrobid 100 mg Cap RxNorm: 421248 1 Capsule(s) PO BID 03/07/2011 Inactive Diflucan 100 mg Tab RxNorm: 505294 1 Tablet(s) PO QD 03/07/201103/16 Inactive Benadryl 25 mg capsule RxNorm: 6051284 Capsule(s) PO as needed No Sta rt Date Active Vitamin B12 1000mcg Tablet RxNorm: 1/2 Tablet(s) PO QD No Star t Date 11/29/2017 Inactive Depo-Provera 150 mg/mL intramuscular syringe RxNorm: 1322604 Milliliter(s) IM Bring to office for administration No Start Date 10/09/2016 Inactive metoprolol tartrate 50 mg tablet RxNorm: 588363 1 Tablet(s) PO QD N o Start Date 11/22/2016 Inactive Zyrtec 10 mg tablet RxNorm: 2794573 1 Tablet(s) PO QD No Start Date 1 Inactive Sudafed PE 10 mg tablet RxNorm: 3343629 Tablet(s) PO as needed No S tart Date 09/04/2017 Inactive Toprol XL 50 mg tablet,extended release RxNorm: 410380 1 Tablet (s) PO QD No Start Date 01/25/2016 Inactive Depo-Provera 150 mg/mL intramuscular suspension RxNorm: 1000 128 1 Milliliter(s) IM every 3mos No Start Date 02/17/2014 Inactive Flonase Allergy Relief 50 mcg/actuation nasal spray,suspensi on RxNorm: [place] NASAL as needed No Start Date 11/29/2017 Inactive Zyrtec 10 mg tablet RxNorm: 2428494 1 Tablet(s) PO QD as needed No Start Date 05/23/2018 Inactive Medication Administered No Medication Administered data Immunizations Vaccine Codes Date Status Influenza CVX: 141 11/22/2018 Complete Influenza CVX: 141 11/22/2018 Complete Influenza CVX: 141 01/02/2018 Complete Influenza CVX: 141 01/08/2013 Pediatric Influenza CVX: 141 01/08/2013 Results Observation Observation Code Item Item Code Result Date [facility] Location COMPLETE BLOOD COUNT [id number] WBC 15.9 10e9/L 019 Unknown COMPLETE BLOOD COUNT [id number] RBC 5.10 10e12/L 2018 Unknown COMPLETE BLOOD COUNT [id number] HEMOGLOBIN 15.2 g/dL 08/14/19 19 Unknown COMPLETE BLOOD COUNT [id number] HEMATOCRIT 46.2 % 08/14/19 19 Unknown COMPLETE BLOOD COUNT [id number] MCV 90.6 fL 9 Unknown COMPLETE BLOOD COUNT [id number] MCH 29.8 pg 9 Unknown COMPLETE BLOOD COUNT [id number] MCHC 32.9 g/dL 9 Unknown COMPLETE BLOOD COUNT 0302612 PLATELET COUNT 433 10e9/L Unknown COMPLETE BLOOD COUNT [id number] Mean Plt Volume 9.9 fL Unknown COMPLETE BLOOD COUNT [id number] Neut Auto 74.7 % 9 Unknown COMPLETE BLOOD COUNT [id number] Lymph Auto 18.6 % 08/14/19 19 Unknown COMPLETE BLOOD COUNT [id number] [place] Auto 5.8 % 9 Unknown COMPLETE BLOOD COUNT 9456125 Eos Auto 0.6 % 9 Unknown COMPLETE BLOOD COUNT [id number] RDW 14.1 % 9 Unknown COMPLETE BLOOD COUNT [id number] Baso Auto 0.3 % 9 Unknown COMPLETE BLOOD COUNT [id number] Neutrophil Abs 11.88 10e9/L 0 08/13/2018 Unknown COMPLETE BLOOD COUNT [id number] Lymphocyte Abs 2.96 10e9/L Unknown COMPLETE BLOOD COUNT [id number] Monocyte Abs 0.92 10e9/L 07/22 Unknown COMPLETE BLOOD COUNT [id number] Eosinophil Abs 0.10 10e9/L Unknown COMPLETE BLOOD COUNT [id number] RDW-SD 45.7 fL 9 Unknown COMPLETE BLOOD COUNT [id number] Basophil Abs 0.05 10e9/L 07/22 Unknown A FOOD C P [id number] [place] Cl Class 0 03/21/2017 Unknown A FOOD C P [id number] [place] Ct <0.35 kU/L 03/21/2017 Unknow n A FOOD C P [id number] [place] Cl Class 0 03/21/2017 Unkn own A FOOD C P [id number] [place] Ct <0.35 kU/L 03/21/2017 Unk nown A FOOD C P [id number] Egg White Cl Class 3 03/21/2017 Unkno wn A FOOD C P [id number] Egg White Ct 4.68 kU/L 03/21/2017 Unkno wn A FOOD C P [id number] Egg Yolk Cl Class 1 03/21/2017 Unknow n A FOOD C P [id number] Egg Yolk Ct 0.49 kU/L 03/21/2017 Unknow n A FOOD C P [id number] Cow Milk Cl Class 3 03/21/2017 Unknow n A FOOD C P [id number] Cow Milk Ct 3.77 kU/L 03/21/2017 Unknow n A FOOD C P [id number] Peanut Cl Class 0 03/21/2017 Unknown A FOOD C P [id number] Peanut Ct <0.35 kU/L 03/21/2017 Unknown A FOOD C P [id number] Shrimp Cl Class 2 03/21/2017 Unknown A FOOD C P [id number] Shrimp Ct 0.78 kU/L 03/21/2017 Unknown A FOOD C P [id number] Soy[place] Cl Class 0 03/21/2017 Unknown A FOOD C P [id number] Soybean Ct <0.35 kU/L 03/21/2017 Unknow n A FOOD C P [id number] Wheat Cl Class 1 03/21/2017 Unknown A FOOD C P [id number] Wheat Ct 0.58 kU/L 03/21/2017 Unknown A FOOD C P [id number] Potato Cl Class 0 03/21/2017 Unknown A FOOD C P [id number] Potato Ct <0.35 kU/L 03/21/2017 Unknown A FOOD C P [id number] Beef Cl Class 0 03/21/2017 Unknown A FOOD C P [id number] Beef Ct <0.35 kU/L 03/21/2017 Unknown A FOOD C P [id number] [place] Cl Class 0 03/21/2017 Unknown A FOOD C P [id number] [place] Ct <0.35 kU/L 03/21/2017 Unknown A FOOD C P [id number] Pork Cl Class 0 03/21/2017 Unknown A FOOD C P [id number] Pork Ct <0.35 kU/L 03/21/2017 Unknown A FOOD C P [id number] [place] Cl Class 0 03/21/2017 Unknown A FOOD C P [id number] [place] Ct <0.35 kU/L 03/21/2017 Unknown A FOOD C P [id number] [place] Cl Class 0 03/21/2017 Unkn own A FOOD C P [id number] [place] Ct <0.35 kU/L 03/21/2017 Unk nown A FOOD C P [id number] Tom[place] Cl Class 0 03/21/2017 Unknown A FOOD C P [id number] Tomato Ct <0.35 kU/L 03/21/2017 Unknown A FOOD C P [id number] [place] Cl Class 0 03/21/2017 Unknown A FOOD C P [id number] Tuna Ct <0.35 kU/L 03/21/2017 Unknown A FOOD C P [id number] [place] CL Class 0 03/21/2017 Unknown A FOOD C P [id number] [place] CT <0.35 kU/L 03/21/2017 Unknown A FOOD C P 2408574 Case[place] Cl Class 1 03/21/2017 Unknown A FOOD C P [id number] [place] Ct 0.64 kU/L 03/21/2017 Unknown A FOOD C P [id number] Oat Cl Class 0 03/21/2017 Unknown A FOOD C P [id number] Oat Ct <0.35 kU/L 03/21/2017 Unknown A FOOD C P [id number] [place] Cl Class 2 03/21/2017 Unknown A FOOD C P [id number] [place] Ct 0.75 kU/L 03/21/2017 Unknown A FOOD C P [id number] Chicken Meat CL Class 0 03/21/2017 Un known A FOOD C P [id number] Chicken Meat Ct <0.35 kU/L 03/21/2017 U nknown A FOOD C P [id number] [place] Cl Class 0 03/21/2017 Unknown A FOOD C P [id number] [place] Ct <0.35 kU/L 03/21/2017 Unknown A FOOD C P [id number] Pecan Meat Cl Class 0 03/21/2017 Unkn own A FOOD C P [id number] Pecan Meat Ct <0.35 kU/L 03/21/2017 Unk nown A NUTS PNL [id number] Peanut Cl Class 0 03/21/2017 Unknown A NUTS PNL 4127680 Peanut Ct <0.35 kU/L 03/21/2017 Unknown A NUTS PNL [id number] [place] Meat Cl Class 0 03/21/2017 Unk nown A NUTS PNL [id number] [place] Meat Ct <0.35 kU/L 03/21/2017 Un known A NUTS PNL [id number] [place] Meat Cl Class 0 03/21/2017 Unkn own A NUTS PNL [id number] [place]ecan Meat Ct <0.35 kU/L 03/21/2017 Unk nown A NUTS PNL [id number] [place] Cl Class 0 03/21/2017 Unknown A NUTS PNL [id number] [place] Ct <0.35 kU/L 03/21/2017 Unknown A NUTS PNL 2576902 [place] Cl Class 0 03/21/2017 Unknow n A NUTS PNL [id number] [place] Ct <0.35 kU/L 03/21/2017 Unkno wn A NUTS PNL [id number] [place] Cl Class 0 03/21/2017 Unkno wn A NUTS PNL [id number] [place] Ct <0.35 kU/L 03/21/2017 Unkn own A NUTS PNL [id number] [place] Cl Class 0 03/21/2017 Unknown A NUTS PNL [id number] [place] Ct <0.35 kU/L 03/21/2017 Unknown A NUTS PNL [id number] [place] Cl Class 0 03/21/2017 Unkno wn A NUTS PNL [id number] Pist[place] Ct <0.35 kU/L 03/21/2017 Unkn own A NUTS PNL [id number] Allergen Interp See Note 03/21/2017 Un known A FRT/VG P [id number] [place] Cl Class 0 03/21/2017 Unkn own A FRT/VG P [id number] [place] Ct <0.35 kU/L 03/21/2017 Unk nown A FRT/VG P [id number] Potato Cl Class 0 03/21/2017 Unknown A FRT/VG P [id number] Potato Ct <0.35 kU/L 03/21/2017 Unknown A FRT/VG P [id number] [place] Cl Class 0 03/21/2017 Unkn own A FRT/VG P [id number] [place] Ct <0.35 kU/L 03/21/2017 Unk nown A FRT/VG P [id number] [place] Cl Class 0 03/21/2017 Unknown A FRT/VG P [id number] Tomato Ct <0.35 kU/L 03/21/2017 Unknown A FRT/VG P 3991706 [place] Cl Class 2 03/21/2017 Unknown A FRT/VG P 6972803 [place] Ct 0.75 kU/L 03/21/2017 Unknown A FRT/VG P [id number] Ban[place] Cl Class 2 03/21/2017 Unknown A FRT/VG P [id number] Banana Ct 2.58 kU/L 03/21/2017 Unknown A FRT/VG P 2090434 [place] Cl Class 0 03/21/2017 Unk nown A FRT/VG P 2385143 [place] Ct <0.35 kU/L 03/21/2017 Un known A FRT/VG P 9241782 [place] Fruit Cl Class 0 03/21/2017 Unk nown A FRT/VG P [id number] [place] Ct <0.35 kU/L 03/21/2017 Un known A FRT/VG P 6102346 Car[place] Cl Class 0 03/21/2017 Unknown A FRT/VG P [id number] Carrot Ct <0.35 kU/L 03/21/2017 Unknown A FRT/VG P 8672702 Pea Cl Class 0 03/21/2017 Unknown A FRT/VG P 7201279 Pea Ct <0.35 kU/L 03/21/2017 Unknown A FRT/VG P 1900856 Pear Fruit Cl Class 0 03/21/2017 Unkn own A FRT/VG P 1177923 Pear Fruit Ct <0.35 kU/L 03/21/2017 Unk nown A FRT/VG P 7769097 Swt Potato Cl Class 0 03/21/2017 Unkn own A FRT/VG P 0973994 Swt Potato Ct <0.35 kU/L 03/21/2017 Unk nown A OK/KS/PN 9110795 [place] Cl Class 0 03/21/2017 Unknown A OK/KS/PN 0742721 [place] Ct <0.35 kU/L 03/21/2017 Unknow n A OK/KS/PN 6139015 [place] Cl Class 0 03/21/2017 Unknown A OK/KS/PN 0916924 Alt Ten Ct <0.35 kU/L 03/21/2017 Unknow n A OK/KS/PN 0700137 [place] Cl Class 0 03/21/2017 Un known A OK/KS/PN 1110096 [place] Ct <0.35 kU/L 03/21/2017 U nknown A OK/KS/PN 6110003 [place] Cl Class 0 03/21/2017 Unknow n A OK/KS/PN 2310292 [place] Ct <0.35 kU/L 03/21/2017 Unkno wn A OK/KS/PN 1608470 [place] Cl Class 0 03/21/2017 Unkn own A OK/KS/PN 0697366 [place] Ct <0.35 kU/L 03/21/2017 Unk nown A OK/KS/PN 7536714 Yas[place] Blue Cl Class 1 03/21/2017 Unkno wn A OK/KS/PN 4116247 [place] Blue Ct 0.59 kU/L 03/21/2017 Unkno wn A OK/KS/PN 8903053 [place] Cl Class 0 03/21/2017 Unk nown A OK/KS/PN 7014135 Rough [place] Ct <0.35 kU/L 03/21/2017 Un known A OK/KS/PN 9717859 [place] Cl Class 2 03/21/2017 Unknow n A OK/KS/PN 2487280 [place] Ct 0.72 kU/L 03/21/2017 Unknow n A OK/KS/PN 6076083 [place] Cl Class 2 03/21/2017 Unknown A OK/KS/PN [id number] [place] Ct 1.46 kU/L 03/21/2017 Unknown A OK/KS/PN 8990248 [place] Cl Class 0 03/21/2017 Unkn own A OK/KS/PN 3285072 Cat [place] Ct <0.35 kU/L 03/21/2017 Unk nown A OK/KS/PN 5677630 Dog [place] Cl Class 0 03/21/2017 Unkn own A OK/KS/PN 7182287 Dog [place] Ct <0.35 kU/L 03/21/2017 Unk nown A OK/KS/PN 5261092 Pec[place] Tr Cl Class 0 03/21/2017 Unknow n A OK/KS/PN 2646766 Pecan Tr Ct <0.35 kU/L 03/21/2017 Unkno wn A OK/KS/PN 2209807 Dust Mite Cl Class 0 03/21/2017 Unkno wn A OK/KS/PN 0543678 Dust Mite Ct <0.35 kU/L 03/21/2017 Unkn own A OK/KS/PN 5491531 Allergen Interp See Note 03/21/2017 Un known FREE T4 70894 T4 Free 0.97 ng/dL 09/06/2016 Unknown THYROID STIMULATING HORMONE 76716 TSH 1.665 uIU/mL 09/06/2016 Unknown COMPLETE BLOOD COUNT [id number] WBC 11.9 10e9/L 017 Unknown COMPLETE BLOOD COUNT 7685107 RBC 4.70 10e12/L 2016 Unknown COMPLETE BLOOD COUNT 1675765 HEMOGLOBIN 13.9 g/dL 09/07/19 17 Unknown COMPLETE BLOOD COUNT 3737365 HEMATOCRIT 41.0 % 09/07/19 17 Unknown COMPLETE BLOOD COUNT 8542546 MCV 87.2 fL 7 Unknown COMPLETE BLOOD COUNT 6083491 MCH 29.6 pg 7 Unknown COMPLETE BLOOD COUNT 0784778 MCHC 33.9 g/dL 7 Unknown COMPLETE BLOOD COUNT 9995569 PLATELET COUNT 395 10e9/L Unknown COMPLETE BLOOD COUNT 7480680 Mean Plt Volume 9.1 fL Unknown COMPLETE BLOOD COUNT 3095432 Neut Auto 62.9 % 7 Unknown COMPLETE BLOOD COUNT 1646832 Lymph Auto 24.4 % 09/07/19 17 Unknown COMPLETE BLOOD COUNT 9182916 [place]on Auto 7.6 % 7 Unknown COMPLETE BLOOD COUNT 8585302 RDW 13.5 % 7 Unknown COMPLETE BLOOD COUNT 5571151 Eos Auto 4.6 % 7 Unknown COMPLETE BLOOD COUNT 0498989 Baso Auto 0.5 % 7 Unknown COMPLETE BLOOD COUNT 5976049 Neutrophil Abs 7.49 10e9/L Unknown COMPLETE BLOOD COUNT 5363396 Lymphocyte Abs 2.90 10e9/L Unknown COMPLETE BLOOD COUNT 7095369 Monocyte Abs 0.90 10e9/L 08/20 Unknown COMPLETE BLOOD COUNT 8056468 Eosinophil Abs 0.55 10e9/L Unknown COMPLETE BLOOD COUNT 4765396 RDW-SD 41.9 fL 7 Unknown COMPLETE BLOOD COUNT 5571012 Basophil Abs 0.06 10e9/L 08/20 Unknown GFR CALC 6130983 GFR Non Afr Amr >60 mL/min 09/06/2016 Un known GFR CALC 6263374 GFR Afr Amr >60 mL/min 09/06/2016 Unknow n COMPREHENSIVE METABOLIC 55252 AST 22 U/L 2016 Unknown COMPREHENSIVE METABOLIC 47872 ALT 30 U/L 2016 Unknown COMPREHENSIVE METABOLIC 50680 BUN 26 mg/dL 2016 Unknown COMPREHENSIVE METABOLIC 23930 ALBUMIN 4.8 g/dL 2016 Unknown COMPREHENSIVE METABOLIC 11451 CHLORIDE 107 mmol/L 09/06 Unknown COMPREHENSIVE METABOLIC 97906 Bili Total 0.2 mg/dL 09/06 Unknown COMPREHENSIVE METABOLIC 31461 ALK PHOS 118 U/L 2016 Unknown COMPREHENSIVE METABOLIC 28000 SODIUM 139 mmol/L 09/06 Unknown COMPREHENSIVE METABOLIC 90462 CREATININE 0.67 mg/dL 08/20 Unknown COMPREHENSIVE METABOLIC 02847 CALCIUM 9.8 mg/dL 2016 Unknown COMPREHENSIVE METABOLIC 89956 POTASSIUM 4.3 mmol/L 09/06 Unknown COMPREHENSIVE METABOLIC 55897 Total Protein 7.8 g/dL Unknown COMPREHENSIVE METABOLIC 96665 Glucose 96 mg/dL 2016 Unknown COMPREHENSIVE METABOLIC 51827 Bicarbonate 22 mmol/L 08/20 Unknown COMPREHENSIVE METABOLIC 76639 AGAP 10 mmol/L 2016 Unknown IRON 18865 Iron 58 ug/dL 09/06/2016 Unknown COMPLETE BLOOD COUNT 1424006 WBC 12.2 10e9/L 015 Unknown COMPLETE BLOOD COUNT 6489361 RBC 4.52 10e12/L 2014 Unknown COMPLETE BLOOD COUNT 8489303 HGB 13.3 g/dL 5 Unknown COMPLETE BLOOD COUNT 1059022 HCT DET 40.3 % 5 Unknown COMPLETE BLOOD COUNT 9873034 MCV 89.2 fL 5 Unknown COMPLETE BLOOD COUNT 5995140 MCH 29.4 pg 5 Unknown COMPLETE BLOOD COUNT 3847629 MCHC 33.0 g/dL 5 Unknown COMPLETE BLOOD COUNT 1374382 PLT 402 10e9/L 07/22/19 15 Unknown COMPLETE BLOOD COUNT 1201135 MPV 9.6 fL 5 Unknown COMPLETE BLOOD COUNT 3773378 ERIN % 64.8 % 5 Unknown COMPLETE BLOOD COUNT 5817750 LY % 24.6 % 5 Unknown COMPLETE BLOOD COUNT 3115392 MON % 7.0 % 5 Unknown COMPLETE BLOOD COUNT 1575661 EOS % 3.3 % 5 Unknown COMPLETE BLOOD COUNT 5209424 BASO % 0.3 % 5 Unknown COMPLETE BLOOD COUNT 2206595 RDW 13.2 % 5 Unknown COMPLETE BLOOD COUNT 1979062 ABS ERIN 7.91 10e9/L 015 Unknown COMPLETE BLOOD COUNT 9368944 ABS LYMPH 3.00 10e9/L 015 Unknown COMPLETE BLOOD COUNT 3354347 ABS MONO 0.85 10e9/L 015 Unknown COMPLETE BLOOD COUNT 5160950 ABS EOS 0.40 10e9/L 015 Unknown COMPLETE BLOOD COUNT [id number] ABS BASO 0.04 10e9/L 015 Unknown COMPLETE BLOOD COUNT 0791030 RDW-SD 42.3 fL 5 Unknown COMPREHENSIVE METABOLIC 14261 AST 21 U/L 2014 Unknown COMPREHENSIVE METABOLIC 36525 ALT 27 IU/L 2014 Unknown COMPREHENSIVE METABOLIC 33898 BUN 12 MG/DL 2014 Unknown COMPREHENSIVE METABOLIC 64345 ALBUMIN 4.1 GM/DL 2014 Unknown COMPREHENSIVE METABOLIC 63095 CHLORIDE 102 MMOL/L 07/21 Unknown COMPREHENSIVE METABOLIC 30213 BILI TOT 0.3 MG/DL 2014 Unknown COMPREHENSIVE METABOLIC 80509 ALK PHOS 94 U/L 2014 Unknown COMPREHENSIVE METABOLIC 82658 SODIUM 138 MMOL/L 07/21 Unknown COMPREHENSIVE METABOLIC 03346 CREATININE 0.71 MG/DL 02/2014 Unknown COMPREHENSIVE METABOLIC 22462 CALCIUM 9.4 MG/DL 2014 Unknown COMPREHENSIVE METABOLIC 97926 POTASSIUM 3.7 MMOL/L 07/21 Unknown COMPREHENSIVE METABOLIC 72093 PROT TOT 7.0 GM/DL 2014 Unknown COMPREHENSIVE METABOLIC 85996 Glucose 84 MG/DL 2014 Unknown COMPREHENSIVE METABOLIC 34872 BICARB 27 MMOL/L 2014 Unknown COMPREHENSIVE METABOLIC 88818 ANION GAP 9 MEQ/L 2014 Unknown GFR CALC 8266730 GFR AA >60 ML/MIN 07/21/2014 Unknown GFR CALC 5565761 GFR NON-AA >60 ML/MIN 07/21/2014 Unknown FREE T4 99888 FREE T4 0.90 NG/DL 07/21/2014 Unknown THYROID STIMULATING HORMONE 05273 TSH 1.838 uIU/ML 07/21/2014 Unknown LIPID GROUP 38010 HDL TEST 33 MG/DL 07/21/2014 Unknown LIPID GROUP 01471 TRIG 320 MG/DL 07/21/2014 Unknown LIPID GROUP 60508 TEST LDL 122 MG/DL 07/21/2014 Unknown LIPID GROUP 98982 CHOL 219 MG/DL 07/21/2014 Unknown LIPID GROUP 49929 RCHOL/HDL 6.64 RATIO 07/21/2014 Unknow n LIPID GROUP 84163 NON-HDL CH 186 MG/DL 07/21/2014 Unknow n IRON 00518 IRON TEST 99 UG/DL 09/12/2013 Unknown C-REACTIVE PROTEIN (CRP) QUANT 39251 CRP 0.2 MG/DL 09/12/2013 Unknown GFR CALC 3720638 GFR AA >60 ML/MIN 09/12/2013 Unknown GFR CALC 2824283 GFR NON-AA >60 ML/MIN 09/12/2013 Unknown THYROID STIMULATING HORMONE 55625 TSH 1.882 uIU/ML 09/12/2013 Unknown COMPLETE BLOOD COUNT 0497255 WBC 7.9 10e9/L 09/13/19 14 Unknown COMPLETE BLOOD COUNT 1612041 RBC 4.83 10e12/L 2013 Unknown COMPLETE BLOOD COUNT 4000860 HGB 14.2 g/dL 4 Unknown COMPLETE BLOOD COUNT 5059815 HCT DET 42.5 % 4 Unknown COMPLETE BLOOD COUNT 5549849 MCV 88.0 fL 4 Unknown COMPLETE BLOOD COUNT 4240507 MCH 29.4 pg 4 Unknown COMPLETE BLOOD COUNT 9486627 MCHC 33.4 g/dL 4 Unknown COMPLETE BLOOD COUNT 5624805 PLT 359 10e9/L 09/13/19 14 Unknown COMPLETE BLOOD COUNT 3648189 MPV 10.1 fL 4 Unknown COMPLETE BLOOD COUNT 5295883 ERIN % 55.7 % 4 Unknown COMPLETE BLOOD COUNT 8624294 LY % 32.7 % 4 Unknown COMPLETE BLOOD COUNT 4716272 MON % 6.6 % 4 Unknown COMPLETE BLOOD COUNT 8253278 EOS % 4.5 % 4 Unknown COMPLETE BLOOD COUNT 1098291 BASO % 0.5 % 4 Unknown COMPLETE BLOOD COUNT 4119898 RDW 13.8 % 4 Unknown COMPLETE BLOOD COUNT [id number] ABS ERIN 4.40 10e9/L 014 Unknown COMPLETE BLOOD COUNT [id number] ABS LYMPH 2.58 10e9/L 014 Unknown COMPLETE BLOOD COUNT [id number] ABS MONO 0.52 10e9/L 014 Unknown COMPLETE BLOOD COUNT [id number] ABS EOS 0.36 10e9/L 014 Unknown COMPLETE BLOOD COUNT [id number] ABS BASO 0.04 10e9/L 014 Unknown COMPLETE BLOOD COUNT [id number] RDW-SD 44.0 fL 4 Unknown FREE T4 86534 FREE T4 0.95 NG/DL 09/12/2013 Unknown COMPREHENSIVE METABOLIC 97953 AST 19 U/L 2013 Unknown COMPREHENSIVE METABOLIC 73855 ALT 18 IU/L 2013 Unknown COMPREHENSIVE METABOLIC 77965 BUN 11 MG/DL 2013 Unknown COMPREHENSIVE METABOLIC 70886 ALBUMIN 4.8 GM/DL 2013 Unknown COMPREHENSIVE METABOLIC 24337 CHLORIDE 107 MMOL/L 09/12 Unknown COMPREHENSIVE METABOLIC 27097 BILI TOT 0.4 MG/DL 2013 Unknown COMPREHENSIVE METABOLIC 97928 ALK PHOS 86 U/L 2013 Unknown COMPREHENSIVE METABOLIC 04025 SODIUM 138 MMOL/L 09/12 Unknown COMPREHENSIVE METABOLIC 89487 CREATININE 0.79 MG/DL 08/21 Unknown COMPREHENSIVE METABOLIC 66908 CALCIUM 10.0 MG/DL 09/12 Unknown COMPREHENSIVE METABOLIC 84970 POTASSIUM 4.1 MMOL/L 09/12 Unknown COMPREHENSIVE METABOLIC 48699 PROT TOT 7.6 GM/DL 2013 Unknown COMPREHENSIVE METABOLIC 15820 Glucose 96 MG/DL 2013 Unknown COMPREHENSIVE METABOLIC 62888 BICARB 23 MMOL/L 2013 Unknown COMPREHENSIVE METABOLIC 25528 ANION GAP 8 MEQ/L 2013 Unknown LIPID GROUP 43577 HDL TEST 38 MG/DL 05/07/2013 Unknown LIPID GROUP 07403 TRIG 176 MG/DL 05/07/2013 Unknown LIPID GROUP 84550 TEST LDL 163 MG/DL 05/07/2013 Unknown LIPID GROUP 47278 CHOL 236 MG/DL 05/07/2013 Unknown LIPID GROUP 09702 RCHOL/HDL 6.21 RATIO 05/07/2013 Unknow n GFR CALC [id number] GFR AA >60 ML/MIN 05/07/2013 Unknown GFR CALC [id number] GFR NON-AA >60 ML/MIN 05/07/2013 Unknown COMPREHENSIVE METABOLIC 31532 AST 34 U/L 2013 Unknown COMPREHENSIVE METABOLIC 21043 ALT 37 IU/L 2013 Unknown COMPREHENSIVE METABOLIC 18470 BUN 15 MG/DL 2013 Unknown COMPREHENSIVE METABOLIC 88942 ALBUMIN 4.4 GM/DL 2013 Unknown COMPREHENSIVE METABOLIC 59709 CHLORIDE 106 MMOL/L 05/07 Unknown COMPREHENSIVE METABOLIC 56064 BILI TOT 0.3 MG/DL 2013 Unknown COMPREHENSIVE METABOLIC 13111 ALK PHOS 106 U/L 2013 Unknown COMPREHENSIVE METABOLIC 35645 SODIUM 139 MMOL/L 05/07 Unknown COMPREHENSIVE METABOLIC 32695 CREATININE 0.67 MG/DL 04/20 Unknown COMPREHENSIVE METABOLIC 46561 CALCIUM 9.4 MG/DL 2013 Unknown COMPREHENSIVE METABOLIC 86487 POTASSIUM 4.2 MMOL/L 05/07 Unknown COMPREHENSIVE METABOLIC 64202 PROT TOT 7.1 GM/DL 2013 Unknown COMPREHENSIVE METABOLIC 81400 Glucose 93 MG/DL 2013 Unknown COMPREHENSIVE METABOLIC 32621 BICARB 25 MMOL/L 2013 Unknown COMPREHENSIVE METABOLIC 36460 ANION GAP 8 MEQ/L 2013 Unknown COMPLETE BLOOD COUNT [id number] WBC 6.7 10e9/L 05/08/19 14 Unknown COMPLETE BLOOD COUNT [id number] RBC 4.68 10e12/L 2013 Unknown COMPLETE BLOOD COUNT [id number] HGB 13.6 g/dL 4 Unknown COMPLETE BLOOD COUNT [id number] HCT DET 41.1 % 4 Unknown COMPLETE BLOOD COUNT [id number] MCV 87.8 fL 4 Unknown COMPLETE BLOOD COUNT [id number] MCH 29.1 pg 4 Unknown COMPLETE BLOOD COUNT [id number] MCHC 33.1 g/dL 4 Unknown COMPLETE BLOOD COUNT [id number] PLT 326 10e9/L 05/08/19 14 Unknown COMPLETE BLOOD COUNT 1386834 MPV 10.1 fL 4 Unknown COMPLETE BLOOD COUNT [id number] ERIN % 57.3 % 4 Unknown COMPLETE BLOOD COUNT [id number] LY % 30.3 % 4 Unknown COMPLETE BLOOD COUNT [id number] MON % 6.9 % 4 Unknown COMPLETE BLOOD COUNT [id number] EOS % 5.2 % 4 Unknown COMPLETE BLOOD COUNT [id number] BASO % 0.3 % 4 Unknown COMPLETE BLOOD COUNT 1048574 RDW 13.9 % 4 Unknown COMPLETE BLOOD COUNT [id number] ABS ERIN 3.84 10e9/L 014 Unknown COMPLETE BLOOD COUNT [id number] ABS LYMPH 2.03 10e9/L 014 Unknown COMPLETE BLOOD COUNT [id number] ABS MONO 0.46 10e9/L 014 Unknown COMPLETE BLOOD COUNT [id number] ABS EOS 0.35 10e9/L 014 Unknown COMPLETE BLOOD COUNT [id number] ABS BASO 0.02 10e9/L 014 Unknown COMPLETE BLOOD COUNT [id number] RDW-SD 43.5 fL 4 Unknown THYROID STIMULATING HORMONE 13016 TSH 1.476 uIU/ML 05/07/2013 Unknown FREE T4 99341 FREE T4 0.83 NG/DL 05/07/2013 Unknown FREE T4 56504 FREE T4 1.28 NG/DL 08/18/2010 Unknown COMPLETE BLOOD COUNT 43003 WBC 7.3 10e9/L 08/19/19 11 Unknown COMPLETE BLOOD COUNT 37384 RBC 5.15 10e12/L 2010 Unknown COMPLETE BLOOD COUNT 65069 HGB 14.4 g/dL 1 Unknown COMPLETE BLOOD COUNT 59816 HCT DET 43.2 % 1 Unknown COMPLETE BLOOD COUNT 21957 MCV 83.9 fL 1 Unknown COMPLETE BLOOD COUNT 27390 MCH 28.0 pg 1 Unknown COMPLETE BLOOD COUNT 68482 MCHC 33.3 g/dL 1 Unknown COMPLETE BLOOD COUNT 99007 PLT 341 10e9/L 08/19/19 11 Unknown COMPLETE BLOOD COUNT 09022 MPV 10.2 fL 1 Unknown COMPLETE BLOOD COUNT 96508 ERIN % 42.6 % 1 Unknown COMPLETE BLOOD COUNT 70837 LY % 45.2 % 1 Unknown COMPLETE BLOOD COUNT 71413 MON % 7.4 % 1 Unknown COMPLETE BLOOD COUNT 14544 EOS % 4.1 % 1 Unknown COMPLETE BLOOD COUNT 91021 BASO % 0.7 % 1 Unknown COMPLETE BLOOD COUNT 69041 RDW 14.4 % 1 Unknown COMPLETE BLOOD COUNT 90245 ABS ERIN 3.11 10e9/L 011 Unknown COMPLETE BLOOD COUNT 69259 ABS LYMPH 3.30 10e9/L 011 Unknown COMPLETE BLOOD COUNT 01606 ABS MONO 0.54 10e9/L 011 Unknown COMPLETE BLOOD COUNT 53181 ABS EOS 0.30 10e9/L 011 Unknown COMPLETE BLOOD COUNT 93859 ABS BASO 0.05 10e9/L 011 Unknown COMPLETE BLOOD COUNT 01029 RDW-SD 43.1 fL 1 Unknown THYROID STIMULATING HORMONE 65961 TSH 1.931 uIU/ML 08/18/2010 Unknown GFR CALC 9470963 GFR AA >60 ML/MIN 08/18/2010 Unknown GFR CALC 6615684 GFR NON-AA >60 ML/MIN 08/18/2010 Unknown COMPREHENSIVE METABOLIC 00146 AST 17 U/L 2010 Unknown COMPREHENSIVE METABOLIC 00197 ALT 11 IU/L 2010 Unknown COMPREHENSIVE METABOLIC 42302 BUN 12 MG/DL 2010 Unknown COMPREHENSIVE METABOLIC 63019 ALBUMIN 4.9 GM/DL 2010 Unknown COMPREHENSIVE METABOLIC 44521 CHLORIDE 104 MMOL/L 08/18 Unknown COMPREHENSIVE METABOLIC 07704 BILI TOT 0.5 MG/DL 2010 Unknown COMPREHENSIVE METABOLIC 64379 ALK PHOS 80 U/L 2010 Unknown COMPREHENSIVE METABOLIC 29434 SODIUM 137 MMOL/L 08/18 Unknown COMPREHENSIVE METABOLIC 96976 CREATININE 0.79 MG/DL 07/22 Unknown COMPREHENSIVE METABOLIC 54937 CALCIUM 9.6 MG/DL 2010 Unknown COMPREHENSIVE METABOLIC 31415 POTASSIUM 3.7 MMOL/L 08/18 Unknown COMPREHENSIVE METABOLIC 42230 PROT TOT 7.5 GM/DL 2010 Unknown COMPREHENSIVE METABOLIC 94812 Glucose 72 MG/DL 2010 Unknown COMPREHENSIVE METABOLIC 10653 BICARB 22 MMOL/L 2010 Unknown COMPREHENSIVE METABOLIC 03367 ANION GAP 11 MEQ/L 2010 Unknown Procedures Procedure Codes Date IIV4 VACC NO PRSV 6 MTHS TO 64 YRS+ IM CPT-4: 72034 11/22/2018 IIV4 VACC NO PRSV 6 MTHS TO 64 YRS+ IM CPT-4: 59539 11/22/2018 IMMUNIZATION ADMIN CPT-4: 66073 11/22/2018 THER/PROPH/DIAG INJ SC/IM CPT-4: 25095 05/29/2018 TRIAMCINOLONE ACET INJ NOS CPT-4: J3301 05/29/2018 DEXAMETHASONE SODIUM PHOS CPT-4: J1100 05/29/2018 SPECIMEN HANDLING OFFICE-LAB CPT-4: 13723 02/08/2018 THER/PROPH/DIAG INJ SC/IM CPT-4: 20013 01/09/2018 IIV4 VACCINE 3 YRS+ IM AND UP CPT-4: 17258 01/02/2018 IMMUNIZATION ADMIN CPT-4: 51694 01/02/2018 THER/PROPH/DIAG INJ SC/IM CPT-4: 25099 12/11/2017 TRIAMCINOLONE ACET INJ NOS CPT-4: J3301 12/11/2017 DEXAMETHASONE SODIUM PHOS CPT-4: J1100 12/11/2017 STREP A ASSAY W/OPTIC CPT-4: 05627 11/30/2017 THER/PROPH/DIAG INJ SC/IM CPT-4: 57435 10/13/2017 THER/PROPH/DIAG INJ SC/IM CPT-4: 94724 07/21/2017 THER/PROPH/DIAG INJ SC/IM CPT-4: 36918 04/27/2017 METHYLPREDNISOLONE INJECTION CPT-4: J2930 04/27/2017 THER/PROPH/DIAG INJ SC/IM CPT-4: 90587 04/27/2017 THER/PROPH/DIAG INJ SC/IM CPT-4: 83444 03/20/2017 METHYLPREDNISOLONE INJECTION CPT-4: J2930 03/20/2017 ROUTINE VENIPUNCTURE CPT-4: 30400 03/20/2017 A FRT/VG P CPT-4: 6981452 03/20/2017 A FOOD C P CPT-4: 0045257 03/20/2017 A NUTS PNL CPT-4: 6035488 03/20/2017 THER/PROPH/DIAG INJ SC/IM CPT-4: 70654 01/31/2017 URINE TEST CPT-4: 76917 01/31/2017 THER/PROPH/DIAG INJ SC/IM CPT-4: 19283 10/31/2016 URINE TEST CPT-4: 99941 10/31/2016 SPECIMEN HANDLING OFFICE-LAB CPT-4: 07683 09/06/2016 URINALYSIS NONAUTO W/O SCOPE CPT-4: 81993 04/28/2016 URINE CULTURE/ COLONY COUNT CPT-4: 71993 04/28/2016 THER/PROPH/DIAG INJ SC/IM CPT-4: 00746 06/12/2015 TRIAMCINOLONE ACET INJ NOS CPT-4: J3301 06/12/2015 DEXAMETHASONE SODIUM PHOS CPT-4: J1100 06/12/2015 ROUTINE VENIPUNCTURE CPT-4: 50082 07/21/2014 ASSAY OF FREE THYROXINE CPT-4: 40001 07/21/2014 ASSAY THYROID STIM HORMONE CPT-4: 59161 07/21/2014 COMPREHEN METABOLIC PANEL CPT-4: 08676 07/21/2014 COMPLETE CBC W/AUTO DIFF WBC CPT-4: 23169 07/21/2014 LIPID PANEL CPT-4: 42640 07/21/2014 THER/PROPH/DIAG INJ SC/IM CPT-4: 03263 04/02/2014 METHYLPREDNISOLONE 40 MG INJ CPT-4: J1030 04/02/2014 TRIAMCINOLONE ACET INJ NOS CPT-4: J3301 04/02/2014 URINALYSIS NONAUTO W/O SCOPE CPT-4: 38081 10/01/2013 URINE CULTURE/ COLONY COUNT CPT-4: 30968 10/01/2013 ROUTINE VENIPUNCTURE CPT-4: 13303 09/12/2013 COMPLETE CBC W/AUTO DIFF WBC CPT-4: 22649 09/12/2013 COMPREHEN METABOLIC PANEL CPT-4: 77099 09/12/2013 ASSAY OF IRON CPT-4: 39319 09/12/2013 ASSAY THYROID STIM HORMONE CPT-4: 67635 09/12/2013 ASSAY OF FREE THYROXINE CPT-4: 33508 09/12/2013 C-REACTIVE PROTEIN CPT-4: 74643 09/12/2013 THER/PROPH/DIAG INJ SC/IM CPT-4: 37461 05/17/2013 SPECIMEN HANDLING OFFICE-LAB CPT-4: 03183 05/16/2013 ROUTINE VENIPUNCTURE CPT-4: 23147 05/07/2013 ASSAY OF FREE THYROXINE CPT-4: 98986 05/07/2013 ASSAY THYROID STIM HORMONE CPT-4: 13466 05/07/2013 COMPREHEN METABOLIC PANEL CPT-4: 58067 05/07/2013 COMPLETE CBC W/AUTO DIFF WBC CPT-4: 16661 05/07/2013 LIPID PANEL CPT-4: 06772 05/07/2013 FLU VACCINE 3 YRS & > IM UP 64 CPT-4: 17234 3 IMMUNIZATION ADMIN CPT-4: 30516 01/08/2013 AEROBIC WOUND CULTURE & STN CPT-4: 29421 04/29/2011 DRAINAGE OF SKIN ABSCESS CPT-4: 06709 04/29/2011 URINALYSIS NONAUTO W/O SCOPE CPT-4: 31827 03/07/2011 URINE CULTURE/ COLONY COUNT CPT-4: 07054 03/07/2011 SPECIMEN HANDLING OFFICE-LAB CPT-4: 25703 08/18/2010 COMPLETE CBC W/AUTO DIFF WBC CPT-4: 13356 08/18/2010 COMPREHEN METABOLIC PANEL CPT-4: 21239 08/18/2010 ASSAY THYROID STIM HORMONE CPT-4: 01685 08/18/2010 ASSAY OF FREE THYROXINE CPT-4: 71299 08/18/2010 Vital Signs Date Vital 01/08/2019 Blood [...] 1: 126/90 Code: 8480-6 BMI: 33.4 Code: 99885-7 Heart Rate 1: 100 bpm Height: 5'6" [...] 1: 126/82 Code: 8480-6 BMI: 33.7 Code: 25456-2 Heart Rate 1: 76 bpm Height: 5'6" Respiratory Rate: 20 bpm Temperature: 37 .0 (C) / 98.6 (F) Weight: 209 lbs 04/27/2017 Heart Rate 1: 71 bpm SpO2: 97% Weight: 206 lbs 03/20/2017 Blood Pressure 1: 132/84 Code: 8480-6 BMI: 33.1 Code: 34564-5 Heart Rate 1: 96 bpm Height: 5'6" Respiratory Rate: 22 bpm SpO2: 97% Tempera ture: 36.2 (C) / 97.2 (F) Weight: 205 lbs 01/03/2017 Blood Pressure 1: 126/82 Code: 8480-6 BMI: 32.6 Code: 40953-7 Heart Rate 1: 80 bpm Height: 5'6" Respiratory Rate: 20 bpm SpO2: 97% Tempera ture: 36.6 (C) / 97.8 (F) Weight: 202 lbs 09/06/2016 Blood Pressure 1: 110/74 Code: 8480-6 BMI: 32.4 Code: 70733-4 Heart Rate 1: 86 bpm Height: 5'6" Respiratory Rate: 24 bpm SpO2: 97% Tempera ture: 36.6 (C) / 97.8 (F) Weight: 201 lbs 05/18/2016 Blood Pressure 1: 112/64 Code: 8480-6 He art Rate 1: 82 bpm 04/28/2016 Blood Pressure 1: 168/98 Code: 8480-6 BMI: 32.0 Code: 79213-6 Heart Rate 1: 102 bpm Height: 5'6" Respiratory Rate: 24 bpm SpO2: 97% Tempera ture: 36.4 (C) / 97.6 (F) Weight: 198 lbs 02/01/2016 Blood Pressure 1: 142/90 Code: 8480-6 He art Rate 1: 116 bpm 01/26/2016 Blood Pressure 1: 184/100 Code: 8480-6 H eart Rate 1: 114 bpm 09/10/2015 Blood Pressure 1: 126/64 Code: 8480-6 BMI: 32.0 Code: 46318-0 Heart Rate 1: 96 bpm Height: 5'5" Respiratory Rate: 24 bpm SpO2: 97% Tempera ture: 36.6 (C) / 97.8 (F) Weight: 192 lbs 06/12/2015 Blood Pressure 1: 106/80 Code: 8480-6 BMI: 33.4 Code: 43876-6 Heart Rate 1: 108 bpm Height: 5'5" Respiratory Rate: 20 bpm SpO2: 96% Tempera ture: 36.8 (C) / 98.3 (F) Weight: 201 lbs 11/04/2014 Blood Pressure 1: 134/86 Code: 8480-6 BMI: 32.9 Code: 85171-5 Heart Rate 1: 76 bpm Height: 5'5" Respiratory Rate: 20 bpm Temperature: 36 .6 (C) / 97.8 (F) Weight: 198 lbs 08/04/2014 Blood Pressure 1: 128/88 Code: 8480-6 BMI: 34.4 Code: 72788-7 Heart Rate 1: 90 bpm Height: 5'5" Respiratory Rate: 20 bpm Temperature: 37 .0 (C) / 98.6 (F) Weight: 207 lbs 07/21/2014 Blood Pressure 1: 146/94 Code: 8480-6 BMI: 34.4 Code: 45033-5 Heart Rate 1: 88 bpm Height: 5'5" Respiratory Rate: 20 bpm Temperature: 36 .7 (C) / 98.1 (F) Weight: 207 lbs 04/02/2014 Blood Pressure 1: 128/76 Code: 8480-6 BMI: 34.1 Code: 48518-5 Heart Rate 1: 84 bpm Height: 5'5" Respiratory Rate: 22 bpm Temperature: 36 .6 (C) / 97.8 (F) Weight: 205 lbs 03/20/2014 Blood Pressure 1: 126/82 Code: 8480-6 BMI: 33.9 Code: 26534-3 Heart Rate 1: 88 bpm Height: 5'5" Respiratory Rate: 20 bpm Temperature: 36 .7 (C) / 98.1 (F) Weight: 204 lbs 02/18/2014 Blood Pressure 1: 120/78 Code: 8480-6 BMI: 33.9 Code: 04351-7 Heart Rate 1: 72 bpm Height: 5'5" Respiratory Rate: 20 bpm Temperature: 36 .6 (C) / 97.9 (F) Weight: 204 lbs 10/01/2013 Blood Pressure 1: 124/78 Code: 8480-6 BMI: 32.9 Code: 80304-4 Heart Rate 1: 84 bpm Height: 5'5" Respiratory Rate: 20 bpm Temperature: 36 .4 (C) / 97.6 (F) Weight: 198 lbs 09/12/2013 Blood Pressure 1: 126/84 Code: 8480-6 BMI: 32.8 Code: 67423-9 Heart Rate 1: 76 bpm Height: 5'5" Respiratory Rate: 18 bpm Temperature: 36 .4 (C) / 97.6 (F) Weight: 197 lbs 05/16/2013 Blood Pressure 1: 124/68 Code: 8480-6 BMI: 33.3 Code: 24257-0 Heart Rate 1: 70 bpm Height: 5'5" Respiratory Rate: 20 bpm Temperature: 36 .3 (C) / 97.4 (F) Weight: 200 lbs 12/07/2012 Blood Pressure 1: 112/88 Code: 8480-6 BMI: 30.5 Code: 54309-5 Heart Rate 1: 92 bpm Height: 5'5" Respiratory Rate: 20 bpm Temperature: 37 .4 (C) / 99.3 (F) Weight: 183 lbs 12/03/2012 Blood Pressure 1: 124/88 Code: 8480-6 BMI: 30.5 Code: 18537-6 Heart Rate 1: 86 bpm Height: 5'5" Respiratory Rate: 20 bpm Temperature: 36 .6 (C) / 97.8 (F) Weight: 183 lbs 04/03/2012 Blood Pressure 1: 114/76 Code: 8480-6 BMI: 27.5 Code: 46573-6 Heart Rate 1: 64 bpm Height: 5'6" Temperature: 37.4 (C) / 99.4 (F) Weight: 168 lbs 03/30/2012 Blood Pressure 1: 122/80 Code: 8480-6 BMI: 27.5 Code: 37980-5 Heart Rate 1: 72 bpm Height: 5'6" Respiratory Rate: 20 bpm Temperature: 36 .8 (C) / 98.3 (F) Weight: 168 lbs 07/29/2011 Blood Pressure 1: 120/64 Code: 8480-6 BMI: 24.7 Code: 16875-8 Heart Rate 1: 84 bpm Height: 5'6" Temperature: 36.9 (C) / 98.4 (F) Weight: 151 lbs 04/29/2011 Blood Pressure 1: 102/70 Code: 8480-6 BMI: 24.4 Code: 12271-7 Heart Rate 1: 60 bpm Height: 5'6" Temperature: 36.8 (C) / 98.2 (F) Weight: 149 lbs 04/28/2011 Blood Pressure 1: 110/72 Code: 8480-6 BMI: 24.4 Code: 33633-9 Heart Rate 1: 74 bpm Height: 5'6" Temperature: 37.2 (C) / 99.0 (F) Weight: 149 lbs 03/07/2011 Blood Pressure 1: 102/72 Code: 8480-6 BMI: 23.5 Code: 26076-9 Heart Rate 1: 68 bpm Height: 5'6" Temperature: 37.1 (C) / 98.7 (F) Weight: 143 lbs 6 oz 11/10/2010 Blood Pressure 1: 121/80 Code: 8480-6 Heart Rate 1: 72 bpm Temperature: 36.7 (C) / 98.0 (F) Weight: 142 lbs 08/18/2010 Blood Pressure 1: 122/72 Code: 8480-6 BMI: 24.3 Code: 67623-8 Heart Rate 1: 88 bpm Height: 5'6" [...] for pain. Patient was given hydrocodone 5-325mg [id number] pain nasal allergies 06/12/2015 palpitations 11/04/2014 follow [...] Visit Encounters Encounter Performer Location Codes Date ([id number]) OFFICE/OUTPATIENT VISIT EST Diagnosis: Essential (primary) hypertension[ICD10: I10] Diagnosis: Gastro-esophageal reflux disease without esophagitis[ICD10: K21.9] Diagnosis: Generalized anxiety disorder[ICD10: F41.1] Ritika Hodgescatiffany [facility] CPT-4: 64012 01/08/2019 ([id number]) NURSE/OUTPATIENT VISIT EST Diagnosis: FLU VACCINE[ICD10: Z23] Ritika [facility] CPT-4: 41699 11/22/2018 ([id number]) OFFICE/OUTPATIENT VISIT EST Diagnosis: Esophageal reflux[ICD10: K21.9] Diagnosis: Epigastric pain[ICD10: R10.13] Ritika CINTRON [facility] CPT-4: 17837 11/14/2018 ([id number]) OFFICE/OUTPATIENT VISIT EST Diagnosis: Elevated blood-pressure reading, without diagnosis of hypertension[ICD10: R03.0] Diagnosis: Localized edema[ICD10: R60.0] Diagnosis: Major depressive disorder, single episode, unspecified[ICD10: F32.9] Diagnosis: Gastro-esophageal reflux disease without esophagitis[ICD10: K21.9] Ritika Orendtiffany RITIKA BrittanyKatelyn FELY [facility] CPT-4: 57750 09/17/2018 ([id number]) OFFICE/OUTPATIENT VISIT EST Diagnosis: Generalized abdominal pain[ICD10: R10.84] Diagnosis: Acute gastritis with bleeding[ICD10: K29.01] Quita Claritzaclementine CINTRON DO [facility] CPT-4: 09982 08/13/2018 ([id number]) OFFICE/OUTPATIENT VISIT EST Diagnosis: Other allergic rhinitis[ICD10: J30.89] Anaya [facility]ON [facility] CPT-4: 45096 05/29/2018 ([id number]) OFFICE/OUTPATIENT VISIT EST Diagnosis: Essential (primary) hypertension[ICD10: I10] Diagnosis: Localized edema[ICD10: R60.0] Diagnosis: Major depressive disorder, single episode, unspecified[ICD10: F32.9] Ritika CINTRON [facility] CPT-4: 43610 05/24/2018 ([id number]) PREV VISIT EST AGE 18-39 Diagnosis: Encounter for general adult medical examination without abnormal findings[ICD10: Z00.00] Diagnosis: Encounter for gynecological examination (general) (routine) without abnormal findings[ICD10: Z01.419] Diagnosis: Gastro-esophageal reflux disease without esophagitis[ICD10: K21.9] Diagnosis: Generalized anxiety disorder[ICD10: F41.1] Ritika CINTRON [facility] CPT-4: 19584 02/08/2018 ([id number]) NURSE/OUTPATIENT VISIT EST Diagnosis: Excessive and frequent menstruation with regular cycle[ICD10: N92.0] Ritika CINTRON [facility] CPT-4: 34949 01/09/2018 ([id number]) NURSE/OUTPATIENT VISIT EST Diagnosis: FLU VACCINE[ICD10: Z23] Ritika POP [facility] CPT-4: 98545 01/02/2018 ([id number]) OFFICE/OUTPATIENT VISIT EST Diagnosis: Acute sinusitis, unspecified[ICD10: J01.90] Quita CINTRON [facility] CPT-4: 18988 12/11/2017 ([id number]) OFFICE/OUTPATIENT VISIT EST Diagnosis: Acute pharyngitis, unspecified[ICD10: J02.9] Quita CINTRON [facility] CPT-4: 73813 11/30/2017 ([id number]) OFFICE/OUTPATIENT VISIT EST Diagnosis: Low back pain[ICD10: M54.5] Diagnosis: Pelvic and perineal pain[ICD10: R10.2] Diagnosis: Excessive and frequent menstruation with regular cycle[ICD10: N92.0] Ritika CINTRON [facility] CPT-4: 94698 10/13/2017 ([id number]) OFFICE/OUTPATIENT VISIT EST Diagnosis: Vitamin D deficiency, unspecified[ICD10: E55.9] Diagnosis: Endocrine disorder, unspecified[ICD10: E34.9] Ritika CINTRON [facility] CPT-4: 88554 09/05/2017 ([id number]) NURSE/OUTPATIENT VISIT EST Diagnosis: Excessive and frequent menstruation with regular cycle[ICD10: N92.0] Ritika CINTRON [facility] CPT-4: 48286 07/21/2017 OFFICE/OUTPATIENT VISIT EST Diagnosis: Other allergic rhinitis[ICD10: J30.89] Diagnosis: Encounter for other contraceptive management[ICD10: Z30.8] [facility] 87718 04/27/2017 OFFICE/OUTPATIENT VISIT EST Diagnosis: Allergic rhinitis, unspecified[ICD10: J30.9] Quita CINTRON [facility] CPT-4: 01405 03/20/2017 ([id number]) OFFICE/OUTPATIENT VISIT EST Diagnosis: Excessive and frequent menstruation with regular cycle[ICD10: N92.0] [facility] 30279 01/31/2017 ([id number]) OFFICE/OUTPATIENT VISIT EST Diagnosis: Epigastric pain[ICD10: R10.13] Diagnosis: Gastro-esophageal reflux disease without esophagitis[ICD10: K21.9] Diagnosis: Pain in thoracic spine[ICD10: M54.6] Diagnosis: Low back pain[ICD10: M54.5] Ritika CURRY [facility] CPT-4: 21542 01/03/2017 ([id number]) OFFICE/OUTPATIENT VISIT EST Diagnosis: Excessive and frequent menstruation with regular cycle[ICD10: N92.0] Ritika CRUZ [facility]n [facility] C[facility] 95747 10/31/2016 ([id number]) PREV VISIT EST AGE 18-39 Diagnosis: Encounter for general adult medical examination without abnormal findings[ICD10: Z00.00] Diagnosis: Encounter for general adult medical examination with abnormal findings[ICD10: Z00.01] Diagnosis: Other fatigue[ICD10: R53.83] Diagnosis: Generalized hyperhidrosis[ICD10: R61] Diagnosis: Iron deficiency anemia, unspecified[ICD10: D50.9] Ritika CRUZ Britt[facility]Katelyn [facility] CPT-[facility]: 91044 09/06/2016 ([id number]) OFFICE/OUTPATIENT VISIT EST Diagnosis: Essential (primary) hypertension[ICD10: I10] Diagnosis: Major depressive disorder, single episode, unspecified[ICD10: F32.9] Diagnosis: Urinary tract infection, site not specified[ICD10: N39.0] Diagnosis: Acute vaginitis[ICD10: N76.0] Diagnosis: Nonscarring hair loss, unspecified[ICD10: L65.9] Maryerin House RITIKA BrittanyKatelyn [facility] CPT-4: 24482 04/28/2016 ([id number]) OFFICE/OUTPATIENT VISIT EST Diagnosis: Atypical facial pain[ICD10: G50.1] Maryerin House ARIANNA TEMPLE Britt[facility]Katelyn [facility] CPT-4: 22236 09/10/2015 OFFICE/OUTPATIENT VISIT EST Diagnosis: Allergic rhinitis, unspecified[ICD10: J30.9] Sarah CRUZ Britt[facility]Katelyn [facility] CPT-4: 95971 06/12/2015 ([id number]) OFFICE/OUTPATIENT VISIT EST Diagnosis: PALPITATIONS[ICD9: 785.1] Diagnosis: CHEST PAIN NOS[ICD9: 786.50] Diagnosis: GERD[ICD9: 530.81] Ritika CRUZ Britt[facility]Katelyn [facility] CPT-4: 97437 11/04/2014 ([id number]) OFFICE/OUTPATIENT VISIT EST Diagnosis: EDEMA[ICD9: 782.3] Diagnosis: PALPITATIONS[ICD9: 785.1] Diamante CRUZ Aura LOCK [facility] CPT-4: 55071 08/04/2014 ([id number]) OFFICE/OUTPATIENT VISIT EST Diagnosis: SINUSITIS, ACUTE[ICD9: 461.9] Diagnosis: PALPITATIONS[ICD9: 785.1] Diagnosis: Elevated blood pressure[ICD9: 796.2] Diagnosis: EDEMA[ICD9: 782.3] [facility] 77725 07/21/2014 ([id number]) OFFICE/OUTPATIENT VISIT EST Diagnosis: SINUSITIS, ACUTE[ICD9: 461.9] Diagnosis: COUGH[ICD9: 786.2] Diamante ChapmanBirgitdarlineamanda RITIKA [facility] CPT-4: 38363 04/02/2014 ([id number]) OFFICE/OUTPATIENT VISIT EST Diagnosis: Cervicalgia[ICD9: 723.1] Diagnosis: Thoracic back pain[ICD9: 724.1] Ritika HOLLINSLINE [facility] CPT-4: 73302 03/20/2014 ([id number]) OFFICE/OUTPATIENT VISIT EST Diagnosis: EXCESSIVE MENSTRUATION[ICD9: 626.2] Diagnosis: MALAISE AND FATIGUE[ICD9: 780.79] Diagnosis: ABNORMAL WEIGHT GAIN[ICD9: 783.1] Diagnosis: IBS[ICD9: 564.1] Ritika Carrollesequiel LOWERYRITIKA Aura [facility] CPT - 4: 62225 02/18/2014 OFFICE/OUTPATIENT VISIT EST Diagnosis: URINARY TRACT INFECTION[ICD9: 599.0] Diagnosis: HYPERLIPIDEMIA NEC/NOS[ICD9: 272.4] Diamante MILLER [facility]: 17678 10/01/2013 OFFICE/OUTPATIENT VISIT EST Diagnosis: ARTHRALGIA-MULTIPLE SITES[ICD9: 719.49] Diagnosis: MALAISE AND FATIGUE[ICD9: 780.79] Diagnosis: ABNORMAL WEIGHT GAIN[ICD9: 783.1] Diamante Upton [facility] CPT-4: 20960 09/12/2013 ([id number]) OFFICE/OUTPATIENT VISIT EST Diagnosis: EXCESSIVE MENSTRUATION[ICD9: 626.2] Ritika [facility] CPT-4: 16712 05/17/2013 ([id number]) PREV VISIT EST AGE 18-39 Diagnosis: ROUTINE GYNE EXAM[ICD9: V72.31] Diagnosis: ROUTINE MEDICAL EXAM[ICD9: V70.0] Diagnosis: Menorrhagia[ICD9: 626.2] Diagnosis: HYPERLIPIDEMIA NEC/NOS[ICD9: 272.4] Ritika [facility] CPT-4: 60978 05/16/2013 ([id number]) OFFICE/OUTPATIENT VISIT EST Diagnosis: ROUTINE MEDICAL EXAM[ICD9: V70.0] Ritika [facility] CPT-4: 68661 05/07/2013 ([id number]) OFFICE/OUTPATIENT VISIT EST Diagnosis: FLU VACCINE[ICD9: V04.81] Ritika [facility] CPT-4: 06380 01/08/2013 OFFICE/OUTPATIENT VISIT EST Diagnosis: Skin infection[ICD9: 686.9] Diamante [facility] CPT-4: 70033 12/07/2012 OFFICE/OUTPATIENT VISIT EST Diagnosis: Skin lesion, infected[ICD9: 686.9] Diagnosis: MRSA (methicillin resistant Staphylococcus aureus)[ICD9: 041.12] Diagnosis: CELLULITIS[ICD9: 682.9] Diamante [facility] CPT-4: 36686 12/03/2012 OFFICE/OUTPATIENT VISIT EST Diagnosis: FEBRILE ILLNESS[ICD9: 780.60] Diagnosis: SINUSITIS, ACUTE[ICD9: 461.9] Diagnosis: COUGH[ICD9: 786.2] Ritika [facility] CPT-4: 15314 04/03/2012 OFFICE/OUTPATIENT VISIT EST Diagnosis: SINUSITIS, ACUTE[ICD9: 461.9] Ritika [facility] CPT-4: 67955 03/30/2012 OFFICE/OUTPATIENT VISIT EST Diagnosis: CONJUNCTIVITIS NOS[ICD9: 372.30] Diagnosis: URI, ACUTE[ICD9: 465.9] Ritika [facility] CPT-4: 00223 07/29/2011 OFFICE/OUTPATIENT VISIT EST Diagnosis: CELLULITIS OF HAND[ICD9: 682.4] Ritika [facility] CPT-4: 15847 04/28/2011 OFFICE/OUTPATIENT VISIT EST Diagnosis: URINARY TRACT INFECTION[ICD9: 599.0] Diagnosis: Vaginal itching[ICD9: 698.1] Ritika CINTRON [facility] CPT-4: 53432 03/07/2011 OFFICE/OUTPATIENT VISIT EST Diagnosis: Skin lesion of face[ICD9: 709.9] Diagnosis: Scratched by cat[ICD9: 919.8] Ritika CINTRON [facility] CPT-4: 47986 11/10/2010 PREV VISIT NEW AGE 18-39 Ritika Tamayo [facility] CPT-4: 81975 08/18/2010 Plan of Care Planned Activity Notes [...] : K21.9 01/08/2019 Appointment: Ritika Cintron WPtel: [address] [place], [place] [id number] FOLLOW UP 01/08/2019 Appointment: Ritika Cintron WPtel: [address] [place], [place] [address] [place] INJECTION 11/22/2018 Patient Education: INFLUENZA VACCINE CDC Completed 11/22/2018 Visit Diagnosis Plan: Esophageal reflux Discussion: Ch nayan protonix to nexium Referral for EGD May need GB workup pending EGD results ICD-9 : 530.81 ICD-10 : K21.9 11/14/2018 Appointment: Ritika Cintron WPtel: [phone] [facility] [place] FOLLOW UP 11/14/2018 Patient Education: Nexium- OptimizeRX Coupon [id number] [email or web address]/[email or web address] Completed 11/14/2018 Visit Diagnosis Plan: Elevated blood-pre ssure reading, without diagnosis of hypertension Discussion: Continue spironolactone Low Na diet ICD-9 : 796.2 ICD-10 : R03.0 09/17/2018 Visit Diagnosis Plan: Gastro-esophageal reflux disease without esophagitis Discussion: Continue protonix at current dose Recheck 3mos ICD-9 : 530.81 ICD-10 : K21.9 09/17/2018 Appointment: Ritika Cintron WPtel: [facility] 3[facility] [facility] 09/17/2018 Patient Education: spironolactone- Optimize[employer] Coupon [id number] Completed 09/17/2018 Patient Education: sertraline- OptimizeRX Coupon [id number] Completed 09/17/2018 Visit Diagnosis Plan: Generalized abdominal [...] ICD-10 : K29.01 08/13/2018 Appointment: Quita Jerry [address] [place], [place] [id number] ACUTE ILLNESS 08/13/2018 Patient Education: Protonix- OptimizeRX Coupon [id number] [email or web address] Intelligence/samplemd/resources/getResource/[email or web address] Completed 08/13/2018 Visit Diagnosis Plan: Other allergic rhinitis Discussi on: Steroid injection administered in the clinic- patient tolerated well. Start oral prednisone tomorrow. Ok to continue daily allergy medications. She has established with Dr. Zuleta and will be starting allergy injections with him this summer. No further questions at this time. ICD-9 : 477.8 ICD-10 : J30.89 05/29/2018 Appointment: Anaya Marte [address] [id number] ACUTE ILLNESS 05/29/2018 Visit Diagnosis Plan: Major [...] : I10 05/24/2018 Appointment: Ritika Cintron WPtel: [facility][note 3] [facility] [place] FOLLOW [...] : Z01.419 02/08/2018 Appointment: Ritika Cintron WPtel: [phone] [facility] Annual Well Visit 02/08/2018 Appointment: Ritika Cintron WPtel: [phone] [facility] US INJECTION 01/09/2018 Appointment: Ritika Cintron WPtel: [address] [place], [place] [id number] [place] INJECTION 01/02/2018 Patient Education: INFLUENZA VACCINE [...] : J01.90 12/11/2017 Appointment: Quita Jerry [address] ACUTE ILLNESS 12/11/2017 Patient Education: Patient Medication Summary Completed 12/11/2017 Patient Education: Patient Medication Summary Completed 12/11/2017 Visit Diagnosis Plan: Acute pharyngitis, unspecified D iscussion: rapid strep negative. due to clinical s/s and worsening, clindamycin sent out for patient. change toothbrush in 48 hours, no sharing food or drinks with others. 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 tylenol/ibuprofen prn pain or fever. call office with new or worsening symptoms. ICD-9 : 462 ICD-10 : J02.9 11/30/2017 Appointment: Quita Jerry [address] ACUTE ILLNESS 11/30/2017 Patient Education: Patient [...] 724.2 ICD-10 : M54.5 10/13/2017 Appointment: Ritika Cnitron WPtel: [address] [place] [address] ACUTE ILLNESS 10/13/2017 Patient Education: Patient Medication [...] : E34.9 09/05/2017 Appointment: Ritika Cintron WPtel: [address] [place] [address] FOLLOW UP 09/05/2017 Patient Education: Patient Medication Summary Completed 09/05/2017 Appointment: Ritika Cintron WPtel: [address] [employer], [place] [id number] [place] INJECTION 07/21/2017 Patient Education: Patient Medication [...] ICD-10 : Z30.8 04/27/2017 Appointment: Quita Jerry [address] [place] [address] ACUTE ILLNESS 04/27/2017 Patient Education: Patient Medication Summary Completed 04/27/2017 Appointment: Quita Jerry [address] [facility] ACUTE ILLNESS 03/31/2017 Visit Diagnosis Plan: Allergic [...] : J30.9 03/20/2017 Appointment: Quita Jerry [address] [facility] ACUTE ILLNESS 03/20/2017 Patient Education: Patient Medication Summary Completed 03/20/2017 Appointment: Ritika Cintron WPtel: [address] [place] [address] INJECTION 01/31/2017 Patient Education: Patient Medication Summary [...] : R10.13 01/03/2017 Appointment: Ritika Cintron WPtel: [address] [place] [address] Annual Well Visit 01/03/2017 Patient Education: Patient Medication Summary Completed 01/03/2017 Appointment: Ritika Cintron WPtel: [address] [place] [address] PAP 11/22/2016 Appointment: [facility]it[facility]intron [facility]Ptel: [phone] [facility] [place] [facility]JECTION 10/31/2016 Patient Education: Patient Medication Summary Completed 10/31/2016 Visit Diagnosis Plan: Other fatigue Discussion: Check TSH, Free T4, CBC, CMP ICD-9 : 780.79 ICD-10 : R53.83 09/06/2016 Visit Diagnosis Plan: Encounter for [facility] adult medical examination with abnormal findings Discussion: Pap done May need pelvic US due to pain with intercourse ICD-9 : V70.0 ICD-10 : Z00.01 09/06/2016 Visit Diagnosis Plan: Iron deficiency anemia, unspecif ied Discussion: Check CBC, iron ICD-9 : 280.9 ICD-10 : D50.9 09/06/2016 Appointment: Ritika Cintron WPtel: [phone] [facility] [place] 09/05 confirmed~sl PAP 09/06/2016 Patient Education: Patient Medication Summary Completed 09/06/2016 Appointment: Ritika Cintron WPtel: [phone] [facility] BP CHECK 05/18/2016 Patient Education: Patient Medication [...] ICD-10 : F32.9 04/28/2016 Appointment: [facility] [address] [place] [address] ACUTE ILLNESS 04/28/2016 Patient Education: Patient Medication Summary Completed 04/28/2016 Appointment: Ritika Cintron WPtel: [address] [place] [address] BP CHECK 02/01/2016 Patient Education: Patient Medication Summary Completed 02/01/2016 Appointment: Ritika Cintron WPtel: [address] [place] [address] BP CHECK 01/26/2016 Patient Education: Patient Medication Summary Completed 01/26/2016 Visit Plan: Discussed POC with Dr Leticia tamayo Increase dose to 300mg TID for a full 10 days Follow up with us, dentist and OB as needed Cautioned to monitor BP and follow up if not at goal 09/10/2015 Appointment: [facility] [address] [place] [address] ACUTE ILLNESS 09/10/2015 Patient Education: Patient Medication Summary Completed 09/10/2015 Visit Plan: Dexamethesone 4mg with Kenal og 40 IM now Continue antihistamines Use nasal saline multiple times a day Humidified air Rest/fluids Reviewed s/s of worsening, go to UC over weekend if needed. 06/12/2015 Appointment: Sarah Campbell WPtel: [address] [place], [place] [id number] ACUTE ILLNESS 06/12/2015 Patient Education: Patient Medication Summary Completed 06/12/2015 Visit Plan: Proceed with Stress ECHO Add omeprazole Fwup after stress ECHO 11/04/2014 Appointment: Ritika Cintron WPtel: [address] [place] [address] 11/03/14 confirm FOLLOW UP 11/04/2014 Patient Education: Patient Medication Summary Completed 11/04/2014 Visit Plan: Continue HCTZ 12.5 mg for 2 more weeks. Discussed decreasing dietary sodium intake Advised against future use of pseudoephedrine 08/04/2014 Appointment: Diamante Santana WPtel: [address] [place] [address] FOLLOW UP 08/04/2014 Patient Education: Patient Medication Summary Completed 08/04/2014 Appointment: Ritika Cintron WPtel: [address] [place], [place] [id number] Urgent/Quick Care Follow Up 02/2014 Patient Education: Patient Medication Summary Completed 07/21/2014 Appointment: Diamante Santana WPtel: [address] [place] [address] ACUTE ILLNESS 04/02/2014 Patient Education: Patient Medication Summary Completed 04/02/2014 Patient Education: ConsumerCare - Antibi otics, Analgesics 18+, Oral Contraceptives F 18+ Completed 04/02/2014 Visit Plan: Check cervical and thoracic spine x-rays Daily Neck and Back stretches Duexis TID 03/20/2014 Appointment: Ritika Cintron WPtel: [address] [place] [address] ACUTE ILLNESS 03/20/2014 Patient Education: Patient Medication Summary Completed 03/20/2014 Visit Plan: Trial of Aviane Discussed di et and exercise at length--1400--1500cal ADA diet with exercise Trial of levbid 0.375mg q HS Discussed trial of Phenteramine Call in 1mo on Levbid 02/18/2014 Appointment: Ritika Cintron WPtel: [address] [employer], [place] [id number] ACUTE ILLNESS 02/18/2014 Patient Education: Patient Medication Summary Completed 02/18/2014 Patient Education: ConsumerCare - Antibi otics, Analgesics 18+, Oral Contraceptives F 18+ Completed 02/18/2014 Appointment: Diamante Santana WPtel: [address] [place] [address] ACUTE ILLNESS 10/01/2013 Patient Education: Patient Medication Summary Completed 10/01/2013 Appointment: Diamante Santana WPtel: [address] [place] [address] ACUTE ILLNESS 09/12/2013 Patient Education: Patient Medication Summary Completed 09/12/2013 Referral: Ritika Cintron WPtel: [address] [place] [address] Dr Rodriguez Initiated 06/18/2013 Appointment: Ritika Cintron WPtel: [address] [place] [address] [place] INJECTION 05/17/2013 Patient Education: Patient Medication Summary Completed 05/17/2013 Visit Plan: Pap smear with HPV done [facility] Lab discussed--fish oil 3grams daily and lifestyle change with exercise and recheck lipids 6mos 05/16/2013 Appointment: Ritika Cintron WPtel: [address] [place] [address] 05/14 pt came in and verified appt is 27th PAP 05/16/2013 Patient Education: Patient Medication Summary Completed 05/16/2013 Appointment: Ritika Cintron WPtel: [address] [place], [place] [phone] [place] LAB 05/07/2013 Patient Education: Patient Medication Summary Completed 05/07/2013 Appointment: Ritika Cintron WPtel: [address] [place], [place] [id number] [place] INJECTION 01/08/2013 Patient Education: Patient Medication Summary Completed 01/08/2013 Appointment: Diamante Santana WPtel: [address] [place] [address] ACUTE ILLNESS 12/07/2012 Patient Education: Patient Medication Summary Completed 12/07/2012 Appointment: Diamante Santana WPtel: [phone] [id number] ACUTE ILLNESS 12/03/2012 Patient Education: Patient Medication Summary Completed 12/03/2012 Visit Plan: 2 months old at home. (nursi ng) Azithromycin increased dose. Pt. reports Clindamycin is possible allergy but not sure-states "makes my throat close....I think" Discussed that will notify if symptoms worsen or fever continues. Strongly encouraged her to stay home until fever resolves. 04/03/2012 Appointment: Venecia Smith WPtel: [phone] ACUTE ILLNESS 04/03/2012 Patient Education: Patient Medication Summary Completed 04/03/2012 Visit Plan: ERx for ZPack (due to multip le med allergies and ) OTC multiple symptom cold formula (Like Robitussing PE) as directed OTC nasal saline, Tylenol, Ibuprofen prn RTC for no improvement, UC for worsening. 03/30/2012 Appointment: Sarah Campbell WPtel: [phone] ACUTE ILLNESS 03/30/2012 Patient Education: Patient Medication [...] the time) 07/29/2011 Appointment: Sarah Campbell WPtel: [phone] [facility] ACUTE ILLNESS 07/29/2011 Patient Education: Patient Medication Summary Completed 07/29/2011 Appointment: Venecia Smith WPtel: [address] [place] [address] [place] FOLLOW UP 04/29/2011 Patient Education: Patient Medication Summary Completed 04/29/2011 Visit Plan: due to multiple allergies wi ll try Doxycycline and mupirocin topical.(has some topical left over from past topical infection) Will ice/cool pack finger and use Ibuprofen in addition to antibiotic. Discussed that pt. will notify if redness is worse tomorrow. 04/28/2011 Appointment: Venecia Smith WPtel: [address] [place] [address] ACUTE ILLNESS 04/28/2011 Patient Education: Patient Medication Summary Completed 04/28/2011 Visit Plan: Macrobid and Pyridium. Diflu can for possible yeast. Discussed increased fluids. Pt. will notify if symptoms worsen or fever occurs. Urine for culture. 03/07/2011 Appointment: Venecia Smith WPtel: [address] [place] [address] ACUTE ILLNESS 03/07/2011 Patient Education: Patient Medication Summary Completed 03/07/2011 Visit Plan: Pt will apply mild heat devante ral times daily to aid in healing process. Pt. has past RX for mupirocin topical. Will apply to area being careful to not get any in the eye. Will follow up if no resolution in the next 5 days. 11/10/2010 Appointment: Venecia Smith WPtel: [address] [place] [address] ACUTE ILLNESS 11/10/2010 Patient Education: Patient Medication Summary Completed 11/10/2010 Visit Plan: Pap done Check CBC, CMP, TSH , Free T4 08/18/2010 Appointment: Ritika Cintron WPtel: [address] [place] [address] [place] NEW PATIENT 08/18/2010 Patient Education: Patient [...]
--- OUTSIDE RECORDS SUMMARY | 2019-10-02 17:25 | XMS REPORT ---
Author Author Catherine SOLANO Organization [facility] Address [address] [place] [address] Care Team Providers Care Road Crossing Guard Name Role Phone RUSS ZEHRA Unavailable PROBLEMS Type Condition ICD9-CM Code PHF90-LZ Code Onset Dates Condition S tatus SNOMED Code Problem Supervision of other normal V22.1 Active 781922146 Problem Hordeolum externum 373.11 Active 1 626177 Problem Screening for malignant neoplasm of the cervix V76.2 Active 198981850 Problem Screening examination for venereal disease V74.5 Active 924128105 Problem Routine follow-up V24.2 A ctive [id number] ALLERGIES No Information ENCOUNTERS Encounter Location Date Diagnosis [facility] [address] [id number] [address] [place] [phone] May, [facility] [address] [id number] [address] [place] [phone] May, [facility] [address] [facility] [id number] [address] [place] [phone] Feb, [facility] [address] [facility] [id number] [address] [place] [phone] Jan, [facility] [address] [facility] [id number] [address] [place] [phone] Jan, [facility] [address] [facility] [id number] [address] [place] [phone] Dec, [facility] [address] [id number] [address] [place] [phone] Dec, [facility] [address] [id number] [address] [place] [phone] Dec, [facility] [address] [id number] [address] [place] [address], [place] [address] Dec, [facility] [address] [id number] [address] [place] [address], [place] [address] Dec, [facility] [address] [id number] [address] [place] [address], [place] [address] Dec, [facility] [address] [id number] [address] [place] [address], [place] [address] Dec, [facility] [address] [id number] [address] [place] [address], [place] [address] Dec, [facility] [address] [id number] [address] [place] [address], [place] [address] Dec, [facility] [address] [id number] [address] [place] [address], [place] [address] Dec, [facility] [address] [id number] [address] [place] [address], [place] [address] Dec, [facility] [address] [id number] [address] [place] [address], [place] [address] Dec, [facility] [address] [id number] [address] [place] [address], [place] [address] Nov, [facility] [address] [id number] [address] [place] [address], [place] [address] 31 Nov, 2011 [facility] [address] [id number] [address] [place] [address], [place] [address] Nov, [facility] [address] [id number] [address] [place] [address], [place] [address] 10 Nov, 2011 [facility] [address] [id number] [address] [place] [address], [place] [address] 25 Oct, 2011 [facility] [address] [id number] [address] [place] [address], [place] [address] 11 Oct, 2011 [facility] [address] [id number] [address] [place] [address], [place] [address] Aug, [facility] [address] [id number] [address] [place] [address], [place] [address] Aug, [facility] [address] [id number] [address] [place] [address], [place] [address] Jul, [facility] [address] [id number] [address] [place] [address], [place] [address] Jul, [facility] [address] [id number] [address] [place] [address], [place] [address] June, [facility] [address] [id number] [address] [place] [address], [place] [address] June, [facility] [address] [id number] [address] [place] [address], [place] [address] June, [facility] [address] [id number] [address] [place] [address], [place] [address] June, [facility] [address] [id number] [address] [place] [address], [place] [address] June, [facility] [address] [id number] [address] [place] [address], [place] [address] Jan, [facility] [address] [id number] [address] [place] [address], [place] [address] Dec, [facility] [address] [id number] [address] [place] [address], [place] [address] Dec, [facility] [address] [id number] [address] [place] [address], [place] [address] Dec, [facility] [address] [id number] [address] [place] [address], [place] [address] 15 Oct, 2009 [facility] [address] [id number] [address] [place] [address], [place] [address] Sep, [facility] [address] [id number] [address] [place] [address], [place] [address] Jul, [facility] [address] [id number] [address] [place] [phone] 14 Feb, 2009 [facility] [address] [id number] [address] [place] [phone] 07 Jan, 2009 [facility] [address] [id number] [address] [place] [phone] 23 Dec, 2008 [facility] [address] [id number] [address] [place] [phone] 21 Nov, 2008 [facility] [address] [id number] [address] [place] [phone] 15 Nov, 2008 [facility] [address] [id number] [address] [place] [phone] 14 Nov, 2008 [facility] [address] [id number] [address] [place] [phone] 14 Nov, 2008 [facility] [address] [id number] [address] [place] [phone] 14 Oct, 2008 [facility] [address] [id number] [address] [place] [phone] Sep, [facility] [address] [id number] [address] [place] [phone] Aug, [facility] [address] [id number] [address] [place] [phone] Jul, [facility] [address] [id number] [address] [place] [phone] June, [facility] [address] [id number] [address] [place] [phone] June, [facility] [address] [id number] [address] [place] [phone] May, IMMUNIZATIONS No Known Immunizations SOCIAL HISTORY Never Assessed REASON FOR VISIT PLAN OF CARE VITAL SIGNS MEDICATIONS Unknown Medications RESULTS No Results PROCEDURES No Known procedures INSTRUCTIONS MEDICATIONS ADMINISTERED No Known Medications
--- OUTSIDE RECORDS SUMMARY | 2019-10-02 17:25 | XMS REPORT ---
Author Author Catherine SOLANO Organization [facility] Address [address] [place] [address] Care Team Providers Care Catering Convention Services Manager Name Role Phone RUSS ZEHRA Unavailable PROBLEMS Type Condition ICD9-CM Code [id number] Code Onset Dates Condition S tatus SNOMED Code Problem Supervision of other normal V22.1 Active 344508435 Problem Hordeolum externum 373.11 Active 1 695925 Problem Screening for malignant neoplasm of the cervix V76.2 Active 359013184 Problem Screening examination for venereal disease V74.5 Active 821957539 Problem Routine follow-up V24.2 A ctive [id number] ALLERGIES No Information ENCOUNTERS Encounter Location Date Diagnosis [facility] [address] [id number] [address] [place] [phone] May, [facility] [address] [id number] [address] [place] [phone] May, [facility] [address] [facility] [id number] [address] [place] [id number] Feb, [facility] [address] [facility] [id number] [address] [place] [id number] Jan, [facility] [address] [facility] [id number] [address] [place] [phone] Jan, [facility] [address] [facility] [id number] [address] [place] [id number] Dec, [facility] [address] [id number] [address] [place] [id number] Dec, [facility] [address] [id number] [address] [place] [phone] Dec, [facility] [address] [id number] [address] [place] [address], [place] [address] Dec, [facility] [address] [id number] [address] [place] [address], [place] [address] Dec, [facility] [address] [id number] [address] [place] [address], [place] [address] Dec, [facility] [address] [id number] [address] [place] [address], [place] [address] Dec, [facility] [address] [id number] [address] [place] [address], [place] [address] Dec, [facility] [address] [id number] [address] [place] [address], [place] [address] Dec, [facility] [address] [id number] [address] [place] [address], [place] [address] Dec, [facility] [address] [id number] [address] [place] [address], [place] [address] Dec, [facility] [address] [id number] [address] [place] [address], [place] [address] Dec, [facility] [address] [id number] [address] [place] [address], [place] [address] Nov, [facility] [address] [id number] [address] [place] [address], [place] [address] 31 Nov, 2011 [facility] [address] [id number] [address] [place] [address], [place] [address] Nov, [facility] [address] [id number] [address] [place] [address], [place] [address] 10 Nov, 2011 [facility] [address] [id number] [address] [place] [address], [place] [address] 25 Oct, 2011 [facility] [address] [id number] [address] [place] [address], [place] [address] 11 Oct, 2011 [facility] [address] [id number] [address] [place] [address], [place] [address] Aug, [facility] [address] [id number] [address] [place] [address], [place] [address] Aug, [facility] [address] [id number] [address] [place] [address], [place] [address] Jul, [facility] [address] [id number] [address] [place] [address], [place] [address] Jul, [facility] [address] [id number] [address] [place] [address], [place] [address] June, [facility] [address] [id number] [address] [place] [address], [place] [address] June, [facility] [address] [id number] [address] [place] [address], [place] [address] June, [facility] [address] [id number] [address] [place] [address], [place] [address] June, [facility] [address] [id number] [address] [place] [address], [place] [address] June, [facility] [address] [id number] [address] [place] [address], [place] [address] Jan, [facility] [address] [id number] [address] [place] [address], [place] [address] Dec, [facility] [address] [id number] [address] [place] [address], [place] [address] Dec, [facility] [address] [id number] [address] [place] [address], [place] [address] Dec, [facility] [address] [id number] [address] [place] [address], [place] [address] 15 Oct, 2009 [facility] [address] [id number] [address] [place] [address], [place] [address] Sep, [facility] [address] [id number] [address] [place] [address], [place] [address] Jul, [facility] [address] [id number] [address] [place] [id number] 14 Feb, 2009 [facility] [address] [id number] [address] [place] [id number] 07 Jan, 2009 [facility] [place] [address] [id number] [address] [place] [id number] 23 Dec, 2008 [facility] [address] [id number] [address] [place] [phone] 21 Nov, 2008 [facility] [address] [id number] [address] [place] [id number] 15 Nov, 2008 [facility] [address] [id number] [address] [place] [id number] 14 Nov, 2008 [facility] [address] [id number] [address] [place] [id number] 14 Nov, 2008 [facility] [address] [id number] [address] [place] [id number] 14 Oct, 2008 [facility] [address] [id number] [address] [place] [id number] Sep, [facility] [address] [id number] [address] [place] [phone] Aug, [facility] [address] [id number] [address] [place] [id number] Jul, [facility] [address] [id number] [address] [place] [phone] June, [facility] [address] [id number] [address] [place] [phone] June, [facility] [address] [id number] [address] [place] [id number] May, IMMUNIZATIONS No Known Immunizations SOCIAL HISTORY Never Assessed REASON FOR VISIT PLAN OF CARE VITAL SIGNS Height 65 in 2011-12-21 Weight 178 lbs 2011-12-21 Temperature 97 degrees Fahrenheit 2011-12-21 Heart Rate 100 bpm 2011-12-21 Respiratory Rate 18 2011-12-21 Blood pressure systolic 118 mmHg 2011-12-21 Blood pressure diastolic 80 mmHg 2011-12-21 MEDICATIONS Unknown Medications RESULTS No Results PROCEDURES Procedure Date Ordered Result Body Site STREP CULTURE Dec 21, 2011 URINE-NO MICRO Dec 21, 2011 INSTRUCTIONS MEDICATIONS ADMINISTERED No Known Medications
--- OUTSIDE RECORDS SUMMARY | 2019-10-02 17:25 | XMS REPORT | CCD ---
Author Author Catherine Cintron D.O. 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 Name Role Phone Ritika Cintron D.O., PP Unavailable CCM Unavailable Summary Purpose Interface Exchange Insurance Providers Payer name Policy type / Coverage type Covered libertarian ID Effective Begin Date Effective End Date Blue Cross Blue Shield Blue Cross/Blue Shield [id number] Unknown Family history Mother Diagnosis Age At Onset No Family Disease Entered N/A Father Diagnosis Age At Onset Diabetes mellitus Type 1 Unknown Social History Social History Element Codes Description Effective Dates Tobacco history SNOMED CT: 864320337 Has never smoked or chewed tobacco 09/01/2010 [...] 0.18 mg(7)/0.215 mg(7)/0.25 mg(7)-35 mcg tablet RxNorm: 445643 TAKE 1 TABLET BY MOUTH EVERY DAY 04/15/2019 06/09/2019 Active Zetia 10 mg tablet RxNorm: 406883 1 Tablet(s) Oral QD 01/08/2019 No S top Date Active Tri-Sprintec (28) 0.18 mg(7)/0.215 mg(7)/0.25 mg(7)-35 mcg tablet RxNorm: 180999 TABLET(S) 1 TABLET(S) PO QD 01/07/2019 04/14/2019 Inactive Nexium 40 mg capsule,delayed release RxNorm: 609792 1 Capsule(s ) Oral QD 11/14/2018 01/07/2019 Inactive metronidazole 500 mg tablet RxNorm: 614176 1 Tablet(s) Oral thr ee times a day 11/14/2018 11/14/2018 Inactive Bactrim DS 800 mg-160 mg tablet RxNorm: 412207 1 Tablet(s) Oral two times a day 11/14/2018 11/14/2018 Inactive sertraline 50 mg tablet RxNorm: 410215 1 Tablet(s) PO QD 1 TABL ET(S) PO QD 09/17/2018 03/15/2019 Inactive spironolactone 50 mg tablet RxNorm: 831966 Tablet(s) 1 TABLET(S ) PO QAM 09/17/2018 03/15/2019 Inactive sertraline 50 mg tablet RxNorm: 642656 1 TABLET(S) PO QD 09/10/2018 0 09/16/2018 Inactive Tri-Sprintec (28) 0.18 mg(7)/0.215 mg(7)/0.25 mg(7)-35 mcg tablet RxNorm: 585383 Tablet(s) 1 TABLET(S) PO QD 08/20/2018 01/06/2019 Inactive Protonix 40 mg tablet,delayed release RxNorm: 084484 1 Tablet(s ) PO BID 08/13/2018 11/13/2018 Inactive Flagyl 500 mg tablet RxNorm: 629169 1 Tablet(s) PO BID 08/13/2018 Inactive spironolactone 50 mg tablet RxNorm: 337993 1 TABLET(S) PO QAM 08/1309/16/2018 Inactive Tri-Sprintec (28) 0.18 mg(7)/0.215 mg(7)/0.25 mg(7)-35 mcg tablet RxNorm: 073522 1 TABLET(S) PO QD 06/18/2018 07/15/2018 Inactive sertraline 50 mg tablet RxNorm: 034968 1 Tablet(s) PO QD 06/07/2018 0 09/04/2018 Inactive prednisone 10 mg tablet RxNorm: 708988 1 Tablet(s) PO BID 05/30/2018 06/03/2018 Inactive Tri-Sprintec (28) 0.18 mg(7)/0.215 mg(7)/0.25 mg(7)-35 mcg tablet RxNorm: 339305 1 Tablet(s) PO QD 05/17/2018 06/13/2018 Inactive sertraline 50 mg tablet RxNorm: 059967 1 TABLET(S) PO QD 05/07/2018 0 06/05/2018 Inactive Tri-Sprintec (28) 0.18 mg(7)/0.215 mg(7)/0.25 mg(7)-35 mcg tablet RxNorm: 012777 1 Tablet(s) PO QD 02/08/2018 05/02/2018 Inactive sertraline 50 mg tablet RxNorm: 037135 1 Tablet(s) PO QD 02/08/2018 0 04/08/2018 Inactive omeprazole 40 mg capsule,delayed release RxNorm: 694634 1 Capsule(s) PO QD for acid reflux 02/08/2018 08/12/2018 Inactive montelukast 10 mg tablet RxNorm: 149081 1 Tablet(s) PO QHS 12/15/19 18 12/13/2017 Inactive montelukast 10 mg tablet RxNorm: 307502 1 Tablet(s) PO QHS 12/15/19 18 08/12/2018 Inactive spironolactone 50 mg tablet RxNorm: 138224 1 Tablet(s) PO QAM 12/0612/05/2017 Inactive spironolactone 50 mg tablet RxNorm: 091747 1 Tablet(s) PO QAM 12/0603/05/2018 Inactive spironolactone 25 mg tablet RxNorm: 917894 1 TABLET(S) PO QAM BLOOD PRESSURE CHECK IN 1 MONTH 12/04/2017 12/10/2017 Inactive clindamycin HCl 300 mg capsule RxNorm: 713229 1 Capsule(s) PO TID 1 12/09/2017 Inactive spironolactone 25 mg tablet RxNorm: 443414 1 Tablet(s) PO QAM Blood pressure check in 1 month 11/06/2017 12/03/2017 Inactive spironolactone 25 mg tablet RxNorm: 505369 1 Tablet(s) PO QAM Blood pressure check in 1 month 11/06/2017 11/05/2017 Inactive cyclobenzaprine 5 mg tablet RxNorm: 814558 1/2-1 Tablet(s) PO Q HS for spasm 10/13/2017 11/11/2017 Inactive Macrobid 100 mg capsule RxNorm: 088217 1 Capsule(s) PO BID 10/14/19 18 10/19/2017 Inactive Mobic 15 mg tablet RxNorm: 258309 1 Tablet(s) PO QAM for pain 10/1311/11/2017 Inactive Depo-Provera 150 mg/mL intramuscular syringe RxNorm: 8737237 Milliliter(s) IM Bring to office for administration 07/18/2017 02/07/2018 Inactive Singulair 10 mg tablet RxNorm: 809749 1 Tablet(s) PO QD 04/12/2017 Inactive Singulair 10 mg tablet RxNorm: 061447 1 Tablet(s) PO QD 03/20/2017 Inactive metoprolol tartrate 50 mg tablet RxNorm: 556863 1 Tablet(s) PO QD 0 02/21/2017 09/04/2017 Inactive Mobic 15 mg tablet RxNorm: 086154 1 Tablet(s) PO QD 01/30/20172017 Inactive Mobic 15 mg tablet RxNorm: 478315 1 Tablet(s) PO QD 01/03/20172016 Inactive Protonix 40 mg tablet,delayed release RxNorm: 743349 1 Tablet(s ) PO BID 01/03/2017 11/29/2017 Inactive metoprolol tartrate 50 mg tablet RxNorm: 790511 1 Tablet(s) PO QD 1 02/21/2017 Inactive Depo-Provera 150 mg/mL intramuscular syringe RxNorm: 6190321 Milliliter(s) IM Bring to office for administration 10/28/2016 07/17/2017 Inactive Depo-Provera 150 mg/mL intramuscular syringe RxNorm: 5738097 Milliliter(s) IM Bring to office for administration 10/10/2016 10/27/2016 Inactive Macrobid 100 mg capsule RxNorm: 900963 1 Capsule(s) PO BID 04/29/19 17 05/04/2016 Inactive metoprolol succinate ER 50 mg tablet,extended release 24 hr RxNorm: 656237 1 Tablet(s) PO QD 04/28/2016 07/26/2016 Inactive Diflucan 150 mg tablet RxNorm: 095821 1 Tablet(s) PO QD x 1 dose 09/05/2016 Inactive sertraline 25 mg tablet RxNorm: 057151 1/2 Tablet(s) PO QD for 1 week and then increase to 1 tablet PO QD 04/28/2016 09/05/2016 Inactive Toprol XL 50 mg tablet,extended release RxNorm: 415989 1 Tablet (s) PO QD 01/26/2016 04/27/2016 Inactive clindamycin 300 mg capsule RxNorm: 773351 1 Capsule(s) PO TID 09/0909/19/2015 Inactive omeprazole 20 mg capsule,delayed release RxNorm: 910199 1 Capsu le(s) PO QD 11/04/2014 04/27/2016 Inactive hydrochlorothiazide 12.5 mg tablet RxNorm: 805728 1 Tablet(s) PO QD 09/10/2014 04/27/2016 Inactive Aviane 0.1 mg-20 mcg tablet RxNorm: 102901 1 Tablet(s) PO QD 201404/27/2016 Inactive hydrochlorothiazide 12.5 mg tablet RxNorm: 237150 1 Tablet(s) PO QD 07/21/2014 09/09/2014 Inactive Zithromax Z-Kyle 250 mg tablet RxNorm: 209374 Tablet(s) PO As Di rected 07/21/2014 11/03/2014 Inactive tobramycin 0.3 % eye drops RxNorm: 740511 2 Drop(s) OPH Q4H 015 04/02/2014 Inactive tobramycin 0.3 % eye drops RxNorm: 886876 2 Drop(s) OPH Q4H 015 04/09/2014 Inactive azithromycin 250 mg tablet RxNorm: 432377 2 Tablet(s) P O on day one then one tablet on days 2 - 5 04/02/2014 11/03/2014 Inactive hyoscyamine ER 0.375 mg tablet,extended release,12 hr RxNorm : 6365785 1 Tablet(s) PO QHS 03/20/2014 11/03/2014 Inactive Levbid 0.375 mg tablet,extended release RxNorm: 5807681 1 Tablet (s) PO QHS 02/18/2014 03/19/2014 Inactive Aviane 0.1 mg-20 mcg tablet RxNorm: 653185 1 Tablet(s) PO QD 201308/27/2014 Inactive Diflucan 150 mg tablet RxNorm: 146230 1 Tablet(s) PO QOD 10/01/2013 1 Inactive Macrobid 100 mg capsule RxNorm: 917369 1 Capsule(s) PO BID 10/02/19 14 10/07/2013 Inactive clindamycin 300 mg capsule RxNorm: 901010 1 Capsule(s) PO TID 12/0312/12/2012 Inactive azithromycin 250 mg tablet RxNorm: 300207 2 Tablet(s) PO QD 013 04/08/2012 Inactive Zithromax Z-Kyle 250 mg tablet RxNorm: 401289 1 Tablet(s ) PO QD Take 2 today and 1 a day on days 2-5 03/30/2012 04/03/2012 Inactive Tobrex 0.3 % Eye Drops RxNorm: 764809 2 Drop(s) OPH Q4H 07/29/2011 Inactive doxycycline hyclate 100 mg Tab RxNorm: 2007447 1 Tablet(s) PO BID 0 04/28/2011 05/07/2011 Inactive Pyridium 200 mg Tab RxNorm: 3278059 1 Tablet(s) PO TID 03/07/2011 Inactive Macrobid 100 mg Cap RxNorm: 721377 1 Capsule(s) PO BID 03/07/2011 Inactive Diflucan 100 mg Tab RxNorm: 106132 1 Tablet(s) PO QD 03/07/201103/16 Inactive Benadryl 25 mg capsule RxNorm: 9077780 Capsule(s) PO as needed No Sta rt Date Active Vitamin B12 1000mcg Tablet RxNorm: 1/2 Tablet(s) PO QD No Star t Date 11/29/2017 Inactive Depo-Provera 150 mg/mL intramuscular syringe RxNorm: 4182497 Milliliter(s) IM Bring to office for administration No Start Date 10/09/2016 Inactive metoprolol tartrate 50 mg tablet RxNorm: 553331 1 Tablet(s) PO QD N o Start Date 11/22/2016 Inactive Zyrtec 10 mg tablet RxNorm: 6858227 1 Tablet(s) PO QD No Start Date 1 Inactive Sudafed PE 10 mg tablet RxNorm: 3530215 Tablet(s) PO as needed No S tart Date 09/04/2017 Inactive Toprol XL 50 mg tablet,extended release RxNorm: 978094 1 Tablet (s) PO QD No Start Date 01/25/2016 Inactive Depo-Provera 150 mg/mL intramuscular suspension RxNorm: 1000 128 1 Milliliter(s) IM every 3mos No Start Date 02/17/2014 Inactive Flonase Allergy Relief 50 mcg/actuation nasal spray,suspensi on RxNorm: [place] NASAL as needed No Start Date 11/29/2017 Inactive Zyrtec 10 mg tablet RxNorm: 5188075 1 Tablet(s) PO QD as needed No Start Date 05/23/2018 Inactive Medication Administered No Medication Administered data Immunizations Vaccine Codes Date Status Influenza CVX: 141 11/22/2018 Complete Influenza CVX: 141 11/22/2018 Complete Influenza CVX: 141 01/02/2018 Complete Influenza CVX: 141 01/08/2013 Pediatric Influenza CVX: 141 01/08/2013 Results Observation Observation Code Item Item Code Result Date S [facility] Location COMPLETE BLOOD COUNT [id number] WBC 15.9 10e9/L 019 Unknown COMPLETE BLOOD COUNT [id number] RBC 5.10 10e12/L 2018 Unknown COMPLETE BLOOD COUNT [id number] HEMOGLOBIN 15.2 g/dL 08/14/19 19 Unknown COMPLETE BLOOD COUNT [id number] HEMATOCRIT 46.2 % 08/14/19 19 Unknown COMPLETE BLOOD COUNT [id number] MCV 90.6 fL 9 Unknown COMPLETE BLOOD COUNT [id number] MCH 29.8 pg 9 Unknown COMPLETE BLOOD COUNT [id number] MCHC 32.9 g/dL 9 Unknown COMPLETE BLOOD COUNT [id number] PLATELET COUNT 433 10e9/L Unknown COMPLETE BLOOD COUNT [id number] Mean Plt Volume 9.9 fL Unknown COMPLETE BLOOD COUNT [id number] Neut Auto 74.7 % 9 Unknown COMPLETE BLOOD COUNT [id number] Lymph Auto 18.6 % 08/14/19 19 Unknown COMPLETE BLOOD COUNT [id number] Cameron Auto 5.8 % 9 Unknown COMPLETE BLOOD COUNT 6763591 Eos Auto 0.6 % 9 Unknown COMPLETE BLOOD COUNT [id number] RDW 14.1 % 9 Unknown COMPLETE BLOOD COUNT [id number] Baso Auto 0.3 % 9 Unknown COMPLETE BLOOD COUNT [id number] Neutrophil Abs 11.88 10e9/L 0 08/13/2018 Unknown COMPLETE BLOOD COUNT [id number] Lymphocyte Abs 2.96 10e9/L Unknown COMPLETE BLOOD COUNT [id number] Monocyte Abs 0.92 10e9/L 07/22 Unknown COMPLETE BLOOD COUNT [id number] Eosinophil Abs 0.10 10e9/L Unknown COMPLETE BLOOD COUNT [id number] Basophil Abs 0.05 10e9/L 07/22 Unknown COMPLETE BLOOD COUNT [id number] RDW-SD 45.7 fL 9 Unknown A FOOD C P [id number] Codfish Cl Class 0 03/21/2017 Unknown A FOOD C P [id number] Codfish Ct <0.35 kU/L 03/21/2017 Unknow n A FOOD C P [id number] [place] Cl Class 0 03/21/2017 Unkn own A FOOD C P [id number] [place] Ct <0.35 kU/L 03/21/2017 Unk nown A FOOD C P [id number] Egg White Cl Class 3 03/21/2017 Unkno wn A FOOD C P [id number] Egg White Ct 4.68 kU/L 03/21/2017 Unkno wn A FOOD C P [id number] Egg Yolk Cl Class 1 03/21/2017 Unknow n A FOOD C P [id number] Egg Yolk Ct 0.49 kU/L 03/21/2017 Unknow n A FOOD C P [id number] Cow Milk Cl Class 3 03/21/2017 Unknow n A FOOD C P [id number] Cow Milk Ct 3.77 kU/L 03/21/2017 Unknow n A FOOD C P [id number] Peanut Cl Class 0 03/21/2017 Unknown A FOOD C P 1570594 Peanut Ct <0.35 kU/L 03/21/2017 Unknown A FOOD C P [id number] Shrimp Cl Class 2 03/21/2017 Unknown A FOOD C P [id number] Shrimp Ct 0.78 kU/L 03/21/2017 Unknown A FOOD C P [id number] Soybean Cl Class 0 03/21/2017 Unknown A FOOD C P [id number] Soybean Ct <0.35 kU/L 03/21/2017 Unknow n A FOOD C P [id number] Wheat Cl Class 1 03/21/2017 Unknown A FOOD C P [id number] Wheat Ct 0.58 kU/L 03/21/2017 Unknown A FOOD C P [id number] Potato Cl Class 0 03/21/2017 Unknown A FOOD C P [id number] Potato Ct <0.35 kU/L 03/21/2017 Unknown A FOOD C P [id number] Beef Cl Class 0 03/21/2017 Unknown A FOOD C P [id number] Beef Ct <0.35 kU/L 03/21/2017 Unknown A FOOD C P [id number] Speculator Cl Class 0 03/21/2017 Unknown A FOOD C P [id number] Speculator Ct <0.35 kU/L 03/21/2017 Unknown A FOOD C P [id number] Pork Cl Class 0 03/21/2017 Unknown A FOOD C P [id number] Pork Ct <0.35 kU/L 03/21/2017 Unknown A FOOD C P [id number] Rice Cl Class 0 03/21/2017 Unknown A FOOD C P [id number] Rice Ct <0.35 kU/L 03/21/2017 Unknown A FOOD C P [id number] Clio Cl Class 0 03/21/2017 Unkn own A FOOD C P [id number] Clio Ct <0.35 kU/L 03/21/2017 Unk nown A FOOD C P [id number] Tomato Cl Class 0 03/21/2017 Unknown A FOOD C P [id number] Tomato Ct <0.35 kU/L 03/21/2017 Unknown A FOOD C P [id number] Tuna Cl Class 0 03/21/2017 Unknown A FOOD C P [id number] Tuna Ct <0.35 kU/L 03/21/2017 Unknown A FOOD C P [id number] [place] CL Class 0 03/21/2017 Unknown A FOOD C P [id number] [place] CT <0.35 kU/L 03/21/2017 Unknown A FOOD C P [id number] Casein Cl Class 1 03/21/2017 Unknown A FOOD C P [id number] Casein Ct 0.64 kU/L 03/21/2017 Unknown A FOOD C P [id number] Oat Cl Class 0 03/21/2017 Unknown A FOOD C P [id number] Oat Ct <0.35 kU/L 03/21/2017 Unknown A FOOD C P [id number] [place] Cl Class 2 03/21/2017 Unknown A FOOD C P [id number] [place] Ct 0.75 kU/L 03/21/2017 Unknown A FOOD C P [id number] Chicken Meat CL Class 0 03/21/2017 Un known A FOOD C P [id number] Chicken Meat Ct <0.35 kU/L 03/21/2017 U nknown A FOOD C P [id number] [place] Cl Class 0 03/21/2017 Unknown A FOOD C P [id number] [place] Ct <0.35 kU/L 03/21/2017 Unknown A FOOD C P [id number] Pecan Meat Cl Class 0 03/21/2017 Unkn own A FOOD C P [id number] Pecan Meat Ct <0.35 kU/L 03/21/2017 Unk nown A NUTS PNL [id number] Peanut Cl Class 0 03/21/2017 Unknown A NUTS PNL [id number] Peanut Ct <0.35 kU/L 03/21/2017 Unknown A NUTS PNL [id number] [place] Meat Cl Class 0 03/21/2017 Unk nown A NUTS PNL [id number] [place] Meat Ct <0.35 kU/L 03/21/2017 Un known A NUTS PNL 1956059 Pecan Meat Cl Class 0 03/21/2017 Unkn own A NUTS PNL [id number] Pecan Meat Ct <0.35 kU/L 03/21/2017 Unk nown A NUTS PNL [id number] [place] Cl Class 0 03/21/2017 Unknown A NUTS PNL [id number] [place] Ct <0.35 kU/L 03/21/2017 Unknown A NUTS PNL [id number] [place] Cl Class 0 03/21/2017 Unknow n A NUTS PNL [id number] [place] Ct <0.35 kU/L 03/21/2017 Unkno wn A NUTS PNL [id number] [place] Cl Class 0 03/21/2017 Unkno wn A NUTS PNL [id number] [place] Ct <0.35 kU/L 03/21/2017 Unkn own A NUTS PNL [id number] [place] Cl Class 0 03/21/2017 Unknown A NUTS PNL [id number] [place] Ct <0.35 kU/L 03/21/2017 Unknown A NUTS PNL [id number] Pistachio Cl Class 0 03/21/2017 Unkno wn A NUTS PNL [id number] Pistachio Ct <0.35 kU/L 03/21/2017 Unkn own A NUTS PNL [id number] Allergen Interp See Note 03/21/2017 Un known A FRT/VG P [id number] [place] Cl Class 0 03/21/2017 Unkn own A FRT/VG P [id number] [place] Ct <0.35 kU/L 03/21/2017 Unk nown A FRT/VG P [id number] Potato Cl Class 0 03/21/2017 Unknown A FRT/VG P [id number] Potato Ct <0.35 kU/L 03/21/2017 Unknown A FRT/VG P [id number] Clio Cl Class 0 03/21/2017 Unkn own A FRT/VG P [id number] Clio Ct <0.35 kU/L 03/21/2017 Unk nown A FRT/VG P [id number] Tomato Cl Class 0 03/21/2017 Unknown A FRT/VG P [id number] Tomato Ct <0.35 kU/L 03/21/2017 Unknown A FRT/VG P 1257759 [place] Cl Class 2 03/21/2017 Unknown A FRT/VG P [id number] [place] Ct 0.75 kU/L 03/21/2017 Unknown A FRT/VG P [id number] Banana Cl Class 2 03/21/2017 Unknown A FRT/VG P [id number] Banana Ct 2.58 kU/L 03/21/2017 Unknown A FRT/VG P [id number] [place] Fruit Cl Class 0 03/21/2017 Unk nown A FRT/VG P 7875755 [place] Ct <0.35 kU/L 03/21/2017 Un known A FRT/VG P 1423558 Apple Fruit Cl Class 0 03/21/2017 Unk nown A FRT/VG P 2991558 Apple Fruit Ct <0.35 kU/L 03/21/2017 Un known A FRT/VG P 6735102 Carrot Cl Class 0 03/21/2017 Unknown A FRT/VG P [id number] Carrot Ct <0.35 kU/L 03/21/2017 Unknown A FRT/VG P [id number] Pea Cl Class 0 03/21/2017 Unknown A FRT/VG P 7158179 Pea Ct <0.35 kU/L 03/21/2017 Unknown A FRT/VG P 9047220 Pear Fruit Cl Class 0 03/21/2017 Unkn own A FRT/VG P 7507869 Pear Fruit Ct <0.35 kU/L 03/21/2017 Unk nown A FRT/VG P 0354549 Swt Potato Cl Class 0 03/21/2017 Unkn own A FRT/VG P 2253265 Swt Potato Ct <0.35 kU/L 03/21/2017 Unk nown A OK/KS/PN 7371064 [place] Cl Class 0 03/21/2017 Unknown A OK/KS/PN 8399040 [place] Ct <0.35 kU/L 03/21/2017 Unknow n A OK/KS/PN 0541485 Alt Ten Cl Class 0 03/21/2017 Unknown A OK/KS/PN [id number] Alt Ten Ct <0.35 kU/L 03/21/2017 Unknow n A OK/KS/PN 4258824 [place] Cl Class 0 03/21/2017 Un known A OK/KS/PN [id number] [place] Ct <0.35 kU/L 03/21/2017 U nknown A OK/KS/PN 5319125 [place] Cl Class 0 03/21/2017 Unknow n A OK/KS/PN 7963125 [place] Ct <0.35 kU/L 03/21/2017 Unkno wn A OK/KS/PN 2387523 Gadiel Gr Cl Class 0 03/21/2017 Unkn own A OK/KS/PN 6979968 Gadiel Gr Ct <0.35 kU/L 03/21/2017 Unk nown A OK/KS/PN 9350940 Yasir Blue Cl Class 1 03/21/2017 Unkno wn A OK/KS/PN 6282055 Yasir Blue Ct 0.59 kU/L 03/21/2017 Unkno wn A OK/KS/PN 6930934 Rough Maciel Cl Class 0 03/21/2017 Unk nown A OK/KS/PN [id number] Rough [place] Ct <0.35 kU/L 03/21/2017 Un known A OK/KS/PN 7751316 [place] Cl Class 2 03/21/2017 Unknow n A OK/KS/PN 6109082 [place] Ct 0.72 kU/L 03/21/2017 Unknow n A OK/KS/PN 8972129 Ragweed Cl Class 2 03/21/2017 Unknown A OK/KS/PN 6631726 Rag[place] Ct 1.46 kU/L 03/21/2017 Unknown A OK/KS/PN 9754747 Cat Dander Cl Class 0 03/21/2017 Unkn own A OK/KS/PN 1080857 Cat D[place] Ct <0.35 kU/L 03/21/2017 Unk nown A OK/KS/PN 7376811 Dog Dander Cl Class 0 03/21/2017 Unkn own A OK/KS/PN 0737423 Dog Dander Ct <0.35 kU/L 03/21/2017 Unk nown A OK/KS/PN [id number] Pecan Tr Cl Class 0 03/21/2017 Unknow n A OK/KS/PN [id number] Pecan Tr Ct <0.35 kU/L 03/21/2017 Unkno wn A OK/KS/PN 2677230 Dust Mite Cl Class 0 03/21/2017 Unkno wn A OK/KS/PN [id number] Dust Mite Ct <0.35 kU/L 03/21/2017 Unkn own A OK/KS/PN 5837300 Allergen Interp See Note 03/21/2017 Un known FREE T4 80735 T4 Free 0.97 ng/dL 09/06/2016 Unknown THYROID STIMULATING HORMONE 19894 TSH 1.665 uIU/mL 09/06/2016 Unknown COMPLETE BLOOD COUNT [id number] WBC 11.9 10e9/L 017 Unknown COMPLETE BLOOD COUNT [id number] RBC 4.70 10e12/L 2016 Unknown COMPLETE BLOOD COUNT [id number] HEMOGLOBIN 13.9 g/dL 09/07/19 17 Unknown COMPLETE BLOOD COUNT 9995668 HEMATOCRIT 41.0 % 09/07/19 17 Unknown COMPLETE BLOOD COUNT [id number] MCV 87.2 fL 7 Unknown COMPLETE BLOOD COUNT 5846178 MCH 29.6 pg 7 Unknown COMPLETE BLOOD COUNT 0923554 MCHC 33.9 g/dL 7 Unknown COMPLETE BLOOD COUNT 6204426 PLATELET COUNT 395 10e9/L Unknown COMPLETE BLOOD COUNT 4480343 Mean Plt Volume 9.1 fL Unknown COMPLETE BLOOD COUNT 3030606 Neut Auto 62.9 % 7 Unknown COMPLETE BLOOD COUNT 3898787 Lymph Auto 24.4 % 09/07/19 17 Unknown COMPLETE BLOOD COUNT 7028685 Cameron Auto 7.6 % 7 Unknown COMPLETE BLOOD COUNT 3433301 RDW 13.5 % 7 Unknown COMPLETE BLOOD COUNT 2043800 Eos Auto 4.6 % 7 Unknown COMPLETE BLOOD COUNT 4881436 Baso Auto 0.5 % 7 Unknown COMPLETE BLOOD COUNT 5991295 Neutrophil Abs 7.49 10e9/L Unknown COMPLETE BLOOD COUNT 4058869 Lymphocyte Abs 2.90 10e9/L Unknown COMPLETE BLOOD COUNT [id number] Monocyte Abs 0.90 10e9/L 08/20 Unknown COMPLETE BLOOD COUNT 2184965 Eosinophil Abs 0.55 10e9/L Unknown COMPLETE BLOOD COUNT [id number] Basophil Abs 0.06 10e9/L 08/20 Unknown COMPLETE BLOOD COUNT 6245075 RDW-SD 41.9 fL 7 Unknown GFR CALC [id number] GFR Non Afr Amr >60 mL/min 09/06/2016 Un known GFR CALC 4066903 GFR Afr Amr >60 mL/min 09/06/2016 Unknow n COMPREHENSIVE METABOLIC 33474 AST 22 U/L 2016 Unknown COMPREHENSIVE METABOLIC 67510 ALT 30 U/L 2016 Unknown COMPREHENSIVE METABOLIC 20192 BUN 26 mg/dL 2016 Unknown COMPREHENSIVE METABOLIC 95574 ALBUMIN 4.8 g/dL 2016 Unknown COMPREHENSIVE METABOLIC 21972 CHLORIDE 107 mmol/L 09/06 Unknown COMPREHENSIVE METABOLIC 12010 Bili Total 0.2 mg/dL 09/06 Unknown COMPREHENSIVE METABOLIC 73019 ALK PHOS 118 U/L 2016 Unknown COMPREHENSIVE METABOLIC 04044 SODIUM 139 mmol/L 09/06 Unknown COMPREHENSIVE METABOLIC 33939 CREATININE 0.67 mg/dL 08/20 Unknown COMPREHENSIVE METABOLIC 97295 CALCIUM 9.8 mg/dL 2016 Unknown COMPREHENSIVE METABOLIC 72507 POTASSIUM 4.3 mmol/L 09/06 Unknown COMPREHENSIVE METABOLIC 68863 Total Protein 7.8 g/dL Unknown COMPREHENSIVE METABOLIC 90888 Glucose 96 mg/dL 2016 Unknown COMPREHENSIVE METABOLIC 10917 Bicarbonate 22 mmol/L 08/20 Unknown COMPREHENSIVE METABOLIC 64050 AGAP 10 mmol/L 2016 Unknown IRON 48550 Iron 58 ug/dL 09/06/2016 Unknown COMPLETE BLOOD COUNT [id number] WBC 12.2 10e9/L 015 Unknown COMPLETE BLOOD COUNT 9839635 RBC 4.52 10e12/L 2014 Unknown COMPLETE BLOOD COUNT 3434753 HGB 13.3 g/dL 5 Unknown COMPLETE BLOOD COUNT 1670803 HCT DET 40.3 % 5 Unknown COMPLETE BLOOD COUNT 8090163 MCV 89.2 fL 5 Unknown COMPLETE BLOOD COUNT 3916565 MCH 29.4 pg 5 Unknown COMPLETE BLOOD COUNT 2805420 MCHC 33.0 g/dL 5 Unknown COMPLETE BLOOD COUNT 7436151 PLT 402 10e9/L 07/22/19 15 Unknown COMPLETE BLOOD COUNT 3301656 MPV 9.6 fL 5 Unknown COMPLETE BLOOD COUNT 5079000 ERIN % 64.8 % 5 Unknown COMPLETE BLOOD COUNT 4173471 LY % 24.6 % 5 Unknown COMPLETE BLOOD COUNT 1123625 MON % 7.0 % 5 Unknown COMPLETE BLOOD COUNT 1772319 EOS % 3.3 % 5 Unknown COMPLETE BLOOD COUNT 0416517 BASO % 0.3 % 5 Unknown COMPLETE BLOOD COUNT 9084438 RDW 13.2 % 5 Unknown COMPLETE BLOOD COUNT 5281505 ABS ERIN 7.91 10e9/L 015 Unknown COMPLETE BLOOD COUNT 1213922 ABS LYMPH 3.00 10e9/L 015 Unknown COMPLETE BLOOD COUNT 7941608 ABS MONO 0.85 10e9/L 015 Unknown COMPLETE BLOOD COUNT [id number] ABS EOS 0.40 10e9/L 015 Unknown COMPLETE BLOOD COUNT 8234717 ABS BASO 0.04 10e9/L 015 Unknown COMPLETE BLOOD COUNT 3180337 RDW-SD 42.3 fL 5 Unknown COMPREHENSIVE METABOLIC 25735 AST 21 U/L 2014 Unknown COMPREHENSIVE METABOLIC 98541 ALT 27 IU/L 2014 Unknown COMPREHENSIVE METABOLIC 55243 BUN 12 MG/DL 2014 Unknown COMPREHENSIVE METABOLIC 53541 ALBUMIN 4.1 GM/DL 2014 Unknown COMPREHENSIVE METABOLIC 30666 CHLORIDE 102 MMOL/L 07/21 Unknown COMPREHENSIVE METABOLIC 55585 BILI TOT 0.3 MG/DL 2014 Unknown COMPREHENSIVE METABOLIC 39253 ALK PHOS 94 U/L 2014 Unknown COMPREHENSIVE METABOLIC 74639 SODIUM 138 MMOL/L 07/21 Unknown COMPREHENSIVE METABOLIC 35010 CREATININE 0.71 MG/DL 02/2014 Unknown COMPREHENSIVE METABOLIC 33876 CALCIUM 9.4 MG/DL 2014 Unknown COMPREHENSIVE METABOLIC 60355 POTASSIUM 3.7 MMOL/L 07/21 Unknown COMPREHENSIVE METABOLIC 59325 PROT TOT 7.0 GM/DL 2014 Unknown COMPREHENSIVE METABOLIC 96634 Glucose 84 MG/DL 2014 Unknown COMPREHENSIVE METABOLIC 77603 BICARB 27 MMOL/L 2014 Unknown COMPREHENSIVE METABOLIC 22598 ANION GAP 9 MEQ/L 2014 Unknown GFR CALC [id number] GFR AA >60 ML/MIN 07/21/2014 Unknown GFR CALC [id number] GFR NON-AA >60 ML/MIN 07/21/2014 Unknown FREE T4 58718 FREE T4 0.90 NG/DL 07/21/2014 Unknown THYROID STIMULATING HORMONE 55555 TSH 1.838 uIU/ML 07/21/2014 Unknown LIPID GROUP 29926 HDL TEST 33 MG/DL 07/21/2014 Unknown LIPID GROUP 41189 TRIG 320 MG/DL 07/21/2014 Unknown LIPID GROUP 63844 TEST LDL 122 MG/DL 07/21/2014 Unknown LIPID GROUP 67756 CHOL 219 MG/DL 07/21/2014 Unknown LIPID GROUP 58554 RCHOL/HDL 6.64 RATIO 07/21/2014 Unknow n LIPID GROUP 11722 NON-HDL CH 186 MG/DL 07/21/2014 Unknow n IRON 39323 IRON TEST 99 UG/DL 09/12/2013 Unknown C-REACTIVE PROTEIN (CRP) QUANT 23262 CRP 0.2 MG/DL 09/12/2013 Unknown GFR CALC [id number] GFR AA >60 ML/MIN 09/12/2013 Unknown GFR CALC [id number] GFR NON-AA >60 ML/MIN 09/12/2013 Unknown THYROID STIMULATING HORMONE 29697 TSH 1.882 uIU/ML 09/12/2013 Unknown COMPLETE BLOOD COUNT [id number] WBC 7.9 10e9/L 09/13/19 14 Unknown COMPLETE BLOOD COUNT [id number] RBC 4.83 10e12/L 2013 Unknown COMPLETE BLOOD COUNT 3818610 HGB 14.2 g/dL 4 Unknown COMPLETE BLOOD COUNT [id number] HCT DET 42.5 % 4 Unknown COMPLETE BLOOD COUNT 8066858 MCV 88.0 fL 4 Unknown COMPLETE BLOOD COUNT 9358152 MCH 29.4 pg 4 Unknown COMPLETE BLOOD COUNT 5510488 MCHC 33.4 g/dL 4 Unknown COMPLETE BLOOD COUNT 3275460 PLT 359 10e9/L 09/13/19 14 Unknown COMPLETE BLOOD COUNT 3658811 MPV 10.1 fL 4 Unknown COMPLETE BLOOD COUNT 2543324 ERIN % 55.7 % 4 Unknown COMPLETE BLOOD COUNT 3694332 LY % 32.7 % 4 Unknown COMPLETE BLOOD COUNT [id number] MON % 6.6 % 4 Unknown COMPLETE BLOOD COUNT 2531559 EOS % 4.5 % 4 Unknown COMPLETE BLOOD COUNT 1058121 BASO % 0.5 % 4 Unknown COMPLETE BLOOD COUNT 5203343 RDW 13.8 % 4 Unknown COMPLETE BLOOD COUNT 6471532 ABS ERIN 4.40 10e9/L 014 Unknown COMPLETE BLOOD COUNT 7464112 ABS LYMPH 2.58 10e9/L 014 Unknown COMPLETE BLOOD COUNT 9371628 ABS MONO 0.52 10e9/L 014 Unknown COMPLETE BLOOD COUNT 8695527 ABS EOS 0.36 10e9/L 014 Unknown COMPLETE BLOOD COUNT [id number] ABS BASO 0.04 10e9/L 014 Unknown COMPLETE BLOOD COUNT [id number] RDW-SD 44.0 fL 4 Unknown FREE T4 25760 FREE T4 0.95 NG/DL 09/12/2013 Unknown COMPREHENSIVE METABOLIC 01626 AST 19 U/L 2013 Unknown COMPREHENSIVE METABOLIC 05471 ALT 18 IU/L 2013 Unknown COMPREHENSIVE METABOLIC 10049 BUN 11 MG/DL 2013 Unknown COMPREHENSIVE METABOLIC 83219 ALBUMIN 4.8 GM/DL 2013 Unknown COMPREHENSIVE METABOLIC 44747 CHLORIDE 107 MMOL/L 09/12 Unknown COMPREHENSIVE METABOLIC 85236 BILI TOT 0.4 MG/DL 2013 Unknown COMPREHENSIVE METABOLIC 72205 ALK PHOS 86 U/L 2013 Unknown COMPREHENSIVE METABOLIC 80160 SODIUM 138 MMOL/L 09/12 Unknown COMPREHENSIVE METABOLIC 57049 CREATININE 0.79 MG/DL 08/21 Unknown COMPREHENSIVE METABOLIC 42672 CALCIUM 10.0 MG/DL 09/12 Unknown COMPREHENSIVE METABOLIC 08818 POTASSIUM 4.1 MMOL/L 09/12 Unknown COMPREHENSIVE METABOLIC 03849 PROT TOT 7.6 GM/DL 2013 Unknown COMPREHENSIVE METABOLIC 60442 Glucose 96 MG/DL 2013 Unknown COMPREHENSIVE METABOLIC 54168 BICARB 23 MMOL/L 2013 Unknown COMPREHENSIVE METABOLIC 15153 ANION GAP 8 MEQ/L 2013 Unknown LIPID GROUP 41094 HDL TEST 38 MG/DL 05/07/2013 Unknown LIPID GROUP 12440 TRIG 176 MG/DL 05/07/2013 Unknown LIPID GROUP 88870 TEST LDL 163 MG/DL 05/07/2013 Unknown LIPID GROUP 22905 CHOL 236 MG/DL 05/07/2013 Unknown LIPID GROUP 69023 RCHOL/HDL 6.21 RATIO 05/07/2013 Unknow n GFR CALC 7908199 GFR AA >60 ML/MIN 05/07/2013 Unknown GFR CALC [id number] GFR NON-AA >60 ML/MIN 05/07/2013 Unknown COMPREHENSIVE METABOLIC 19981 AST 34 U/L 2013 Unknown COMPREHENSIVE METABOLIC 03581 ALT 37 IU/L 2013 Unknown COMPREHENSIVE METABOLIC 96263 BUN 15 MG/DL 2013 Unknown COMPREHENSIVE METABOLIC 35162 ALBUMIN 4.4 GM/DL 2013 Unknown COMPREHENSIVE METABOLIC 08183 CHLORIDE 106 MMOL/L 05/07 Unknown COMPREHENSIVE METABOLIC 34983 BILI TOT 0.3 MG/DL 2013 Unknown COMPREHENSIVE METABOLIC 65608 ALK PHOS 106 U/L 2013 Unknown COMPREHENSIVE METABOLIC 72726 SODIUM 139 MMOL/L 05/07 Unknown COMPREHENSIVE METABOLIC 27903 CREATININE 0.67 MG/DL 04/20 Unknown COMPREHENSIVE METABOLIC 27791 CALCIUM 9.4 MG/DL 2013 Unknown COMPREHENSIVE METABOLIC 74655 POTASSIUM 4.2 MMOL/L 05/07 Unknown COMPREHENSIVE METABOLIC 33479 PROT TOT 7.1 GM/DL 2013 Unknown COMPREHENSIVE METABOLIC 33788 Glucose 93 MG/DL 2013 Unknown COMPREHENSIVE METABOLIC 93628 BICARB 25 MMOL/L 2013 Unknown COMPREHENSIVE METABOLIC 51033 ANION GAP 8 MEQ/L 2013 Unknown COMPLETE BLOOD COUNT [id number] WBC 6.7 10e9/L 05/08/19 14 Unknown COMPLETE BLOOD COUNT [id number] RBC 4.68 10e12/L 2013 Unknown COMPLETE BLOOD COUNT 1290849 HGB 13.6 g/dL 4 Unknown COMPLETE BLOOD COUNT [id number] HCT DET 41.1 % 4 Unknown COMPLETE BLOOD COUNT [id number] MCV 87.8 fL 4 Unknown COMPLETE BLOOD COUNT 8525148 MCH 29.1 pg 4 Unknown COMPLETE BLOOD COUNT 4277237 MCHC 33.1 g/dL 4 Unknown COMPLETE BLOOD COUNT [id number] PLT 326 10e9/L 05/08/19 14 Unknown COMPLETE BLOOD COUNT 3348298 MPV 10.1 fL 4 Unknown COMPLETE BLOOD COUNT [id number] ERIN % 57.3 % 4 Unknown COMPLETE BLOOD COUNT [id number] LY % 30.3 % 4 Unknown COMPLETE BLOOD COUNT [id number] MON % 6.9 % 4 Unknown COMPLETE BLOOD COUNT [id number] EOS % 5.2 % 4 Unknown COMPLETE BLOOD COUNT [id number] BASO % 0.3 % 4 Unknown COMPLETE BLOOD COUNT [id number] RDW 13.9 % 4 Unknown COMPLETE BLOOD COUNT [id number] ABS ERIN 3.84 10e9/L 014 Unknown COMPLETE BLOOD COUNT [id number] ABS LYMPH 2.03 10e9/L 014 Unknown COMPLETE BLOOD COUNT [id number] ABS MONO 0.46 10e9/L 014 Unknown COMPLETE BLOOD COUNT [id number] ABS EOS 0.35 10e9/L 014 Unknown COMPLETE BLOOD COUNT [id number] ABS BASO 0.02 10e9/L 014 Unknown COMPLETE BLOOD COUNT 3269761 RDW-SD 43.5 fL 4 Unknown THYROID STIMULATING HORMONE 18861 TSH 1.476 uIU/ML 05/07/2013 Unknown FREE T4 48256 FREE T4 0.83 NG/DL 05/07/2013 Unknown FREE T4 61040 FREE T4 1.28 NG/DL 08/18/2010 Unknown COMPLETE BLOOD COUNT 40893 WBC 7.3 10e9/L 08/19/19 11 Unknown COMPLETE BLOOD COUNT 17289 RBC 5.15 10e12/L 2010 Unknown COMPLETE BLOOD COUNT 90631 HGB 14.4 g/dL 1 Unknown COMPLETE BLOOD COUNT 21024 HCT DET 43.2 % 1 Unknown COMPLETE BLOOD COUNT 52124 MCV 83.9 fL 1 Unknown COMPLETE BLOOD COUNT 45721 MCH 28.0 pg 1 Unknown COMPLETE BLOOD COUNT 76908 MCHC 33.3 g/dL 1 Unknown COMPLETE BLOOD COUNT 87007 PLT 341 10e9/L 08/19/19 11 Unknown COMPLETE BLOOD COUNT 07762 MPV 10.2 fL 1 Unknown COMPLETE BLOOD COUNT 72324 ERIN % 42.6 % 1 Unknown COMPLETE BLOOD COUNT 70184 LY % 45.2 % 1 Unknown COMPLETE BLOOD COUNT 17705 MON % 7.4 % 1 Unknown COMPLETE BLOOD COUNT 26746 EOS % 4.1 % 1 Unknown COMPLETE BLOOD COUNT 51465 BASO % 0.7 % 1 Unknown COMPLETE BLOOD COUNT 14439 RDW 14.4 % 1 Unknown COMPLETE BLOOD COUNT 44904 ABS ERIN 3.11 10e9/L 011 Unknown COMPLETE BLOOD COUNT 88681 ABS LYMPH 3.30 10e9/L 011 Unknown COMPLETE BLOOD COUNT 50945 ABS MONO 0.54 10e9/L 011 Unknown COMPLETE BLOOD COUNT 42077 ABS EOS 0.30 10e9/L 011 Unknown COMPLETE BLOOD COUNT 90581 ABS BASO 0.05 10e9/L 011 Unknown COMPLETE BLOOD COUNT 59966 RDW-SD 43.1 fL 1 Unknown THYROID STIMULATING HORMONE 45116 TSH 1.931 uIU/ML 08/18/2010 Unknown GFR CALC 8052814 GFR AA >60 ML/MIN 08/18/2010 Unknown GFR CALC 8406783 GFR NON-AA >60 ML/MIN 08/18/2010 Unknown COMPREHENSIVE METABOLIC 85072 AST 17 U/L 2010 Unknown COMPREHENSIVE METABOLIC 82380 ALT 11 IU/L 2010 Unknown COMPREHENSIVE METABOLIC 37510 BUN 12 MG/DL 2010 Unknown COMPREHENSIVE METABOLIC 55957 ALBUMIN 4.9 GM/DL 2010 Unknown COMPREHENSIVE METABOLIC 04932 CHLORIDE 104 MMOL/L 08/18 Unknown COMPREHENSIVE METABOLIC 39095 BILI TOT 0.5 MG/DL 2010 Unknown COMPREHENSIVE METABOLIC 27055 ALK PHOS 80 U/L 2010 Unknown COMPREHENSIVE METABOLIC 74120 SODIUM 137 MMOL/L 08/18 Unknown COMPREHENSIVE METABOLIC 81075 CREATININE 0.79 MG/DL 07/22 Unknown COMPREHENSIVE METABOLIC 61025 CALCIUM 9.6 MG/DL 2010 Unknown COMPREHENSIVE METABOLIC 73451 POTASSIUM 3.7 MMOL/L 08/18 Unknown COMPREHENSIVE METABOLIC 49552 PROT TOT 7.5 GM/DL 2010 Unknown COMPREHENSIVE METABOLIC 57475 Glucose 72 MG/DL 2010 Unknown COMPREHENSIVE METABOLIC 17091 BICARB 22 MMOL/L 2010 Unknown COMPREHENSIVE METABOLIC 39471 ANION GAP 11 MEQ/L 2010 Unknown Procedures Procedure Codes Date IIV4 VACC NO PRSV 6 MTHS TO 64 YRS+ IM CPT-4: 52123 11/22/2018 IIV4 VACC NO PRSV 6 MTHS TO 64 YRS+ IM CPT-4: 80079 11/22/2018 IMMUNIZATION ADMIN CPT-4: 13147 11/22/2018 THER/PROPH/DIAG INJ SC/IM CPT-4: 57638 05/29/2018 TRIAMCINOLONE ACET INJ NOS CPT-4: J3301 05/29/2018 DEXAMETHASONE SODIUM PHOS CPT-4: J1100 05/29/2018 SPECIMEN HANDLING OFFICE-LAB CPT-4: 82435 02/08/2018 THER/PROPH/DIAG INJ SC/IM CPT-4: 22880 01/09/2018 IIV4 VACCINE 3 YRS+ IM AND UP CPT-4: 59545 01/02/2018 IMMUNIZATION ADMIN CPT-4: 20000 01/02/2018 THER/PROPH/DIAG INJ SC/IM CPT-4: 68861 12/11/2017 TRIAMCINOLONE ACET INJ NOS CPT-4: J3301 12/11/2017 DEXAMETHASONE SODIUM PHOS CPT-4: J1100 12/11/2017 STREP A ASSAY W/OPTIC CPT-4: 39523 11/30/2017 THER/PROPH/DIAG INJ SC/IM CPT-4: 78573 10/13/2017 THER/PROPH/DIAG INJ SC/IM CPT-4: 01203 07/21/2017 THER/PROPH/DIAG INJ SC/IM CPT-4: 88653 04/27/2017 METHYLPREDNISOLONE INJECTION CPT-4: J2930 04/27/2017 THER/PROPH/DIAG INJ SC/IM CPT-4: 66509 04/27/2017 THER/PROPH/DIAG INJ SC/IM CPT-4: 31664 03/20/2017 METHYLPREDNISOLONE INJECTION CPT-4: J2930 03/20/2017 ROUTINE VENIPUNCTURE CPT-4: 29200 03/20/2017 A FRT/VG P CPT-4: 9962222 03/20/2017 A FOOD C P CPT-4: 9842827 03/20/2017 A NUTS PNL CPT-4: 4142410 03/20/2017 THER/PROPH/DIAG INJ SC/IM CPT-4: 60969 01/31/2017 URINE TEST CPT-4: 93283 01/31/2017 THER/PROPH/DIAG INJ SC/IM CPT-4: 15485 10/31/2016 URINE TEST CPT-4: 98914 10/31/2016 SPECIMEN HANDLING OFFICE-LAB CPT-4: 23407 09/06/2016 URINALYSIS NONAUTO W/O SCOPE CPT-4: 41259 04/28/2016 URINE CULTURE/ COLONY COUNT CPT-4: 69415 04/28/2016 THER/PROPH/DIAG INJ SC/IM CPT-4: 67016 06/12/2015 TRIAMCINOLONE ACET INJ NOS CPT-4: J3301 06/12/2015 DEXAMETHASONE SODIUM PHOS CPT-4: J1100 06/12/2015 ROUTINE VENIPUNCTURE CPT-4: 96839 07/21/2014 ASSAY OF FREE THYROXINE CPT-4: 68553 07/21/2014 ASSAY THYROID STIM HORMONE CPT-4: 04267 07/21/2014 COMPREHEN METABOLIC PANEL CPT-4: 62246 07/21/2014 COMPLETE CBC W/AUTO DIFF WBC CPT-4: 55714 07/21/2014 LIPID PANEL CPT-4: 20282 07/21/2014 THER/PROPH/DIAG INJ SC/IM CPT-4: 25937 04/02/2014 METHYLPREDNISOLONE 40 MG INJ CPT-4: J1030 04/02/2014 TRIAMCINOLONE ACET INJ NOS CPT-4: J3301 04/02/2014 URINALYSIS NONAUTO W/O SCOPE CPT-4: 99668 10/01/2013 URINE CULTURE/ COLONY COUNT CPT-4: 67689 10/01/2013 ROUTINE VENIPUNCTURE CPT-4: 73375 09/12/2013 COMPLETE CBC W/AUTO DIFF WBC CPT-4: 53099 09/12/2013 COMPREHEN METABOLIC PANEL CPT-4: 95318 09/12/2013 ASSAY OF IRON CPT-4: 74063 09/12/2013 ASSAY THYROID STIM HORMONE CPT-4: 32657 09/12/2013 ASSAY OF FREE THYROXINE CPT-4: 23209 09/12/2013 C-REACTIVE PROTEIN CPT-4: 39272 09/12/2013 THER/PROPH/DIAG INJ SC/IM CPT-4: 15713 05/17/2013 SPECIMEN HANDLING OFFICE-LAB CPT-4: 20760 05/16/2013 ROUTINE VENIPUNCTURE CPT-4: 68339 05/07/2013 ASSAY OF FREE THYROXINE CPT-4: 13320 05/07/2013 ASSAY THYROID STIM HORMONE CPT-4: 72647 05/07/2013 COMPREHEN METABOLIC PANEL CPT-4: 51976 05/07/2013 COMPLETE CBC W/AUTO DIFF WBC CPT-4: 94356 05/07/2013 LIPID PANEL CPT-4: 52562 05/07/2013 FLU VACCINE 3 YRS & > IM UP 64 CPT-4: 08434 3 IMMUNIZATION ADMIN CPT-4: 74502 01/08/2013 AEROBIC WOUND CULTURE & STN CPT-4: 87958 04/29/2011 DRAINAGE OF SKIN ABSCESS CPT-4: 48683 04/29/2011 URINALYSIS NONAUTO W/O SCOPE CPT-4: 53555 03/07/2011 URINE CULTURE/ COLONY COUNT CPT-4: 37873 03/07/2011 SPECIMEN HANDLING OFFICE-LAB CPT-4: 72169 08/18/2010 COMPLETE CBC W/AUTO DIFF WBC CPT-4: 63242 08/18/2010 COMPREHEN METABOLIC PANEL CPT-4: 48910 08/18/2010 ASSAY THYROID STIM HORMONE CPT-4: 68938 08/18/2010 ASSAY OF FREE THYROXINE CPT-4: 98903 08/18/2010 Vital Signs Date Vital 01/08/2019 Blood [...] 1: 126/90 Code: 8480-6 BMI: 33.4 Code: 82215-3 Heart Rate 1: 100 bpm Height: 5'6" [...] 1: 126/82 Code: 8480-6 BMI: 33.7 Code: 63402-5 Heart Rate 1: 76 bpm Height: 5'6" Respiratory Rate: 20 bpm Temperature: 37 .0 (C) / 98.6 (F) Weight: 209 lbs 04/27/2017 Heart Rate 1: 71 bpm SpO2: 97% Weight: 206 lbs 03/20/2017 Blood Pressure 1: 132/84 Code: 8480-6 BMI: 33.1 Code: 71007-9 Heart Rate 1: 96 bpm Height: 5'6" Respiratory Rate: 22 bpm SpO2: 97% Tempera ture: 36.2 (C) / 97.2 (F) Weight: 205 lbs 01/03/2017 Blood Pressure 1: 126/82 Code: 8480-6 BMI: 32.6 Code: 08085-3 Heart Rate 1: 80 bpm Height: 5'6" Respiratory Rate: 20 bpm SpO2: 97% Tempera ture: 36.6 (C) / 97.8 (F) Weight: 202 lbs 09/06/2016 Blood Pressure 1: 110/74 Code: 8480-6 BMI: 32.4 Code: 45444-8 Heart Rate 1: 86 bpm Height: 5'6" Respiratory Rate: 24 bpm SpO2: 97% Tempera ture: 36.6 (C) / 97.8 (F) Weight: 201 lbs 05/18/2016 Blood Pressure 1: 112/64 Code: 8480-6 He art Rate 1: 82 bpm 04/28/2016 Blood Pressure 1: 168/98 Code: 8480-6 BMI: 32.0 Code: 79894-5 Heart Rate 1: 102 bpm Height: 5'6" Respiratory Rate: 24 bpm SpO2: 97% Tempera ture: 36.4 (C) / 97.6 (F) Weight: 198 lbs 02/01/2016 Blood Pressure 1: 142/90 Code: 8480-6 He art Rate 1: 116 bpm 01/26/2016 Blood Pressure 1: 184/100 Code: 8480-6 H eart Rate 1: 114 bpm 09/10/2015 Blood Pressure 1: 126/64 Code: 8480-6 BMI: 32.0 Code: 69210-9 Heart Rate 1: 96 bpm Height: 5'5" Respiratory Rate: 24 bpm SpO2: 97% Tempera ture: 36.6 (C) / 97.8 (F) Weight: 192 lbs 06/12/2015 Blood Pressure 1: 106/80 Code: 8480-6 BMI: 33.4 Code: 43349-9 Heart Rate 1: 108 bpm Height: 5'5" Respiratory Rate: 20 bpm SpO2: 96% Tempera ture: 36.8 (C) / 98.3 (F) Weight: 201 lbs 11/04/2014 Blood Pressure 1: 134/86 Code: 8480-6 BMI: 32.9 Code: 60526-9 Heart Rate 1: 76 bpm Height: 5'5" Respiratory Rate: 20 bpm Temperature: 36 .6 (C) / 97.8 (F) Weight: 198 lbs 08/04/2014 Blood Pressure 1: 128/88 Code: 8480-6 BMI: 34.4 Code: 51810-4 Heart Rate 1: 90 bpm Height: 5'5" Respiratory Rate: 20 bpm Temperature: 37 .0 (C) / 98.6 (F) Weight: 207 lbs 07/21/2014 Blood Pressure 1: 146/94 Code: 8480-6 BMI: 34.4 Code: 27999-5 Heart Rate 1: 88 bpm Height: 5'5" Respiratory Rate: 20 bpm Temperature: 36 .7 (C) / 98.1 (F) Weight: 207 lbs 04/02/2014 Blood Pressure 1: 128/76 Code: 8480-6 BMI: 34.1 Code: 57665-9 Heart Rate 1: 84 bpm Height: 5'5" Respiratory Rate: 22 bpm Temperature: 36 .6 (C) / 97.8 (F) Weight: 205 lbs 03/20/2014 Blood Pressure 1: 126/82 Code: 8480-6 BMI: 33.9 Code: 43201-1 Heart Rate 1: 88 bpm Height: 5'5" Respiratory Rate: 20 bpm Temperature: 36 .7 (C) / 98.1 (F) Weight: 204 lbs 02/18/2014 Blood Pressure 1: 120/78 Code: 8480-6 BMI: 33.9 Code: 46711-4 Heart Rate 1: 72 bpm Height: 5'5" Respiratory Rate: 20 bpm Temperature: 36 .6 (C) / 97.9 (F) Weight: 204 lbs 10/01/2013 Blood Pressure 1: 124/78 Code: 8480-6 BMI: 32.9 Code: 62039-0 Heart Rate 1: 84 bpm Height: 5'5" Respiratory Rate: 20 bpm Temperature: 36 .4 (C) / 97.6 (F) Weight: 198 lbs 09/12/2013 Blood Pressure 1: 126/84 Code: 8480-6 BMI: 32.8 Code: 79303-8 Heart Rate 1: 76 bpm Height: 5'5" Respiratory Rate: 18 bpm Temperature: 36 .4 (C) / 97.6 (F) Weight: 197 lbs 05/16/2013 Blood Pressure 1: 124/68 Code: 8480-6 BMI: 33.3 Code: 92744-1 Heart Rate 1: 70 bpm Height: 5'5" Respiratory Rate: 20 bpm Temperature: 36 .3 (C) / 97.4 (F) Weight: 200 lbs 12/07/2012 Blood Pressure 1: 112/88 Code: 8480-6 BMI: 30.5 Code: 65626-7 Heart Rate 1: 92 bpm Height: 5'5" Respiratory Rate: 20 bpm Temperature: 37 .4 (C) / 99.3 (F) Weight: 183 lbs 12/03/2012 Blood Pressure 1: 124/88 Code: 8480-6 BMI: 30.5 Code: 57202-1 Heart Rate 1: 86 bpm Height: 5'5" Respiratory Rate: 20 bpm Temperature: 36 .6 (C) / 97.8 (F) Weight: 183 lbs 04/03/2012 Blood Pressure 1: 114/76 Code: 8480-6 BMI: 27.5 Code: 89789-4 Heart Rate 1: 64 bpm Height: 5'6" Temperature: 37.4 (C) / 99.4 (F) Weight: 168 lbs 03/30/2012 Blood Pressure 1: 122/80 Code: 8480-6 BMI: 27.5 Code: 46751-3 Heart Rate 1: 72 bpm Height: 5'6" Respiratory Rate: 20 bpm Temperature: 36 .8 (C) / 98.3 (F) Weight: 168 lbs 07/29/2011 Blood Pressure 1: 120/64 Code: 8480-6 BMI: 24.7 Code: 72209-7 Heart Rate 1: 84 bpm Height: 5'6" Temperature: 36.9 (C) / 98.4 (F) Weight: 151 lbs 04/29/2011 Blood Pressure 1: 102/70 Code: 8480-6 BMI: 24.4 Code: 28647-3 Heart Rate 1: 60 bpm Height: 5'6" Temperature: 36.8 (C) / 98.2 (F) Weight: 149 lbs 04/28/2011 Blood Pressure 1: 110/72 Code: 8480-6 BMI: 24.4 Code: 23226-8 Heart Rate 1: 74 bpm Height: 5'6" Temperature: 37.2 (C) / 99.0 (F) Weight: 149 lbs 03/07/2011 Blood Pressure 1: 102/72 Code: 8480-6 BMI: 23.5 Code: 14801-5 Heart Rate 1: 68 bpm Height: 5'6" Temperature: 37.1 (C) / 98.7 (F) Weight: 143 lbs 6 oz 11/10/2010 Blood Pressure 1: 121/80 Code: 8480-6 Heart Rate 1: 72 bpm Temperature: 36.7 (C) / 98.0 (F) Weight: 142 lbs 08/18/2010 Blood Pressure 1: 122/72 Code: 8480-6 BMI: 24.3 Code: 57739-5 Heart Rate 1: 88 bpm Height: 5'6" [...] for pain. Patient was given hydrocodone 5-325mg [id number] pain nasal allergies 06/12/2015 palpitations 11/04/2014 follow [...] Visit Encounters Encounter Performer Location Codes Date ([id number]) OFFICE/OUTPATIENT VISIT EST Diagnosis: Essential (primary) hypertension[ICD10: I10] Diagnosis: Gastro-esophageal reflux disease without esophagitis[ICD10: K21.9] Diagnosis: Generalized anxiety disorder[ICD10: F41.1] Ritika VILLAVICENCIO [employer] [facility] CPT-4: 36922 01/08/2019 ([id number]) NURSE/OUTPATIENT VISIT EST Diagnosis: FLU VACCINE[ICD10: Z23] Ritika VILLAVICENCIO [employer] [facility] CPT-4: 90810 11/22/2018 ([id number]) OFFICE/OUTPATIENT VISIT EST Diagnosis: Esophageal reflux[ICD10: K21.9] Diagnosis: Epigastric pain[ICD10: R10.13] Ritika CINTRON [employer] [facility] CPT-4: 81342 11/14/2018 ([id number]) OFFICE/OUTPATIENT VISIT EST Diagnosis: Elevated blood-pressure reading, without diagnosis of hypertension[ICD10: R03.0] Diagnosis: Localized edema[ICD10: R60.0] Diagnosis: Major depressive disorder, single episode, unspecified[ICD10: F32.9] Diagnosis: Gastro-esophageal reflux disease without esophagitis[ICD10: K21.9] [facility] 62033 09/17/2018 ([id number]) OFFICE/OUTPATIENT VISIT EST Diagnosis: Generalized abdominal pain[ICD10: R10.84] Diagnosis: Acute gastritis with bleeding[ICD10: K29.01] Quita Claritza RITIKA [facility] [employer] [facility] CPT-4: 55715 08/13/2018 ([id number]) OFFICE/OUTPATIENT VISIT EST Diagnosis: Other allergic rhinitis[ICD10: J30.89] [facility] [employer] [facility] CPT-4: 77261 05/29/2018 ([id number]) OFFICE/OUTPATIENT VISIT EST Diagnosis: Essential (primary) hypertension[ICD10: I10] Diagnosis: Localized edema[ICD10: R60.0] Diagnosis: Major depressive disorder, single episode, unspecified[ICD10: F32.9] Ritika CINTRON [employer] CPT-4: 93232 05/24/2018 ([id number]) PREV VISIT EST AGE 18-39 Diagnosis: Encounter for general adult medical examination without abnormal findings[ICD10: Z00.00] Diagnosis: Encounter for gynecological examination (general) (routine) without abnormal findings[ICD10: Z01.419] Diagnosis: Gastro-esophageal reflux disease without esophagitis[ICD10: K21.9] Diagnosis: Generalized anxiety disorder[ICD10: F41.1] Ritika CINTRON [employer] CPT-4: 55423 02/08/2018 ([id number]) NURSE/OUTPATIENT VISIT EST Diagnosis: Excessive and frequent menstruation with regular cycle[ICD10: N92.0] Ritika CINTRON [employer] CPT-4: 40607 01/09/2018 ([id number]) NURSE/OUTPATIENT VISIT EST Diagnosis: FLU VACCINE[ICD10: Z23] Ritika POP [employer] CPT-4: 88181 01/02/2018 ([id number]) OFFICE/OUTPATIENT VISIT EST Diagnosis: Acute sinusitis, unspecified[ICD10: J01.90] Quita CINTRON [employer] [facility] CPT-4: 97839 12/11/2017 ([id number]) OFFICE/OUTPATIENT VISIT EST Diagnosis: Acute pharyngitis, unspecified[ICD10: J02.9] Quita CINTRON [employer] CPT-4: 35339 11/30/2017 ([id number]) OFFICE/OUTPATIENT VISIT EST Diagnosis: Low back pain[ICD10: M54.5] Diagnosis: Pelvic and perineal pain[ICD10: R10.2] Diagnosis: Excessive and frequent menstruation with regular cycle[ICD10: N92.0] Ritika CINTRON [employer] CPT-4: 23111 10/13/2017 ([id number]) OFFICE/OUTPATIENT VISIT EST Diagnosis: Vitamin D deficiency, unspecified[ICD10: E55.9] Diagnosis: Endocrine disorder, unspecified[ICD10: E34.9] Ritika CINTRON [facility] CPT-4: 99695 09/05/2017 ([id number]) NURSE/OUTPATIENT VISIT EST Diagnosis: Excessive and frequent menstruation with regular cycle[ICD10: N92.0] Ritika CINTRON DO [facility] CPT-4: 34128 07/21/2017 OFFICE/OUTPATIENT VISIT EST Diagnosis: Other allergic rhinitis[ICD10: J30.89] Diagnosis: Encounter for other contraceptive management[ICD10: Z30.8] Quita CINTRON DO [facility] CPT-4: 96500 04/27/2017 OFFICE/OUTPATIENT VISIT EST Diagnosis: Allergic rhinitis, unspecified[ICD10: J30.9] Quita CINTRON [facility] CPT-4: 29543 03/20/2017 ([id number]) OFFICE/OUTPATIENT VISIT EST Diagnosis: Excessive and frequent menstruation with regular cycle[ICD10: N92.0] Ritika CINTRON [facility] CPT-4: 54835 01/31/2017 ([id number]) OFFICE/OUTPATIENT VISIT EST Diagnosis: Epigastric pain[ICD10: R10.13] Diagnosis: Gastro-esophageal reflux disease without esophagitis[ICD10: K21.9] Diagnosis: Pain in thoracic spine[ICD10: M54.6] Diagnosis: Low back pain[ICD10: M54.5] Ritika CURRY [facility] CPT-4: 93920 01/03/2017 ([id number]) OFFICE/OUTPATIENT VISIT EST Diagnosis: Excessive and frequent menstruation with regular cycle[ICD10: N92.0] Ritika CINTRON [facility] CPT-4: 37890 10/31/2016 ([id number]) PREV VISIT EST AGE 18-39 Diagnosis: Encounter for general adult medical examination without abnormal findings[ICD10: Z00.00] Diagnosis: Encounter for general adult medical examination with abnormal findings[ICD10: Z00.01] Diagnosis: Other fatigue[ICD10: R53.83] Diagnosis: Generalized hyperhidrosis[ICD10: R61] Diagnosis: Iron deficiency anemia, unspecified[ICD10: D50.9] [facility]: 80670 09/06/2016 ([id number]) OFFICE/OUTPATIENT VISIT EST Diagnosis: Essential (primary) hypertension[ICD10: I10] Diagnosis: Major depressive disorder, single episode, unspecified[ICD10: F32.9] Diagnosis: Urinary tract infection, site not specified[ICD10: N39.0] Diagnosis: Acute vaginitis[ICD10: N76.0] Diagnosis: Nonscarring hair loss, unspecified[ICD10: L65.9] Mary Chavarria [facility] CPT-4: 55921 04/28/2016 ([id number]) OFFICE/OUTPATIENT VISIT EST Diagnosis: Atypical facial pain[ICD10: G50.1] Mary TEMPLE Katelyn [facility] CPT-4: 58529 09/10/2015 OFFICE/OUTPATIENT VISIT EST Diagnosis: Allergic rhinitis, unspecified[ICD10: J30.9] Sarah Chavarria [facility] CPT-4: 33098 06/12/2015 ([id number]) OFFICE/OUTPATIENT VISIT EST Diagnosis: PALPITATIONS[ICD9: 785.1] Diagnosis: CHEST PAIN NOS[ICD9: 786.50] Diagnosis: GERD[ICD9: 530.81] Ritika Villavicencio RITIKA Chavarria [facility] CPT-4: 07361 11/04/2014 ([id number]) OFFICE/OUTPATIENT VISIT EST Diagnosis: EDEMA[ICD9: 782.3] Diagnosis: PALPITATIONS[ICD9: 785.1] Diamante Chavarria [facility] CPT-4: 68997 08/04/2014 ([id number]) OFFICE/OUTPATIENT VISIT EST Diagnosis: SINUSITIS, ACUTE[ICD9: 461.9] Diagnosis: PALPITATIONS[ICD9: 785.1] Diagnosis: Elevated blood pressure[ICD9: 796.2] Diagnosis: EDEMA[ICD9: 782.3] Ritika CINTRON [employer] [facility] CPT-4: 31818 07/21/2014 ([id number]) OFFICE/OUTPATIENT VISIT EST Diagnosis: SINUSITIS, ACUTE[ICD9: 461.9] Diagnosis: COUGH[ICD9: 786.2] Diamante CINTRON DO [facility] CPT-4: 83443 04/02/2014 ([id number]) OFFICE/OUTPATIENT VISIT EST Diagnosis: Cervicalgia[ICD9: 723.1] Diagnosis: Thoracic back pain[ICD9: 724.1] Ritika [employer]INTRON [employer] [facility] CPT-4: 54105 03/20/2014 ([id number]) OFFICE/OUTPATIENT VISIT EST Diagnosis: EXCESSIVE MENSTRUATION[ICD9: 626.2] Diagnosis: MALAISE AND FATIGUE[ICD9: 780.79] Diagnosis: ABNORMAL WEIGHT GAIN[ICD9: 783.1] Diagnosis: IBS[ICD9: 564.1] Ritika CINTRON [employer] [facility] CPT - 4: 87071 02/18/2014 OFFICE/OUTPATIENT VISIT EST Diagnosis: URINARY TRACT INFECTION[ICD9: 599.0] Diagnosis: HYPERLIPIDEMIA NEC/NOS[ICD9: 272.4] Diamante ChapmanBirgitjanis CINTRON [employer] [facility] CPT-4: 89001 10/01/2013 OFFICE/OUTPATIENT VISIT EST Diagnosis: ARTHRALGIA-MULTIPLE SITES[ICD9: 719.49] Diagnosis: MALAISE AND FATIGUE[ICD9: 780.79] Diagnosis: ABNORMAL WEIGHT GAIN[ICD9: 783.1] Diamante ChapmanBirgitdarlineamanda HARSHAD E Aura [employer]INTRON [employer] [facility] CPT-4: 88132 09/12/2013 ([id number]) OFFICE/OUTPATIENT VISIT EST Diagnosis: EXCESSIVE MENSTRUATION[ICD9: 626.2] Ritika CINTRON [employer] [facility] CPT-4: 75994 05/17/2013 ([id number]) PREV VISIT EST AGE 18-39 Diagnosis: ROUTINE GYNE EXAM[ICD9: V72.31] Diagnosis: ROUTINE MEDICAL EXAM[ICD9: V70.0] Diagnosis: Menorrhagia[ICD9: 626.2] Diagnosis: HYPERLIPIDEMIA NEC/NOS[ICD9: 272.4] Ritika CINTRON [facility] CPT-4: 63484 05/16/2013 ([id number]) OFFICE/OUTPATIENT VISIT EST Diagnosis: ROUTINE MEDICAL EXAM[ICD9: V70.0] Ritika CINTRON [facility] CPT-4: 62846 05/07/2013 ([id number]) OFFICE/OUTPATIENT VISIT EST Diagnosis: FLU VACCINE[ICD9: V04.81] Ritika LOCK [facility] CPT-4: 97819 01/08/2013 OFFICE/OUTPATIENT VISIT EST Diagnosis: Skin infection[ICD9: 686.9] Diamante CINTRON [facility] CPT-4: 08840 12/07/2012 OFFICE/OUTPATIENT VISIT EST Diagnosis: Skin lesion, infected[ICD9: 686.9] Diagnosis: MRSA (methicillin resistant Staphylococcus aureus)[ICD9: 041.12] Diagnosis: CELLULITIS[ICD9: 682.9] Diamante VILLAVICENCIO ER [facility] CPT-4: 26923 12/03/2012 OFFICE/OUTPATIENT VISIT EST Diagnosis: FEBRILE ILLNESS[ICD9: 780.60] Diagnosis: SINUSITIS, ACUTE[ICD9: 461.9] Diagnosis: COUGH[ICD9: 786.2] Ritika CINTRON [facility] CPT-4: 96252 04/03/2012 OFFICE/OUTPATIENT VISIT EST Diagnosis: SINUSITIS, ACUTE[ICD9: 461.9] Ritika CINTRON [facility] CPT-4: 85685 03/30/2012 OFFICE/OUTPATIENT VISIT EST Diagnosis: CONJUNCTIVITIS NOS[ICD9: 372.30] Diagnosis: URI, ACUTE[ICD9: 465.9] Ritika [facility] [facility] CPT-4: 42365 07/29/2011 OFFICE/OUTPATIENT VISIT EST Diagnosis: CELLULITIS OF HAND[ICD9: 682.4] Ritika VILLAVICENCIOER [facility] CPT-4: 11539 04/28/2011 OFFICE/OUTPATIENT VISIT EST Diagnosis: URINARY TRACT INFECTION[ICD9: 599.0] Diagnosis: Vaginal itching[ICD9: 698.1] Ritika CINTRON DO [employer] CPT-4: 03347 03/07/2011 OFFICE/OUTPATIENT VISIT EST Diagnosis: Skin lesion of face[ICD9: 709.9] Diagnosis: Scratched by cat[ICD9: 919.8] Ritika CINTRON DO [employer] CPT-4: 15317 11/10/2010 PREV VISIT NEW AGE 18-39 Ritika Tamayo [employer] CPT-4: 16934 08/18/2010 Plan of Care Planned Activity Notes [...] : K21.9 01/08/2019 Appointment: Ritika Cintron WPtel: [address] [place], [place] [phone] FOLLOW UP 01/08/2019 Appointment: Ritika Cintron WPtel: [address] [place] [id number] [place] INJECTION 11/22/2018 Patient Education: INFLUENZA VACCINE CDC Completed 11/22/2018 Visit Diagnosis Plan: Esophageal reflux Discussion: Ch nayan protonix to nexium Referral for EGD May need GB workup pending EGD results ICD-9 : 530.81 ICD-10 : K21.9 11/14/2018 Appointment: Ritika Cintron WPtel: [address] [place], [place] [phone] [place] FOLLOW UP 11/14/2018 Patient Education: Nexium- [employer] Coupon [id number] [email or web address]/[email or web address]/resources/[email or web address].pdf Completed 11/14/2018 Visit Diagnosis Plan: Elevated blood-pre ssure reading, without diagnosis of hypertension Discussion: Continue spironolactone Low Na diet ICD-9 : 796.2 ICD-10 : R03.0 09/17/2018 Visit Diagnosis Plan: Gastro-esophageal reflux disease without esophagitis Discussion: Continue protonix at current dose Recheck 3mos ICD-9 : 530.81 ICD-10 : K21.9 09/17/2018 Appointment: Ritika Cintron WPtel[facility] [phone] [facility] [facility] 09/17/2018 Patient Education: spironolactone- [employer] Coupon [id number] Completed 09/17/2018 Patient Education: sertraline- [employer] Coupon [id number] Completed 09/17/2018 Visit Diagnosis Plan: Generalized abdominal [...] ICD-10 : K29.01 08/13/2018 Appointment: Quita Jerry [address] [place], [place] [address] ACUTE ILLNESS 08/13/2018 Patient Education: Protonix- [employer] Coupon [id number] [email or web address]://www.GetIntent/samplemd/resources/getResource/[email or web address] Completed 08/13/2018 Visit Diagnosis Plan: Other allergic rhinitis Discussi on: Steroid injection administered in the clinic- patient tolerated well. Start oral prednisone tomorrow. Ok to continue daily allergy medications. She has established with Dr. Zuleta and will be starting allergy injections with him this summer. No further questions at this time. ICD-9 : 477.8 ICD-10 : J30.89 05/29/2018 Appointment: Anaya Marte [facility] 05/29/2018 Visit Diagnosis Plan: Major [...] 401.9 ICD-10 : I10 05/24/2018 Appointment: Ritika Cintrontel: [address] [place], [place] [phone] [place] FOLLOW UP 05/24/2018 Visit Diagnosis Plan: [...] V72.31 ICD-10 : Z01.419 02/08/2018 Appointment: Ritika Cintrontel: [address] [place], [place] [phone] Annual Well Visit 02/08/2018 Appointment: Ritika Cintrontel: [address] [place], [place] [phone] [place] INJECTION 01/09/2018 Appointment: Ritika Cintron WPtel: [phone] [id number] [place] INJECTION 01/02/2018 Patient Education: INFLUENZA VACCINE [facility] Completed 01/02/2018 Visit Diagnosis Plan: Acute sinusitis, [...] ICD-10 : J01.90 12/11/2017 Appointment: Quita Jerry [address] [place] [address] ACUTE ILLNESS 12/11/2017 Patient Education: Patient Medication Summary Completed 12/11/2017 Patient Education: Patient Medication Summary Completed 12/11/2017 Visit Diagnosis Plan: Acute pharyngitis, unspecified D iscussion: rapid strep negative. due to clinical s/s and worsening, clindamycin sent out for patient. change toothbrush in 48 hours, no sharing food or drinks with others. discussed frequent hand washing and hand dewer to prevent spread of infection. tylenol/ibuprofen prn pain or fever. call office with new or worsening symptoms. ICD-9 : 462 ICD-10 : J02.9 11/30/2017 Appointment: Quita Jerry [address] [place] [address] ACUTE ILLNESS 11/30/2017 Patient Education: Patient Medication [...] : M54.5 10/13/2017 Appointment: Ritika Cintron WPtel: [address] [place], [place] [id number] ACUTE ILLNESS 10/13/2017 Patient Education: Patient Medication [...] : E34.9 09/05/2017 Appointment: Ritika Cintron WPtel: [address] [place], [place] [phone] FOLLOW UP 09/05/2017 Patient Education: Patient Medication Summary Completed 09/05/2017 Appointment: Ritika Cintron WPtel: [address] [place], [place] [phone] [place] INJECTION 07/21/2017 Patient Education: Patient Medication [...] : Z30.8 04/27/2017 Appointment: Quita Jerry [address] [facility] ACUTE ILLNESS 04/27/2017 Patient Education: Patient Medication Summary Completed 04/27/2017 Appointment: Quita Jerry [facility] ACUTE ILLNESS 03/31/2017 Visit Diagnosis Plan: Allergic [...] ICD-10 : J30.9 03/20/2017 Appointment: Quita Jerry [address] [place], [place] [id number] ACUTE ILLNESS 03/20/2017 Patient Education: Patient Medication Summary Completed 03/20/2017 Appointment: Ritika Cintron WPtel: [address] [place], [place] [id number] INJECTION 01/31/2017 Patient Education: Patient Medication Summary [...] 789.06 ICD-10 : R10.13 01/03/2017 Appointment: Ritika Cintrontel: [address] [place], [place] [phone] Annual Well Visit 01/03/2017 Patient Education: Patient Medication Summary Completed 01/03/2017 Appointment: Ritika Cintron WPtel: [address] [place], [place] [phone] PAP 11/22/2016 Appointment: Ritika Cintron WPtel: [address] [place], [place] [phone] [place] INJECTION 10/31/2016 Patient Education: Patient Medication Summary Completed 10/31/2016 Visit Diagnosis Plan: Other fatigue Discussion: Check TSH, Free T4, CBC, CMP ICD-9 : 780.79 ICD-10 : R53.83 09/06/2016 Visit Diagnosis Plan: Encounter for [facility] adult medical examination with abnormal findings Discussion: Pap done May need pelvic US due to pain with intercourse ICD-9 : V70.0 ICD-10 : Z00.01 09/06/2016 Visit Diagnosis Plan: Iron deficiency anemia, unspecif ied Discussion: Check CBC, iron ICD-9 : 280.9 ICD-10 : D50.9 09/06/2016 Appointment: Ritika Cintron WPtel: [phone] [facility] [place] 09/05 confirmed~sl PAP 09/06/2016 Patient Education: Patient Medication Summary Completed 09/06/2016 Appointment: Ritika Cintron WPtel: [phone] [facility] [place] BP CHECK 05/18/2016 Patient Education: Patient [...] ICD-10 : F32.9 04/28/2016 Appointment: [facility] [address] [place] [address] ACUTE ILLNESS 04/28/2016 Patient Education: Patient Medication Summary Completed 04/28/2016 Appointment: Ritika Cintron WPtel: [address] [place], [place] [phone] BP CHECK 02/01/2016 Patient Education: Patient Medication Summary Completed 02/01/2016 Appointment: Ritika Cintron WPtel: [address] [place], [place] [phone] BP CHECK 01/26/2016 Patient Education: Patient Medication Summary Completed 01/26/2016 Visit Plan: Discussed POC with Dr Leticia tamayo Increase dose to 300mg TID for a full 10 days Follow up with us, dentist and OB as needed Cautioned to monitor BP and follow up if not at goal 09/10/2015 Appointment: [facility] [address] [place] [address] ACUTE ILLNESS 09/10/2015 Patient Education: Patient Medication Summary Completed 09/10/2015 Visit Plan: Dexamethesone 4mg with Kenal og 40 IM now Continue antihistamines Use nasal saline multiple times a day Humidified air Rest/fluids Reviewed s/s of worsening, go to over weekend if needed. 06/12/2015 Appointment: Sarah Campbell WPtel: [address] [place], [place] [id number] ACUTE ILLNESS 06/12/2015 Patient Education: Patient Medication Summary Completed 06/12/2015 Visit Plan: Proceed with Stress ECHO Add omeprazole Fwup after stress ECHO 11/04/2014 Appointment: Ritika Cintron WPtel: [address] [place], [place] [phone] 11/03/14 confirm FOLLOW UP 11/04/2014 Patient Education: Patient Medication Summary Completed 11/04/2014 Visit Plan: Continue HCTZ 12.5 mg for 2 more weeks. Discussed decreasing dietary sodium intake Advised against future use of pseudoephedrine 08/04/2014 Appointment: Diamante Santana WPtel: [address] [place] [address] FOLLOW UP 08/04/2014 Patient Education: Patient Medication Summary Completed 08/04/2014 Appointment: Ritika Cintron WPtel: [address] [place] [address] Urgent/Quick Care Follow Up 02/2014 Patient Education: Patient Medication Summary Completed 07/21/2014 Appointment: Diamante Santana WPtel: [address] [place] [address] ACUTE ILLNESS 04/02/2014 Patient Education: Patient Medication Summary Completed 04/02/2014 Patient Education: ConsumerCare - Antibi otics, Analgesics 18+, Oral Contraceptives F 18+ Completed 04/02/2014 Visit Plan: Check cervical and thoracic spine x-rays Daily Neck and Back stretches Duexis TID 03/20/2014 Appointment: Ritika Cintron WPtel: [address] [place] [address] ACUTE ILLNESS 03/20/2014 Patient Education: Patient Medication Summary Completed 03/20/2014 Visit Plan: Trial of Aviane Discussed di et and exercise at length--1400--1500cal ADA diet with exercise Trial of levbid 0.375mg q HS Discussed trial of Phenteramine Call in 1mo on Levbid 02/18/2014 Appointment: Ritika Cintron WPtel: [address] [place] [address] ACUTE ILLNESS 02/18/2014 Patient Education: Patient Medication Summary Completed 02/18/2014 Patient Education: ConsumerCare - Antibi otics, Analgesics 18+, Oral Contraceptives F 18+ Completed 02/18/2014 Appointment: Diamante Santana WPtel: [address] [place] [address] ACUTE ILLNESS 10/01/2013 Patient Education: Patient Medication Summary Completed 10/01/2013 Appointment: Diamante Santana WPtel: [address] [place] [address] ACUTE ILLNESS 09/12/2013 Patient Education: Patient Medication Summary Completed 09/12/2013 Referral: Ritika Cintron WPtel: [address] [place] [address] Dr Rodriguez Initiated 06/18/2013 Appointment: Ritika Cintron WPtel: [address] [place] [address] [place] INJECTION 05/17/2013 Patient Education: Patient Medication Summary Completed 05/17/2013 Visit Plan: Pap smear with HPV done Resu ma barbara Lab discussed--fish oil 3grams daily and lifestyle change with exercise and recheck lipids 6mos 05/16/2013 Appointment: Ritika Cintron WPtel: [address] [place] [address] 05/14 pt came in and verified appt is PAP 05/16/2013 Patient Education: Patient Medication Summary Completed 05/16/2013 Appointment: Ritika Cintron WPtel: [address] [place] [address] US LAB 05/07/2013 Patient Education: Patient Medication Summary Completed 05/07/2013 Appointment: Ritika Cintron WPtel: [address] [place] [address] [place] INJECTION 01/08/2013 Patient Education: Patient Medication Summary Completed 01/08/2013 Appointment: Diamante Santana WPtel: [address] [place] [address] ACUTE ILLNESS 12/07/2012 Patient Education: Patient Medication Summary Completed 12/07/2012 Appointment: Diamante Santana WPtel: [address] [place] [address] ACUTE ILLNESS 12/03/2012 Patient Education: Patient Medication Summary Completed 12/03/2012 Visit Plan: 2 months old at home. (deangelotricia adams) Azithromycin increased dose. Pt. reports Clindamycin is possible allergy but not sure-states "makes my throat close....I think" Discussed that will notify if symptoms worsen or fever continues. Strongly encouraged her to stay home until fever resolves. 04/03/2012 Appointment: Venecia Smith WPtel: [address] [place], [place] [phone] ACUTE ILLNESS 04/03/2012 Patient Education: Patient Medication Summary Completed 04/03/2012 Visit Plan: ERx for ZPack (due to multip le med allergies and ) OTC multiple symptom cold formula (Like Robitussing PE) as directed OTC nasal saline, Tylenol, Ibuprofen prn RTC for no improvement, UC for worsening. 03/30/2012 Appointment: Sarah Campbell WPtel: [address] [place] [address] ACUTE ILLNESS 03/30/2012 Patient Education: Patient Medication [...] the time) 07/29/2011 Appointment: Sarah Campbell WPtel: [address] [place], [place] [phone] ACUTE ILLNESS 07/29/2011 Patient Education: Patient Medication Summary Completed 07/29/2011 Appointment: Venecia Smith WPtel: [address] [place], [place] [phone] FOLLOW UP 04/29/2011 Patient Education: Patient Medication Summary Completed 04/29/2011 Visit Plan: due to multiple allergies wi ll try Doxycycline and mupirocin topical.(has some topical left over from past topical infection) Will ice/cool pack finger and use Ibuprofen in addition to antibiotic. Discussed that pt. will notify if redness is worse tomorrow. 04/28/2011 Appointment: Venecia Smith WPtel: [address] [place], [place] [address] ACUTE ILLNESS 04/28/2011 Patient Education: Patient Medication Summary Completed 04/28/2011 Visit Plan: Macrobid and Pyridium. Diflu can for possible yeast. Discussed increased fluids. Pt. will notify if symptoms worsen or fever occurs. Urine for culture. 03/07/2011 Appointment: Venecia Smith WPtel: [address] [place], [place] [address] ACUTE ILLNESS 03/07/2011 Patient Education: Patient Medication Summary Completed 03/07/2011 Visit Plan: Pt will apply mild heat devante ral times daily to aid in healing process. Pt. has past RX for mupirocin topical. Will apply to area being careful to not get any in the eye. Will follow up if no resolution in the next 5 days. 11/10/2010 Appointment: Venecia Smith WPtel: [address] [place], [place] [address] ACUTE ILLNESS 11/10/2010 Patient Education: Patient Medication Summary Completed 11/10/2010 Visit Plan: Pap done Check CBC, CMP, TSH , Free T4 08/18/2010 Appointment: Ritika Cintron WPtel: [address] [place] [address] NEW PATIENT 08/18/2010 Patient Education: Patient Medication [...]
--- OUTSIDE RECORDS SUMMARY | 2019-10-02 17:25 | XMS REPORT ---
Author Author Catherine SOLANO Organization [facility] Address [address] [place] [address] Care Team Providers Care Speeder Frame Tender Name Role Phone RUSS ZEHRA Unavailable PROBLEMS Type Condition ICD9-CM Code [id number] Code Onset Dates Condition S tatus SNOMED Code Problem Supervision of other normal V22.1 Active 924153186 Problem Hordeolum externum 373.11 Active 1 643370 Problem Screening for malignant neoplasm of the cervix V76.2 Active 113964266 Problem Screening examination for venereal disease V74.5 Active 227368487 Problem Routine follow-up V24.2 A ctive [id number] ALLERGIES No Information ENCOUNTERS Encounter Location Date Diagnosis [facility] [address] [place] [place] [id number] [address] [place] [phone] May, [facility] [place] [address] [id number] [address] [place] [address] May, [facility] [address] [facility] [id number] [address] [place] [id number] Feb, [facility] [address] [facility] [id number] [address] [place] [phone] Jan, [facility] [address] [facility] [id number] [address] [place] [phone] Jan, [facility] [address] [facility] [id number] [address] [place] [phone] Dec, [facility] [address] [id number] [address] [place] [phone] Dec, [facility] [address] [id number] [address] [place] [phone] Dec, [facility] [address] [id number] [address] [place] [address], [place] [address] Dec, [facility] [address] [id number] [address] [place] [address], [place] [address] Dec, [facility] [address] [id number] [address] [place] [address], [place] [address] Dec, [facility] [address] [id number] [address] [place] [address], [place] [address] Dec, [facility] [address] [id number] [address] [place] [address], [place] [address] Dec, [facility] [address] [id number] [address] [place] [address], [place] [address] Dec, [facility] [address] [id number] [address] [place] [address], [place] [address] Dec, [facility] [address] [id number] [address] [place] [address], [place] [address] Dec, [facility] [address] [id number] [address] [place] [address], [place] [address] Dec, [facility] [address] [id number] [address] [place] [address], [place] [address] Nov, [facility] [address] [id number] [address] [place] [address], [place] [address] 31 Nov, 2011 [facility] [address] [id number] [address] [place] [address], [place] [address] Nov, [facility] [address] [id number] [address] [place] [address], [place] [address] 10 Nov, 2011 [facility] [address] [id number] [address] [place] [address], [place] [address] 25 Oct, 2011 [facility] [address] [id number] [address] [place] [address], [place] [address] 11 Oct, 2011 [facility] [address] [id number] [address] [place] [address], [place] [address] Aug, [facility] [address] [id number] [address] [place] [address], [place] [address] Aug, [facility] [address] [id number] [address] [place] [address], [place] [address] Jul, [facility] [address] [id number] [address] [place] [address], [place] [address] Jul, [facility] [address] [id number] [address] [place] [address], [place] [address] June, [facility] [address] [id number] [address] [place] [address], [place] [address] June, [facility] [address] [id number] [address] [place] [address], [place] [address] June, [facility] [address] [id number] [address] [place] [address], [place] [address] June, [facility] [address] [id number] [address] [place] [address], [place] [address] June, [facility] [address] [id number] [address] [place] [address], [place] [address] Jan, [facility] [address] [id number] [address] [place] [address], [place] [address] Dec, [facility] [address] [id number] [address] [place] [address], [place] [address] Dec, [facility] [address] [id number] [address] [place] [address], [place] [address] Dec, [facility] [address] [id number] [address] [place] [address], [place] [address] 15 Oct, 2009 [facility] [address] [id number] [address] [place] [address], [place] [address] Sep, [facility] [address] [id number] [address] [place] [address], [place] [address] Jul, [facility] [address] [id number] [address] [place] [address] 14 Feb, 2009 [facility] [address] [id number] [address] [place] [id number] 07 Jan, 2009 [facility] [address] [id number] [address] [place] [phone] 23 Dec, 2008 [facility] [address] [id number] [address] [place] [id number] 21 Nov, 2008 [facility] [address] [id number] [address] [place] [id number] 15 Nov, 2008 [facility] [address] [id number] [address] [place] [phone] 14 Nov, 2008 [facility] [address] [id number] [address] [place] [phone] 14 Nov, 2008 [facility] [address] [id number] [address] [place] [id number] 14 Oct, 2008 [facility] [address] [id number] [address] [place] [address] Sep, [facility] [address] [id number] [address] [place] [phone] Aug, [facility] [address] [id number] [address] [place] [phone] Jul, [facility] [address] [id number] [address] [place] [phone] June, [facility] [address] [id number] [address] [place] [phone] June, [facility] [address] [id number] [address] [place] [id number] 14 May, 2008 IMMUNIZATIONS No Known Immunizations SOCIAL HISTORY Never Assessed REASON FOR VISIT PLAN OF CARE VITAL SIGNS Height 65 in 2011-08-16 Weight 153 lbs 2011-08-16 Temperature 98.7 degrees Fahrenheit 2011-08-16 Heart Rate 110 bpm 2011-08-16 Respiratory Rate 18 2011-08-16 Blood pressure systolic 118 mmHg 2011-08-16 Blood pressure diastolic 78 mmHg 2011-08-16 MEDICATIONS Unknown Medications RESULTS No Results PROCEDURES Procedure Date Ordered Result Body Site VENIPUNCT, ROUTINE* August 16, 2011 URINE-NO MICRO August 16, 2011 INSTRUCTIONS MEDICATIONS ADMINISTERED No Known Medications
--- OUTSIDE RECORDS SUMMARY | 2019-10-02 17:26 | XMS REPORT | Continuity of Care Document ---
Author Organization Unknown Address Unknown Phone Unavailable Allergies Active Description Code Type Severity Reaction Onset Reported/Identified Relationship to Patient Clinical Status Yes Cipro Drug Allergy 04/22/2008 Yes Keflex Drug Allergy 04/22/2008 Yes Penicillins Drug Allergy 04/22/2008 Yes sulfa drug Drug Allergy 04/22/2008 Yes cephalexin [id number] Drug Allerg y Unknown N/A 12/15/2008 Yes cephalexin [id number] Drug Allerg y Moderate RASH/THROAT RODERICK 06/01/2016 Yes ciprofloxacin [id number] Petros g Allergy Unknown N/A 06/01/2016 Yes Penicillins [id number] Drug Aller gy Unknown N/A 06/01/2016 Yes Sulfa (Sulfonamide Antibiotics) [id number] Drug Allergy Unknown N/A 017 Medications There is no data. Problems Date Dx Coded Attending Type Code Diagnosis Diagnosed By 09/12/2007 ZEHRA SOLANO DO 300.01 An Panic Dis W/o Agora 09/12/2007 ZEHRA SOLANO DO 300.3 An Obsess Comp Dis 09/12/2007 300.01 An Panic Dis W/o Agora 09/12/2007 300.3 An O bsess Comp Dis 04/22/2008 ZEHRA SOLANO DO V22.0 Pc Normal First 04/22/2008 V22.0 Pc N ormal First 06/03/2008 ZEHRA SOLANO DO 616.10 Vaginitis Vulvovaginitis Unspecified 06/03/2008 ZEHRA SOLANO DO V74.5 Screening Examination For Venereal Disease 06/03/2008 616.10 Vag initis Vulvovaginitis Unspecified 06/03/2008 V74.5 Scre ening Examination For Venereal Disease 07/07/2008 ZEHRA SOLANO DO 789.00 Abdominal Pain Unspecified Site 07/07/2008 789.00 Abd ominal Pain Unspecified Site 10/14/2008 ZEHRA SOLANO DO 705.1 Prickly Heat 10/14/2008 705.1 Pric kly Heat 01/26/2009 ZEHRA SOLANO DO V24.2 Visit For: Exam 01/26/2009 V24.2 Visi t For: Exam 03/05/2009 ZEHRA SOLANO DO 611.0 Mastitis Acute Left 03/05/2009 611.0 Mast itis Acute Left 04/27/2009 ZEHRA SOLANO DO V25.40 Visit For: Contraceptive Surveillance 04/27/2009 ZEHRA SOLANO DO V25.49 Gynecologic Service Prescrip Of Contracept Agent - Repeat Rx 04/27/2009 V25.40 Vis it For: Contraceptive Surveillance 04/27/2009 V25.49 Outreach Director ecologic Service Prescrip Of Contracept Agent - Repeat Rx 08/06/2009 ZEHRA SOLANO DO 461.9 Acute Sinusitis, Unspecified 08/06/2009 ZEHRA SOLANO DO 599.0 Urinary Tract Infection, Site Not Specified 08/06/2009 461.9 Acut e Sinusitis, Unspecified 08/06/2009 599.0 Urin zulema Tract Infection, Site Not Specified 08/17/2009 ZEHRA SOLANO DO 616.10 Vaginitis Vulvovaginitis Unspecified 08/17/2009 616.10 Vag initis Vulvovaginitis Unspecified 10/07/2009 ZEHRA SOLANO DO 216.9 Pigmented Nevus 10/07/2009 216.9 Pigm ented Nevus 11/14/2009 ZEHRA SOLANO DO 879.0 Open Wound Of Breast, Without Mention Of Complication 11/14/2009 ZEHRA SOLANO DO V58.31 Wound Dressing 11/14/2009 879.0 Open Wound Of Breast, Without Mention Of Complication 11/14/2009 V58.31 [address] Dressing 01/05/2010 ZEHRA SOLANO DO 466.0 Bronchitis, Acute 01/05/2010 466.0 Bron chitis, Acute 01/18/2010 ZEHRA SOLANO DO 372.30 Conjunctivitis Unspecified 01/18/2010 372.30 Con junctivitis Unspecified 01/21/2010 ZEHRA SOLANO DO 075 Infectious Mononucleosis 01/21/2010 ZEHRA SOLANO DO 461.9 Acute Sinusitis Unspecified 01/21/2010 075 Infect ious Mononucleosis 01/21/2010 461.9 Acut e Sinusitis Unspecified 04/02/2010 ZEHRA SOLANO DO V25.49 Surveillance Of Other Contraceptive Method 04/02/2010 V25.49 Josefa veillance Of Other Contraceptive Method 06/28/2011 ZEHRA SOLANO DO V22.1 , NORMAL OTHER 06/28/2011 V22.1 PREG MINE, NORMAL OTHER 07/12/2011 ZEHRA SOLANO DO V74.5 Std Screen 07/12/2011 ZEHRA SOLANO DO V76.2 Cervical Cancer Screening (pap Smear) 07/12/2011 V74.5 Std Screen 07/12/2011 V76.2 Cerv ical Cancer Screening (pap Smear) 09/15/2011 ZEHRA SOLANO DO 373.11 Stye (hordeolum Externum) 09/15/2011 373.11 Sty e (hordeolum Externum) 01/26/2012 Ot 646.91 PRE G COMPL NOS- DELIVERED 01/26/2012 Ot 792.3 ABN FIND-AMNIOTIC FLUID 01/26/2012 Ot V27.0 DELI RADHA-SINGLE LIVEBORN 03/01/2012 V24.2 POST F/U, ROUTINE 03/20/2014 Ot V22.1 03/20/2014 Ot V22.1 03/25/2014 RITIKA CINTRON DO Ot 723.1 03/25/2014 RITIKA CINTRON DO Ot 724.1 03/26/2014 Ot V22.1 03/26/2014 Ot V22.1 03/26/2014 RITIKA CINTRON DO Ot 723.1 03/26/2014 RITIKA CINTRON DO S Ot 724.1 03/31/2014 RITIKA CINTRON DO S Ot 723.1 03/31/2014 RITIKA CINTRON DO Ot 724.1 11/25/2014 Ot V22.1 11/25/2014 Ot V22.1 11/25/2014 RITIKA CINTRON DO Ot 723.1 11/25/2014 RITIKA CINTRON DO Ot 724.1 12/08/2014 RITIKA CINTRON DO Ot R00.2 12/08/2014 RITIKA CINTRON DO S Ot R07.9 09/09/2015 RADHA TADEO Ot K02.9 DENTAL CARIES, UNSPECIFIED 09/09/2015 RADHA TADEO Ot K08.8 OTHER SPECIFIED DISORDERS OF TEETH AND S 09/10/2015 RADHA TADEO Ot K02.9 DENTAL CARIES, UNSPECIFIED 09/10/2015 RADHA TADEO Ot K08.8 OTHER SPECIFIED DISORDERS OF TEETH AND S 01/05/2016 Ot V22.1 SUPE RVIS OTH NORMAL PREG 01/05/2016 Ot V22.1 SUPE RVIS OTH NORMAL PREG 01/05/2016 FELY CALDERON RITIKA S Ot 723.1 CERVICALGIA 01/05/2016 GUNJAN CINTRON DOLINE S Ot 724.1 PAIN IN THORACIC SPINE 01/05/2016 FELY CALDERON RITIKA S Ot R00.2 PALPITATIONS 01/05/2016 FELY CALDERON RITIKA S Ot R07.9 CHEST PAIN, UNSPECIFIED 01/06/2016 EDUARDO STILES, BERENICE N Ot O10.013 PRE-EXISTING ESSENTIAL HTN COMP PREGNANC 01/06/2016 EDUARDO STILES BERENICE N Ot Z3A. 40 40 WEEKS GESTATION OF 01/20/2016 EDUARDO STILES, BERENICE N Ot D50. 9 IRON DEFICIENCY ANEMIA, UNSPECIFIED 01/20/2016 EDUARDO STILES BERENICE N Ot D62 ACUTE POSTHEMORRHAGIC ANEMIA 01/20/2016 EDUARDO STILES BERENICE N Ot E66. 9 OBESITY, UNSPECIFIED 01/20/2016 EDUARDO STILES BERENICE N Ot K21. 9 GASTRO-ESOPHAGEAL REFLUX DISEASE WITHOUT 01/20/2016 EDUARDO STILES BERENICE N Ot O09.523 SUPERVISION OF ELDERLY MULTIGRAVIDA, THI 01/20/2016 EDUARDO STILES BERENICE N Ot O10.013 PRE-EXISTING ESSENTIAL HTN COMP PREGNANC 01/20/2016 EDUARDO STILES BERENICE N Ot O36.63X0 MATERNAL CARE FOR EXCESS GROWTH, T 01/20/2016 EDUARDO STILES BERENICE N Ot O72. 0 THIRD-STAGE HEMORRHAGE 01/20/2016 EDUARDO STILES BERENICE N Ot O72. 1 OTHER IMMEDIATE HEMORRHAGE 01/20/2016 BERENICE CLARK MD Ot O90. 81 ANEMIA OF THE PUERPERIUM 01/20/2016 BERENICE CLARK MD Ot O99.013 ANEMIA COMPLICATING , THIRD TRI 01/20/2016 BERENICE CLARK MD Ot O99.213 OBESITY COMPLICATING , THIRD TR 01/20/2016 BERENICE CLARK MD Ot O99.613 DISEASES OF THE DGSTV SYS COMP 01/20/2016 BERENICE CLARK MD Ot R32 UNSPECIFIED URINARY INCONTINENCE 01/20/2016 BERENICE CLARK MD Ot Z37. 0 SINGLE LIVE 01/20/2016 BERENICE CLARK MD, Ot Z3A. 38 38 WEEKS GESTATION OF 01/20/2016 BERENICE CLARK MD Ot Z68. 36 BODY MASS INDEX (BMI) 36.0-36.9, ADULT 02/02/2016 BERENICE CLARK MD Ot O10.013 PRE-EXISTING ESSENTIAL HTN COMP PREGNANC 02/02/2016 BERENICE CLARK MD Ot Z3A. 40 40 WEEKS GESTATION OF 02/13/2016 RADHA TADEO Ot N39.0 URINARY TRACT INFECTION, SITE NOT SPECIF 02/13/2016 RADHA TADEO L Ot N61.0 MASTITIS WITHOUT ABSCESS 02/13/2016 RADHA TADEO L Ot N64.4 MASTODYNIA 02/26/2016 RADHA TADEO Ot N39.0 URINARY TRACT INFECTION, SITE NOT SPECIF 02/26/2016 RADHA TADEO Ot N61.0 MASTITIS WITHOUT ABSCESS 02/26/2016 RADHA TADEO L Ot N64.4 MASTODYNIA 04/04/2016 BERENICE CLARK MD Ot O10.013 PRE-EXISTING ESSENTIAL HTN COMP PREGNANC 04/04/2016 BREENICE CLARK MD Ot Z3A. 40 40 WEEKS GESTATION OF 04/05/2016 BERENICE CLARK MD Ot O10.013 PRE-EXISTING ESSENTIAL HTN COMP PREGNANC 04/05/2016 BERENICE CLARK MD N Ot Z3A. 40 40 WEEKS GESTATION OF 06/01/2016 BERENICE CLARK MD Ot O10.013 PRE-EXISTING ESSENTIAL HTN COMP PREGNANC 06/01/2016 BERENICE CLARK MD Ot Z3A. 40 40 WEEKS GESTATION OF 06/01/2016 TATIANA VELÁSQUEZ DO Ot K62.5 HEMORRHAGE OF ANUS AND RECTUM 06/01/2016 KIESHA VELÁSQUEZ DOIC B Ot Z01.8 18 ENCOUNTER FOR OTHER PREPROCEDURAL EXAMIN 06/03/2016 TATIANA VELÁSQUEZ DO B Ot K62.5 HEMORRHAGE OF ANUS AND RECTUM 06/03/2016 TATIANA VELÁSQUEZ DO B Ot Z01.8 18 ENCOUNTER FOR OTHER PREPROCEDURAL EXAMIN 06/07/2016 TATIANA VELÁSQUEZ DO Ot K62.5 HEMORRHAGE OF ANUS AND RECTUM 06/07/2016 TATIANA VELÁSQUEZ DO B Ot K64.8 OTHER HEMORRHOIDS 06/09/2016 TATIANA VELÁSQUEZ DO B Ot K62.5 HEMORRHAGE OF ANUS AND RECTUM 06/09/2016 TATIANA VELÁSQUEZ DO B Ot K64.8 OTHER HEMORRHOIDS 06/15/2016 TATIANA VELÁSQUEZ DO B Ot K62.5 HEMORRHAGE OF ANUS AND RECTUM 06/15/2016 KIESHA VELÁSQUEZ DOIC B Ot K64.8 OTHER HEMORRHOIDS 06/21/2016 TATIANA VELÁSQUEZ DO B Ot K62.5 HEMORRHAGE OF ANUS AND RECTUM 06/21/2016 KIESHA VELÁSQUEZ DOIC B Ot K64.8 OTHER HEMORRHOIDS 07/23/2018 RITIKA CINTRON DO S Ot 723.1 CERVICALGIA 07/23/2018 RITIKA CINTRON DO S Ot 724.1 PAIN IN THORACIC SPINE 07/23/2018 GUNJAN CINTRON DOLINE S Ot R00.2 PALPITATIONS 07/23/2018 GUNJAN CINTRON DOLINE S Ot R07.9 CHEST PAIN, UNSPECIFIED 07/23/2018 BERENICE CLARK MD Ot O10.013 PRE-EXISTING ESSENTIAL HTN COMP PREGNANC 07/23/2018 BERENICE CLARK MD Ot Z3A. 40 40 WEEKS GESTATION OF 07/23/2018 TATIANA VELÁSQUEZ DO B Ot K62.5 HEMORRHAGE OF ANUS AND RECTUM 07/23/2018 TATIANA VELÁSQUEZ DO B Ot K64.8 OTHER HEMORRHOIDS 07/23/2018 FELY RITIKA S Ot Z12.31 ENCNTR SCREEN MAMMOGRAM FOR MALIGNANT NE 07/29/2018 FELY CALDERON, RITIKA S Ot Z12.31 ENCNTR SCREEN MAMMOGRAM FOR MALIGNANT NE 08/09/2018 EVELYNNDKIESHA CALDERON, RITIKA S Ot Z12.31 ENCNTR SCREEN MAMMOGRAM FOR MALIGNANT NE 11/13/2018 LANDRY ROMERO MD Ot R07.89 OTHER CHEST PAIN 11/13/2018 LANDRY ROMERO MD Ot R07.9 CHEST PAIN, UNSPECIFIED 11/13/2018 LANDRY ROMERO MD Ot Z82.49 FAMILY HX OF ISCHEM HEART DIS AND OTH DI 11/13/2018 LANDRY ROMERO MD Ot Z88.0 ALLERGY STATUS TO PENICILLIN 11/13/2018 LANDRY ROMERO MD T Ot Z88.1 ALLERGY STATUS TO OTHER ANTIBIOTIC AGENT 11/13/2018 LANDRY ROMERO MD T Ot Z88.2 ALLERGY STATUS TO SULFONAMIDES STATUS 11/15/2018 LANDRY ROMERO MD Ot R07.89 OTHER CHEST PAIN 11/15/2018 LANDRY ROMERO MD Ot R07.9 CHEST PAIN, UNSPECIFIED 11/15/2018 LANDRY ROMERO MD Ot Z82.49 FAMILY HX OF ISCHEM HEART DIS AND OTH DI 11/15/2018 LANDRY ROMERO MD T Ot Z88.0 ALLERGY STATUS TO PENICILLIN 11/15/2018 LANDRY ROMERO MD T Ot Z88.1 ALLERGY STATUS TO OTHER ANTIBIOTIC AGENT 11/15/2018 LANDRY ROMERO MD T Ot Z88.2 ALLERGY STATUS TO SULFONAMIDES STATUS 12/11/2018 TATIANA VELÁSQUEZ DO Ot Z01.8 18 ENCOUNTER FOR OTHER PREPROCEDURAL EXAMIN 07/25/2019 W F32.9 Shanti r depressive disorder, single episode, unspecified Ritika Cintron S. 07/25/2019 W I10 Essent ial (primary) hypertension Ritika Cintron S. 07/25/2019 W Z00.00 Enc ounter for general adult medical examination without abnormal findings Ritika Cintron. 07/25/2019 W F32.9 Shanti r depressive disorder, single episode, unspecified Ritika Cintron S. 07/25/2019 W I10 Essent ial (primary) hypertension Ritika Cintron. 07/25/2019 W Z00.00 Enc ounter for general adult medical examination without abnormal findings Ritika CintronKatelyn Procedures Code Description [place] [address] UA OB DIP 12/21/2011 30007 CULT URE GROUP B STREP VAG 12/23/2011 08293 UA OB DIP 12/28/2011 43867 UA OB DIP 01/04/2012 87629 UA OB DIP 01/11/2012 56814 UA OB DIP 01/18/2012 87517 UA OB DIP 01/23/2012 73.59 MANU AL ASSIST DELIV NEC 01/25/2012 [id number] EX TRACTION OF PRODUCTS OF CONCEPTION, RE 01/18/2016 [id number] DE LIVERY OF PRODUCTS OF CONCEPTION, EXTE 01/18/2016 Results Test Result Range Complete urinalysis with reflex to cultu re - 01/17/16 20:30 Urine color determination YELLOW NRG Urine clarity determination CLEAR NR G Urine pH measurement by test strip 6 5-9 Specific gravity of urine by test strip 1.010 1.016-1.022 Urine protein assay by test strip, semi-quantitative 1+ NEGATIVE Urine glucose detection by automated test strip NE GATIVE NEGATIVE Erythrocytes detection in urine sediment by light micr oscopy NEGATIVE NEGATIVE Urine ketones detection by automated test strip NE GATIVE NEGATIVE Urine nitrite detection by test strip NEGATIVE NEGATIVE Urine total bilirubin detection by test strip NEGA TIVE NEGATIVE Urine urobilinogen measurement by automated test strip (mass/volume) NORMAL NORMAL Urine leukocyte esterase detection by dipstick 3+ NEGATIVE Automated urine sediment erythrocyte cou nt by microscopy (number/high power field) NONE NRG Automated urine sediment leukocyte count by microscopy (number/high power field) [HPF] NRG Bacteria detection in urine sediment by light microsco py MODERATE NRG Squamous epithelial cells detection in u rine sediment by light microscopy 10-25 NRG Crystals detection in urine sediment by light microsco py NONE NRG Casts detection in urine sediment by light microscopy NONE NRG Mucus detection in urine sediment by light microscopy NEGATIVE NRG Complete urinalysis with reflex to culture YES NRG Bacterial urine culture - 11/27/16 20:30 URINE CULTURE RESULTS 10,000/ML - 100,000/ML NRG Complete blood count (CBC) with automate d white blood cell (WBC) differential - 01/17/16 21:35 Blood leukocytes automated count (number/volume) 10.5 10*3/uL 4.3-11.0 Blood erythrocytes automated count (number/volume) 3.49 10*6/uL 4.35-5.85 Venous blood hemoglobin measurement (mass/volume) 10.2 g/dL 11.5-16.0 Blood hematocrit (volume fraction) 30 % 35-52 Automated erythrocyte mean corpuscular volume 87 [ foz_us] 80-99 Automated erythrocyte mean corpuscular h emoglobin (mass per erythrocyte) 29 pg 25-34 Automated erythrocyte mean corpuscular h emoglobin concentration measurement (mass/volume) 34 g/dL 32-36 Automated erythrocyte distribution width ratio 13. 3 % 10.0- 14.5 Automated blood platelet count (count/volume) 236 10*3/uL 130-400 Automated blood platelet mean volume measurement 11.1 [foz_us] 7.4-10.4 Automated blood neutrophils/100 leukocytes 66 % 42-75 Automated blood lymphocytes/100 leukocytes 23 % 12-44 Blood monocytes/100 leukocytes 9 % 0-12 Automated blood eosinophils/100 leukocytes 2 % 0-10 Automated blood basophils/100 leukocytes 0 % 0-10 Blood neutrophils automated count (number/volume) 6.9 10*3 1.8-7.8 Blood lymphocytes automated count (number/volume) 2.4 10*3 1.0-4.0 Blood monocytes automated count (number/volume) 0. 9 10*3 0.0-1.0 Automated eosinophil count 0.2 10*3/uL 0 .0-0.3 Automated blood basophil count (count/volume) 0.0 10*3/uL 0.0-0.1 Blood type T Indirect antibody screen pa bette - 01/17/16 21:35 ABO+Rh group OP NRG Transfusion band number [id number] NRG Blood group antibody screen NEGATIVE NR G Complete blood count (CBC) with automate d white blood cell (WBC) differential - 01/19/16 05:30 Blood leukocytes automated count (number/volume) 15.4 10*3/uL 4.3-11.0 Blood erythrocytes automated count (number/volume) 2.86 10*6/uL 4.35-5.85 Venous blood hemoglobin measurement (mass/volume) 8.4 g/dL 11.5-16.0 Blood hematocrit (volume fraction) 25 % 35-52 Automated erythrocyte mean corpuscular volume 87 [ foz_us] 80-99 Automated erythrocyte mean corpuscular h emoglobin (mass per erythrocyte) 29 pg 25-34 Automated erythrocyte mean corpuscular h emoglobin concentration measurement (mass/volume) 34 g/dL 32-36 Automated erythrocyte distribution width ratio 13. 4 % 10.0- 14.5 Automated blood platelet count (count/volume) 246 10*3/uL 130-400 Automated blood platelet mean volume measurement 11.1 [foz_us] 7.4-10.4 Automated blood neutrophils/100 leukocytes 74 % 42-75 Automated blood lymphocytes/100 leukocytes 17 % 12-44 Blood monocytes/100 leukocytes 8 % 0-12 Automated blood eosinophils/100 leukocytes 1 % 0-10 Automated blood basophils/100 leukocytes 0 % 0-10 Blood neutrophils automated count (number/volume) 11.4 10*3 1.8-7.8 Blood lymphocytes automated count (number/volume) 2.6 10*3 1.0-4.0 Blood monocytes automated count (number/volume) 1. 3 10*3 0.0-1.0 Automated eosinophil count 0.1 10*3/uL 0 .0-0.3 Automated blood basophil count (count/volume) 0.0 10*3/uL 0.0-0.1 Automated blood complete blood count ( mogram) panel - 01/20/16 05:21 Blood leukocytes automated count (number/volume) 10.1 10*3/uL 4.3-11.0 Blood erythrocytes automated count (number/volume) 2.79 10*6/uL 4.35-5.85 Venous blood hemoglobin measurement (mass/volume) 8.2 g/dL 11.5-16.0 Blood hematocrit (volume fraction) 25 % 35-52 Automated erythrocyte mean corpuscular volume 89 [ foz_us] 80-99 Automated erythrocyte mean corpuscular h emoglobin (mass per erythrocyte) 29 pg 25-34 Automated erythrocyte mean corpuscular h emoglobin concentration measurement (mass/volume) 33 g/dL 32-36 Automated erythrocyte distribution width ratio 13. 5 % 10.0- 14.5 Automated blood platelet count (count/volume) 269 10*3/uL 130-400 Automated blood platelet mean volume measurement 11.0 [foz_us] 7.4-10.4 Blood lactic acid measurement (moles/vol ume) - 02/13/16 16:14 Blood lactic acid measurement (moles/volume) 1.3 m mol/L 0.5- 2.0 Bacterial blood culture - 02/13/16 16:14 Bacterial blood culture NG NRG Complete blood count (CBC) with automate d white blood cell (WBC) differential - 02/13/16 16:24 Blood leukocytes automated count (number/volume) 10.8 10*3/uL 4.3-11.0 Blood erythrocytes automated count (number/volume) 3.97 10*6/uL 4.35-5.85 Venous blood hemoglobin measurement (mass/volume) 11.0 g/dL 11.5-16.0 Blood hematocrit (volume fraction) 34 % 35-52 Automated erythrocyte mean corpuscular volume 86 [ foz_us] 80-99 Automated erythrocyte mean corpuscular h emoglobin (mass per erythrocyte) 28 pg 25-34 Automated erythrocyte mean corpuscular h emoglobin concentration measurement (mass/volume) 32 g/dL 32-36 Automated erythrocyte distribution width ratio 13. 6 % 10.0- 14.5 Automated blood platelet count (count/volume) 318 10*3/uL 130-400 Automated blood platelet mean volume measurement 9.1 [foz_us] 7.4-10.4 Automated blood neutrophils/100 leukocytes 86 % 42-75 Automated blood lymphocytes/100 leukocytes 7 % 12-44 Blood monocytes/100 leukocytes 6 % 0-12 Automated blood eosinophils/100 leukocytes 1 % 0-10 Automated blood basophils/100 leukocytes 0 % 0-10 Blood neutrophils automated count (number/volume) 9.3 10*3 1.8-7.8 Blood lymphocytes automated count (number/volume) 0.8 10*3 1.0-4.0 Blood monocytes automated count (number/volume) 0. 6 10*3 0.0-1.0 Automated eosinophil count 0.1 10*3/uL 0 .0-0.3 Automated blood basophil count (count/volume) 0.0 10*3/uL 0.0-0.1 Blood manual differential performed dete ction - 02/13/16 16:24 Blood monocytes/100 leukocytes 7 % NRG Manual blood segmented neutrophils/100 leukocytes 79 % NRG Blood band neutrophils/100 leukocytes 3 % NRG Manual blood lymphocytes/100 leukocytes 10 % NRG Manual eosinophils/100 leukocytes in nose 0 % NRG Manual blood basophils/100 leukocytes 1 % NRG Blood erythrocyte morphology finding identification NORMAL NRG PT panel in platelet poor plasma by coag ulation assay - 02/13/16 16:24 Prothrombin time (PT) in platelet poor plasma by coagu lation assay 12.8 s 12.2-14.7 INR in platelet poor plasma or blood by coagulation as say 1.0 0.8-1.4 Activated partial thromboplastin time (a PTT) in platelet poor plasma bycoagulation assay - 02/13/16 16:24 Activated partial thromboplastin time (a PTT) in platelet poor plasma bycoagulation assay 31 s 24-35 Comprehensive metabolic panel - 02/13/16 16:24 Serum or plasma sodium measurement (moles/volume) 135 mmol/L 135-145 Serum or plasma potassium measurement (moles/volume) 3.7 mmol/L 3.6-5.0 Serum or plasma chloride measurement (moles/volume) 104 mmol/L 98-107 Carbon dioxide 20 mmol/L 21-32 Serum or plasma anion gap determination (moles/volume) 11 mmol/L 5-14 Serum or plasma urea nitrogen measurement (mass/volume ) 8 mg/dL 7-18 Serum or plasma creatinine measurement (mass/volume) 0.71 mg/dL 0.60-1.30 Serum or plasma urea nitrogen/creatinine mass ratio 11 NRG Serum or plasma creatinine measurement w ith calculation of estimated glomerular filtration rate > NRG Serum or plasma glucose measurement (mass/volume) 90 mg/dL 70-105 Serum or plasma calcium measurement (mass/volume) 8.0 mg/dL 8.5-10.1 Serum or plasma total bilirubin measurement (mass/volu me) 0.4 mg/dL 0.1-1.0 Serum or plasma alkaline phosphatase gilberto surement (enzymatic activity/volume) 126 U/L 40-136 Serum or plasma aspartate aminotransfera se measurement (enzymatic activity/volume) 28 U/L 5-34 Serum or plasma alanine aminotransferase measurement (enzymatic activity/volume) 29 U/L 0-55 Serum or plasma protein measurement (mass/volume) 5.9 g/dL 6.4-8.2 Serum or plasma albumin measurement (mass/volume) 3.6 g/dL 3.2-4.5 Bacterial blood culture - 02/13/16 16:24 Bacterial blood culture NG NRG Influenza virus A and B antigen detectio n - 02/13/16 16:35 FLU RESULT NEGATIVE FOR INFLUENZA A AND B ANTIGENS BY IA NRG Complete urinalysis with reflex to cultu re - 02/13/16 17:10 Urine color determination YELLOW NRG Urine clarity determination CLEAR NR G Urine pH measurement by test strip 7 5-9 Specific gravity of urine by test strip 1.005 1.016-1.022 Urine protein assay by test strip, semi-quantitative NEGATIVE NEGATIVE Urine glucose detection by automated test strip NE GATIVE NEGATIVE Erythrocytes detection in urine sediment by light micr oscopy NEGATIVE NEGATIVE Urine ketones detection by automated test strip NE GATIVE NEGATIVE Urine nitrite detection by test strip NEGATIVE NEGATIVE Urine total bilirubin detection by test strip NEGA TIVE NEGATIVE Urine urobilinogen measurement by automated test strip (mass/volume) NORMAL NORMAL Urine leukocyte esterase detection by dipstick 2+ NEGATIVE Automated urine sediment erythrocyte cou nt by microscopy (number/high power field) NONE NRG Automated urine sediment leukocyte count by microscopy (number/high power field) [HPF] NRG Bacteria detection in urine sediment by light microsco py TRACE NRG Crystals detection in urine sediment by light microsco py NONE NRG Casts detection in urine sediment by light microscopy NONE NRG Mucus detection in urine sediment by light microscopy NEGATIVE NRG Complete urinalysis with reflex to culture YES NRG Bacterial urine culture - 02/13/16 17:10 URINE CULTURE RESULTS <10,000/ML NRG Urine beta human chorionic gonadotropin (hCG) measurement - 06/06/16 11:20 Urine beta human chorionic gonadotropin (hCG) measurem ent NEGATIVE NEGATIVE Complete blood count (CBC) with automate d white blood cell (WBC) differential - 11/13/18 09:43 Blood leukocytes automated count (number/volume) 7.7 10*3/uL 4.3-11.0 Blood erythrocytes automated count (number/volume) 4.62 10*6/uL 4.35-5.85 Venous blood hemoglobin measurement (mass/volume) 13.7 g/dL 11.5-16.0 Blood hematocrit (volume fraction) 41 % 35-52 Automated erythrocyte mean corpuscular volume 89 [ foz_us] 80-99 Automated erythrocyte mean corpuscular h emoglobin (mass per erythrocyte) 30 pg 25-34 Automated erythrocyte mean corpuscular h emoglobin concentration measurement (mass/volume) 33 g/dL 32-36 Automated erythrocyte distribution width ratio 13. 1 % 10.0- 14.5 Automated blood platelet count (count/volume) 341 10*3/uL 130-400 Automated blood platelet mean volume measurement 9.8 [foz_us] 7.4-10.4 Automated blood neutrophils/100 leukocytes 62 % 42-75 Automated blood lymphocytes/100 leukocytes 26 % 12-44 Blood monocytes/100 leukocytes 8 % 0-12 Automated blood eosinophils/100 leukocytes 4 % 0-10 Automated blood basophils/100 leukocytes 1 % 0-10 Blood neutrophils automated count (number/volume) 4.8 10*3 1.8-7.8 Blood lymphocytes automated count (number/volume) 2.0 10*3 1.0-4.0 Blood monocytes automated count (number/volume) 0. 6 10*3 0.0-1.0 Automated eosinophil count 0.3 10*3/uL 0 .0-0.3 Automated blood basophil count (count/volume) 0.1 10*3/uL 0.0-0.1 PT panel in platelet poor plasma by coag ulation assay - 11/13/18 09:43 Prothrombin time (PT) in platelet poor plasma by coagu lation assay 11.8 s 12.2-14.7 INR in platelet poor plasma or blood by coagulation as say 0.8 0.8-1.4 Activated partial thromboplastin time (a PTT) in platelet poor plasma bycoagulation assay - 11/13/18 09:43 Activated partial thromboplastin time (a PTT) in platelet poor plasma bycoagulation assay 32 s 24-35 Comprehensive metabolic panel - 11/13/18 09:43 Serum or plasma sodium measurement (moles/volume) 140 mmol/L 135-145 Serum or plasma potassium measurement (moles/volume) 3.7 mmol/L 3.6-5.0 Serum or plasma chloride measurement (moles/volume) 108 mmol/L 98-107 Carbon dioxide 24 mmol/L 21-32 Serum or plasma anion gap determination (moles/volume) 8 mmol/L 5-14 Serum or plasma urea nitrogen measurement (mass/volume ) 11 mg/dL 7-18 Serum or plasma creatinine measurement (mass/volume) 0.76 mg/dL 0.60-1.30 Serum or plasma urea nitrogen/creatinine mass ratio 14 NRG Serum or plasma creatinine measurement w ith calculation of estimated glomerular filtration rate > NRG Serum or plasma glucose measurement (mass/volume) 94 mg/dL 70-105 Serum or plasma calcium measurement (mass/volume) 9.3 mg/dL 8.5-10.1 Serum or plasma total bilirubin measurement (mass/volu me) 0.2 mg/dL 0.1-1.0 Serum or plasma alkaline phosphatase gilberto surement (enzymatic activity/volume) 104 U/L 40-136 Serum or plasma aspartate aminotransfera se measurement (enzymatic activity/volume) 40 U/L 5-34 Serum or plasma alanine aminotransferase measurement (enzymatic activity/volume) 29 U/L 0-55 Serum or plasma protein measurement (mass/volume) 7.5 g/dL 6.4-8.2 Serum or plasma albumin measurement (mass/volume) 4.3 g/dL 3.2-4.5 CALCIUM CORRECTED 9.1 mg/dL 8.5-10.1 Magnesium - 11/13/18 09:43 Magnesium 2.1 mg/dL 1.6-2.4 Serum or plasma troponin i.cardiac measu rement (mass/volume) - 11/13/18 09:43 Serum or plasma troponin i.cardiac measurement (mass/v olume) < ng/mL <0.028 Myoglobin, serum - 11/13/18 09:43 Myoglobin, serum 24.5 ng/mL 10.0-92.0 Serum or plasma troponin i.cardiac measu rement (mass/volume) - 11/13/18 11:55 Serum or plasma troponin i.cardiac measurement (mass/v olume) < ng/mL <0.028 Automated blood complete blood count (he mogram) panel - 10/02/19 13:25 Blood leukocytes automated count (number/volume) 7.3 10*3/uL 4.3-11.0 Blood erythrocytes automated count (number/volume) 4.40 10*6/uL 4.35-5.85 Venous blood hemoglobin measurement (mass/volume) 12.9 g/dL 11.5-16.0 Blood hematocrit (volume fraction) 39 % 35-52 Automated erythrocyte mean corpuscular volume 88 [ foz_us] 80-99 Automated erythrocyte mean corpuscular h emoglobin (mass per erythrocyte) 29 pg 25-34 Automated erythrocyte mean corpuscular h emoglobin concentration measurement (mass/volume) 33 g/dL 32-36 Automated erythrocyte distribution width ratio 13. 4 % 10.0- 14.5 Automated blood platelet count (count/volume) 327 10*3/uL 130-400 Automated blood platelet mean volume measurement 9.7 [foz_us] 7.4-10.4 Fibrin D-dimer FEU measurement in platel et poor plasma (mass/volume) - 10/02/19 13:25 Fibrin D-dimer FEU measurement in platelet poor plasma (mass/volume) 0.63 ug/mL 0.00-0.49 Comprehensive metabolic panel - 10/02/19 13:25 Serum or plasma sodium measurement (moles/volume) 138 mmol/L 135-145 Serum or plasma potassium measurement (moles/volume) 4.1 mmol/L 3.6-5.0 Serum or plasma chloride measurement (moles/volume) 108 mmol/L 98-107 Carbon dioxide 23 mmol/L 21-32 Serum or plasma anion gap determination (moles/volume) 7 mmol/L 5-14 Serum or plasma urea nitrogen measurement (mass/volume ) 7 mg/dL 7-18 Serum or plasma creatinine measurement (mass/volume) 0.74 mg/dL 0.60-1.30 Serum or plasma urea nitrogen/creatinine mass ratio 9 NRG Serum or plasma creatinine measurement w ith calculation of estimated glomerular filtration rate > NRG Serum or plasma glucose measurement (mass/volume) 102 mg/dL 70-105 Serum or plasma calcium measurement (mass/volume) 9.1 mg/dL 8.5-10.1 Serum or plasma total bilirubin measurement (mass/volu me) 0.3 mg/dL 0.1-1.0 Serum or plasma alkaline phosphatase gilberto surement (enzymatic activity/volume) 77 U/L 40-136 Serum or plasma aspartate aminotransfera se measurement (enzymatic activity/volume) 40 U/L 5-34 Serum or plasma alanine aminotransferase measurement (enzymatic activity/volume) 34 U/L 0-55 Serum or plasma protein measurement (mass/volume) 7.2 g/dL 6.4-8.2 Serum or plasma albumin measurement (mass/volume) 4.0 g/dL 3.2-4.5 CALCIUM CORRECTED 9.1 mg/dL 8.5-10.1 Serum or plasma creatine kinase MB measu rement (enzymatic activity/volume) - 10/02/19 13:25 Serum or plasma creatine kinase MB measu rement (enzymatic activity/volume) 0.6 ng/mL <6.6 Serum or plasma troponin i.cardiac measu rement (mass/volume) - 10/02/19 13:25 Serum or plasma troponin i.cardiac measurement (mass/v olume) < ng/mL <0.028 Myoglobin, serum - 10/02/19 13:25 Myoglobin, serum 17.6 ng/mL 10.0-92.0 Serum or plasma C reactive protein measu rement (mass/volume) - 10/02/19 13:25 Serum or plasma C reactive protein measurement (mass/v olume) 0.64 mg/dL 0.00-0.50 Encounters ACCT No. Visit Date/Time Discharge Status Pt. Type Provider Facility Loc./Unit Complaint [id number] 03/01/2012 14:10:00 03/01/2012 23:59: 59 [facility] Outpatient [id number] 12/21/2011 08:52:00 12/21/2011 23:59:5 9 CLS Outpatient ZEHRA SOLANO DO 04/201701/03/2019 23:13:37 01/03/2019 23:59: 59 [facility] Outpatient Ritika Cintron [id number] 07/25/2019 09:46:00 Document Registration [id number] 12/17/2018 10:25:00 23:59:59 CLS Preadmit TATIANA VELÁSQUEZ DO [facility] ENDO BLACK STOOLS/REFLUX [id number] 12/10/2018 06:31:00 23:59:59 CLS Outpatient TATIANA VELÁSQUEZ DO [facility] PREOP COLONOSCOPY/EGD [id number] 11/13/2018 09:23:00 019 12:49:00 DIS Emergency LANDRY ROMERO MD T [facility] ER CHEST DISCOMFOR T [id number] 07/23/2018 09:42:00 019 23:59:59 CLS Outpatient RITIKA CINTRON DO [facility] RAD ANNUAL MAMMOGRA M [id number] 06/06/2016 10:55:00 017 23:59:59 CLS Outpatient TATIANA VELÁSQUEZ DO [facility] ENDO RECTAL BLEED,ABDOMINAL PAIN [id number] 06/01/2016 05:40:00 017 13:44:00 DIS Outpatient TATIANA VELÁSQUEZ DO [facility] PREOP RECTAL BLEED, ABDOMINAL PAIN [id number] 04/05/2016 13:00:00 017 23:59:59 CLS Preadmit BERENICE CLARK MD [facility] RAD CHRONIC HTN IN PREGNANC Y [id number] 01/12/2016 09:41:00 017 00:01:00 DIS Outpatient BERENICE CLARK MD [facility] RAD CHRONIC HTN IN PREGNANC Y [id number] 02/13/2016 14:54:00 016 17:59:00 DIS Emergency RADHA TADEO [facility] ER CLOGGED MILK DUCT IN B OTH BREASTS [id number] 01/17/2016 20:19:00 016 12:55:00 DIS Inpatient BERENICE CLARK MD [facility] LDRP INDUCTION [id number] 09/09/2015 19:15:00 016 19:37:00 DIS Emergency RADHA TADEO [facility] ER DENTAL PAIN [id number] 11/25/2014 10:20:00 23:59:59 CLS Outpatient RITIKA CINTRON DO [facility] CARD CHEST PAIN,PALP [id number] 03/20/2014 14:23:00 015 23:59:59 [facility] Outpatient RITIKA CINTRON DO [facility] RAD CERVICAL/THORAC IC PAIN [id number] 10/02/2019 13:38:00 Document Registration [id number] 03/20/2014 14:25:00 Document Registration [id number] 03/20/2014 14:25:00 Document Registration [id number] 01/25/2012 06:46:00 Document Registration [id number] 09/19/2011 11:17:00 Document Registration [id number] 2011 10:09:00 Document Registration
[2019-10-02 17:28] LABS: BASOPHILS % (AUTO) 0 % (0-10); EOSINOPHILS # (AUTO) 0.3 10^3/uL (0.0-0.3); EOSINOPHILS % (AUTO) 3 % (0-10); HEMATOCRIT 40 % (35-52); HEMOGLOBIN 13.5 G/DL (11.5-16.0); LYMPHOCYTES # (AUTO) 2.4 X 10^3 (1.0-4.0); LYMPHOCYTES % (AUTO) 25 % (12-44); MEAN CORPUSCULAR HEMOGLOBIN 30 PG (25-34); MEAN CORPUSCULAR HGB CONC 34 G/DL (32-36); MEAN CORPUSCULAR VOLUME 88 FL (80-99); MEAN PLATELET VOLUME 9.9 FL (7.4-10.4); MONOCYTES # (AUTO) 0.8 X 10^3 (0.0-1.0); MONOCYTES % (AUTO) 9 % (0-12); NEUTROPHILS # (AUTO) 6.1 X 10^3 (1.8-7.8); NEUTROPHILS % (AUTO) 63 % (42-75); PLATELET COUNT 334 10^3/uL (130-400); RED CELL DISTRIBUTION WIDTH 13.2 % (10.0-14.5); WHITE BLOOD COUNT 9.6 10^3/uL (4.3-11.0)
[2019-10-02] MEDS ORDERED: NS 100 ML (IVPB) BAG IV ONE (17:30)
[2019-10-02] MEDS ORDERED: HOLD METFORMIN - RECEIVED CONTRAST 20 ML VIAL IV SCH (17:30)
[2019-10-02] MEDS ORDERED: IOHEXOL 350 MG/ML 100 ML (OMNIPAQUE 350) VIAL IV ONE (17:30)
[2019-10-02 17:48] LABS: ALANINE AMINOTRANSFERASE 35 U/L (0-55); ALBUMIN 4.2 GM/DL (3.2-4.5); ALKALINE PHOSPHATASE 83 U/L (40-136); BILIRUBIN,TOTAL 0.2 MG/DL (0.1-1.0); BUN/CREATININE RATIO 9; CALCIUM 9.1 MG/DL (8.5-10.1); CARBON DIOXIDE 22 MMOL/L (21-32); CHLORIDE 108 MMOL/L (98-107); CREATININE SERUM 0.74 MG/DL (0.60-1.30); GFR ESTIMATED > 60; GLUCOSE 101 MG/DL (70-105); POTASSIUM 4.1 MMOL/L (3.6-5.0); SODIUM 139 MMOL/L (135-145); TOTAL PROTEIN 7.5 GM/DL (6.4-8.2)
[2019-10-02] MEDS ORDERED: KETOROLAC 30 MG/ML VIAL IVP ONE (18:00)
--- NOTE | 2019-10-02 18:09 | ED Chest Pain ---
General Chief Complaint: Chest Pain Stated Complaint: ABD LABS, CP Nursing Triage Note: ARRIVED VIA POV FROM URGENT CARE. SENT OVER HERE FOR CHEST PAIN AND ABNORMAL LABS. PT STATES SHE HAS PAIN WHEN SHE BREATHS STARTING TODAY. STATES SHE HAS HAD TUMS, PEPCID, AND OMEPRAZOLE WITH NO RELIEF. EKG AND X-RAY WAS NORMAL ACCORDING TO HER. Nursing Sepsis Screen: No Definite Risk Source: patient Exam Limitations: no limitations History of Present Illness Date Seen by Provider: Oct 02, 2019 Time Seen by Provider: 17:00 Initial Comments Has had some upper central chest pain since this afternoon. 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 had ekg and labs and given pepcid and omeprazole but still no relief. Pain is mild but constant and worsened by deep breathing. no cough, no fevers, no sob. Was called by [facility] who reported abnormal D-dimer and referred to ER. Timing/Duration: changing over time, intermittent Severity/Quality: moderate Location: central Radiation: no radiation Activities at Onset: none ASA po ENGRAVER WOOD: No NTG SL ENGRAVER WOOD: No Allergies and Home Medications Allergies Coded Allergies: cephalexin (Verified Allergy, Intermediate, RASH/THROAT CLOSED, 06/01/16) Penicillins (Verified Allergy, Unknown, 06/01/16) Sulfa (Sulfonamide Antibiotics) (Verified Allergy, Unknown, 06/01/16) ciprofloxacin (Verified Allergy, Unknown, 06/01/16) Home Medications Metoprolol Succinate 25 Mg Tab.er.24h, 25 MG PO DAILY, (Reported) Sucralfate 1 Gm Tablet, 1 GM PO QID Dissolve in about 10 ML of water to slurry. Take 30 minutes before meals and bedtime. Prescribed by: LANDRY LANZA on 11/13/18 [id number] Patient Home Medication List Home Medication List Reviewed: Yes Review of Systems Review of Systems Constitutional: see HPI; No chills, No fever EENTM: No Symptoms Reported Respiratory: No Symptoms Reported; Denies Orthopnea, Denies Shortness of Air, Denies SOA With Exertion, Denies SOA at Rest, Denies Other (not short of breath but has increased pain with deep breathing. ) Cardiovascular: See HPI, Chest Pain Gastrointestinal: See HPI Genitourinary: No Symptoms Reported Musculoskeletal: no symptoms reported Skin: no symptoms reported Psychiatric/Neurological: No Symptoms Reported Endocrine: No Symptoms Reported Past Stcmyqa-Jsgofj-Mhtpsc Hx Patient Social History Alcohol Use: Occasionally Uses Recreational Drug Use: No Smoking Status: Never a Smoker Recent Foreign Travel: No Contact w/Someone Who Travel: No Recent Infectious Disease Expo: No Recent Hopitalizations: No Immunizations Up To Date Tetanus Booster (TDap): Less than 5yrs Date of Influenza Vaccine: Dec 22, 2015 Seasonal Allergies Seasonal Allergies: Yes Past Medical History Surgeries: Yes ([place] Teeth, BIOPSY OF BREAST) Abdominal, Breast Respiratory: No Cardiac: Yes High Cholesterol, Hypertension Neurological: No Reproductive Disorders: No Female Reproductive Disorders: Denies Sexually Transmitted Disease: No HIV/AIDS: No Genitourinary: No Gastrointestinal: Yes (RECTAL BLEEDING/ABDOMINAL PAIN) Chronic Constipation, Chronic Diarrhea Musculoskeletal: No Endocrine: No Loss of Vision: Denies Hearing Impairment: Denies Cancer: No Psychosocial: Yes Anxiety Integumentary: No Blood Disorders: No Adverse Reaction/Blood Tranf: No (N/A) Family Medical History Abdominal aortic aneurysm Grandparents (Maternal Grandmother ?) Alzheimer's disease Grandparents (Paternal Grandmother) Arthritis Grandparents (Paternal Grandmother Maternal Grandfather) Asthma 19 MOTHER Cardiovascular disease Grandparents (Paternal Grandfather-Heart Cancer) Completed stroke Grandparents (Paternal Grandfather) Coronary thrombosis Grandparents (Paternal Grandfather) Deafness or hearing loss Grandparents (Paternal Grandmother) Diabetes mellitus 19 FATHER FH: asthma Headache disorder 19 MOTHER (Migraines) Hypercholesterolemia 19 FATHER 19 MOTHER Grandparents (Paternal Grandparents Maternal Grandparents) Hypertension 19 FATHER Grandparents (Paternal Grandfather Maternal Grandparents) Myocardial infarction Grandparents (Paternal Grandfather Maternal Grandmother) Neoplasm Grandparents (Paternal Grandfather) Heart Disease, CAD Under 55 Years Old, Hypertension Physical Exam Vital Signs Vital Signs - First Documented 10/02/19 17:08 Temp 37.0 Pulse 90 Resp 16 B/P (MAP) 178/109 (132) Pulse Ox 97 O2 Delivery Room Air Capillary Refill : Less Than 3 Seconds Height, Weight, BMI Height: 5'6.00" Weight: 196lbs. 0.0oz. 88.940155se; 33.00 BMI Method:Stated General Appearance: No Apparent Distress, WD/WN HEENT: PERRL/EOMI, TMs Normal Neck: Full Range of Motion, Normal Inspection Respiratory: Lungs Clear, Normal Breath Sounds, No Accessory Muscle Use, No Respiratory Distress Cardiovascular: Regular Rate, Rhythm, Normal Peripheral Pulses Gastrointestinal: Non Tender, Soft Neurologic/Psychiatric: Alert, Oriented x3 Skin: Normal Color, Warm/Dry Progress/Results/Core Measures Results/Orders Lab Results Laboratory Tests Test 10/02/19 17:25 10/02/19 18:41 Range/Units White Blood Count 9.6 4.3-11.0 10^3/uL Red Blood Count 4.55 4.35-5.85 10^6/uL Hemoglobin 13.5 11.5-16.0 G/DL Hematocrit 40 35-52 % Mean Corpuscular Volume 88 80-99 FL Mean Corpuscular Hemoglobin 30 25-34 PG Mean Corpuscular Hemoglobin Concent 34 32-36 G/DL Red Cell Distribution Width 13.2 10.0-14.5 % Platelet Count 334 130-400 10^3/uL Mean Platelet Volume 9.9 7.4-10.4 FL Neutrophils (%) (Auto) 63 42-75 % Lymphocytes (%) (Auto) 25 12-44 % Monocytes (%) (Auto) 9 0-12 % Eosinophils (%) (Auto) 3 0-10 % Basophils (%) (Auto) 0 0-10 % Neutrophils # (Auto) 6.1 1.8-7.8 X 10^3 Lymphocytes # (Auto) 2.4 1.0-4.0 X 10^3 Monocytes # (Auto) 0.8 0.0-1.0 X 10^3 Eosinophils # (Auto) 0.3 0.0-0.3 10^3/uL Basophils # (Auto) 0.0 0.0-0.1 10^3/uL Sodium Level 139 135-145 MMOL/L Potassium Level 4.1 3.6-5.0 MMOL/L Chloride Level 108 H 98-107 MMOL/L Carbon Dioxide Level 22 21-32 MMOL/L Anion Gap 9 5-14 MMOL/L Blood Urea Nitrogen 7 7-18 MG/DL Creatinine 0.74 0.60-1.30 MG/DL Estimat Glomerular Filtration Rate > 60 BUN/Creatinine Ratio 9 Glucose Level 101 70-105 MG/DL Calcium Level 9.1 8.5-10.1 MG/DL Corrected Calcium 8.9 8.5-10.1 MG/DL Total Bilirubin 0.2 0.1-1.0 MG/DL Aspartate Amino Transf (AST/SGOT) 43 H 5-34 U/L Alanine Aminotransferase (ALT/SGPT) 35 0-55 U/L Alkaline Phosphatase 83 40-136 U/L Troponin I < 0.028 <0.028 NG/ML C-Reactive Protein High Sensitivity 0.64 H 0.00-0.50 MG/DL Total Protein 7.5 6.4-8.2 GM/DL Albumin 4.2 3.2-4.5 GM/DL Serum Test, Qualitative NEGATIVE NEGATIVE My Orders Orders - ZACK BRYANT APRN Cbc With Automated Diff (10/02/19 17:11) Hs C Reactive Protein (10/02/19 17:11) Comprehensive Metabolic Panel (10/02/19 17:11) Hcg,Qualitative Serum (10/02/19 17:11) Ekg Tracing (10/02/19 17:11) Ed Iv/Invasive Line Start (10/02/19 17:11) Ct Angio Chest W (10/02/19 17:11) Iohexol Injection (Omnipaque 350 Mg/Ml 1 (10/02/19 17:30) Received Contrast (Hold Metformin- Contr (10/02/19 17:30) Ns (Ivpb) (Sodium Chloride 0.9% Ivpb Bag (10/02/19 17:30) Ketorolac Injection (Toradol Injection) (10/02/19 18:00) Troponin I (10/02/19 18:04) Coronavirus Sars-Cov-2 So 2018 (10/02/19 18:36) Medications Given in ED Current Medications Medications Dose Ordered Sig/Sabine Route Start Time Stop Time Status Last Admin Dose Admin Iohexol 100 ml ONCE ONCE IV 10/02/19 17:30 10/02/19 17:31 DC 10/02/19 18:11 80 ML Ketorolac Tromethamine 15 mg ONCE ONCE IVP 10/02/19 18:00 10/02/19 18:01 DC 10/02/19 18:22 15 MG Sodium Chloride 100 ml ONCE ONCE IV 10/02/19 17:30 10/02/19 17:31 DC 10/02/19 18:11 80 ML Vital Signs/I&O 10/02/19 17:08 Temp 37.0 Pulse 90 Resp 16 B/P (MAP) 178/109 (132) Pulse Ox 97 O2 Delivery Room Air Blood Pressure Mean: 132 Departure Communication (Admissions) NAME: SHAHRZAD LICEA [facility] REC#: [id number] PT STATUS: REG ER : 1980 PHYSICIAN: ZACK BRYANT BANK WORKER ADMIT DATE: 10/02/19/ER Draft Date of Exam:10/02/19 CT ANGIO CHEST W PROCEDURE: CT angiography of the chest with contrast. TECHNIQUE: Multiple contiguous axial images were obtained through the chest after uneventful bolus administration of intravenous contrast. 3D reconstructed CTA MIP acquisitions were also performed. Auto Exposure Controls were utilized during the CT exam to meet ALARA standards for radiation dose reduction. INDICATION: Chest pain, shortness of breath. COMPARISON: None. FINDINGS: The heart size is normal. There is no pericardial effusion. Pulmonary arteries and visualized aorta are normal. There are nonspecific prominent hilar lymph nodes. The largest on the left measures 9 mm. These are likely reactive. Recommend three month follow-up. No additional lymphadenopathy is seen. There is some groundglass infiltrate throughout both lungs which could represent inflammation or fluid volume overload. There is no pneumothorax or effusion. Osseous structures are normal. There is diffuse fatty infiltration of the liver. IMPRESSION: 1. Groundglass infiltrates representing inflammation versus fluid volume overload. Please correlate clinically. 2. No pulmonary embolism or acute aortic pathology. 3. Nonspecific hilar lymph nodes. Three-month follow-up recommended. Dictated on workstation # [id number] Dict: 10/02/19 1821 Trans: 10/02/19 1832 [facility] [id number] Interpreted by: TIFFANIE SANTANA Electronically signed by: Impression Primary Impression: Pleuritic chest pain Disposition: 01 HOME, SELF-CARE Condition: Stable Departure-Patient Inst. Decision time for Depature: 18:34 Referrals: ANTHONY GEIGER DO (PCP/Family) Primary Care Physician Patient Instructions: Pleuritic Chest Pain Add. Discharge Instructions: 1. Return to ER for any concerns. Follow up with your doctor next week. No work until the covid swab is back (usually 2-3 days). Use ibuprofen and tylenol for the pain. All discharge instructions reviewed with patient and/or family. Voiced understanding. Work/School Note: Work Release Form Date Seen in the Emergency Department: Oct 02, 2019 Return to Work: Oct 05, 2019 ZACK BRYANT APRN Oct 02, 2019 18:09
--- NOTE | 2019-10-02 18:32 | Diagnostic Imaging Report ---
PROCEDURE: CT angiography of the chest with contrast. TECHNIQUE: Multiple contiguous axial images were obtained through the chest after uneventful bolus administration of intravenous contrast. 3D reconstructed CTA MIP acquisitions were also performed. Auto Exposure Controls were utilized during the CT exam to meet ALARA standards for radiation dose reduction. INDICATION: Chest pain, shortness of breath. COMPARISON: None. FINDINGS: The heart size is normal. There is no pericardial effusion. Pulmonary arteries and visualized aorta are normal. There are nonspecific prominent hilar lymph nodes. The largest on the left measures 9 mm. These are likely reactive. Recommend three month follow-up. No additional lymphadenopathy is seen. There is some groundglass infiltrate throughout both lungs which could represent inflammation or fluid volume overload. There is no pneumothorax or effusion. Osseous structures are normal. There is diffuse fatty infiltration of the liver. IMPRESSION: 1. Groundglass infiltrates representing inflammation versus fluid volume overload. Please correlate clinically. 2. No pulmonary embolism or acute aortic pathology. 3. Nonspecific hilar lymph nodes. Three-month follow-up recommended. Dictated by: Dictated on workstation # [id number]
[2019-10-02 18:48] VITALS: BP 162/88
== END 2019-10-02 18:48 | disposition home or self-care (01) ==
LOC: EDUNIT# 17:06 → ER 17:08
DX: R07.81 Pleurodynia (principal); I10 Essential (primary) hypertension; Z88.2 Allergy status to sulfonamides; Z88.0 Allergy status to penicillin; Z88.1 Allergy status to other antibiotic agents; Z88.8 Allergy status to other drugs, medicaments and biological substances; Z80.9 Family history of malignant neoplasm, unspecified; Z82.49 Family history of ischemic heart disease and other diseases of the circulatory system
CPT/HCPCS: 71275; 80053; 84484; 84703; 85025; 86141; U0002; 36415; 87635; 93005

== ENCOUNTER → 2019-10-02 | Outpatient (CLI) | payer BC ==
[2019-10-02 13:32] LABS: HEMOGLOBIN 12.9 G/DL (11.5-16.0); MEAN PLATELET VOLUME 9.7 FL (7.4-10.4); WHITE BLOOD COUNT 7.3 10^3/uL (4.3-11.0)
[2019-10-02 13:51] LABS: ALANINE AMINOTRANSFERASE 34 U/L (0-55); ALKALINE PHOSPHATASE 77 U/L (40-136); BILIRUBIN,TOTAL 0.3 MG/DL (0.1-1.0); BUN/CREATININE RATIO 9; CALCIUM 9.1 MG/DL (8.5-10.1); CARBON DIOXIDE 23 MMOL/L (21-32); CHLORIDE 108 MMOL/L (98-107); CREATININE SERUM 0.74 MG/DL (0.60-1.30); GFR ESTIMATED > 60; GLUCOSE 102 MG/DL (70-105); POTASSIUM 4.1 MMOL/L (3.6-5.0); SODIUM 138 MMOL/L (135-145); TOTAL PROTEIN 7.2 GM/DL (6.4-8.2)
[2019-10-02 13:59] LABS: CREATINE KINASE MB 0.6 NG/ML (<6.6)
== END ==
LOC: LAB 13:04
PROVIDERS: ATTEND Nurse Practitioner Family
DX: R07.89 Other chest pain (principal); R19.7 Diarrhea, unspecified; J30.89 Other allergic rhinitis; I10 Essential (primary) hypertension; R09.82 Postnasal drip; Z91.011 Allergy to milk products; R58 Hemorrhage, not elsewhere classified; R07.81 Pleurodynia; Z88.2 Allergy status to sulfonamides; Z88.0 Allergy status to penicillin; Z88.1 Allergy status to other antibiotic agents; Z88.8 Allergy status to other drugs, medicaments and biological substances; Z80.9 Family history of malignant neoplasm, unspecified; Z82.49 Family history of ischemic heart disease and other diseases of the circulatory system; Z20.828 Contact with and (suspected) exposure to other viral communicable diseases
CPT/HCPCS: 36415; 80053; 82553; 83874; 84484; 85027; 85379; 86141

== ENCOUNTER → 2019-10-21 | Outpatient (CLI) | payer BC ==
--- NOTE | 2019-10-21 14:20 | Diagnostic Imaging Report ---
INDICATION: Left lower quadrant pain. 2 views were obtained. FINDINGS: Lung bases are clear. Bowel gas pattern is nonspecific. There is no free air. There are no abnormal calcifications. IMPRESSION: Nonspecific bowel gas pattern. Dictated by: Dictated on workstation # [id number]
== END ==
LOC: RAD 14:00
PROVIDERS: ATTEND Nurse Practitioner Family
DX: R10.32 Left lower quadrant pain (principal); R31.9 Hematuria, unspecified; Z20.828 Contact with and (suspected) exposure to other viral communicable diseases
CPT/HCPCS: 74018

== ENCOUNTER → 2020-07-31 | Outpatient (CLI) | payer BC ==
[~2020-07-31] MED LIST changes: -CLIN150C17; +CLIN150C18; -CLIN300C11 PO; +CLIN300C12 PO
--- NOTE | 2020-07-31 09:38 | Diagnostic Imaging Report ---
Digital mammogram Bilateral screening This study was compared to the prior exam of 07/23/2018. At this time there are no current complaints. The patient did note a "kind of ropey" area in the upper outer quadrant of the left breast. Reportedly the patient has had a prior biopsy of the left breast in 2005. The results of the biopsy failed to show any sign of malignancy. Fibronodular tissue in both breasts is heterogeneously dense. This does limit the sensitivity of this exam. When compared to the prior study there does not appear to be any significant change. There is no primary or secondary sign of malignancy noted. There is no abnormality in the area of concern in the left breast. However if clinical concern regarding an underlying abnormality in this region persists, then ultrasound would be recommended. IMPRESSION: There is no evidence of malignancy. Additional considerations as above. ACR BI-RADS Category 1: Negative. Result letter will be mailed to the patient. Note: At least 10% of breast cancer is not imaged by mammography. Dictated by: Dictated on workstation # [id number]
== END ==
LOC: RAD 08:00
PROVIDERS: ATTEND Family Medicine
DX: Z12.31 Encounter for screening mammogram for malignant neoplasm of breast (principal)
CPT/HCPCS: 77063; 77067

== ENCOUNTER 2021-01-07 05:29 | Outpatient (RCR) | payer BC ==
[~2021-01-07] VITALS: Ht 167.7 cm; Wt 97.0 kg
[~2021-01-07 05:29] MED LIST changes: +AMLO-250 PO; +ATOR40TA70 PO; +CLIN-144 PO; -CLIN150C18; +CLIN150C20; -CLIN300C12 PO; +FLUT15.812 NS; +LISI40TA9 PO; +MULT-1136 PO; +NORG1TAB15 PO; +SPIR50TA4 PO
== END 2021-01-07 09:25 | disposition home or self-care (01) ==
LOC: PREOP 05:29
PROVIDERS: ATTEND Surgery
DX: Z01.812 Encounter for preprocedural laboratory examination (principal); K29.70 Gastritis, unspecified, without bleeding; R13.10 Dysphagia, unspecified; Z20.822 Contact with and (suspected) exposure to COVID-19
CPT/HCPCS: 87635

== ENCOUNTER 2021-01-11 08:02 | Day surgery (SDC) | payer BC ==
[2021-01-11] VITALS (7 sets, daily range): BP systolic 150–155; BP diastolic 74–104
[~2021-01-11] VITALS: Ht 167.7 cm; Wt 97.0 kg
[2021-01-11] MEDS ORDERED: LACTATED RINGERS 1,000 ML IV ONE (08:05)
[2021-01-11] MEDS ORDERED: LACTATED RINGERS 1,000 ML IV STA (08:09)
[2021-01-11] MEDS ORDERED: HURRICAINE EXT TUBE (BENZOCAINE) XX PRN (08:15)
--- NOTE | 2021-01-11 08:44 | Progress Note-Pre Operative ---
Pre-Operative Progress Note H&P Reviewed The H&P was reviewed, patient examined and no changes noted. Time Seen by Provider: 08:42 Date H&P Reviewed: Jan 11, 2021 Time H&P Reviewed: 08:42 Pre-Operative Diagnosis: Dysphagia, Gastritis TATIANA VELÁSQUEZ DO Jan 11, 2021 08:43
[2021-01-11] MEDS ORDERED: MIDAZOLAM 2 MG/2 ML (VERSED) VIAL ONE (09:23)
[2021-01-11] MEDS ORDERED: PROPOFOL INJECTION 50 ML IV ONE (09:23)
--- NOTE | 2021-01-11 09:45 | Progress Note-Post Operative ---
Post-Operative Progess Note Surgeon (s)/Manganese Wheeler (s) Surgeon TATIANA VELÁSQUEZ DO Manganese Wheeler: none Pre-Operative Diagnosis Dysphagia, Gastritis Post-Operative Diagnosis Gastritis tiny sliding hiatal hernia Procedure & Operative Findings Date of Procedure 01/11/21 Procedure Performed/Findings EGD with biopsy PROCEDURE NOTE: After informed consent was obtained, the patient was brought to the endoscopy suite, placed in bed in left lateral decubitus position. She was administered IV sedation by the DELI CUTTER SLICER who then monitored vitals the entire time, heart rate, blood pressure and pulse ox and the scope was inserted down the mouth through the esophagus into the stomach. On the way down, did not see any reason for dysphagia and no real esophagitis. Pushed into the stomach and noted mild gastritis, pushed past the antrum into the duodenum. Duodenum looked good. Pulled back and did a biopsy of antrum, then retroflexed the scope, and saw a tiny sliding hiatal hernia. I took a picture of this and then pulled the scope into the GE junction and then did a biopsy of the GE junction. Pushed the scope back into the stomach, suctioned all the air out of the stomach. At this point pulled the scope up the esophagus and out the mouth. The patient tolerated the procedure, and she recovered in endoscopy suite. Anesthesia Type IV sedation by DELI CUTTER SLICER Estimated Blood Loss Estimated blood loss (mL): scant Specimens/Packing Specimens Removed antral bx body of stomach bx GE jxn bx TATIANA VELÁSQUEZ DO Jan 11, 2021 09:45
--- NOTE | 2021-01-11 09:46 | Endoscopy Discharge Instruct ---
Endo Procedure/Findings Findings 1.: Gastritis 2.: Hiatal Hernia Discharge Instructions - Activity: You might feel a little sleepy until tomorrow. This is due to the medicine you received to relax you. Until tomorrow, you should: NOT drive a car, operate machinery or power tools. NOT drink any alcoholic beverages. NOT make any important decisions or sign importortant papers. Do not return to work until tomorrow, unless otherwise instructed. Resume previous activities tomorrow. Diet: Start by taking liquids. If you tolerate liquids, advance to solid food. 1.: EGD in 3 years Notify Physician - If you experience excessive bleeding, unusual abdominal pain, fever, or chest pain, contact your doctor immediately. TATIANA VELÁSQUEZ DO Jan 11, 2021 09:46
--- NOTE | 2021-01-11 11:42 | Anesthesia-General Post-Op ---
MAC Patient Condition Mental Status/LOC: Same as Preop Cardiovascular: Satisfactory Nausea/Vomiting: Absent Respiratory: Satisfactory Pain: Controlled Complications: Absent Post Op Complications Complications None Follow Up Care/Instructions Patient Instructions None needed. Anesthesiology Discharge Order Discharge Order Patient is doing well, no complaints, stable vital signs, no apparent adverse anesthesia problems. No complications reported per nursing. MAILE DURAN CRNA Jan 11, 2021 11:42
== END 2021-01-11 10:25 | disposition home or self-care (01) ==
LOC: ENDO 08:02
PROVIDERS: ATTEND Surgery
DX: K29.70 Gastritis, unspecified, without bleeding (principal); K21.00 Gastro-esophageal reflux disease with esophagitis, without bleeding; K44.9 Diaphragmatic hernia without obstruction or gangrene; I10 Essential (primary) hypertension; E78.00 Pure hypercholesterolemia, unspecified; E66.9 Obesity, unspecified; Z68.34 Body mass index [BMI] 34.0-34.9, adult; Z80.0 Family history of malignant neoplasm of digestive organs; Z79.899 Other long term (current) drug therapy; Z79.3 Long term (current) use of hormonal contraceptives; Z88.0 Allergy status to penicillin; Z88.1 Allergy status to other antibiotic agents; Z88.2 Allergy status to sulfonamides
CPT/HCPCS: 84703; 88305

== ENCOUNTER → 2021-08-02 | Outpatient (CLI) | payer BC ==
--- NOTE | 2021-08-02 13:26 | Diagnostic Imaging Report ---
INDICATION: Routine screening. COMPARISON: 07/31/2020 and 07/23/2018. TECHNIQUE: 2D and 3D bilateral screening mammography was performed with CAD. FINDINGS: Both breasts are heterogeneously dense, limiting the sensitivity of mammography. No dominant mass or malignant-appearing microcalcifications are seen. The axillae are unremarkable. IMPRESSION: No mammographic features suspicious for malignancy are identified. ACR BI-RADS Category 1: Negative. Result letter will be mailed to the patient. Note: At least 10% of breast cancer is not imaged by mammography. Dictated by: Dictated on workstation # [id number]
== END ==
LOC: RAD 11:30
PROVIDERS: ATTEND Family Medicine
DX: Z12.31 Encounter for screening mammogram for malignant neoplasm of breast (principal)
CPT/HCPCS: 77063; 77067